=== PATIENT | female | born 1940 | race Caucasian/White ===

== ENCOUNTER → 2024-02-24 09:03 | Outpatient (REF) | payer MEDICARE, OTHER, SELFPAY ==
[2024-02-24 10:18] LABS: % Basophils 1.3 % (0-2); % Eosinophils 4.5 % (0-6); % Immature Granulocytes 0.3 % (0-0.5); % Monocytes 9.3 % (1.7-9.3); % Neutrophils 54.6 % (42.2-75.2); Absolute Basophils 0.1 10^3/uL (0-0.2); Absolute Eosinophils 0.3 10^3/uL (0-0.7); Absolute Lymphocytes 1.9 10^3/uL (1.2-3.4); Absolute Monocytes 0.6 10^3/uL (0.1-0.6); Absolute Neutrophils 3.4 10^3/uL (1.4-6.5); Hematocrit 36.9 % (37.0-47.0); Hemoglobin 12.8 g/dL (12.0-16.0); Mean Corp Hgb Conc. 34.7 g/dL (33.0-37.0); Mean Corpuscular Hgb 32.2 pg (27.0-31.0); Mean Corpuscular Volume 92.7 fL (81.0-99.0); Mean Platelet Volume 9.1 fL (7.4-10.4); Nucleated Red Blood Cells % 0 %; Platelet Count 327 10^3/uL (130-400); Red Blood Cell Count 3.98 10^6/uL (4.20-5.40); Red Cell Dist. Width 13.2 % (11.5-14.5); White Blood Cell Count 6.3 10^3/uL (4.8-10.8)
[2024-02-24 11:04] LABS: ALT (SGPT) 17 U/L (0-35); AST (SGOT) 28 U/L (14-36); Albumin 4.4 g/dl (3.5-5.0); Alkaline Phosphatase 69 U/L (38-126); Blood Urea Nitrogen 16 mg/dl (7-17); Calcium 9.4 mg/dl (8.4-10.2); Carbon Dioxide 26 mmol/L (22-30); Chloride 103 mmol/L (98-107); Glucose 88 mg/dl (70-99); HDL Cholesterol 79 mg/dl; LDL Cholesterol, Calculated 135 mg/dl; Potassium 4.8 mmol/L (3.5-5.1); Sodium 136 mmol/L (135-145); Total Bilirubin 0.5 mg/dl (0.2-1.3); Total Cholesterol 232 mg/dl (50-199); Total Protein 6.7 g/dl (6.3-8.2); Triglyceride 94 mg/dl (10-149); Very Low Density Lipoprotein 18 mg/dl (0-30); eGFR > 60.00
[2024-02-24 11:28] LABS: TSH 1.48 uIU/ml (0.47-4.68)
== END ==
LOC: REG 09:03
PROVIDERS: ATTENDING PHYSICIAN Family Medicine; REFERRING PHYSICIAN Internal Medicine Endocrinology, Diabetes & Metabolism
DX: I25.10 Atherosclerotic heart disease of native coronary artery without angina pectoris (principal); E03.9 Hypothyroidism, unspecified; I10 Essential (primary) hypertension
CPT/HCPCS: 36415; 80053; 80061; 84443; 85025

== ENCOUNTER → 2024-06-15 09:57 | Outpatient (REF) | payer MEDICARE, OTHER, SELFPAY ==
[2024-06-15 11:07] LABS: ALT (SGPT) 21 U/L (0-35); AST (SGOT) 25 U/L (14-36); Albumin 4.6 g/dl (3.5-5.0); Alkaline Phosphatase 62 U/L (38-126); Blood Urea Nitrogen 15 mg/dl (7-17); Calcium 9.6 mg/dl (8.4-10.2); Carbon Dioxide 22 mmol/L (22-30); Chloride 100 mmol/L (98-107); Glucose 98 mg/dl (70-99); Potassium 4.9 mmol/L (3.5-5.1); Sodium 136 mmol/L (135-145); Total Bilirubin 0.3 mg/dl (0.2-1.3); eGFR > 60.00
[2024-06-15 11:19] LABS: Vitamin D, 25-OH*** 59.5 ng/mL (30-80)
== END ==
LOC: REG 09:57
PROVIDERS: ATTENDING PHYSICIAN Internal Medicine Endocrinology, Diabetes & Metabolism; FAMILY PHYSICIAN Family Medicine
DX: E03.9 Hypothyroidism, unspecified (principal); E55.9 Vitamin D deficiency, unspecified
CPT/HCPCS: 36415; 80053; 82306; 84443

== ENCOUNTER → 2024-07-03 09:11 | Outpatient (REF) | payer MEDICARE, OTHER, SELFPAY ==
[2024-07-03 10:20] LABS: % Basophils 1.4 % (0-2); % Immature Granulocytes 0.6 % (0-0.5); % Lymphocytes 27.5 % (20.5-51.1); % Monocytes 10.8 % (1.7-9.3); % Neutrophils 51.7 % (42.2-75.2); Absolute Basophils 0.1 10^3/uL (0-0.2); Absolute Eosinophils 0.5 10^3/uL (0-0.7); Absolute Lymphocytes 1.8 10^3/uL (1.2-3.4); Absolute Monocytes 0.7 10^3/uL (0.1-0.6); Absolute Neutrophils 3.4 10^3/uL (1.4-6.5); Hematocrit 35.7 % (37.0-47.0); Hemoglobin 12.7 g/dL (12.0-16.0); Mean Corp Hgb Conc. 35.6 g/dL (33.0-37.0); Mean Corpuscular Volume 92.7 fL (81.0-99.0); Mean Platelet Volume 8.6 fL (7.4-10.4); Nucleated Red Blood Cells % 0 %; Platelet Count 355 10^3/uL (130-400); Red Blood Cell Count 3.85 10^6/uL (4.20-5.40); White Blood Cell Count 6.5 10^3/uL (4.8-10.8)
[2024-07-03 11:09] LABS: Iron 105 ug/dl (37-170)
[2024-07-03 11:36] LABS: TSH 7.04 uIU/ml (0.47-4.68)
[2024-07-03 11:41] LABS: Ferritin 35.5 ng/ml (11.1-264.0)
[2024-07-03 12:11] LABS: Folate 14.1 ng/ml (2.76-20); Vitamin B12 490 pg/ml (239-931)
== END ==
LOC: REG 09:11
PROVIDERS: ATTENDING PHYSICIAN Internal Medicine Endocrinology, Diabetes & Metabolism; FAMILY PHYSICIAN Family Medicine
DX: R53.83 Other fatigue (principal); G62.9 Polyneuropathy, unspecified; D51.9 Vitamin B12 deficiency anemia, unspecified; Z79.899 Other long term (current) drug therapy
CPT/HCPCS: 36415; 82607; 82728; 82746; 83540; 84443; 85025; 86780

== ENCOUNTER → 2024-07-10 12:53 | Outpatient (REF) | payer MEDICARE, OTHER, SELFPAY | LOC: EMG 12:53 | PROVIDERS: ATTENDING PHYSICIAN Family Medicine | DX: G62.9 Polyneuropathy, unspecified (principal); R20.0 Anesthesia of skin | CPT/HCPCS: 95886; 95911 ==

== ENCOUNTER → 2024-09-21 08:44 | Outpatient (REF) | payer MEDICARE, OTHER, SELFPAY ==
[2024-09-21 12:21] LABS: TSH < 0.02 uIU/ml (0.47-4.68)
== END ==
LOC: REG 08:44
PROVIDERS: ATTENDING PHYSICIAN Internal Medicine Endocrinology, Diabetes & Metabolism
DX: E03.9 Hypothyroidism, unspecified (principal)
CPT/HCPCS: 36415; 84443

== ENCOUNTER → 2024-10-09 09:17 | Outpatient (REF) | payer MEDICARE, OTHER, SELFPAY ==
[2024-10-09 12:23] LABS: Glycohemoglobin (HgbA1c) 5.1 % (4.0-5.6)
== END ==
LOC: REG 09:17
PROVIDERS: ATTENDING PHYSICIAN Psychiatry & Neurology Neurology; REFERRING PHYSICIAN Family Medicine
DX: G60.9 Hereditary and idiopathic neuropathy, unspecified (principal); E13.11 Other specified diabetes mellitus with ketoacidosis with coma
CPT/HCPCS: 36415; 83036; 84155; 84165

== ENCOUNTER → 2024-12-15 09:52 | Outpatient (REF) | payer MEDICARE, OTHER, SELFPAY ==
[2024-12-15 11:22] LABS: Free T4 1.41 ng/dl (0.78-2.19)
[2024-12-15 11:36] LABS: TSH < 0.02 uIU/ml (0.47-4.68)
== END ==
LOC: REG 09:52
PROVIDERS: ATTENDING PHYSICIAN Internal Medicine Endocrinology, Diabetes & Metabolism; FAMILY PHYSICIAN Family Medicine
DX: E03.9 Hypothyroidism, unspecified (principal)
CPT/HCPCS: 36415; 84439; 84443

== ENCOUNTER → 2025-03-15 09:29 | Outpatient (REF) | payer MEDICARE, OTHER, SELFPAY ==
[2025-03-15 10:47] LABS: Hematocrit 35.5 % (37.0-47.0); Hemoglobin 12.0 g/dL (12.0-16.0); Mean Corp Hgb Conc. 33.8 g/dL (33.0-37.0); Mean Corpuscular Volume 92.9 fL (81.0-99.0); Nucleated Red Blood Cells % 0 %; Platelet Count 342 10^3/uL (130-400); Red Cell Dist. Width 13.1 % (11.5-14.5)
[2025-03-15 11:47] LABS: ALT (SGPT) 17 U/L (0-35); AST (SGOT) 19 U/L (14-36); Albumin 4.2 g/dl (3.5-5.0); Alkaline Phosphatase 64 U/L (38-126); Blood Urea Nitrogen 15 mg/dl (7-17); Calcium 9.5 mg/dl (8.4-10.2); Carbon Dioxide 25 mmol/L (22-30); Chloride 106 mmol/L (98-107); Glucose 86 mg/dl (70-99); Potassium 4.7 mmol/L (3.5-5.1); Sodium 136 mmol/L (135-145); Total Protein 6.5 g/dl (6.3-8.2); eGFR > 60.00
[2025-03-15 12:12] LABS: TSH 1.26 uIU/ml (0.47-4.68)
== END ==
LOC: REG 09:29
PROVIDERS: ATTENDING PHYSICIAN Internal Medicine Endocrinology, Diabetes & Metabolism; FAMILY PHYSICIAN Family Medicine
DX: I25.10 Atherosclerotic heart disease of native coronary artery without angina pectoris (principal); K58.2 Mixed irritable bowel syndrome; K21.9 Gastro-esophageal reflux disease without esophagitis; M81.0 Age-related osteoporosis without current pathological fracture; E03.9 Hypothyroidism, unspecified; E78.5 Hyperlipidemia, unspecified
CPT/HCPCS: 36415; 80053; 84443; 85025

== ENCOUNTER → 2025-06-14 09:12 | Outpatient (REF) | payer MEDICARE, OTHER, SELFPAY ==
[2025-06-14 10:52] LABS: TSH 1.19 uIU/ml (0.47-4.68)
== END ==
LOC: REG 09:12
PROVIDERS: ATTENDING PHYSICIAN Internal Medicine Endocrinology, Diabetes & Metabolism; FAMILY PHYSICIAN Family Medicine
DX: E03.9 Hypothyroidism, unspecified (principal)
CPT/HCPCS: 36415; 84443

== ENCOUNTER 2025-08-02 21:51 | Inpatient (IN) | payer MEDICARE, OTHER, SELFPAY ==
[2025-08-02] VITALS (18 sets, daily range): BP systolic 84–132; BP diastolic 21–92; BMI 32.9
--- NOTE | 2025-08-02 17:10 | ED.GENMED ---
History of Present Illness
<Manda Moran NP - Last Filed: 08/02/25 22:34>
General
Chief Complaint: Weakness
Source: patient
Exam Limitations: none
Time Seen by Provider: 08/02/25 16:30
Nursing documentation reviewed up to this point in time: agreed with
History of Present Illness
History of Present Illness:
Patient to emergency department with complaint of extreme weakness, shaking chills, diarrhea. She states that shaking chills started on but resolved on Saturday. This weekend she developed diarrhea. Since then her weakness and diarrhea
have worsened. Today she was unable to stand on her own. She was brought to the emergency department by her family for evaluation. She complains of diffuse abdominal pain. No prior history of same.
Past History
<Manda Moran NP - Last Filed: 08/02/25 22:34>
Past History
ED Past Medical History: CAD and Other
ED Past Surgical History: Other (Rectal prolapse repair)
Social History
Tobacco: Non-smoker
Alcohol: None
Drug: None
Personal:
Living: with family
Employment: Retired
Family History
Family History: Other (Noncontributory)
Review of Systems
<Manda Moran NP - Last Filed: 08/02/25 22:34>
Review of Systems
Allergies reviewed?: Yes
All Other Systems: ROS reviewed and negative except as documented in HPI and ROS
Constitutional: Reports fatigue and chills
EENT: Reports no symptoms
Respiratory: Reports no symptoms
Cardiac: Reports no symptoms
ABD/GI: Reports abdominal pain (Diffuse) and diarrhea
: Reports no symptoms
Musculoskeletal: Reports no symptoms
Skin: Reports no symptoms
Neurological: Reports weakness
Psychiatric: Reports no symptoms
Phy Exam
<Manda Moran NP - Last Filed: 08/02/25 22:34>
General Physical Exam
General Presentation: moderate distress
General age: appears stated age
General Skin: warm and dry
General Habitus: normal
General Mental: alert
Cardiovascular Exam
Cardiovascular Exam: regular rate/rhythm and no edema
Pulmonary Exam
Pulmonary Exam: lungs clear and no respiratory distress
Gastrointestinal Exam
Gastrointestinal Exam: normal bowel sounds, soft, no organomegaly, no pulsatile mass and non distended
Musculoskeletal Exam
Musculoskeletal Exam: full ROM and neuro vasc intact
Skin Exam
Skin Exam: normal color, warm/dry and no rash
Psychiatric Exam
Psychiatric Exam: normal mood/affect
Course
<Manda Moran POLITICAL SCIENCE RESEARCH ASSISTANT - Last Filed: 08/02/25 22:34>
Orders/Labs/Results
Orders:
Orders
08/02/25 16:18
Electrocardiogram (*1) Urgent
Reason for Study: Other
Other Reason for Exam: Possible Sepsis
Cardiac Monitoring- Treatment ONCE
IV Insert/Care/Rem.- Treatment PRN
08/02/25 16:19
EKG- Treatment ONCE
08/02/25 16:31
Complete Blood Count/With Diff Urgent
Comprehensive Metabolic Panel Urgent
08/02/25 17:33
COVID-19 Antigen Urgent
Source: Nasal Swab
Influenza A+B Rapid Molecular Urgent
FRITZ Source: Nasal Swab
Specimen Description:
08/02/25 18:07
CT Abd/pel Without Iv Or Oral Urgent
Comment:
Reason For Exam: pain, diarrhea
08/02/25 18:20
Lactic Acid Urgent
Blood Culture Urgent
FRITZ Source: Blood/Venous
Specimen Description:
08/02/25 18:21
Norovirus by PCR Urgent
FRITZ Source: ST
Specimen Description:
Date Specimen was Collected: 08/02/25
Time Specimen was Collected: 18:19
Comment: Norovirus add on per Bret Fernandez, DO
STOOL [C difficile Antigen & Toxins] Urgent
FRITZ Source: Feces/Stool
Specimen Description:
Date Specimen was Collected: 08/02/25
Time Specimen was Collected: 18:19
Stool Culture Urgent
FRITZ Source: Feces/Stool
Specimen Description:
Date Specimen was Collected: 08/02/25
Time Specimen was Collected: 18:19
08/02/25 19:08
Add On - Microbiology Urgent
Comments:: Noro Virus Stool
Tests Added?: Noro Virus Stool
08/02/25 19:26
Vancomycin HCl [Firvanq] 500 mg PO NOW STA
08/02/25 19:51
Vancomycin HCl [Firvanq] 500 mg PO NOW STA
08/02/25 20:55
Admit/Transfer Patient As Directed
Co-Sign Provider:
Level of Care: Inpatient admission
Assign to:: Telemetry
Physician / Group: Noe Crooks
Diagnosis: sepsis, c.diff, FAVIAN, hyperkalemia, hyponatremia,
Reason for Telemetry: Arrhythmia
Date to Stop Telemetry: 08/05/25
Time to Stop Telemetry: 11:00
Reason for Hospitalization: sepsis, c.diff, FAVIAN, hyperkalemia, hyponatremia,
Expected length of stay greater than two midnights?: Yes
ELOS- Estimated Length of Stay in days: 3
I certify the patient meets the requirements for IP care: Yes
PRN Pain Medication Management As Directed
May give lesser potent ordered pain med per pt: Yes
preference::
Protocol:: Medication orders for pain may be administered in a
manner that supports deferring to patient preference
when the pt is:
- Requesting an ordered lesser potent pain medication.
Least to most potent pain medications are defined
as: acetaminophen < NSAID < tramadol < opioids
(morphine, oxycodone, hydromorphone).
- Requesting a lesser dose of the same medication IF
ORDERED.
- Requesting a less intrusive route of administration
if both routes are prescribed by the provider (PO <
IV).
08/02/25 20:57
Code Status As Directed
Resuscitation Status: Full Code
08/02/25 21:41
0.9% Sodium Chloride 1000 ml [Nss] 1,000 ml IV 100 mls/hr
08/02/25 22:00
BMP [Basic Metabolic Panel] Urgent
08/02/25 22:02
Acetaminophen [Tylenol] 650 mg PO Q4HPRN PRN
Ondansetron Injectable [Zofran] 4 mg IV Q6HPRN PRN
08/02/25 22:02
Activity As Directed
Activity Level: As Tolerated
Vital Signs As Directed
Frequency: Per unit guidelines
Weight As Directed
Frequency: Once
Comment: on admission
Pulse Ox/spot Check [RESP] Routine
Quantity: 1
DX Deep Vein Thrombosis Video Routine
08/02/25 22:20
Lactic Acid Routine
08/02/25 23:00
Gabapentin [Neurontin] 400 mg PO HS
Latanoprost [Xalatan Ophthalmic Solution] See Dose Instructions BOTH EYES HS
08/03/25 00:00
Heparin 5,000 units SC Q8
MetroNIDAZOLE 500 MG/100 ML [Flagyl 500 mg] 100 ml IV Q8H
08/03/25 Breakfast
Regular
At Your Request: Full Participation
Basic Metabolic Panel IN AM
Complete Blood Count/No Diff IN AM
Levothyroxine [Synthroid] 88 mcg PO DAILY @ 0600
Vancomycin HCl [Firvanq] 500 mg PO Q6
08/03/25 08:00
Aspirin Low Dose EC [Aspir Low (Enteric Coated)] 81 mg PO DAILY
Pantoprazole [Protonix] 40 mg PO DAILY
Valsartan [Diovan] 80 mg PO DAILY
08/05/25 11:00
DC Protocol for Telemetry ONCE
Abnormal Lab Results
08/02/25 08/02/25
16:31 18:20
WBC 29.5 H 10^3/uL
(4.8-10.8)
Abs Immat Gran (auto) 1.9 H 10^3/uL
(0-0.05)
Absolute Neuts (auto) 24.6 H 10^3/uL
(1.4-6.5)
Absolute Lymphs (auto) 0.9 L 10^3/uL
(1.2-3.4)
Absolute Monos (auto) 2.2 H 10^3/uL
(0.1-0.6)
Immature Gran % 6.3 H %
(0-0.5)
Neutrophils % 83.2 H %
(42.2-75.2)
Lymphocytes % 2.9 L %
(20.5-51.1)
Sodium 119 L* mmol/L
(135-145)
Potassium 5.8 H mmol/L
(3.5-5.1)
Chloride 92 L mmol/L
(98-107)
Carbon Dioxide 15 L mmol/L
(22-30)
BUN 49 H mg/dl
(7-17)
Creatinine 1.8 H mg/dL
(0.6-1.0)
Lactic Acid 3.5 H mmol/L
(0.7-2.0)
AST 155 H U/L
(14-36)
ALT 52 H U/L
(0-35)
Total Protein 5.7 L g/dl
(6.3-8.2)
Albumin 3.1 L g/dl
(3.5-5.0)
08/02/25 16:31
08/02/25 16:31
Vital Signs
Initial and Last Documented VS:
Initial Vital Signs
Pulse Resp BP Pulse Ox
61 18 118/46 94
08/02/25 16:47 08/02/25 16:47 08/02/25 16:47 08/02/25 16:47
Last Documented Vital Signs
Pulse Resp BP Pulse Ox
49 13 88/56 96
08/02/25 21:45 08/02/25 21:45 08/02/25 21:37 08/02/25 21:37
<Bret Fernandez, DO - Last Filed: 08/02/25 20:01>
Orders/Labs/Results
Orders:
Orders
08/02/25 16:18
Electrocardiogram (*1) Urgent
Reason for Study: Other
Other Reason for Exam: Possible Sepsis
Cardiac Monitoring- Treatment ONCE
IV Insert/Care/Rem.- Treatment PRN
08/02/25 16:19
EKG- Treatment ONCE
08/02/25 16:31
Complete Blood Count/With Diff Urgent
Comprehensive Metabolic Panel Urgent
08/02/25 17:33
COVID-19 Antigen Urgent
Source: Nasal Swab
Influenza A+B Rapid Molecular Urgent
FRITZ Source: Nasal Swab
Specimen Description:
08/02/25 18:07
CT Abd/pel Without Iv Or Oral Urgent
Comment:
Reason For Exam: pain, diarrhea
08/02/25 18:20
Lactic Acid Urgent
Blood Culture Urgent
FRITZ Source: Blood/Venous
Specimen Description:
08/02/25 18:21
Norovirus by PCR Urgent
FRITZ Source: ST
Specimen Description:
Date Specimen was Collected: 08/02/25
Time Specimen was Collected: 18:19
Comment: Norovirus add on per Bret Fernandez, DO
STOOL [C difficile Antigen & Toxins] Urgent
FRITZ Source: Feces/Stool
Specimen Description:
Date Specimen was Collected: 08/02/25
Time Specimen was Collected: 18:19
Stool Culture Urgent
FRITZ Source: Feces/Stool
Specimen Description:
Date Specimen was Collected: 08/02/25
Time Specimen was Collected: 18:19
08/02/25 19:08
Add On - Microbiology Urgent
Comments:: Noro Virus Stool
Tests Added?: Noro Virus Stool
08/02/25 19:26
Vancomycin HCl [Firvanq] 500 mg PO NOW STA
08/02/25 19:51
Vancomycin HCl [Firvanq] 500 mg PO NOW STA
08/02/25 20:55
Admit/Transfer Patient As Directed
Co-Sign Provider:
Level of Care: Inpatient admission
Assign to:: Telemetry
Physician / Group: Noe Crooks
Diagnosis: sepsis, c.diff, FAVIAN, hyperkalemia, hyponatremia,
Reason for Telemetry: Arrhythmia
Date to Stop Telemetry: 08/05/25
Time to Stop Telemetry: 11:00
Reason for Hospitalization: sepsis, c.diff, FAVIAN, hyperkalemia, hyponatremia,
Expected length of stay greater than two midnights?: Yes
ELOS- Estimated Length of Stay in days: 3
I certify the patient meets the requirements for IP care: Yes
PRN Pain Medication Management As Directed
May give lesser potent ordered pain med per pt: Yes
preference::
Protocol:: Medication orders for pain may be administered in a
manner that supports deferring to patient preference
when the pt is:
- Requesting an ordered lesser potent pain medication.
Least to most potent pain medications are defined
as: acetaminophen < NSAID < tramadol < opioids
(morphine, oxycodone, hydromorphone).
- Requesting a lesser dose of the same medication IF
ORDERED.
- Requesting a less intrusive route of administration
if both routes are prescribed by the provider (PO <
IV).
08/02/25 20:57
Code Status As Directed
Resuscitation Status: Full Code
08/02/25 21:41
0.9% Sodium Chloride 1000 ml [Nss] 1,000 ml IV 100 mls/hr
08/02/25 22:00
BMP [Basic Metabolic Panel] Urgent
08/02/25 22:02
Acetaminophen [Tylenol] 650 mg PO Q4HPRN PRN
Ondansetron Injectable [Zofran] 4 mg IV Q6HPRN PRN
08/02/25 22:02
Activity As Directed
Activity Level: As Tolerated
Vital Signs As Directed
Frequency: Per unit guidelines
Weight As Directed
Frequency: Once
Comment: on admission
Pulse Ox/spot Check [RESP] Routine
Quantity: 1
DX Deep Vein Thrombosis Video Routine
08/02/25 22:20
Lactic Acid Routine
08/02/25 23:00
Gabapentin [Neurontin] 400 mg PO HS
Latanoprost [Xalatan Ophthalmic Solution] See Dose Instructions BOTH EYES HS
08/03/25 00:00
Heparin 5,000 units SC Q8
MetroNIDAZOLE 500 MG/100 ML [Flagyl 500 mg] 100 ml IV Q8H
08/03/25 Breakfast
Regular
At Your Request: Full Participation
Basic Metabolic Panel IN AM
Complete Blood Count/No Diff IN AM
Levothyroxine [Synthroid] 88 mcg PO DAILY @ 0600
Vancomycin HCl [Firvanq] 500 mg PO Q6
08/03/25 08:00
Aspirin Low Dose EC [Aspir Low (Enteric Coated)] 81 mg PO DAILY
Pantoprazole [Protonix] 40 mg PO DAILY
Valsartan [Diovan] 80 mg PO DAILY
08/05/25 11:00
DC Protocol for Telemetry ONCE
Abnormal Lab Results
08/02/25 08/02/25
16:31 18:20
WBC 29.5 H 10^3/uL
(4.8-10.8)
Abs Immat Gran (auto) 1.9 H 10^3/uL
(0-0.05)
Absolute Neuts (auto) 24.6 H 10^3/uL
(1.4-6.5)
Absolute Lymphs (auto) 0.9 L 10^3/uL
(1.2-3.4)
Absolute Monos (auto) 2.2 H 10^3/uL
(0.1-0.6)
Immature Gran % 6.3 H %
(0-0.5)
Neutrophils % 83.2 H %
(42.2-75.2)
Lymphocytes % 2.9 L %
(20.5-51.1)
Sodium 119 L* mmol/L
(135-145)
Potassium 5.8 H mmol/L
(3.5-5.1)
Chloride 92 L mmol/L
(98-107)
Carbon Dioxide 15 L mmol/L
(22-30)
BUN 49 H mg/dl
(7-17)
Creatinine 1.8 H mg/dL
(0.6-1.0)
Lactic Acid 3.5 H mmol/L
(0.7-2.0)
AST 155 H U/L
(14-36)
ALT 52 H U/L
(0-35)
Total Protein 5.7 L g/dl
(6.3-8.2)
Albumin 3.1 L g/dl
(3.5-5.0)
08/02/25 16:31
08/02/25 16:31
Vital Signs
Initial and Last Documented VS:
Initial Vital Signs
Pulse Resp BP Pulse Ox
61 18 118/46 94
08/02/25 16:47 08/02/25 16:47 08/02/25 16:47 08/02/25 16:47
Last Documented Vital Signs
Pulse Resp BP Pulse Ox
49 13 88/56 96
08/02/25 21:45 08/02/25 21:45 08/02/25 21:37 08/02/25 21:37
<Manda Moran NP - Last Filed: 08/02/25 22:34>
*Radiology
Radiology exam reviewed: radiology read reviewed
*Pulse Oximetry
SaO2: 94
Oxygen Mode of Delivery: Room air
Patient hypoxic: no
*Critical Care Note
Total Time (30-74mins, 75-104mins- exclusive of procedures): Not Applicable
<Manda Moran NP - Last Filed: 08/02/25 22:34>
Update Note
Update Note:
Patient to emergency department for evaluation of fever, chills, and diarrhea. Symptoms started on and have continued to worsen. Today she was unable to stand or transfer without maximum assistance from her family. She is brought to the
emergency department via EMS for her symptoms. On arrival to ED she is hypotensive. Labs reviewed. WBC 29.5, lactic is pending. Sodium of 119, potassium 5.8, BUN 49 creat 1.8. Mucous membranes extremely dry. She was given a total of 3 L normal
saline while in the ED for her extreme dehydration. Stools were sent for culture, C. difficile, and norovirus. C. difficile and norovirus are positive. She was given a dose of vancomycin 500 mg p.o. and will be admitted to the hospital service.
Case discussed with Dr. Fernandez who also evaluated this patient. He agrees with findings and plan.
ED Attending Note
<Manda Moran NP - Last Filed: 08/02/25 22:34>
-
Portions of this chart may have been created with voice recognition software.� Occasional wrong word or��sound alike� substitutions may have occurred due to the inherent limitations of voice recognition software.
<Bret Fernandez, - Last Filed: 08/02/25 20:01>
ED Attending Note
Patient seen and examined by attending physician: Yes
I performed a history and physical exam of patient and discussed management with resident, I reviewed resident's note and agree with documented findings and plan of care.: Yes
ED Attending Note:
I have reviewed and agree with history treatment plan by Manda Moran NP. My exam revealed
Physical Exam
General: no apparent distress, not acutely ill
Neck: supple. no meningeal signs. normal posterior pharynx
Heart: s1/s2 regular rate and rhythm, no murmur. equal radial
pulses.
HEENT: Pupils equal round reactive to light, EOMI
Lungs: no acute respiratory distress. clear bilaterally
Abdomen: normal bowel sounds. not tender. no CVAT, active diarrhea in room
Neuro: alert and oriented. no focal neurological deficits cranial nerves II through XII intact
Skin: no rash
Psychiatric: well kept. interactive and cooperative
Extremities: no edema. no calf tenderness. negative homans. good distal pulses
82-year-old female with C. difficile, norovirus and acute renal failure and hyperkalemia. Admit to hospitalist. IV fluids given. P.o. vancomycin given.
Discharge Plan
Departure
Patient Disposition: Admit
Date of Disposition: 08/02/25
Time of Disposition: 19:31
Presentation/result/management discussed w/ accepting MD/DO: Hospitalist
Patient with high blood pressure during this ER visit?: No
Condition: Fair
Covid-19: Not Applicable
Discharge Problem:
Hyponatremia, C. difficile diarrhea, Norovirus, Acute dehydration, Hypokalemia
Interventions
Interventions:
*General Assessment Last Done: 08/02/25 16:16
*Neglect/Abuse Screening Last Done: 08/02/25 16:16
*ED COVID-19 Vaccine History Last Done: 08/02/25 21:26
*ED Influenza Vaccine History Last Done: 08/02/25 21:[address]
[facility] Fall Risk Assessment Tool Last Done: 08/02/25 16:14
*Risk Screen - Suicide (C-SSRS) Last Done: 08/02/25 16:16
*Nursing Disposition Last Done: 08/02/25 21:56
ED- Cardiac Assessment Last Done: 08/02/25 21:20
ED- Neurological Assessment Last Done: 08/02/25 21:20
ED- Pulmonary Assessment Last Done: 08/02/25 21:20
Discharge Date and Time
Discharge Date/Time: 08/02/25 21:56
[2025-08-02 17:11] LABS: ALT (SGPT) 52 U/L (0-35); AST (SGOT) 155 U/L (14-36); Albumin 3.1 g/dl (3.5-5.0); Alkaline Phosphatase 114 U/L (38-126); Blood Urea Nitrogen 49 mg/dl (7-17); Calcium 8.5 mg/dl (8.4-10.2); Carbon Dioxide 15 mmol/L (22-30); Chloride 92 mmol/L (98-107); Estimated Creatinine Clearance 24 ml/min; Glucose 95 mg/dl (70-99); Potassium 5.8 mmol/L (3.5-5.1); Sodium 119 mmol/L (135-145); Total Protein 5.7 g/dl (6.3-8.2); eGFR 27.78
[2025-08-02 17:13] LABS: Hematocrit 37.4 % (37.0-47.0); Hemoglobin 12.8 g/dL (12.0-16.0); Mean Corp Hgb Conc. 34.2 g/dL (33.0-37.0); Mean Corpuscular Volume 82.7 fL (81.0-99.0); Platelet Count 352 10^3/uL (130-400); Red Cell Dist. Width 13.6 % (11.5-14.5)
[2025-08-02 17:21] LABS: Nucleated Red Blood Cells % 0 %
[2025-08-02 18:45] LABS: COVID-19 Antigen Negative (Negative)
--- NOTE | 2025-08-02 19:52 | HPS.HSE ---
Family Physician
-
Family Physician: Savana Samuel
Chief Complaint
-
generalized weakness, fever, chills, nausea and diarrhea
History of Present Illness
Patient is a 84-year-old male with past medical history significant for hypertension, hyperlipidemia, CAD, hypothyroidism, GERD and polyneuropathy who presented to [facility] ED for evaluation of generalized weakness, fever, chills, nausea and diarrhea.
Patient states that fever and chills started Saturday and has since resolved. On Saturday she reports diarrhea started and has continued with increased weakness. Weakness becoming so severe today she was unable to stand without assistance. Patient
does endorse abdominal tenderness on exam. Denies cough, shortness of breath, chest pain, vomiting or urinary symptoms.
Medical History
Past Medical History
Past Medical History: Reports Other
Additional Past Medical History:
hypertension
hyperlipidemia - Pt is intolerant of statins. Dr. Houser has recommended Repatha or Praluent but she refuses.
CAD
hypothyroidism
GERD
polyneuropathy
ischemic cardiomyopathy
Hx myocardial infarction
Past Surgical History: Reports Other
Additional Past Surgical History:
foot surgery - closed reduction L foot() 05/12/2013
Robotic TLH/BSO sacral colpopexy, TVT()- cystocele repair- 2008
eye surg (multiple) left eye 06/23/2015
Cataract extraction() bilateral-caused partial loss of vision left eye 07/02/2014
cardiac cath and angioplasty
Knee replacement L 09/2019
Rectal Prolapse 01/06/2021
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
Social History
Tobacco: Non-smoker
Alcohol: Occasional
Drug: None
Personal:
Living: With Family
Family History
Family History: Not pertinent
Allergies / Home Medications
Allergies reflects when Allergies were last updated in [employer] [facility].
Home Medications with original date entered in [employer] [facility]
Allergy/Medication List:
Allergies
Allergy/AdvReac Type Severity Reaction Status Date / Time
erythromycin base Allergy GI Issues Verified 06/10/21 12:23
Penicillins Allergy Unknown Verified 08/02/25 16:32
Uaxmwlq-XFH-RwK Reductase Allergy Unknown Verified 06/10/21 12:23
Inhibitor (Xqwtpta-Kdf-Kpm
Reductase Inhibitor)
ANESTHESIA AdvReac Unknown Uncoded 06/10/21 12:23
Home Medications
turmeric root extract 500 mg capsule 500 mg PO DAILY Supplement ##0 09/07/19
acetaminophen 500 mg tablet 1,000 mg PO TIDPRN PRN mild pain 01/04/21
aspirin 81 mg tablet,delayed release 81 mg PO DAILY Blood clot prevention/tx 01/04/21
docosahexaenoic acid (dha)-epa 120 mg-180 mg capsule (Fish Oil) 1 cap PO BID Supplement 01/04/21
esomeprazole magnesium 40 mg capsule,delayed release (Nexium) 40 mg PO DAILY Gastrointestinal issue 01/04/21
gabapentin 100 mg capsule 400 mg PO HS Neurological Condition 06/10/21
multivitamin with folic acid 400 mcg tablet (Tab-A-Chase) 1 tab PO DAILY supplement 06/10/21
valsartan 80 mg tablet 80 mg PO DAILY Blood pressure 06/11/21
enid root extract 15 mg chewable tablet 50 mg PO DAILY Supplement 08/02/25
latanoprost (PF) 0.005 % eye drops in a dropperette (Iyuzeh (PF)) 1 drp BOTH EYES HS Eye Condition 08/02/25
levothyroxine 88 mcg tablet (Synthroid) 88 mcg PO DAILY Thyroid 08/02/25
lysine 500 mg tablet 500 mg PO DAILY Supplement 08/02/25
Review of Systems
-
History Source: Patient
Constitutional: Reports Fever, Fatigue and Chills
EENT: Denies Sore Throat
Respiratory: Denies Cough, Hemoptysis or Trouble Breathing
Cardiac: Denies Chest Pain, Diaphoresis, Palpitations or Syncope
Abdomen/GI: Reports Abdominal Pain, Nausea and Diarrhea; Denies Vomiting
: Denies Dysuria, Frequency or Urgency
Musculoskeletal: Denies Joint Pain
Skin: Denies Rash
Neurological: Reports Weakness; Denies Dizzy, Headache or Numbness
Physical Exam
Vital Signs
Vital Signs
Pulse Resp BP Pulse Ox
80 13 132/44 74
08/02/25 19:30 08/02/25 19:30 08/02/25 19:00 08/02/25 17:45
Physical Exam
General: Well Developed, Well Nourished, No Apparent Distress, Conversant and Obese
HEENT: NormoCephalic, PERRLA, Nose Appears Normal and Ears Appear Normal
Respiratory: Clear and Non Labored Respirations; No Wheezes, Rales or Rhonchi
Cardiac: S1/S2 and Regular Rhythm; No Murmur, Rub, Gallop or Peripheral Edema
GI: Soft, Non Distended, Normal Bowel Sounds and Tender
Musculoskeletal: No Clubbing and No Cyanosis
Skin: Warm and IV/Catheter Site; No Rash
Neuro: Awake and Alert
Psych: Calm
Laboratory Results
-
08/02/25 16:31
08/02/25 16:31
Laboratory Results
Lactic Acid 3.5 mmol/L (0.7-2.0) H 08/02/25 18:20
Total Bilirubin 1.1 mg/dl (0.2-1.3) 08/02/25 16:31
AST 155 U/L (14-36) H 08/02/25 16:31
ALT 52 U/L (0-35) H 08/02/25 16:31
Alkaline Phosphatase 114 U/L (38-126) 08/02/25 16:31
Data Reviewed
-
Medical Tests (Nuc Med, Echo, EKG etc): Report Reviewed by me (EKG: SINUS BRADYCARDIA WITH 1ST DEGREE A-V BLOCK LEFT BUNDLE BRANCH BLOCK)
Lab Data: Labs Reviewed by me (WBC 29.5, Neut 83.2, Na 119, K 5.8, chloride 92, CO2 15, BUN 49, creat 1.8, est CrCl 24, eGFR 27.78, Lactic 3.5, AST 155, ALT 52)
Impression/Plan
-
IMPRESSION/PLAN:
#sepsis 2/2 C. Diff
generalized weakness, fever, chills, nausea and diarrhea
WBC 29.5, Neut 83.2, chloride 92, CO2 15, Lactic 3.5, AST 155, ALT 52
Covid: negative
Influenza: negative
C. Diff: Positive
Norovirus: pending
EKG: SINUS BRADYCARDIA WITH 1ST DEGREE A-V BLOCK
LEFT BUNDLE BRANCH BLOCK
- Admit to telemetry
- PO Vanco 500mg QID
- IV metronidazole 500mg q8
- IVF NSS 100cc/hr
- supportive care
#hyponatremia
Na+ 119
likely from acute volume loss with recurrent diarrhea
- IVF NSS 100cc/hr
- monitor BMP
#hyperkalemia
K+ 5.8
likely from acute volume loss with recurrent diarrhea and FAVIAN
- IVF NSS 100cc/hr
- monitor BMP
#acute kidney injury
BUN 49, creat 1.8, est CrCl 24, eGFR 27.78
likely dehydration
- IVF NSS 100cc/hr
- monitor BMP
#hypertension
- continue valsartan
#CAD
- continue aspirin
#hypothyroidism
- continue levothyroxine
#GERD
- continue esomeprazole
#Polyneuropathy
- continue gabapentin
#hyperlipidemia
Pt is intolerant of statins. Dr. Houser has recommended Repatha or Praluent but she refuses.
Code status: full code
DVY prophylaxis: heparin sq
[2025-08-02] MEDS: FIRVANQ 500 MG PO (20:40)
--- NOTE | 2025-08-02 20:55 | EDRN ---
Per change of shift nurse report, this pt received 2L NS IVF during previous shift.
[2025-08-02] MEDS: NSS 1000 IV (21:43)
--- NOTE | 2025-08-02 22:37 | W.PN.UPDATE ---
Update Note
Progress Note Update
Attending note
patient seen independently
84-year-old man with past medical history significant for
hypertension,
hyperlipidemia,
CAD,
hypothyroidism,
GERD
polyneuropathy
presents with generalized weakness, fever, chills, nausea and diarrhea. Fever and chills started Saturday and has since resolved. On Saturday diarrhea started and has continued with increased weakness. Weakness becoming severe today and she was unable
to stand without assistance. +abdominal tenderness on exam. Denies cough, shortness of breath, chest pain, vomiting or urinary symptoms.
Past Medical History
hypertension
hyperlipidemia - Pt is intolerant of statins. Dr. Houser has recommended Repatha or Praluent but she refuses.
CAD
hypothyroidism
GERD
polyneuropathy
ischemic cardiomyopathy
Hx myocardial infarction
Past Surgical History: Reports Other
Additional Past Surgical History:
foot surgery - closed reduction L foot() 05/12/2013
Robotic TLH/BSO sacral colpopexy, TVT()- cystocele repair- 2008
eye surg (multiple) left eye 06/23/2015
Cataract extraction() bilateral-caused partial loss of vision left eye 07/02/2014
cardiac cath and angioplasty
Knee replacement L 09/2019
Rectal Prolapse 01/06/2021
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
Physical Exam
General: Well Developed,
HEENT: NormoCephalic,
Respiratory: Clear
Cardiac: S1/S2
GI: Soft,
Psych: Calm
IMPRESSION/PLAN:
1. sepsis 2/2 C. Diff
Covid: negative
Influenza: negative
C. Diff: Positive
Norovirus: pending
- PO Vanco 500mg QID
- IV metronidazole 500mg q8
- IVF NSS 100cc/hr
2. hyponatremia - Na+ 119, hypovolemic hyponatremia
likely from acute volume loss with recurrent diarrhea
- IVF NSS 100cc/hr
Please see REFRIGERATION OPERATOR note for full details on:
hyperkalemia
acute kidney injury
hypertension
CAD
hypothyroidism
GERD
Polyneuropathy
hyperlipidemia
Code status: full code
DVT prophylaxis: heparin sq
[2025-08-02] MEDS: XALATAN OPHTHALMIC SOLUTION 1 DROP BOTH EYES (23:20)
[2025-08-02] MEDS: NEURONTIN 400 MG PO (23:20)
[2025-08-02] MEDS: FLAGYL 500 MG 100 IV (23:21)
[2025-08-02] MEDS: HEPARIN 5000 UNITS SC (23:21)
[2025-08-03] VITALS (18 sets, daily range): BP systolic 89–155; BP diastolic 31–57
[2025-08-03] MEDS: FIRVANQ 500 MG PO (05:49)
[2025-08-03] MEDS: SYNTHROID 88 MCG PO (05:49)
[2025-08-03] MEDS: NSS 500 IV (06:22)
--- NOTE | 2025-08-03 07:14 | W.PN.HOSP.TC ---
Addendum entered and electronically signed by Gaviota Villareal MD 08/03/25 15:21:
I saw and evaluated the patient independently. I reviewed and discussed the resident�s note and agree with findings and plan as documented by Dr. Wynn.
GENERAL: acutely ill appearing female minimally responsive
HEENT: NC/AT--O2 NC
HEART: regular rate and rhythm, +S1, +S2, bradycardia
LUNGS : clear to auscultation bilaterally
ABDOM: soft, tender diffusely without guarding or rebound, nondistended, + bowel sounds
EXT: no cyanosis, clubbing, or edema
NEUROLOGIC: minimally responsive
: st cath for 1700mls
called by RN this AM to eval if pt is appropriate for the 4th floor --- arrived to find patient as described above--agree with transfer to IMU
Sepsis with evidence of end organ damage of lactic acidosis, encephalopathy, acute kidney injury with toxigenic C. Diff as the cause --CT scan without oral or IV contrast shows severe colitis--agree with transferring pt to IMU--giving IVF and
repeating labs--worsening acidosis and favor changing IVF to include bicarb from NSS--blood pressure responsive to IVF--cont IV metronidazole--not sure pt can take oral vanco--consult ID and renal
Severe hyponatremia --likely due to hypovolemia from GI losses--119 on admission--was getting NSS IVF but now needs bicarb added--would consult renal and do Q4H BMPs --check urine and serum osmolality, serum cortisol and TSH--with low sodium and
high potassium and relative hypotension, adrenal insufficiency must be considered--random cortisol 55 essentially rules that out
Lethargy/weakness also likely compounded by hypotension and volume loss/dehydration, Hyponatremia, sepsis
Acute urinary retention--bladder distention on CT --st cath for 1700mls--order samaniego cath
Hyperkalemia likely multifactorial from hypovolemia and diarrhea, urinary retention, valsartan--medical treatment of high potassium--no dialysis
FAVIAN-- improving, likely prerenal--cont IVF and trend--slow improvement--apprec renal
Bradycardia/PVCs--follow as electrolytes are corrected--check magnesium
Essential HTN -HOLD home valsartan
HLD - 'Pt is intolerant of statins. Dr. Houser has recommended [id number] but she refuses.'
CAD - continue home aspirin as able
Hypothyroidism - continue home levothyroxine as able
GERD - change to IV PPI
Polyneuropathy - continue home gabapentin as able
DVT proph -- subq heparin
Code status-- full
Total Critical Care Time 35 minutes. I was immediately available to the patient and staff. I personally examined, reviewed labs, diagnostic images/reports, interpretations, treatment plans, discussed patient care with other providers and family
or caregivers (if patient is unable to make decisions), entered orders as appropriate and documented the medical record.
Original Note:
Today's Communication/Plan
-
- Transfer to IMU
- Renal consulted, appreciate recs
- Pending urine osm, urine na, serum osm, tsh w reflex, cortisol
- Continue vancomycin & metronidazole
- IVF
- Repeat EKG
- Place samaniego catheter
Assessment / Plan
Assessment / Plan
84yo M with a hx of essential HTN, HLD, CAD, hypothyroidism, GERD, & polyneuropathy who p/w generalized weakness, fever/chills, nausea, & diarrhea, found to have sepsis 2/2 positive c diff diarrhea with evidence of end-organ damage.
#Sepsis in s/o c diff diarrhea with end organ damage
#Lactic acidosis, improving
#AMS, weakness, lethargy
Labs on admission 08/02 - WBC 29.5, Cl 92, CO2 15, lactic acid 3.5, AST 155, ALT 52. Diarrhea since 07/31 with fever/chills resolved by time of admission. CT a/p with evidence of severe colitis. C diff stool antigen positive. Covid, flu, norovirus
negative. F/c, nausea, weakness, electrolyte abnormalities all likely 2/2 c diff & associated volume loss/sepsis. Lactic acidosis unlikely 2/2 bowel ischemia given degree of acidosis, BP responsiveness to IVF bolus, and lack of overt abd pain.
Today - lactate downtrending to 2.8; bicarb decreased 15 to 10 (likely 2/2 acidity of NSS); WBC 30.3; afebrile, normotensive s/p 500cc NSS bolus in early am; worsening mental status this am
- Transfer to IMU
- Continue PO Vanco 500mg QID
- Continue IV metronidazole 500mg q8hr
- Check urine sodium & osm, serum osm, serum cortisol, TSH w reflex
- IVF NSS 100cc/hr, consider sterile water + bicarb (pending renal recs)
- Renal consult, appreciate recs
#Severe hyponatremia
Na+ 119 on admission, likely 2/2 hypovolemic hyponatremia in s/o volume loss w ongoing diarrhea. AMS, difficult to arouse likely 2/2 severe hyponatremia. Received NSS on admission but not hypertonic. Lethargy/weakness also likely compounded by
hypotension and volume loss/dehydration. Hyponatremia may also be due to SIADH given pain/AMS or adrenal insuff given initial presentation w hypotension & hyperK.
- IVF NSS 100cc/hr
- Renal consult, appreciate recs
- Continue to trend BMP q4h r
#Acute urinary retention
Per RN, pt retaining 1700 in bladder on 08/03 at 12:30pm. CT a/p 08/02: 'Moderately distended urinary bladder. There is mild prominence of the bilateral collecting systems which is unchanged from prior.' Likely contributor to FAVIAN. Uncertain etiology
if obstruction vs. functional/muscular retention.
- Samaniego catheter
- Trend I&Os
- Renal consult, appreciate recs
#Hyperkalemia
K 5.8 on admission, likely 2/2 high-volume diarrhea. Likely 2/2 ongoing valsartan use in s/o volume loss vs. adrenal insufficiency vs. RTA.
Today - K increased 6.1 s/p NSS
- Continue to monitor
- F/u blood cortisol level
- EKG
- Continue to trend BMP q4h r
#FAVIAN, improving, likely prerenal
Cr 1.8, BUN 49, eGFR 27.78 on admission, likely prerenal in s/o volume loss 2/2 c diff diarrhea. BUN/Cr ratio 27, c/w prerenal. Potential component of obstruction, although no evidence of overt physical obstruction on CT.
Today - Cr improved 1.5 s/p fluids
- IVF NSS 100cc/hr
- Continue to monitor
#Bradycardia
#PVCs
HR 40-55 over last 24hr, ranging up to 70-80s prior. EKG on admission demonstrated sinus trung with 1st degree AV block and LBBB. RN noted PVCs on admission to IMU.
- Continue to monitor on tele
- Obtain repeat EKG
#Chronic
#Essential HTN - continue home valsartan
#HLD - 'Pt is intolerant of statins. Dr. Houser has recommended [id number] but she refuses.'
#CAD - continue home aspirin
#Hypothyroidism - continue home levothyroxine
#GERD - continue home esomeprazole
#Polyneuropathy - continue home gabapentin
#Global
- DVT ppx: subq heparin
- Code: full
- Diet: regular
- Dispo: lives at home with partner, dispo planning pending stabilization of clinical status
Anticipated Discharge: > 48 hours
Subjective/Interval History
-
Date of Service: August 03, 2025
This am:
'~� 6:15 Called to see patient for increased lethargy. Patient does wake to verbal stimuli, Vital signs: BP 88/57, HR 47, 95% on 1LNC. Accucheck 88.� Patient answers questions appropriately, OX3, no complaints of pain, headache, dizziness, or
palpitations.
Ordered NSS 500 ml/hr bolus for hypotension'
When pt seen ~8am - lethargic, able to state that she is at but unable to answer name or date. Difficult to arouse. Not opening eyes. Mumbling speech. BP increased to 129/80s s/p bolus. Planning to transfer to IMU.
Objective Data
-
Labs:
Laboratory Results
08/02/25 08/03/25 08/03/25
22:00 03:55 05:57
WBC Cancelled Cancelled
Hgb Cancelled Cancelled
Hct Cancelled Cancelled
Plt Count Cancelled Cancelled
Sodium Cancelled Cancelled Cancelled
Potassium Cancelled Cancelled Cancelled
Chloride Cancelled Cancelled Cancelled
Carbon Dioxide Cancelled Cancelled Cancelled
BUN Cancelled Cancelled Cancelled
Creatinine Cancelled Cancelled Cancelled
Glucose Cancelled Cancelled Cancelled
Calcium Cancelled Cancelled Cancelled
08/03/25 08/03/25
06:45 07:13
WBC Pending
Hgb Pending
Hct Pending
Plt Count Pending
Sodium Pending
Potassium Pending
Chloride Pending
Carbon Dioxide Pending
BUN Pending
Creatinine Pending
Glucose Pending
Calcium Pending
Vital Signs:
Vital Signs
Temp Pulse Resp BP Pulse Ox
97.5 F 46 16 89/57 95
08/03/25 03:00 08/03/25 06:15 08/03/25 06:15 08/03/25 06:15 08/03/25 06:15
Review of Systems
-
Unable to obtain full review of systems at this time due to: Acuity (patient essentially non-verbal, altered, lethargic)
History Source: Patient
All other systems: Not reviewed unless documented
Physical Exam
-
General: Well Developed, Appears in Distress and Slurred Speech
HEENT: Normocephalic and Atraumatic
Respiratory: Clear to Auscultation and Non Labored Respirations
Cardiac: Regular Rhythm
GI: Soft, Nondistended and Tender (slight tenderness to palpation in LLQ )
Musculoskeletal: No Edema
Skin: Warm and Dry
Neuro: Slurred Speech
Psych: Other (AMS)
Data Reviewed
-
Total Time Spent with Patient (in minutes): 15
Critical Care Time (in minutes): 60
CT Scan: Image personally visualized and interpreted and Report Reviewed by me
Labs: Labs Reviewed by me and Discussed with Physician
--- NOTE | 2025-08-03 07:24 | W.PN.UPDATE ---
Update Note
Progress Note Update
~� 6:15 Called to see patient for increased lethargy. Patient does wake to verbal stimuli, Vital signs: BP 88/57, HR 47, 95% on 1LNC. Accucheck 88.� Patient answers questions appropriately, OX3, no complaints of pain, headache, dizziness, or
palpiations.
Ordered NSS 500 ml/hr bolus for hypotension
[2025-08-03 07:53] LABS: Glucose - Point of Care 88 mg/dl (70-99)
--- NOTE | 2025-08-03 08:03 | PTCARENOTE ---
patient is extremely lethargic and hypotensive, barely able to speak. patient is receiving a 500 ml bolus now, from the financial secretary. still waiting her AM labs. this RN messaged Dr. Villareal with concern in regard to patient not being medically
appropriate for medsurg/tele level of care. when labs result, this RN will notify MD.
[2025-08-03] MEDS: NSS 1000 IV (09:44)
[2025-08-03] MEDS: DIOVAN PO ×2 (09:45→10:06)
[2025-08-03] MEDS: HEPARIN 5000 UNITS SC ×2 (09:46→16:37)
[2025-08-03] MEDS: FLAGYL 500 MG 100 IV ×2 (09:47→16:37)
[2025-08-03 11:54] LABS: Hematocrit 32.4 % (37.0-47.0); Hemoglobin 11.3 g/dL (12.0-16.0); Mean Corp Hgb Conc. 34.9 g/dL (33.0-37.0); Mean Corpuscular Volume 81.6 fL (81.0-99.0); Platelet Count 288 10^3/uL (130-400); Red Cell Dist. Width 13.7 % (11.5-14.5)
[2025-08-03 11:59] LABS: ALT (SGPT) 42 U/L (0-35); AST (SGOT) 65 U/L (14-36); Albumin 2.2 g/dl (3.5-5.0); Alkaline Phosphatase 118 U/L (38-126); Blood Urea Nitrogen 55 mg/dl (7-17); Calcium 6.8 mg/dl (8.4-10.2); Carbon Dioxide 10 mmol/L (22-30); Chloride 104 mmol/L (98-107); Estimated Creatinine Clearance 28 ml/min; Glucose 85 mg/dl (70-99); Potassium 6.1 mmol/L (3.5-5.1); Sodium 122 mmol/L (135-145); Total Protein 4.6 g/dl (6.3-8.2); eGFR 34.36
--- NOTE | 2025-08-03 12:00 | TRANSFER ---
Patient transferred to IMU for higher level of care. Report called to Fredis. Patient transported in her patient bed by this RN and accompanying RN Francine. JUAN. Bradycardic on the monitor. Afebrile. Still hard to arouse and disoriented. Family updated
at the bedside.
[2025-08-03 12:29] LABS: Cortisol, Random 55.8 ug/dl
--- NOTE | 2025-08-03 12:33 | W.CON.NEPH ---
Consultation
-
Date/Time Consultation Requested: 08/03/2025 11 AM
Date/Time Consultation Performed: 08/03/2025 11:00 a.m.
Requesting Provider: Dr. Wynn
Performing Provider: Dr. Morley
Reason for Consultation: FAVIAN
Medical History
-
Chief Complaint: diarrhea
History of Present Illness:
this is an 85-year-old female who has mild hypertension controlled with monotherapy regimen with valsartan. She also has coronary artery disease with stenting in the past. She did have a history of takotsubo cardiomyopathy but reportedly has
recovered completely from this. She does have hypothyroidism controlled with Synthroid therapy. About 3 days ago she began developing severe fever and chills. This then progressed to voluminous diarrhea. Her appetite decreased and she was unable
to eat or drink much at all. She then began to become bed-bound with extreme weakness. Ultimately her family brought her to the emergency room for evaluation. She has not been febrile with leukocytosis. Testing revealed C difficile diarrhea.
She was found to have acute kidney injury with a creatinine of 1.8 and hyperkalemia at 5.8 with significant metabolic acidosis with lactic acidosis. Her sodium was also low at 119. We are asked to assist with multiple issues. Since admission she
has received over 3.5 L of saline. she is critically ill and will be transferred to the IMU.
Past Medical History
hypertension
hyperlipidemia - Pt is intolerant of statins. Dr. Houser has recommended Repatha or Praluent but she refuses.
CAD
hypothyroidism
GERD
polyneuropathy
ischemic cardiomyopathy
Hx myocardial infarction
foot surgery - closed reduction L foot() 05/12/2013
Robotic TLH/BSO sacral colpopexy, TVT()- cystocele repair- 2008
eye surg (multiple) left eye 06/23/2015
Cataract extraction() bilateral-caused partial loss of vision left eye 07/02/2014
cardiac cath and angioplasty
Knee replacement L 09/2019
Rectal Prolapse 01/06/2021
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
Social History
Tobacco: Non-Smoker
Alcohol: Occasional
Family History
Family History: Not Pertinent
Allergies / Home Medications
Allergy/AdvReac Type Severity Reaction Status Date / Time
erythromycin base Allergy GI Issues Verified 06/10/21 12:23
Penicillins Allergy Unknown Verified 08/02/25 16:32
Pixxcpj-ZDK-KlG Reductase Allergy caused Verified 08/02/25 22:10
Inhibitor (Lxmaydo-Uhx-Jiq foot
Reductase Inhibitor) neuropathy
ANESTHESIA Allergy Unknown Uncoded 08/02/25 22:10
�Medication �Instructions �Recorded �Confirmed �Type
turmeric root extract 500 mg 500 mg PO DAILY Supplement ##0 09/07/19 08/02/25 History
capsule
acetaminophen 500 mg tablet 1,000 mg PO TIDPRN PRN mild pain 01/04/21 08/02/25 History
aspirin 81 mg tablet,delayed 81 mg PO DAILY Blood clot 01/04/21 08/02/25 History
release prevention/tx
docosahexaenoic acid (dha)-epa 120 1 cap PO BID Supplement 01/04/21 08/02/25 History
mg-180 mg capsule (Fish Oil)
esomeprazole magnesium 40 mg 40 mg PO DAILY Gastrointestinal 01/04/21 08/02/25 History
capsule,delayed release (Nexium) issue
gabapentin 100 mg capsule 400 mg PO HS Neurological Condition 06/10/21 08/02/25 History
multivitamin with folic acid 400 1 tab PO DAILY supplement 06/10/21 08/02/25 History
mcg tablet (Tab-A-Chaes)
valsartan 80 mg tablet 80 mg PO DAILY Blood pressure 06/11/21 08/02/25 History
enid root extract 15 mg chewable 50 mg PO DAILY Supplement 08/02/25 08/02/25 History
tablet
latanoprost (PF) 0.005 % eye drops 1 drp BOTH EYES HS Eye Condition 08/02/25 08/02/25 History
in a dropperette ([place] (PF))
levothyroxine 88 mcg tablet 88 mcg PO DAILY Thyroid 08/02/25 08/02/25 History
(Synthroid)
lysine 500 mg tablet 500 mg PO DAILY Supplement 08/02/25 08/02/25 History
Review of Systems
-
Unable to obtain full review of systems at this time due to: Patient Non Verbal
History Source: Family
All other systems: Negative unless noted
Physical Exam
Vital Signs
Vital Signs
Temp Pulse Resp BP Pulse Ox
97.6 F 43 20 151/41 96
08/03/25 11:14 08/03/25 11:14 08/03/25 11:14 08/03/25 11:14 08/03/25 11:14
Lab Results
WBC 30.3 10^3/uL (4.8-10.8) H 08/03/25 11:15
RBC 3.97 10^6/uL (4.20-5.40) L 08/03/25 11:15
Hgb 11.3 g/dL (12.0-16.0) L 08/03/25 11:15
Hct 32.4 % (37.0-47.0) L 08/03/25 11:15
Plt Count 288 10^3/uL (130-400) 08/03/25 11:15
eGFR 34.36 08/03/25 11:15
Albumin 2.2 g/dl (3.5-5.0) L 08/03/25 11:15
CT abdomen and pelvis without contrast 08/02/2025
IMPRESSION:
There is pronounced wall thickening with adjacent stranding throughout the colon which likely represents severe colitis.
The gallbladder appears mildly distended. There are no adjacent findings suggestive of acute cholecystitis. This may be secondary to fasting state. If there is concern for acute cholecystitis consider dedicated right upper quadrant ultrasound.
Moderately distended urinary bladder. There is mild prominence of the bilateral collecting systems which is unchanged from prior.
Physical Exam
Patient is awake somnolent and in no distress. Pupils are equal round and reactive to light, extraocular movements are intact, sclera were anicteric. Hearing was normal, ears and nose are intact. Oropharynx was dry. Neck was supple with
trachea midline and no thyromegaly. Heart was regular rate and rhythm without rubs. Lower extremities without edema. Lungs were clear to auscultation bilaterally and with normal excursion. Abdomen was soft, nontender, with normal active bowel
sounds, and no hepatosplenomegaly. Skin was without rash and with normal turgor.
Data Reviewed
-
CT Scan: Report Reviewed by me
Medical Tests (Nuc Med, Echo etc): Image Personally Visualized and interpreted ( EKG 08/03/2025 by my reading sinus bradycardia left bundle branch block)
Labs: Labs Reviewed by me
Old Records: Reviewed ( creatinine on 03/15/2025 0.6)
Assessment/Plan
-
Assessment
FAVIAN
C difficile diarrhea/colitis
leukocytosis
hyperkalemia
metabolic acidosis
lactic acidosis
hyponatremia
CAD
hypocalcemia
Plan
continue volume resuscitation, switch to bicarbonate in IV fluids
replete calcium
serial BMP
check urine studies
treat potassium medically
discussed with
critical care time spent 40 minutes
[2025-08-03 13:00] LABS: Urine Character Clear (Clear)
[2025-08-03] MEDS: CALCIUM GLUCONATE 290 MG IV (13:22)
[2025-08-03] MEDS: SODIUM BICARBONATE 1150 MEQ IV ×2 (13:22→22:03)
[2025-08-03] MEDS: NOVOLIN R 0.1 UNITS IV ×2 (13:23→23:58)
[2025-08-03] MEDS: DEXTROSE 50% SYRINGE 25 GRAMS IV ×2 (13:24→23:57)
[2025-08-03 13:32] LABS: B.E. -11.2 mmol/L; O2 Saturation % 96.1 % (94-98); PCO2 25 mmHg (32-35); PO2 87 mmHg (83-108)
[2025-08-03 13:36] LABS: HCO3 13.2 mmol/L (21-28)
[2025-08-03 13:37] LABS: Glucose - Point of Care 104 mg/dl (70-99)
[2025-08-03 13:44] LABS: Urine Squamous Cell >30 /LPF (Few)
--- NOTE | 2025-08-03 14:24 | PTCARENOTE ---
received pt from 4th floor. pt very lethargic/sleeping. wakes briefly to name states name and place. falls back to sleep. moving all ext noted. pt straight cathed for urine sample pt had 1700 cc in bladder. lab results and current condition
relayed to hosp resident. orders placed. ivf and calcium rider running. insulin and dextrose given. ekg done. rectal trumpet placed for large amt of loose stool. pt and son at bedside reviewed pt condition and plan of care.
[2025-08-03 14:41] LABS: Glucose - Point of Care 121 mg/dl (70-99)
[2025-08-03] MEDS: FIRVANQ PO (15:35)
[2025-08-03 15:40] LABS: Glucose - Point of Care 77 mg/dl (70-99)
[2025-08-03] MEDS: OFIRMEV 100 IV (15:43)
--- NOTE | 2025-08-03 16:10 | CON.ID ---
Consultation
-
Date/Time Consultation Requested: August 03, 2025 1532
Date/Time Consultation Performed: August 03, 2025 1610
Requesting Provider: Dr. Ladonna Wynn
Performing Provider: Dr. Carla Tavarez
Reason for Consultation: Severe C. difficile
Chief Complaint / Past History
Chief Complaint
Weakness and diarrhea
History of Present Illness
History obtained from the patient's son at bedside since patient currently with decreased mental status. She is an 85-year-old female with IBS/constipation, hypertension, CAD, hypothyroidism, who presented to the ED yesterday due to worsening
weakness and profuse diarrhea. She started feeling unwell on Saturday with fevers and chills. She contacted her PCP who tested her for COVID which was negative. The next day she started with watery diarrhea which persisted all weekend. She was
complaining of abdominal pain. Patient was getting weaker. Finally she came to the ER yesterday. White count of 29.5. Sodium 119, potassium elevated. She was in FAVIAN. CT of the abdomen and pelvis showed pancolitis. Stool positive for C.
difficile. She was started on oral vancomycin 500 mg 4 times daily and IV metronidazole. However, patient with progressive lethargy and decreased mental status, unable to take p.o. meds. Per son, no history of C. difficile in the past. Had a
course of antibiotic for about a month in the summer for tooth abscess.
Past History
Additional Past Medical History:
Hypertension
CAD status post stent
Hypothyroidism
IBS
Neuropathy bilateral feet
Glaucoma
Rectal prolapse status post rectopexy 01/06/21
Hemorrhoid s/p banding
Appendectomy
Hysterectomy with BSO
Right knee replacement
Allergy History:
erythromycin base Allergy (Verified 06/10/21 12:23)
GI Issues
Penicillins Allergy (Verified 08/02/25 16:32)
Unknown
Wvytkgm-VHW-XcD Reductase Inhibitor (Ofrrhah-Ymx-Cpx Reductase Inhibitor) Allergy (Verified 08/02/25 22:10)
caused foot neuropathy
ANESTHESIA Allergy (Uncoded 08/02/25 22:10)
Unknown
Medications Reviewed: Yes
Current Antibiotics:
Vancomycin 500 mg p.o. 4 times daily
Vancomycin 500 mg rectally 4 times daily
Metronidazole 500 mg IV every 8 hours
Social History
Tobacco: Non-Smoker
Alcohol: None
Drug: None
Personal:
Review of Systems
Review of Systems
Unable to obtain due to decreased mental status.
Vital Signs
Temp Pulse Resp BP Pulse Ox
99.2 F 65 12 136/33 95
08/03/25 12:36 08/03/25 14:15 08/03/25 14:15 08/03/25 14:00 08/03/25 14:23
Physical Exam
Physical Exam
Constitutional: Acutely Ill
Head: Other (No sinus tenderness)
Eyes: No Conjunctival Hemorrhage and Sclera Anicteric
Cardiovascular: Regular Rate and S1/S2
Pulmonary: Clear
Gastrointestinal: Soft, Non Tender, Non Distended, Decreased Bowel Sounds and Other (Rectal tube with light brown semiliquid stool on tubing.)
Genito-Urinary: Negative CVA Tenderness
Extremities: Negative Edema
Neurological: Other (Very lethargic, difficult to arouse)
Lab / Diagnostic Study Results
08/03/25 11:15
Abs Immat Gran (auto) 1.9 10^3/uL (0-0.05) H 08/02/25 16:31
Absolute Neuts (auto) 24.6 10^3/uL (1.4-6.5) H 08/02/25 16:31
Absolute Lymphs (auto) 0.9 10^3/uL (1.2-3.4) L 08/02/25 16:31
Absolute Monos (auto) 2.2 10^3/uL (0.1-0.6) H 08/02/25 16:31
Absolute Basos (auto) 0.0 10^3/uL (0-0.2) 08/02/25 16:31
Immature Gran % 6.3 % (0-0.5) H 08/02/25 16:31
Neutrophils % 83.2 % (42.2-75.2) H 08/02/25 16:31
Lymphocytes % 2.9 % (20.5-51.1) L 08/02/25 16:31
Monocytes % 7.4 % (1.7-9.3) 08/02/25 16:31
Eosinophils % 0.1 % (0-6) 08/02/25 16:31
Basophils % 0.1 % (0-2) 08/02/25 16:31
Lactic Acid 1.8 mmol/L (0.7-2.0) 08/03/25 11:15
Ur Squamous Epith Cells >30 /LPF (Few) 08/03/25 12:33
Microbiology Results
Micro:
08/03/25 12:33 Urine Culture - Pending
Urine
08/02/25 18:21 Salmonella/Shigella Culture - Preliminary
Feces/Stool Culture in Progress
Campylobacter Culture - Preliminary
Culture in Progress
Shiga Toxin Test - Pending
08/02/25 18:21 C. difficile GDH Antigen & Toxins - Final
Feces/Stool Toxigenic C.difficile Positive
Norovirus (PCR) - Final
Negative for Norovirus GI and GII.
08/02/25 18:20 Blood Culture - Pending
Blood/Venous
08/02/25 17:33 Influenza Types A & B (DULCE) - Final
Nasal Swab Negative for Influenza A & B, NAAT
Negative results must be combined with clinical observations
and patient history.
Nucleic Acid Amplification test (NAAT)performed on the
Tipbit platform.
08/02/25 CT a/p: There is pronounced wall thickening with adjacent stranding throughout the colon which likely represents severe colitis. The gallbladder appears mildly distended. There are no adjacent findings suggestive of acute cholecystitis.
This may be secondary to fasting state. If there is concern for acute cholecystitis consider dedicated right upper quadrant ultrasound. Moderately distended urinary bladder. There is mild prominence of the bilateral collecting systems which is
unchanged from prior.
Assessment / Plan
# Severe C. difficile colitis
# Significant leukocytosis trending up
# Prerenal FAVIAN
# Electrolyte abnormalities
# Metabolic toxic encephalopathy, unable to take p.o.
- Since patient unable to take p.o., can give vancomycin per rectum 500 mg 4 times daily until NG tube placed to resume high-dose enteric vancomycin 500 mg qid.
- Continue with IV metronidazole 500mg IV q8 as adjunct.
- Monitor stool output.
- Supportive care with
- Trend white count, renal function
- Avoid unnecessary systemic antibiotics.
Care Review
Plan reviewed with: Physician (Dr. Villareal)
--- NOTE | 2025-08-03 17:14 | CM ---
Patient seen at bedside in IMU with patient son and father. Patient currently sleeping, on O2. Patient son states that patient lives with her in an apartment with elevator. patient has a rollator and cane at home. Patient has not had any VN
supports prior to admission. Patient PCP is Dr. Nassar and she uses the [facility] on [facility]. Patient family plan is for discharge home with home VN and supports as needed. CM will continue to follow for discharge planning needs.
Plan; home with VN; watch for needs per medical treatment plan
[2025-08-03] MEDS: DEXTROSE 50% SYRINGE 12.5 GRAMS IV (17:47)
[2025-08-03 17:48] LABS: Glucose - Point of Care 67 mg/dl (70-99)
[2025-08-03] MEDS: VANCOMYCIN ENEMA 500 MG RECTAL ×2 (17:49→22:02)
[2025-08-03 18:21] LABS: Glucose - Point of Care 114 mg/dl (70-99)
[2025-08-03 18:24] LABS: Blood Urea Nitrogen 58 mg/dl (7-17); Calcium 7.9 mg/dl (8.4-10.2); Carbon Dioxide 13 mmol/L (22-30); Chloride 102 mmol/L (98-107); Estimated Creatinine Clearance 30 ml/min; Glucose 69 mg/dl (70-99); Potassium 5.7 mmol/L (3.5-5.1); Sodium 123 mmol/L (135-145); eGFR 37.33
[2025-08-03 20:35] LABS: Glucose - Point of Care 79 mg/dl (70-99)
[2025-08-03] MEDS: NEURONTIN PO (21:01)
[2025-08-03] MEDS: XALATAN OPHTHALMIC SOLUTION 1 DROP BOTH EYES (22:16)
[2025-08-03 22:33] LABS: Glucose - Point of Care 76 mg/dl (70-99)
[2025-08-03 22:51] LABS: Blood Urea Nitrogen 58 mg/dl (7-17); Calcium 7.6 mg/dl (8.4-10.2); Carbon Dioxide 16 mmol/L (22-30); Chloride 101 mmol/L (98-107); Estimated Creatinine Clearance 32 ml/min; Glucose 73 mg/dl (70-99); Potassium 6.0 mmol/L (3.5-5.1); Sodium 122 mmol/L (135-145); eGFR 40.80
--- NOTE | 2025-08-03 23:36 | W.PN.UPDATE ---
Update Note
Progress Note Update
Patient continuos to pull on tubes, soft restrains in place.
SpO2 94% on 1.5L NC. BP 138/56, hr 110s-130s irregular
metoprolol 2.5mg ivx1
0425
bp 145/68 hr 110-130s 99.4
metoprolol 2.5mg IVx1
Cardiology consult in place, seen
Echo in AM.
HR 90's-100's irregular
[2025-08-04] VITALS (23 sets, daily range): BP systolic 87–155; BP diastolic 32–75; BMI 32.9
[2025-08-04] MEDS: FLAGYL 500 MG 100 IV ×4 (00:01→23:53)
[2025-08-04] MEDS: HEPARIN 5000 UNITS SC ×4 (00:01→23:53)
[2025-08-04 00:06] LABS: Glucose - Point of Care 77 mg/dl (70-99)
--- NOTE | 2025-08-04 00:23 | PTCARENOTE ---
patient lethargic, waking up for short time to say name and falling right back to sleep. Patient's lab work came back, results TT to DIELECTRIC PRESS OPERATOR and new orders given, see mar. and son at bedside. rectal trumpet in place. assessment and vitals
charted. call glover in reach.
[2025-08-04 01:04] LABS: Glucose - Point of Care 119 mg/dl (70-99)
[2025-08-04 02:11] LABS: Glucose - Point of Care 92 mg/dl (70-99)
--- NOTE | 2025-08-04 03:07 | PTCARENOTE ---
Addendum entered by Gaviota Allen RN 08/04/25 04:25:
HUMAN PERFORMANCE CONSULTANT at bedside with patient and son.
Original Note:
patient's son reported to this RN that patient was raising arms above her simultaneously and then falling back to bed. This RN went into room to assess and witnessed patient do this with her arms. TT HUMAN PERFORMANCE CONSULTANT about situation. no new orders. Repeating
labs this AM. care on going. call glover in reach.
[2025-08-04 04:10] LABS: Glucose - Point of Care 79 mg/dl (70-99)
[2025-08-04] MEDS: SYNTHROID PO (04:13)
[2025-08-04 04:41] LABS: Hematocrit 30.9 % (37.0-47.0); Hemoglobin 11.3 g/dL (12.0-16.0); Mean Corp Hgb Conc. 36.6 g/dL (33.0-37.0); Mean Corpuscular Volume 79.0 fL (81.0-99.0); Platelet Count 236 10^3/uL (130-400); Red Cell Dist. Width 13.4 % (11.5-14.5)
[2025-08-04 04:48] LABS: ALT (SGPT) 36 U/L (0-35); AST (SGOT) 47 U/L (14-36); Albumin 1.9 g/dl (3.5-5.0); Alkaline Phosphatase 132 U/L (38-126); Blood Urea Nitrogen 57 mg/dl (7-17); Calcium 7.4 mg/dl (8.4-10.2); Carbon Dioxide 18 mmol/L (22-30); Chloride 100 mmol/L (98-107); Estimated Creatinine Clearance 32 ml/min; Glucose 70 mg/dl (70-99); Potassium 5.2 mmol/L (3.5-5.1); Sodium 124 mmol/L (135-145); Total Protein 4.0 g/dl (6.3-8.2); eGFR 40.80
[2025-08-04 06:28] LABS: Glucose - Point of Care 78 mg/dl (70-99)
--- NOTE | 2025-08-04 07:42 | W.PN.HOSP.TC ---
Addendum entered and electronically signed by Gaviota Villareal MD 08/04/25 16:06:
I saw and evaluated the patient independently. I reviewed and discussed the resident�s note and agree with findings and plan as documented by Dr. Wynn.
GENERAL: acutely ill appearing female slightly more responsive
HEENT: NC/AT--O2 NC
HEART: regular rate and rhythm, +S1, +S2
LUNGS : clear to auscultation bilaterally
ABDOM: soft, tender diffusely without guarding or rebound, distended, + bowel sounds--rectal tube
EXT: no cyanosis, clubbing, or edema
NEUROLOGIC: minimally responsive
: samaniego
Sepsis with evidence of end organ damage of lactic acidosis, encephalopathy, acute kidney injury with toxigenic C. Diff as the cause --CT scan without oral or IV contrast shows severe colitis--giving IVF with bicarb and repeating labs--blood
pressure responsive to IVF--cont IV metronidazole--apprec ID and renal--change vanco to oral now that tube placed and start tube feeds
Severe hyponatremia --likely due to hypovolemia from GI losses--119 on admission, slowly improving--up to 124--apprec renal and do Q4H BMPs -- serum cortisol and TSH WNL
new onset atrial fibrillation with RVR--responded to IV lopressor--await cards input
Lethargy/weakness also likely compounded by hypotension and volume loss/dehydration, Hyponatremia, sepsis
Acute urinary retention--bladder distention on CT --st cath for 1700mls--cont samaniego cath
Hyperkalemia likely multifactorial from hypovolemia and diarrhea, urinary retention, valsartan--medical treatment of high potassium--no dialysis
FAVIAN-- improving, likely prerenal--cont IVF and trend--slow improvement--apprec renal
Bradycardia/PVCs--follow as electrolytes are corrected--magnesium adequate
Essential HTN -HOLD home valsartan
HLD - 'Pt is intolerant of statins. Dr. Houser has recommended [id number] but she refuses.'
CAD - continue home aspirin as able
Hypothyroidism - continue home levothyroxine as able
GERD - change to IV PPI
Polyneuropathy - continue home gabapentin as able
DVT proph -- subq heparin
Code status-- full
Total Critical Care Time 32 minutes. I was immediately available to the patient and staff. I personally examined, reviewed labs, diagnostic images/reports, interpretations, treatment plans, discussed patient care with other providers and family
or caregivers (if patient is unable to make decisions), entered orders as appropriate and documented the medical record.
Original Note:
Today's Communication/Plan
-
- Plan for dobhoff placement --> PO vanc & tube feeds
- Continue IV metronidazole
- Renew sterile water + bicarb fluids today
- Renew Ca gluconate today
- Continue to trend BMP
- Renal & ID following
Assessment / Plan
Assessment / Plan
84yo M with a hx of essential HTN, HLD, CAD, hypothyroidism, GERD, & polyneuropathy who p/w generalized weakness, fever/chills, nausea, & diarrhea, found to have sepsis 2/2 positive c diff diarrhea with evidence of end-organ damage, now improving
s/p fluids, abx, & electrolyte correction.
#Sepsis in s/o c diff diarrhea with end organ damage, resolving
#Lactic acidosis, improving
#AMS, weakness, lethargy
Labs on admission 08/02 - WBC 29.5, Cl 92, CO2 15, lactic acid 3.5, AST 155, ALT 52. Diarrhea since 07/31 with fever/chills resolved by time of admission. CT a/p with evidence of severe colitis. C diff stool antigen positive. Covid, flu, norovirus
negative. F/c, nausea, weakness, electrolyte abnormalities all likely 2/2 c diff & associated volume loss/sepsis. Lactic acidosis unlikely 2/2 bowel ischemia given degree of acidosis, BP responsiveness to IVF bolus, and lack of overt abd pain.
Today - AVSS; WBC downtrending, lactic acid normalized, s/p sterile water + bicarb infusion ; diarrhea ongoing ; patient remains altered/with waxing and waning mental status and pain in abdomen but somewhat improved from yesterday
- Plan to place dobhoff NG tube today > then transition vancomycin 500mg QID to PO
- Continue IV metronidazole 500mg q8hr
- Renew sterile water + bicarb today, pending full bicarb normalization
- Continue IVF NSS 100cc/hr
- IV tylenol for pain PRN
- Consider additional neuro work-up if mental status does not improve with improving labs over coming 24 hours
- ID following, appreciate recs
#Hyponatremia, improving
Na+ 119 on admission, likely 2/2 hypovolemic hyponatremia in s/o volume loss w ongoing diarrhea. AMS, difficult to arouse likely 2/2 severe hyponatremia. Received NSS on admission but not hypertonic. Lethargy/weakness also likely compounded by
hypotension and volume loss/dehydration. Hyponatremia may also be due to SIADH given pain/AMS or adrenal insuff given initial presentation w hypotension & hyperK.
Cortisol & TSH wnl.
Today - Na 124, urine Na 7, urine cr 90.3, serum osm 281 -currently not hypoosmolar, urine sodium less than 7 supports likely prior hypoosmolar hypovolemic hyponatremia
- Continue IVF
- Renal consult, appreciate recs
- Continue to trend BMP
#Hyperkalemia, improving
#Hypocalcemia, stable
K 5.8 on admission, likely 2/2 high-volume diarrhea. Likely 2/2 ongoing valsartan use in s/o volume loss vs. adrenal insufficiency vs. RTA. Cortisol wnl, more likely volume loss etiology.
Today - K decreased, s/p insulin; s/p ca gluconate; Ca downtrended slightly
- Renal consult, appreciate recs
- Continue to trend BMP
- Repeat Ca gluconate infusion today
#FAVIAN, improving, likely prerenal
Cr 1.8, BUN 49, eGFR 27.78 on admission, likely prerenal in s/o volume loss 2/2 c diff diarrhea. BUN/Cr ratio 27, c/w prerenal. Potential component of obstruction, although no evidence of overt physical obstruction on CT.
Today - Cr improved 1.3 s/p fluids
- Renal consult, appreciate recs
- Continue to monitor w fluids
#Acute urinary retention
Per RN, pt retaining 1700 in bladder on 08/03 at 12:30pm. CT a/p 08/02: 'Moderately distended urinary bladder. There is mild prominence of the bilateral collecting systems which is unchanged from prior.' Likely contributor to FAVIAN. Uncertain
etiology, likely in s/o multiorgan damage in s/o sepsis.
Today - net -1175 ml
- Samaniego catheter remains in place
- Trend I&Os
- Renal consult, appreciate recs
#Bradycardia, resolved
HR 40-55 over last 24hr, ranging up to 70-80s prior. EKG on admission demonstrated sinus trung with 1st degree AV block and LBBB. RN noted PVCs on admission to IMU. Likely 2/2 electrolyte abnormalities which are normalizing.
Today - HR 77 this am
- Continue to monitor on tele
#Chronic
#Essential HTN - continue home valsartan
#HLD - 'Pt is intolerant of statins. Dr. Houser has recommended [id number] but she refuses.'
#CAD - continue home aspirin
#Hypothyroidism - continue home levothyroxine
#GERD - continue home esomeprazole
#Polyneuropathy - continue home gabapentin
#Global
- DVT ppx: subq heparin
- Code: full
- Diet: to place tube feed consult s/p dobhoff
- Dispo: lives at home with partner, dispo planning pending stabilization of clinical status
Anticipated Discharge: > 48 hours
Subjective/Interval History
-
Date of Service: August 04, 2025
Patient appears uncomfortable, moaning and moving limbs with eyes closed. Patient does open eyes and roused to voice and questions. Although, does not clearly answer questions. She was able to state her son's name when asked and to express that
she was in pain. Mental status slightly improved from exam yesterday.
Per son at bedside, patient does not seem significantly better than yesterday. Son remains concerned about her mental status. Son provides additional context the patient has been having diarrhea for multiple months, starting after she had a molar
infection treated with multiple courses of antibiotics.
Objective Data
-
Labs:
Laboratory Results
08/03/25 08/03/25 08/04/25
19:35 22:21 03:59
WBC 26.1 H
Hgb 11.3 L
Hct 30.9 L
Plt Count 236
Sodium Cancelled 122 L 124 L
Potassium Cancelled 6.0 H 5.2 H
Chloride Cancelled 101 100
Carbon Dioxide Cancelled 16 L 18 L
BUN Cancelled 58 H 57 H
Creatinine Cancelled 1.3 H 1.3 H
Glucose Cancelled 73 70
Calcium Cancelled 7.6 L 7.4 L
Total Bilirubin 0.6
AST 47 H
ALT 36 H
Alkaline Phosphatase 132 H
08/04/25
04:00
WBC
Hgb
Hct
Plt Count
Sodium Cancelled
Potassium Cancelled
Chloride Cancelled
Carbon Dioxide Cancelled
BUN Cancelled
Creatinine Cancelled
Glucose Cancelled
Calcium Cancelled
Total Bilirubin
AST
ALT
Alkaline Phosphatase
Vital Signs:
Vital Signs
Temp Pulse Resp BP Pulse Ox
97.0 F 77 15 138/40 95
08/04/25 03:00 08/04/25 06:30 08/04/25 06:30 08/04/25 06:00 08/04/25 06:30
I&O
08/03/25 08/04/25 08/05/25
06:59 06:59 06:59
Intake Total 1325 / 1325
Output Total 2500 / 2500
Balance -1175 / -1175
Review of Systems
-
Unable to obtain full review of systems at this time due to: Acuity (Patient not able to sufficiently verbalize and answer questions)
History Source: Patient and Family
All other systems: Not reviewed unless documented
Abdomen/GI: Reports Abdominal Pain and Diarrhea
Physical Exam
-
General: Appears in Distress and Other (Ill, altered mental status, moaning and moving in bed, opens eyes to questions, periodically answers in one-word answers)
HEENT: Normocephalic, Atraumatic and Moist Mucous Membranes
Respiratory: Clear to Auscultation and Non Labored Respirations
Cardiac: Regular Rhythm
GI: Soft, Nondistended and Tender (Patient grimaces with palpation to lower abdomen, particularly left lower quadrant)
Rectal: Other (Rectal collection bag with volume of light brown liquid stool)
Musculoskeletal: No Edema
Skin: Warm and Dry
Neuro: Awake
Psych: Agitated
Data Reviewed
-
Total Time Spent with Patient (in minutes): 25
Critical Care Time (in minutes): 60
Labs: Labs Reviewed by me
[2025-08-04 07:50] LABS: Absolute Neutrophils -Man Diff 23.7 10^3/uL (1.4-6.5); Platelets Checked Yes
[2025-08-04 07:51] LABS: Acanthocytes 1+; Anisocytosis 1+; Hypochromasia 1+; Normal RBC Morphology No; Ovalocytes 1+; Polychromasia 1+; Target Cells 1+; Total Cells Counted 100
[2025-08-04] MEDS: OFIRMEV 100 IV (07:59)
[2025-08-04] MEDS: PROTONIX IV 40 MG IV (08:09)
[2025-08-04] MEDS: NSS (PRESERVATIVE FREE) 10 ML IV (08:09)
[2025-08-04] MEDS: VANCOMYCIN ENEMA 500 MG RECTAL (08:13)
--- NOTE | 2025-08-04 09:41 | W.PN.NEPH.PH ---
Today's Communication / Plan
-
IV fluids and electrolytes provide
Assessment/Plan
-
Assessment
FAVIAN
C difficile diarrhea/colitis
leukocytosis
hyperkalemia
metabolic acidosis
lactic acidosis
hyponatremia
CAD
hypocalcemia
Plan
continue volume resuscitation, switch to bicarbonate in IV fluids
Hyponatremia's with modest improvement to 124
Metabolic acidosis improving with sodium HCO3 IVFs
Hyperkalemia improving with treatment of underlying metabolic acidosis
FAVIAN persists with creatinine of 1.3 although stable and nonoliguric via Asher
replete calcium
Hemodynamically stable off ARB
serial BMP,recheck this afternoon 1499
checked urine studies
-
-
Date of Service: August 04, 2025
CC / HPI / ROS
-
Chief Complaint:
FAVIAN
Hyperkalemia
Metabolic acidemia
History of Present Illness:
Sodium with modest increase to 124
Creatinine unchanged at 1.3
Hyperkalemia improved
Review of Systems:
Nonoliguric via Asher catheter
NG tube
Labs
-
Labs:
WBC 26.1 10^3/uL (4.8-10.8) H 08/04/25 03:59
RBC 3.91 10^6/uL (4.20-5.40) L 08/04/25 03:59
Hgb 11.3 g/dL (12.0-16.0) L 08/04/25 03:59
Hct 30.9 % (37.0-47.0) L 08/04/25 03:59
Plt Count 236 10^3/uL (130-400) 08/04/25 03:59
Sodium Cancelled 08/04/25 04:00
Potassium Cancelled 08/04/25 04:00
Chloride Cancelled 08/04/25 04:00
Carbon Dioxide Cancelled 08/04/25 04:00
BUN Cancelled 08/04/25 04:00
Creatinine Cancelled 08/04/25 04:00
eGFR Cancelled 08/04/25 04:00
Glucose Cancelled 08/04/25 04:00
Calcium Cancelled 08/04/25 04:00
Albumin 1.9 g/dl (3.5-5.0) L 08/04/25 03:59
Physical Exam
-
Vital Signs:
Vital Signs
Temp Pulse Resp BP Pulse Ox
98.5 F 77 15 138/40 95
08/04/25 08:30 08/04/25 06:30 08/04/25 06:30 08/04/25 06:00 08/04/25 06:30
Cardiovascular:: Regular rate and rhythm
Respiratory:: Bilateral: CTA
Lung Excursion:: Normal
Extremity Edema:: None: Bilateral:
Asher Catheter: Yes
[2025-08-04] MEDS: SODIUM BICARBONATE 1150 MEQ IV ×2 (10:29→18:47)
[2025-08-04] MEDS: CALCIUM GLUCONATE 290 MG IV (10:49)
[2025-08-04 12:55] LABS: Magnesium 3.5 mg/dl (1.6-2.3)
--- NOTE | 2025-08-04 13:07 | W.PN.ID1 ---
Date of Service
Date of Service: August 04, 2025
Today's Communication
Enteric Vanco, per rectum Vanco, and IV metronidazole.
Assessment / Plan
# Severe C. difficile colitis
# Significant leukocytosis trending down
# Prerenal FAVIAN
# Electrolyte abnormalities
# Metabolic toxic encephalopathy, unable to take p.o.
- For DHT today per hospitalist, then resume enteric Vancomycin 500mg q6h.
- Continue vancomycin per rectum 500 mg q6h for now
- Continue with IV metronidazole 500mg IV q8 as adjunct.
- Monitor stool output.
- Trend white count, renal function
- Avoid unnecessary systemic antibiotics.
# Additional Past Medical History:
Hypertension
CAD status post stent
Hypothyroidism
IBS
Neuropathy bilateral feet
Glaucoma
Rectal prolapse status post rectopexy 01/06/21
Hemorrhoid s/p banding
Appendectomy
Hysterectomy with BSO
Right knee replacement
Chief Complaint
-: Leukocytosis and C-diff
Subjective / Review of Systems
Remains lethargic. Son and at bedside.
Vital Signs / Physical Exam
Vital Signs
Vital Signs
Temp Pulse Resp BP Pulse Ox
98.5 F 77 15 138/40 95
08/04/25 12:05 08/04/25 06:30 08/04/25 06:30 08/04/25 06:00 08/04/25 12:19
Physical Exam
Constitutional: Acutely Ill
Cardiovascular: Regular Rate and S1/S2
Pulmonary: Clear (anteriorly)
Gastrointestinal: Soft, Tender (diffuse), Distended (moderate), Decreased Bowel Sounds and Other (FMS semi-liquid stool. )
Genito-Urinary: Asher
Extremities: Negative Edema
Neurological: Other (Lethargic, minimally arousable)
Objective Data
Lab Data
Lab Results
08/04/25 03:59
Estimated Creat Clear Cancelled 08/04/25 04:00
Lactic Acid 1.8 mmol/L (0.7-2.0) 08/03/25 11:15
Total Bilirubin 0.6 mg/dl (0.2-1.3) 08/04/25 03:59
AST 47 U/L (14-36) H 08/04/25 03:59
ALT 36 U/L (0-35) H 08/04/25 03:59
Alkaline Phosphatase 132 U/L (38-126) H 08/04/25 03:59
Most recent labs reviewed.
Micro Results:
08/03/25 12:33 Urine Culture - Final
Urine No Significant Growth
08/02/25 18:21 Salmonella/Shigella Culture - Preliminary
Feces/Stool Culture in Progress
Campylobacter Culture - Final
No Campylobacter species isolated.
Shiga Toxin Test - Pending
08/02/25 18:20 Blood Culture - Preliminary
Blood/Venous No Growth in 24 hours- Final report to follow
08/02/25 18:21 C. difficile GDH Antigen & Toxins - Final
Feces/Stool Toxigenic C.difficile Positive
Norovirus (PCR) - Final
Negative for Norovirus GI and GII.
08/02/25 17:33 Influenza Types A & B ([facility]CE) - Final
Nasal Swab Negative for Influenza A & B, NAAT
Negative results must be combined with clinical observations
and patient history.
Nucleic Acid Amplification test (NAAT)performed on the
[employer] platform.
08/02/25 CT a/p: There is pronounced wall thickening with adjacent stranding throughout the colon which likely represents severe colitis. The gallbladder appears mildly distended. There are no adjacent findings suggestive of acute cholecystitis.
This may be secondary to fasting state. If there is concern for acute cholecystitis consider dedicated right upper quadrant ultrasound. Moderately distended urinary bladder. There is mild prominence of the bilateral collecting systems which is
unchanged from prior.
--- NOTE | 2025-08-04 13:36 | W.PN.UPDATE ---
Addendum entered and electronically signed by JAY Stout 08/04/25 15:23:
08/04/25 abd X ray
Nasogastric tube tip in stomach
X ray confirms placement in stomach. Ok to use tube for meds and feeds. Now with rapid afib. Management per primary team. updated family and nursing staff. Call back GI if we can be of any assistance
Original Note:
Update Note
Progress Note Update
Asked to placed DHT for medication/nutrition. DHT placed left nare with some initial resistance from patient but able to place left nare at 60cm. Will check X ray to confirm placement and no coiling prior to use. Updated and educated family about
placement. Will add mitts to prevent pt from pulling at tube.
[2025-08-04] MEDS: FIRVANQ 500 MG PO (15:32)
[2025-08-04] MEDS: LOPRESSOR 5 MG IV (15:32)
--- NOTE | 2025-08-04 15:52 | CON.CAR ---
Addendum entered and electronically signed by Donavon Alfonso DO 08/04/25 17:28:
I saw and examined the patient.
The Marketing Underwriter's note was reviewed and I agree with the note.
Comment:
Plan:
Transient episode of atrial tachycardia following Dobbhoff tube placement, patient spontaneously converted shortly after IV Lopressor
Continue to monitor. Low threshold to consider anticoagulation for recurrent episodes
Check echocardiogram to evaluate for structural heart disease
Continue supportive therapy of C. difficile and mental status change including antibiotics
Discussed with at bedside
Original Note:
Consultation
Consultation Request
Date/Time Consultation Requested: 08/04/2025
Date/Time Consultation Performed: 08/04/2025
Requesting Provider: Dr. Villareal
Performing Provider: Dr. Alfonso
Reason for Consultation: Newly diagnosed paroxysmal atrial tachycardia
Medical History
-
History of Present Illness:
Patient came to the ER on Saturday with fevers, chills generalized weakness and diarrhea and was admitted with sepsis and C. difficile colitis, cardiology is now consulted for an episode of newly diagnosed paroxysmal atrial fibrillation. Through the
patient was at home dealing with generalized weakness fevers and chills and then started with diarrhea. There was thought that perhaps it was due to a viral illness such as influenza or COVID and patient was advised to take Imodium. Due to
increasing weakness the patient came to the ER and had evidence for sepsis and her stool culture was positive for C. difficile. Patient now admitted for sepsis and C. difficile colitis. Patient had worsening TME changes and was transition to
vancomycin MD, but GI consulted for placement of DHT today. DHT placed with some resistance from the patient who is now placed in soft mitts B/L. Patient noted to have onset of rapid atrial tachycardia. Patient was given Lopressor 5 mg IV x 1 and
shortly thereafter spontaneously converted to SR. Unclear if patient experienced any symptoms due to ongoing TME changes. Patient's is at the bedside and relates that patient stopped following with cardiology a few years ago due to
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 Patient has a remote history of anterior wall KS and LAD PCI back in 2003, at that time the patient had just received a distressing phone call that one of her sons had an accident and was apparently
asked.
PMH:
CAD s/p AWMI and 3.0 mm Cypher MARGARITO to the proximal LAD 05/2004
Hyperlipidemia
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
Past Medical History
Past Medical History: Other (In HPI)
Past Surgical History: Cardiac (Cypher stent to the LAD 2003), Orthopedic (Left TKA 2019) and Other (Rectocele repair in 2020)
Social History
Tobacco: Non-Smoker
Alcohol: None
Drug: None
Personal:
Living: With Family
Family History
Family History: Other (Family history of diverticular disease and rheumatoid arthritis)
Allergies / Home Medications
Allergy/AdvReac Type Severity Reaction Status Date / Time
erythromycin base Allergy GI Issues Verified 06/10/21 12:23
Penicillins Allergy Unknown Verified 08/02/25 16:32
Awtniay-AQZ-IbA Reductase Allergy caused Verified 08/02/25 22:10
Inhibitor (Ypzokhp-Mqs-Ttq foot
Reductase Inhibitor) neuropathy
ANESTHESIA Allergy Unknown Uncoded 08/02/25 22:10
�Medication �Instructions �Recorded �Confirmed �Type
turmeric root extract 500 mg 500 mg PO DAILY Supplement ##0 09/07/19 08/02/25 History
capsule
acetaminophen 500 mg tablet 1,000 mg PO TIDPRN PRN mild pain 01/04/21 08/02/25 History
aspirin 81 mg tablet,delayed 81 mg PO DAILY Blood clot 01/04/21 08/02/25 History
release prevention/tx
docosahexaenoic acid (dha)-epa 120 1 cap PO BID Supplement 01/04/21 08/02/25 History
mg-180 mg capsule (Fish Oil)
esomeprazole magnesium 40 mg 40 mg PO DAILY Gastrointestinal 01/04/21 08/02/25 History
capsule,delayed release (Nexium) issue
gabapentin 100 mg capsule 400 mg PO HS Neurological Condition 06/10/21 08/02/25 History
multivitamin with folic acid 400 1 tab PO DAILY supplement 06/10/21 08/02/25 History
mcg tablet (Tab-A-Chase)
valsartan 80 mg tablet 80 mg PO DAILY Blood pressure 06/11/21 08/02/25 History
enid root extract 15 mg chewable 50 mg PO DAILY Supplement 08/02/25 08/02/25 History
tablet
latanoprost (PF) 0.005 % eye drops 1 drp BOTH EYES HS Eye Condition 08/02/25 08/02/25 History
in a dropperette (Iyuzeh (PF))
levothyroxine 88 mcg tablet 88 mcg PO DAILY Thyroid 08/02/25 08/02/25 History
(Synthroid)
lysine 500 mg tablet 500 mg PO DAILY Supplement 08/02/25 08/02/25 History
Review of Systems
-
History Source: Family (Patient's is bedside supplying all the information for HPI)
All other systems: Negative unless noted
Physical Exam
Vital Signs
Temp Pulse Resp BP Pulse Ox
98.5 F 132 15 101/75 95
08/04/25 12:05 08/04/25 15:32 08/04/25 06:30 08/04/25 15:32 08/04/25 12:19
GEN: Agitated, responding to voices in the room, no orientation
HEENT: DHT in place
LUNGS: 2 L NC. Clear anterolaterally without wheeze
CV: SR on telemetry. Reg, S1/S2, no murmur
ABD: ND
EXT: No edema B/L LE
NEURO: Gross non-focal
SKIN: No rash
Lab Results
08/04/25 03:59
Impression / Plan
-
PCP: Previously following with Dr. Savana Samuel and transitioning to Dr. Renetta Rodriguez with a new patient appointment scheduled for 11/02/2025
Cardiology: Previously followed with Dr. Houser, last seen in 2022
Impression:
Admitted with generalized weakness, fevers and chills and diarrhea 08/02/2025
C. difficile colitis
Sepsis
FAVIAN
Hyperkalemia
Newly diagnosed paroxysmal atrial tachycardia
Brief episode that spontaneously converted to SR after Lopressor IV in the setting of DHT placement 08/04/2025
Sinus bradycardia
PVCs
CAD s/p AWMI and 3.0 mm Cypher MARGARITO to the proximal LAD 05/2004
Hyperlipidemia
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
Urinary retention
Echo 08/05/2025: Study pending
Plan:
-Patient came to the ER on Saturday with fevers, chills generalized weakness and diarrhea and was admitted with sepsis and C. difficile colitis, cardiology is now consulted for an episode of newly diagnosed paroxysmal atrial fibrillation. Through the
weekend patient was at home dealing with generalized weakness fevers and chills and then started with diarrhea. There was thought that perhaps it was due to a viral illness such as influenza or COVID and patient was advised to take Imodium. Due to
increasing weakness the patient came to the ER and had evidence for sepsis and her stool culture was positive for C. difficile. Patient now admitted for sepsis and C. difficile colitis. Patient had worsening TME changes and was transition to
vancomycin MD, but GI consulted for placement of DHT today. DHT placed with some resistance from the patient who is now placed in soft mitts B/L. Patient noted to have onset of rapid atrial tachycardia. Patient was given Lopressor 5 mg IV x 1 and
shortly thereafter spontaneously converted to SR. Unclear if patient experienced any symptoms due to ongoing TME changes. Patient's is at the bedside and relates that patient stopped following with cardiology a few years ago due to
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 Patient has a remote history of anterior wall KS and LAD PCI back in 2003, at that time the patient had just received a distressing phone call that one of her sons had an accident and was apparently
asked.
-ECG reviewed by me looks like atrial tachycardia. ECG from earlier this admission is sinus bradycardia with occasional PVCs.
-Telemetry reviewed by me while in the patient's room during cardiology consultation looks like SR
-Patient responded well to Lopressor 5 mg IV x 1 given on 08/04/2025 with voodoo of SR. Patient was not taking an AV dario rianna prior to admission and had sinus bradycardia earlier this admission. Will add Lopressor 5 mg IV every 4 hours
PRN.
-No indication for anticoagulation at this time. Will continue to follow on telemetry
-Check echocardiogram, no echocardiogram on file, patient's MRI was all the way back in 2003
[2025-08-04] MEDS: TYLENOL ORAL SOLUTION 650 MG TUBE ×2 (17:58→22:28)
--- NOTE | 2025-08-04 18:33 | PTCARENOTE ---
Complete patient care provided throughout the day. Pt's son at bedside this am with multiple concerns regarding Mother's condition. Plan of care, assessment, and vitals signs reviewed with son. Dr. Wynn discussed concerns and reviewed plan of care
with son also. Son less anxious after updates and education provided. Pt remains lethargic, moaning with discomfort but unable to say where pain is at. Medicated with Ofirmev, effective. Pt does not follow simple directions. Does resist movement
during ROM. Episode of Afib with heart rate to 160, IV Lopressor 5mg given and converted to NSR. Cardiology consult obtained. ECHO in morning. Did not open eyes spontaneously until this evening. Opens eye but closes immediately. Pt will verbally
respond correctly with one or two words but not consistently. GI here and placed Dobhoff to left nares, placement confirmed and tube feed initiated. Bilateral Mitts placed to protect Dobhoff.
[2025-08-04] MEDS: FIRVANQ 500 MG TUBE ×2 (18:48→23:53)
[2025-08-04] MEDS: NEURONTIN 400 MG TUBE (20:28)
[2025-08-04] MEDS: XALATAN OPHTHALMIC SOLUTION 1 DROP BOTH EYES (20:29)
[2025-08-04 20:46] LABS: Blood Urea Nitrogen 47 mg/dl (7-17); Calcium 7.5 mg/dl (8.4-10.2); Carbon Dioxide 25 mmol/L (22-30); Chloride 95 mmol/L (98-107); Estimated Creatinine Clearance 42 ml/min; Glucose 99 mg/dl (70-99); Potassium 4.7 mmol/L (3.5-5.1); Sodium 124 mmol/L (135-145); eGFR 55.90
[2025-08-05] VITALS (32 sets, daily range): BP systolic 92–147; BP diastolic 39–91; BMI 32.8
[2025-08-05 03:33] LABS: Glucose - Point of Care 120 mg/dl (70-99)
[2025-08-05] MEDS: LOPRESSOR 2.5 MG IV ×2 (03:41→04:51)
[2025-08-05 04:03] LABS: ALT (SGPT) 35 U/L (0-35); AST (SGOT) 47 U/L (14-36); Albumin 1.9 g/dl (3.5-5.0); Alkaline Phosphatase 188 U/L (38-126); Blood Urea Nitrogen 38 mg/dl (7-17); Calcium 7.5 mg/dl (8.4-10.2); Carbon Dioxide 29 mmol/L (22-30); Chloride 95 mmol/L (98-107); Estimated Creatinine Clearance 47 ml/min; Glucose 117 mg/dl (70-99); Potassium 4.2 mmol/L (3.5-5.1); Sodium 128 mmol/L (135-145); Total Protein 3.8 g/dl (6.3-8.2); eGFR > 60.00
[2025-08-05] MEDS: FIRVANQ 500 MG TUBE ×4 (04:51→23:28)
[2025-08-05] MEDS: SODIUM BICARBONATE 1150 MEQ IV (05:10)
[2025-08-05] MEDS: TYLENOL ORAL SOLUTION 650 MG TUBE ×3 (05:13→19:58)
[2025-08-05] MEDS: SYNTHROID 88 MCG TUBE (05:49)
--- NOTE | 2025-08-05 06:45 | PTCARENOTE ---
quality assurance clerk note. Assumed care of pt from dayshift RN, pt lethargic and would not follow commands. Over the course of the shift, patient became more arousable and would answer yes/no questions. NSR on the tele monitor, hr 70-80s. 94% on RA. VS and
assessment as documented.
0240
Pt alarmed afib on the monitor. confirmed with EKG that pt was afib w/ RVR, hr 120-130s. PUBLIC RELATIONS INTERN notified. Rx received for IV Lopressor. (see MAR).
0430
Patients heart rate increased from 90s to 110-130s. PUBLIC RELATIONS INTERN made aware and Rx recieved for IV Lopressor (see MAR).
--- NOTE | 2025-08-05 07:15 | W.PN.HOSP.TC ---
Addendum entered and electronically signed by Gaviota Villareal MD 08/05/25 13:47:
I saw and evaluated the patient independently. I reviewed and discussed the resident�s note and agree with findings and plan as documented by Dr. Wynn.
GENERAL: acutely ill appearing female more awake
HEENT: NC/AT--O2 NC--Dobhoff feeding tube
HEART: regular rate and rhythm, +S1, +S2
LUNGS : clear to auscultation bilaterally
ABDOM: soft, tender diffusely without guarding or rebound, distended, + bowel sounds--rectal tube
EXT: no cyanosis, clubbing, or edema
NEUROLOGIC: minimally responsive
: samaniego
Sepsis with evidence of end organ damage of lactic acidosis, encephalopathy, acute kidney injury with toxigenic C. Diff as the cause --CT scan without oral or IV contrast shows severe colitis--can stop IVF with bicarb --blood pressure responsive to
IVF--cont IV metronidazole--apprec ID and renal--change vanco to oral now that tube placed and start tube feeds--head CT neg
nutrition--on tube feeds--now that more awake, ask speech to see to see if can d/c the tube
Severe hyponatremia --likely due to hypovolemia from GI losses--119 on admission, slowly improving--up to 128--apprec renal -- serum cortisol and TSH WNL
new onset atrial fibrillation with RVR--responded to IV lopressor--apprec cards input--start IV heparin drip--amio PO
Lethargy/weakness also likely compounded by hypotension and volume loss/dehydration, Hyponatremia, sepsis--speech, PT/OT
Acute urinary retention--bladder distention on CT --st cath for 1700mls--cont samaniego cath
Hyperkalemia likely multifactorial from hypovolemia and diarrhea, urinary retention, valsartan--medical treatment of high potassium--no dialysis
FAVIAN--resolved-- likely prerenal---apprec renal
Bradycardia/PVCs--follow as electrolytes are corrected--magnesium adequate
Essential HTN--HOLD home valsartan
HLD - 'Pt is intolerant of statins. Dr. Houser has recommended [id number] but she refuses.'
CAD - continue home aspirin as able
Hypothyroidism - continue home levothyroxine as able
GERD - change to IV PPI
Polyneuropathy - continue home gabapentin as able
DVT proph -- subq heparin
Code status-- full
Total Critical Care Time 30 minutes. I was immediately available to the patient and staff. I personally examined, reviewed labs, diagnostic images/reports, interpretations, treatment plans, discussed patient care with other providers and family
or caregivers (if patient is unable to make decisions), entered orders as appropriate and documented the medical record.
Original Note:
Today's Communication/Plan
-
- Continue vanc & metronidazole for c diff
- CT head wo contrast
- Check ammonia, folate, B12
- Start IV thiamine
- Tube feeds
- Pending TTE
- 5mg IV metoprolol prn
Assessment / Plan
Assessment / Plan
84yo M with a hx of essential HTN, HLD, CAD, hypothyroidism, GERD, & polyneuropathy who p/w generalized weakness, fever/chills, nausea, & diarrhea, found to have sepsis 2/2 positive c diff diarrhea with evidence of end-organ damage, now improving
s/p fluids, abx, & electrolyte correction.
#Sepsis in s/o c diff diarrhea with end organ damage, resolving
#Lactic acidosis, resolved
Labs on admission 08/02 - WBC 29.5, Cl 92, CO2 15, lactic acid 3.5, AST 155, ALT 52. Diarrhea since 07/31 with fever/chills resolved by time of admission. CT a/p with evidence of severe colitis. C diff stool antigen positive. Covid, flu, norovirus
negative. F/c, nausea, weakness, electrolyte abnormalities all likely 2/2 c diff & associated volume loss/sepsis.
Today - AVSS; WBC downtrending, bicarb normalized s/p infusions; diarrhea ongoing
- Continue IV metronidazole 500mg q8hr & PO vancomycin 500mg QID
- IV tylenol for pain PRN
- ID following, appreciate recs
#Persistent AMS, lethargy
Pt obtunded, unable to rouse beyond turning head 08/05 am despite near-normalization of lytes. Per RN, had waxing/waning consciousness overnight not much improved from prior day. C/f stroke in s/o recurrent a fib. Will eval for additional
etiologies.
- CT head wo contrast
- Start IV thiamine
- Check ammonia, ABG, B12, folate
- A fib mgmt as below
- Consider neuro consult if mental status not improved by tmrw / etiology not found
#Paroxysmal/transient atrial fibrillation
Transient episode of a fib shortly after dobhoff placement on 08/04, most likely triggered by physiologic stress exacerbation from tube placement in s/o pt current illness. Resolved to normal sinus rate/rhythm s/p 5mg IV metoprolol. 08/05 morning,
pt again in a fib with HR in 120s.
- Continue to monitor on tele
- PRN 5mg IV metoprolol q6hr for HR>100 in afib
- Pending TTE to eval for structural etiology
- If CT scan negative, plan to start IV heparin drip
- Cardiology following, appreciate recs
#Hyponatremia, improving
Na+ 119 on admission, likely 2/2 hypovolemic hyponatremia in s/o volume loss w ongoing diarrhea. AMS, difficult to arouse likely 2/2 severe hyponatremia. Received NSS on admission but not hypertonic. Lethargy/weakness also likely compounded by
hypotension and volume loss/dehydration. Hyponatremia may also be due to SIADH given pain/AMS or adrenal insuff given initial presentation w hypotension & hyperK.
Cortisol & TSH wnl. Urine Na 7, urine cr 90.3, serum osm 281 - not hypoosmolar given repletion already performed, but urine sodium <7 supports likely prior hypoosmolar hypovolemic hyponatremia.
Today - Na 128
- Continue to trend BMP
- Renal following, appreciate recs
#Hyperkalemia, improving
#Hypocalcemia, stable
K 5.8 on admission, likely 2/2 high-volume diarrhea. Likely 2/2 ongoing valsartan use in s/o volume loss vs. adrenal insufficiency vs. RTA. Cortisol wnl, more likely volume loss etiology. S/p insulin; s/p ca gluconate x2.
Today - K 4.2 wnl, Ca stable at 7.5 (9.2 corrrected)
- Continue to trend BMP
- Renal following, appreciate recs
#FAVIAN, resolved, likely prerenal
#Acute urinary retention
Cr 1.8, BUN 49, eGFR 27.78 on admission, likely prerenal in s/o volume loss 2/2 c diff diarrhea. BUN/Cr ratio 27, c/w prerenal. Potential component of obstruction, although no evidence of overt physical obstruction on CT. Per RN, pt retaining 1700
in bladder on 08/03 at 12:30pm. CT a/p 08/02: 'Moderately distended urinary bladder. There is mild prominence of the bilateral collecting systems which is unchanged from prior.' Likely contributor to FAVIAN. Uncertain etiology, likely in s/o multiorgan
damage in s/o sepsis.
Today - Cr improved 0.9 s/p fluids
- Samaniego catheter remains in place
- Renal following, appreciate recs
#Chronic
#Essential HTN - continue home valsartan
#HLD - 'Pt is intolerant of statins. Dr. Housre has recommended [id number] but she refuses.'
#CAD - continue home aspirin
#Hypothyroidism - continue home levothyroxine
#GERD - continue home esomeprazole
#Polyneuropathy - continue home gabapentin
#Global
- DVT ppx: subq heparin
- Code: full
- Diet: tube feeds w dobhoff
- Dispo: lives at home with partner, dispo planning pending stabilization of clinical status
Anticipated Discharge: > 48 hours
Subjective/Interval History
-
Date of Service: August 05, 2025
Pt obtunded this am, not arousable to sternal rub or loud voice. Per overnight RN, patient was responsive to son/ overnight, answering yes/no to questions but still mumbling/slurred speech and without eye contact.
Objective Data
-
Labs:
Laboratory Results
08/04/25 08/05/25
20:13 03:21
Sodium 124 L 128 L
Potassium 4.7 4.2
Chloride 95 L 95 L
Carbon Dioxide 25 29
BUN 47 H 38 H
Creatinine 1.0 0.9
Glucose 99 117 H
Calcium 7.5 L 7.5 L
Total Bilirubin 0.6
AST 47 H
ALT 35
Alkaline Phosphatase 188 H
Vital Signs:
Vital Signs
Temp Pulse Resp BP Pulse Ox
99.1 F 106 14 126/61 95
08/05/25 02:58 08/05/25 06:00 08/05/25 06:00 08/05/25 06:00 08/05/25 06:00
I&O
08/04/25 08/05/25 08/06/25
06:59 06:59 06:59
Intake Total 1325 / 1325 2630 / 2630
Output Total 2500 / 2500 1375 / 1375
Balance -1175 / -1175 1255 / 1255
Review of Systems
-
Unable to obtain full review of systems at this time due to: Acuity and Patient Non-verbal
History Source: Patient
All other systems: Not reviewed unless documented
Physical Exam
-
General: Well Nourished and Other (not arousable, turns head slightly with repeated sternal rub)
HEENT: Normocephalic and Atraumatic
Respiratory: Clear to Auscultation, Non Labored Respirations and Other (O2 NC )
Cardiac: Irregular Rhythm and Tachycardic
GI: Soft and Nondistended
Musculoskeletal: No Edema
Skin: Warm and Dry
Neuro: Other (obtunded)
Data Reviewed
-
Total Time Spent with Patient (in minutes): 10
Critical Care Time (in minutes): 45
Labs: Labs Reviewed by me
--- NOTE | 2025-08-05 08:00 | PTCARENOTE ---
Assumed care of patient from previous nurse. Pt noted to be lethargic and drowsy, arousable to verbal stimuli, with periods of irritability and restlessness. and son present at bedside throughout the assessment. Plan of care, current
assessment, and vital signs reviewed in detail with family; questions answered, and understanding verbalized. Nursing care provided throughout the shift, including safety checks and ongoing assessments. DHT feeding infusing at 2oml/hr; per protocol,
feeding rate advanced by 10ml/hr. Pt tolerating advancement without signs of distress. B/L mitts and soft wrist restraints in place for pt safety; circulation, movement, and sensation assessed and intact. Skin integrity maintained with regular
repositioning. Pt remains under close observation. Will continue neurological status, tolerance of tube feeding. Plan of care ongoing.
[2025-08-05 08:21] LABS: Hematocrit 28.5 % (37.0-47.0); Hemoglobin 10.0 g/dL (12.0-16.0); Mean Corp Hgb Conc. 35.1 g/dL (33.0-37.0); Mean Corpuscular Volume 79.6 fL (81.0-99.0); Platelet Count 168 10^3/uL (130-400); Red Cell Dist. Width 13.2 % (11.5-14.5)
--- NOTE | 2025-08-05 08:50 | W.PN.CARDCBS ---
Addendum entered and electronically signed by Donavon Alfonso DO 08/05/25 09:12:
.
Will start amiodarone at 200 mg TID for now.
Original Note:
Today's Communication / Plan
-
Recurrent PAFib/atrial tachycardia. Will add amiodarone 400 mg TID for help with rhythm control and Eliquis for stroke prophylaxis. Will await CT Head first before starting anticoagulation.
For now, will hold off on rate control given hypotension.
Echo pending.
CT head pending for mental status changes
Cont supportive care and abx and tx of cdiff.
Nephrology treating metabolic derangements
Impression / Plan
-
.
PCP: Previously following with Dr. Savana Samuel and transitioning to Dr. Renetta Rodriguez with a new patient appointment scheduled for 11/02/2025
Cardiology: Previously followed with Dr. Houser, last seen in 2022
Impression:
Admitted with generalized weakness, fevers and chills and diarrhea 08/02/2025
C. difficile colitis
Sepsis
FAVIAN
Hyperkalemia
Newly diagnosed paroxysmal atrial tachycardia
Brief episode that spontaneously converted to SR after Lopressor IV in the setting of DHT placement 08/04/2025
Sinus bradycardia
PVCs
CAD s/p AWMI and 3.0 mm Cypher MARGARITO to the proximal LAD 05/2004
Hyperlipidemia
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
Urinary retention
Echo 08/05/2025: Study pending
Plan:
Recurrent PAFib/atrial tachycardia. Will add amiodarone 400 mg TID for help with rhythm control and Eliquis for stroke prophylaxis. Will await CT Head first before starting anticoagulation.
For now, will hold off on rate control given hypotension.
Echo pending.
CT head pending for mental status changes
Cont supportive care and abx and tx of cdiff.
Nephrology treating metabolic derangements
Discussed with at bedside.
HPI: Patient came to the ER on Saturday with fevers, chills generalized weakness and diarrhea and was admitted with sepsis and C. difficile colitis, cardiology is now consulted for an episode of newly diagnosed paroxysmal atrial fibrillation. Through
the weekend patient was at home dealing with generalized weakness fevers and chills and then started with diarrhea. There was thought that perhaps it was due to a viral illness such as influenza or COVID and patient was advised to take Imodium.
Due to increasing weakness the patient came to the ER and had evidence for sepsis and her stool culture was positive for C. difficile. Patient now admitted for sepsis and C. difficile colitis. Patient had worsening TME changes and was transition
to vancomycin MD, but GI consulted for placement of DHT today. DHT placed with some resistance from the patient who is now placed in soft mitts B/L. Patient noted to have onset of rapid atrial tachycardia. Patient was given Lopressor 5 mg IV x 1
and shortly thereafter spontaneously converted to SR. Unclear if patient experienced any symptoms due to ongoing TME changes. Patient's is at the bedside and relates that patient stopped following with cardiology a few years ago due to
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 Patient has a remote history of anterior wall DC and LAD PCI back in 2003, at that time the patient had just received a distressing phone call that one of her sons had an accident and was apparently
asked.
Progress Note - Intellectual Property Manager
Subjective
Date of Service: August 05, 2025
Pt seen and examined. does not answer questions
Objective
Labs:
08/05/25 07:44
08/05/25 03:21
Labs
Hgb 10.0 g/dL (12.0-16.0) L 08/05/25 07:44
Hct 28.5 % (37.0-47.0) L 08/05/25 07:44
Plt Count 168 10^3/uL (130-400) D 08/05/25 07:44
Sodium 128 mmol/L (135-145) L 08/05/25 03:21
Potassium 4.2 mmol/L (3.5-5.1) 08/05/25 03:21
BUN 38 mg/dl (7-17) H 08/05/25 03:21
Creatinine 0.9 mg/dL (0.6-1.0) 08/05/25 03:21
Glucose 117 mg/dl (70-99) H 08/05/25 03:21
Vital Signs and I&O:
Vital Signs
Temp Pulse Resp BP Pulse Ox
99.1 F 128 13 100/52 92
08/05/25 02:58 08/05/25 07:17 08/05/25 07:17 08/05/25 07:17 08/05/25 07:17
Vital Signs
Temp Pulse Resp BP Pulse Ox
99.1 F 128 13 100/52 92
08/05/25 02:58 08/05/25 07:17 08/05/25 07:17 08/05/25 07:17 08/05/25 07:17
Intake & Output
08/03/25 08/04/25 08/05/25 08/06/25
06:59 06:59 06:59 06:59
Intake Total 1325 / 1325 2630 / 2630
Output Total 2500 / 2500 1375 / 1375
Balance -1175 / -1175 1255 / 1255
Physical Exam
Physical Exam
General: No acute distress, lethargic and not alert
Neck: Negative JVD
Heart: Regular, Negative S3 positive S1/S2, Negative S4, No murmur
Lungs: CTA b/l, negative wheezes/rales/rhonchi
Abd: Positive BS, NT/ND, neg rebound/rigidity/guarding
Ext: Negative cyanosis/clubbing/edema
Neuro: nonfocal
--- NOTE | 2025-08-05 08:50 | CM ---
Addendum entered by Ashely Henry 08/05/25 11:12:
Updates reviewed with physician and patient son/. CM reviewed VN vs SNF options and pending pt/ot assessment. CM will continue to follow for discharge planning needs.
Plan; SNF vs home with VN pending medical treatment plan
Original Note:
Patient seen in [facility], [facility] to test. Patient encouraged by patient talking to him last night. CM will continue to follow for discharge planning needs.
Plan; home with family vs SNF; pending medical treatment plan
[2025-08-05 09:40] LABS: B.E. 9.4 mmol/L; HCO3 32.2 mmol/L (21-28); O2 Saturation % 91.8 % (94-98); PCO2 36 mmHg (32-35); PO2 62 mmHg (83-108)
--- NOTE | 2025-08-05 09:49 | W.PN.ID1 ---
Date of Service
Date of Service: August 05, 2025
Today's Communication
Continue enteric Vanco and IV metronidazole.
Assessment / Plan
# Severe C. difficile colitis
# Significant leukocytosis trending down
# Prerenal FAVIAN- resolving
# Electrolyte abnormalities - improving
# Metabolic toxic encephalopathy- improving
- Continue enteric Vancomycin 500mg q6h (d2) via DHT
- Continue with IV metronidazole 500mg IV q8 as adjunct.
- Continue supportive care
- Monitor stool output.
- Trend white count
# Additional Past Medical History:
Hypertension
CAD status post stent
Hypothyroidism
IBS
Neuropathy bilateral feet
Glaucoma
Rectal prolapse status post rectopexy 01/06/21
Hemorrhoid s/p banding
Appendectomy
Hysterectomy with BSO
Right knee replacement
Chief Complaint
-: Leukocytosis and C-diff
Subjective / Review of Systems
at bedside. Events noted.
Patient was very agitated since after DHT placement, went into atrial tachycardia.
Pt had to be restraint which the patient dislikes.
Pt more alert today.
Vital Signs / Physical Exam
Vital Signs
Vital Signs
Temp Pulse Resp BP Pulse Ox
97.5 F 128 13 100/52 92
08/05/25 08:00 08/05/25 07:17 08/05/25 07:17 08/05/25 07:17 08/05/25 07:17
Physical Exam
Constitutional: Acutely Ill
Eyes: No Conjunctival Hemorrhage and Sclera Anicteric
Cardiovascular: S1/S2 (tachycardic)
Pulmonary: Clear (anteriorly)
Gastrointestinal: Soft, Tender (diffuse- less tender compared to yesterday), Distended (mild) and Other (FMS - liquid stool)
Genito-Urinary: Negative CVA Tenderness
Extremities: Negative Edema
Neurological: Other (Arousable, answers questions appropriately)
Psychological: Agitated (Agitated - calms down with verbal cues.)
Objective Data
Lab Data
Lab Results
08/05/25 07:44
08/05/25 03:21
Estimated Creat Clear 47 ml/min 08/05/25 03:21
Lactic Acid 1.8 mmol/L (0.7-2.0) 08/03/25 11:15
Total Bilirubin 0.6 mg/dl (0.2-1.3) 08/05/25 03:21
AST 47 U/L (14-36) H 08/05/25 03:21
ALT 35 U/L (0-35) 08/05/25 03:21
Alkaline Phosphatase 188 U/L (38-126) H 08/05/25 03:21
Most recent labs reviewed.
Micro Results:
08/02/25 18:21 Salmonella/Shigella Culture - Final
Feces/Stool No Salmonella, Shigella, Aeromonas or Plesiomonas species
isolated.
Campylobacter Culture - Final
No Campylobacter species isolated.
Shiga Toxin Test - Final
No E. coli Shiga Toxin 1 or 2 detected.
08/02/25 18:20 Blood Culture - Preliminary
Blood/Venous No Growth in 48 hours- Final report to follow
08/03/25 12:33 Urine Culture - Final
Urine No Significant Growth
08/02/25 18:21 C. difficile GDH Antigen & Toxins - Final
Feces/Stool Toxigenic C.difficile Positive
Norovirus (PCR) - Final
Negative for Norovirus GI and GII.
08/02/25 17:33 Influenza Types A & B (DULCE) - Final
Nasal Swab Negative for Influenza A & B, NAAT
Negative results must be combined with clinical observations
and patient history.
Nucleic Acid Amplification test (NAAT)performed on the
[employer] platform.
08/02/25 CT a/p: There is pronounced wall thickening with adjacent stranding throughout the colon which likely represents severe colitis. The gallbladder appears mildly distended. There are no adjacent findings suggestive of acute cholecystitis.
This may be secondary to fasting state. If there is concern for acute cholecystitis consider dedicated right upper quadrant ultrasound. Moderately distended urinary bladder. There is mild prominence of the bilateral collecting systems which is
unchanged from prior.
Care Review
Plan reviewed with: Nurse and Physician (Dr. Villareal)
[2025-08-05 10:39] LABS: Nucleated Red Blood Cells % 0.1 %
[2025-08-05] MEDS: FLAGYL 500 MG 100 IV ×3 (10:56→23:28)
[2025-08-05] MEDS: LOW STRENGTH ASPIRIN 81 MG TUBE (10:57)
[2025-08-05] MEDS: PROTONIX IV 40 MG IV (10:57)
[2025-08-05] MEDS: NSS (PRESERVATIVE FREE) 10 ML IV (10:57)
[2025-08-05] MEDS: THIAMINE INJECTION 200 MG IV (11:04)
[2025-08-05] MEDS: HEPARIN SC (11:27)
--- NOTE | 2025-08-05 11:43 | W.PN.NEPH.PH ---
Today's Communication / Plan
-
Discontinue bicarbonate
Assessment/Plan
-
Assessment
FAVIAN
C difficile diarrhea/colitis
leukocytosis
hyperkalemia
metabolic acidosis
lactic acidosis
hyponatremia
CAD
hypocalcemia
Plan
Hyponatremia's improved to 128
Metabolic acidosis improved with bicarbonate= discontinue
Hyperkalemia normalized with treatment of underlying metabolic acidosis
FAVIAN resolved
Calcium improved
Hemodynamically stable off ARB
Urine osm today 483
I discussed with the family at the bedside
-
-
Date of Service: August 05, 2025
CC / HPI / ROS
-
Chief Complaint:
FAVIAN
Hyperkalemia
Metabolic acidemia
History of Present Illness:
Sodium improved
Creatinine normalized
Hyperkalemia improved
Review of Systems:
Nonoliguric via Saher catheter
NG tube
Labs
-
Labs:
Sodium 128 mmol/L (135-145) L 08/05/25 03:21
Potassium 4.2 mmol/L (3.5-5.1) 08/05/25 03:21
Chloride 95 mmol/L (98-107) L 08/05/25 03:21
Carbon Dioxide 29 mmol/L (22-30) 08/05/25 03:21
BUN 38 mg/dl (7-17) H 08/05/25 03:21
Creatinine 0.9 mg/dL (0.6-1.0) 08/05/25 03:21
eGFR > 60.00 08/05/25 03:21
Glucose 117 mg/dl (70-99) H 08/05/25 03:21
Calcium 7.5 mg/dl (8.4-10.2) L 08/05/25 03:21
Albumin 1.9 g/dl (3.5-5.0) L 08/05/25 03:21
Physical Exam
-
Vital Signs:
Vital Signs
Temp Pulse Resp BP Pulse Ox
97.5 F 128 13 100/52 950
08/05/25 08:00 08/05/25 07:17 08/05/25 07:17 08/05/25 07:17 08/05/25 08:00
Cardiovascular:: Regular rate and rhythm
Respiratory:: Bilateral: CTA
Lung Excursion:: Normal
Extremity Edema:: None: Bilateral:
Asher Catheter: Yes
[2025-08-05 12:11] LABS: Vitamin B12 > 1000 pg/ml (239-931)
[2025-08-05 12:32] LABS: APTT 35.0 Sec (23.4-35.0)
[2025-08-05 12:43] LABS: Hematocrit 30.8 % (37.0-47.0); Hemoglobin 11.1 g/dL (12.0-16.0); Mean Corp Hgb Conc. 36.0 g/dL (33.0-37.0); Mean Corpuscular Volume 79.2 fL (81.0-99.0); Platelet Count 216 10^3/uL (130-400); Red Cell Dist. Width 13.5 % (11.5-14.5)
[2025-08-05 12:55] LABS: Ammonia 12 umol/L (9-30)
[2025-08-05] MEDS: PACERONE 200 MG TUBE ×2 (16:31→21:26)
[2025-08-05 17:02] LABS: Glucose - Point of Care 130 mg/dl (70-99)
[2025-08-05] MEDS: LOPRESSOR 5 MG IV (17:52)
--- NOTE | 2025-08-05 18:04 | PTCARENOTE ---
Throughout the day, and son requested removal of pt's restraints. which was done with continued monitoring. At 1400, restraints were reapplied per 's request due to patient becoming increasingly agitated and repeatedly attempting to
remove DHT. Restraints currently in place and applied appropriately for patient safety. Ongoing monitoring and frequent restraint checks in progress.
[2025-08-05 18:07] LABS: Folate 9.6 ng/ml (2.76-20)
--- NOTE | 2025-08-05 19:23 | PTCARENOTE ---
@1752 Dr. Villareal notified of patient's increased agitation. Dr Moses (cross-covering provider) evaluated the patient at bedside and spoke with both patient and . Pt noted to be tachycardic with HR persistently in the 130's. PRN Lopressor
administered per order with noted response. @1810 pt's HR was noted to decreased into the 30's then spontaneously converted back to A-fib Rhythm in the 70's within seconds. Dr. Kim notified. Plan of care ongoing with continued close monitoring of
heart rate.
[2025-08-05] MEDS: NEURONTIN 400 MG TUBE (20:04)
[2025-08-05] MEDS: XALATAN OPHTHALMIC SOLUTION 1 DROP BOTH EYES (21:27)
[2025-08-05] MEDS: MELATONIN 5 MG PO (21:27)
--- NOTE | 2025-08-05 21:49 | PTCARENOTE ---
Addendum entered by Mariia Hercules RN 08/06/25 03:13:
Pt became more restless and trying to get up and pull tubes. CORK SORTER on called notified and BL wrist restrains order. Pt AAOX1 and refuses to believe she is in the hospital.
Addendum entered by Mariia Hercules RN 08/06/25 00:37:
CORK SORTER on called notified about pt being in Heparin gtt. Pt was not on Heparin nor Eliquis. Pt remains in Afib and metoprolol IV given. Heparin gtt started at 950 units.
Addendum entered by Mariia Hercules RN 08/05/25 23:06:
Pt converted to Afib 90-110's. Asymptomatic. Will administer metoprolol IV per order. Pt remains in RA, SaO2 96-97%.
Original Note:
Pt AAOx1, forgetful, confused and restless at times. Pt is redirectable. Son at bedside. Pt has been off restrains prior the shift started. Pt has been c/o restless legs and throat pain. See MAR for pain management. Pt was reminded not to touch face
due to the Dobbhoff. Soft spoken. NSR in the tele monitor. +1 BLLE edema. Lung sound are diminished and shallow. Pt is in RA SaO2 95%. Dobbhoff is in place in the Lt nare. Tube feeding running at 40 ml/hr with 25 ml flush. Will increase per
protocol. Abd round and constant liquid stool. FMS order. Asher cath intact. Q2 Turn
[2025-08-06] VITALS (30 sets, daily range): BP systolic 89–161; BP diastolic 40–126; PULSE 79; O2SAT 94; BMI 32.8
[2025-08-06] MEDS: HEPARIN 25000 UNITS/250 ML IV ×2 (00:30→23:48)
[2025-08-06] MEDS: LOPRESSOR 5 MG IV (00:31)
[2025-08-06] MEDS: TYLENOL ORAL SOLUTION 650 MG TUBE (03:08)
[2025-08-06] MEDS: FIRVANQ 500 MG TUBE ×3 (05:31→18:39)
[2025-08-06] MEDS: SYNTHROID 88 MCG TUBE (05:31)
--- NOTE | 2025-08-06 07:03 | W.PN.HOSP.TC ---
Addendum entered and electronically signed by Gaviota Villareal MD 08/06/25 10:54:
I saw and evaluated the patient independently. I reviewed and discussed the resident�s note and agree with findings and plan as documented by Dr. Wynn.
GENERAL: acutely ill appearing female more awake
HEENT: NC/AT--O2 NC--Dobhoff feeding tube out
HEART: regular rate and rhythm, +S1, +S2, tachy
LUNGS : clear to auscultation bilaterally
ABDOM: soft, tenderness improving without guarding or rebound, distended, + bowel sounds--rectal tube
EXT: no cyanosis, clubbing, or edema
NEUROLOGIC: nonfocal
: samaniego
Sepsis with evidence of end organ damage of lactic acidosis, encephalopathy, acute kidney injury with toxigenic C. Diff as the cause --CT scan without oral or IV contrast shows severe colitis--IVF stopped, Dobhoff stopped (pt pulled out)--cont IV
metronidazole--apprec ID and renal---head CT neg
encephalopathy--I suspect pt may have more dementia than family willing to admit--pt not cooperative--pulled out Dobhoff tube--refusing to take oral meds--says she is going to , despite trying to redirect--consult psych for assistance--head CT
negative
nutrition--was on tube feeds--pt pulled out the tube, speech eval apprec, able to start diet--pt now refusing to take pills
Severe hyponatremia --likely due to hypovolemia from GI losses--119 on admission, slowly improving--up to 128--apprec renal -- serum cortisol and TSH WNL
new onset atrial fibrillation with RVR--responded to IV lopressor--apprec cards input--cont IV heparin drip until Eliquis pricing obtained, hopefully pt will take the medication--amio PO
Lethargy/weakness also likely compounded by hypotension and volume loss/dehydration, Hyponatremia, sepsis--speech, PT/OT
Acute urinary retention--bladder distention on CT --st cath for 1700mls--cont samaniego cath
Hyperkalemia likely multifactorial from hypovolemia and diarrhea, urinary retention, valsartan--medical treatment of high potassium--no dialysis
FAVIAN--resolved-- likely prerenal---apprec renal
Bradycardia/PVCs--follow as electrolytes are corrected
Essential HTN--HOLD home valsartan
HLD - 'Pt is intolerant of statins. Dr. Houser has recommended [id number] but she refuses.'
CAD - continue home aspirin as able
Hypothyroidism - continue home levothyroxine as able
GERD - change IV PPI to PO if pt will take
Polyneuropathy - continue home gabapentin as able
DVT proph -- subq heparin
Code status-- full
Total Critical Care Time 30 minutes. I was immediately available to the patient and staff. I personally examined, reviewed labs, diagnostic images/reports, interpretations, treatment plans, discussed patient care with other providers and family
or caregivers (if patient is unable to make decisions), entered orders as appropriate and documented the medical record.
Original Note:
Today's Communication/Plan
-
- SLT eval for PO diet
- PT/OT OOB
- Continue vancomycin PO & metronidazole IV
- Continue amiodarone 200mg tid, metoprolol 5mg IV prn
- Psych consult & consider seroquel PRN
- Consider repeat CT a/p today or tmrw if WBC uptrends
- Renal, cards, ID following, appreciate recs
Assessment / Plan
Assessment / Plan
84yo M with a hx of essential HTN, HLD, CAD, hypothyroidism, GERD, & polyneuropathy who p/w generalized weakness, fever/chills, nausea, & diarrhea, found to have sepsis 2/2 positive c diff diarrhea with evidence of end-organ damage, now improving
s/p fluids, abx, & electrolyte correction, with ongoing AMS.
#C diff diarrhea, with resolving sepsis w end organ damage
#Lactic acidosis, resolved
Labs on admission 12/15 - WBC 29.5, Cl 92, CO2 15, lactic acid 3.5, AST 155, ALT 52. Diarrhea since 07/31 with fever/chills resolved by time of admission. CT a/p with evidence of severe colitis. C diff stool antigen positive. Covid, flu, norovirus
negative. F/c, nausea, weakness, electrolyte abnormalities all likely 2/2 c diff & associated volume loss/sepsis.
Today - AVSS; WBC slight uptrend, LLQ remains tender; diarrhea ongoing
- Continue IV metronidazole 500mg q8hr & PO vancomycin 500mg QID
- Consider repeat CT a/p
- IV tylenol for pain PRN
- ID following, appreciate recs
#AMS, agitation
08/03- - pt obtunded, unable to rouse beyond turning head am despite near-normalization of lytes by 08/05. Per RN, had waxing/waning consciousness overnight not much improved from prior day. CT head 08/05 unremarkable. Ammonia, B12, folate wnl.
ABG 08/05 w alkalosis w compensatory metabolic acidosis, likely 2/2 overcorrection w bicarb drip. Potential elements of hospital induced delirium vs. metabolic encephalopathy vs. underlying dementia.
Today - patient distressed/confused/disoriented
- Continue IV thiamine
- Psych consult today
- Consider quetiapine PRN at night
- PT/OT eval and goal of OOB
#Paroxysmal atrial fibrillation
Transient episode of a fib shortly after dobhoff placement on 08/04, most likely triggered by physiologic stress exacerbation from tube placement in s/o pt current illness. Resolved to normal sinus rate/rhythm s/p 5mg IV metoprolol. 08/05 morning,
pt again in a fib with HR in 120s. TTE 08/05 did not demonstrate significant LA dilation or significant regional wall motion abnormalities, mild LA enlargement & MR (EF 55-60%, LA volume mildly abnormal 35-41, mild concentric LVH, mild MR). Afib
likely 2/2 physiologic stress exacerbating mild existing abnormalities.
- Continue IV heparin drip
- Continue amiodarone 200mg tid (started 08/05)
- PRN 5mg IV metoprolol q6hr for HR>100 in afib
- Monitor on tele
- Cardiology following, appreciate recs
#Hyponatremia, improving
Na+ 119 on admission, likely 2/2 hypovolemic hyponatremia in s/o volume loss w ongoing diarrhea. AMS, difficult to arouse likely 2/2 severe hyponatremia. Received NSS on admission but not hypertonic. Lethargy/weakness also likely compounded by
hypotension and volume loss/dehydration. Hyponatremia may also be due to SIADH given pain/AMS or adrenal insuff given initial presentation w hypotension & hyperK. Cortisol & TSH wnl. Urine Na 7, urine cr 90.3, serum osm 281 - not hypoosmolar given
repletion already performed, but urine sodium <7 supports likely prior hypoosmolar hypovolemic hyponatremia.
Today - Na 127
- Continue to trend BMP
- Renal following, appreciate recs
#Hyperkalemia, improved
#Hypocalcemia, stable
K 5.8 on admission, likely 2/2 high-volume diarrhea. Likely 2/2 ongoing valsartan use in s/o volume loss vs. adrenal insufficiency vs. RTA. Cortisol wnl, more likely volume loss etiology. S/p insulin; s/p ca gluconate x2.
Today - K wnl, Ca stable corrected
- Continue to trend BMP
- Renal following, appreciate recs
#FAVIAN, resolved, likely prerenal
#Acute urinary retention
Cr 1.8, BUN 49, eGFR 27.78 on admission, likely prerenal in s/o volume loss 2/2 c diff diarrhea. BUN/Cr ratio 27, c/w prerenal. Potential component of obstruction, although no evidence of overt physical obstruction on CT. Per RN, pt retaining 1700
in bladder on 08/03 at 12:30pm. CT a/p 08/02: 'Moderately distended urinary bladder. There is mild prominence of the bilateral collecting systems which is unchanged from prior.' Likely contributor to FAVIAN. Uncertain etiology, likely in s/o multiorgan
damage in s/o sepsis.
Today - Cr improved 0.6
- Samaniego catheter remains in place
- Renal following, appreciate recs
#Chronic
#Essential HTN - holding home valsartan
#HLD - 'Pt is intolerant of statins. Dr. Houser has recommended [id number] but she refuses.'
#CAD - continue home aspirin
#Hypothyroidism - continue home levothyroxine
#GERD - IV PPI
#Polyneuropathy - continue home gabapentin
#Global
- DVT ppx: IV heparin drip
- Code: full
- Diet: dobhoff out, SLT consult today for PO diet recs
- Dispo: lives at home with partner, dispo planning pending stabilization of clinical status
Anticipated Discharge: > 48 hours
Subjective/Interval History
-
Date of Service: August 06, 2025
Patient awake this morning and interactive. However, very disoriented/confused/distressed. Made request for me to take off her socks because her feet were hot. Denied that she was sick, stating 'how could have woman do this to another woman?',
states that she does need oxygen, states that she does not need to be here, states that things are not okay.
Per RN, patient was agitated earlier in the evening but was able to fall asleep after receiving melatonin. When she was agitated heart rate spiked to the 120s. Was given 5 mg IV metoprolol and heart rate returned to 70s. Heart rate spikes and she
is agitated. A Xanax was ordered in the evening but was not given. Patient became agitated around 4 AM this morning after waking up and has been confused.
Objective Data
-
Labs:
Laboratory Results
08/06/25
06:34
WBC Pending
Hgb Pending
Hct Pending
Plt Count Pending
APTT Pending
Sodium Pending
Potassium Pending
Chloride Pending
Carbon Dioxide Pending
BUN Pending
Creatinine Pending
Glucose Pending
Calcium Pending
Total Bilirubin Pending
AST Pending
ALT Pending
Alkaline Phosphatase Pending
Vital Signs:
Vital Signs
Temp Pulse Resp BP Pulse Ox
98.8 F 104 16 133/75 96
08/06/25 03:03 08/06/25 06:00 08/06/25 06:00 08/06/25 06:00 08/06/25 06:00
I&O
08/04/25 08/05/25 08/06/25
06:59 06:59 06:59
Intake Total 1325 / 1325 2630 / 2630
Output Total 2500 / 2500 1375 / 1375 1050 / 1050
Balance -1175 / -1175 1255 / 1255 -1050 / -1050
Review of Systems
-
Unable to obtain full review of systems at this time due to: Dementia and Acuity
History Source: Patient
All other systems: Not reviewed unless documented
Physical Exam
-
General: Well Nourished and Appears in Distress
HEENT: Normocephalic and Atraumatic
Respiratory: Clear to Auscultation and Non Labored Respirations
Cardiac: Regular Rhythm and Tachycardic
GI: Soft, Nondistended and Tender (tender to palpation in LLQ )
Rectal: Other (rectal collection bag with lower volume dark brown liquid diarrhea than prior days )
Musculoskeletal: No Edema
Skin: Warm and Dry
Neuro: Awake and Other (AMS)
Psych: Confused and Agitated
Data Reviewed
-
Total Time Spent with Patient (in minutes): 15
Critical Care Time (in minutes): 60
Diagnostic Radiology: Report Reviewed by me
Medical Tests (Nuc Med, Echo etc): Report Reviewed by me
Labs: Labs Reviewed by me
[2025-08-06 07:11] LABS: APTT 103.9 Sec (23.4-35.0)
[2025-08-06 07:16] LABS: Hematocrit 29.9 % (37.0-47.0); Hemoglobin 10.6 g/dL (12.0-16.0); Mean Corp Hgb Conc. 35.5 g/dL (33.0-37.0); Mean Corpuscular Volume 79.3 fL (81.0-99.0); Platelet Count 222 10^3/uL (130-400); Red Cell Dist. Width 13.4 % (11.5-14.5)
[2025-08-06 07:23] LABS: ALT (SGPT) 38 U/L (0-35); AST (SGOT) 55 U/L (14-36); Albumin 1.8 g/dl (3.5-5.0); Alkaline Phosphatase 265 U/L (38-126); Blood Urea Nitrogen 23 mg/dl (7-17); Calcium 7.2 mg/dl (8.4-10.2); Carbon Dioxide 25 mmol/L (22-30); Chloride 98 mmol/L (98-107); Estimated Creatinine Clearance 70 ml/min; Glucose 124 mg/dl (70-99); Magnesium 2.1 mg/dl (1.6-2.3); Potassium 3.8 mmol/L (3.5-5.1); Sodium 127 mmol/L (135-145); Total Protein 3.8 g/dl (6.3-8.2); eGFR > 60.00
[2025-08-06 08:14] LABS: Absolute Neutrophils -Man Diff 23.3 10^3/uL (1.4-6.5); Normal RBC Morphology Yes; Platelets Checked Yes
[2025-08-06 08:15] LABS: Total Cells Counted 100
--- NOTE | 2025-08-06 08:30 | PTCARENOTE ---
at 0815, [facility] notified this RN that the patient pulled out her DHT despite restraints being intact. was notified. Plan of care ongoing.
[2025-08-06] MEDS: LOW STRENGTH ASPIRIN TUBE ×2 (09:30→09:57)
[2025-08-06] MEDS: THIAMINE INJECTION IV ×2 (09:30→09:55)
[2025-08-06] MEDS: PACERONE TUBE ×3 (09:30→17:22)
[2025-08-06] MEDS: NSS (PRESERVATIVE FREE) IV ×2 (09:30→09:55)
[2025-08-06] MEDS: FLAGYL 500 MG IV ×3 (09:30→17:22)
[2025-08-06] MEDS: PROTONIX IV IV ×2 (09:30→09:55)
--- NOTE | 2025-08-06 09:30 | PTCARENOTE ---
After the pt removed DHT, Dr. Villareal and interdisciplinary team made a collective decision to discontinue tube feeding. Speech therapy consulted, and pt cleared for soft and bite-sized diet, thin liquids, medication as tolerated. Pt initially
tolerated medications through DHT; however, at the time of medication administration, pt refused both oral and IV medications.
Pt verbalized 'I want to .' Dr. Wynn notified. Psychiatry evaluation requested for evaluation. Vital signs at this time. OT and PT to continue involvement as ordered. Pt remains in restraints for safety. Close monitoring ongoing. Plan of care
continues.
--- NOTE | 2025-08-06 09:39 | W.PN.CARDCBS ---
Today's Communication / Plan
-
Add Lopressor for heart rate goal less than 110 bpm
Transition from IV heparin to Eliquis when able
Impression / Plan
-
PCP: Previously following with Dr. Savana Samuel and transitioning to Dr. Renetta Rodriguez with a new patient appointment scheduled for 11/02/2025
Cardiology: Previously followed with Dr. Houser, last seen in 2022
Impression:
Admitted with generalized weakness, fevers and chills and diarrhea 08/02/2025
C. difficile colitis
Sepsis
FAVIAN
Hyperkalemia
Newly diagnosed paroxysmal atrial tachycardia
Sinus bradycardia
PVCs
CAD s/p AWMI and 3.0 mm Cypher MARGARITO to the proximal LAD 05/2004
Hyperlipidemia
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
Urinary retention
Echo 08/05/2025: Study pending
Plan:
Remains in atrial fibrillation with modestly elevated heart rate
Continue amiodarone
Add Lopressor via tube for heart rate goal less than 110 bpm
Currently on heparin for risk reduction cardioembolic stroke. Would transition to Eliquis when able to take oral meds.
Echo with NL LVEF
Cont supportive care and abx and tx of cdiff.
Nephrology treating metabolic derangements
HPI: Patient came to the ER on Saturday with fevers, chills generalized weakness and diarrhea and was admitted with sepsis and C. difficile colitis, cardiology is now consulted for an episode of newly diagnosed paroxysmal atrial fibrillation. Through
the weekend patient was at home dealing with generalized weakness fevers and chills and then started with diarrhea. There was thought that perhaps it was due to a viral illness such as influenza or COVID and patient was advised to take Imodium.
Due to increasing weakness the patient came to the ER and had evidence for sepsis and her stool culture was positive for C. difficile. Patient now admitted for sepsis and C. difficile colitis. Patient had worsening TME changes and was transition
to vancomycin [place], but GI consulted for placement of DHT today. DHT placed with some resistance from the patient who is now placed in soft mitts B/L. Patient noted to have onset of rapid atrial tachycardia. Patient was given Lopressor 5 mg IV x 1
and shortly thereafter spontaneously converted to SR. Unclear if patient experienced any symptoms due to ongoing TME changes. Patient's is at the bedside and relates that patient stopped following with cardiology a few years ago due to
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 Patient has a remote history of anterior wall OK and LAD PCI back in 2003, at that time the patient had just received a distressing phone call that one of her sons had an accident and was apparently
asked.
Progress Note - Chili Maker
Subjective
Date of Service: August 06, 2025
No acute overnight events. Patient remains in atrial fibrillation by review of telemetry with modestly elevated heart rates. Unable to obtain much history this morning as patient is somnolent.
Objective
Labs:
08/06/25 06:34
08/06/25 06:34
Labs
Hgb 10.6 g/dL (12.0-16.0) L 08/06/25 06:34
Hct 29.9 % (37.0-47.0) L 08/06/25 06:34
Plt Count 222 10^3/uL (130-400) 08/06/25 06:34
APTT 103.9 Sec (23.4-35.0) H 08/06/25 06:34
Sodium 127 mmol/L (135-145) L 08/06/25 06:34
Potassium 3.8 mmol/L (3.5-5.1) 08/06/25 06:34
BUN 23 mg/dl (7-17) H 08/06/25 06:34
Creatinine 0.6 mg/dL (0.6-1.0) 08/06/25 06:34
Glucose 124 mg/dl (70-99) H 08/06/25 06:34
Vital Signs and I&O:
Vital Signs
Temp Pulse Resp BP Pulse Ox
98.1 F 104 16 133/75 96
08/06/25 07:34 08/06/25 06:00 08/06/25 06:00 08/06/25 06:00 08/06/25 06:00
Vital Signs
Temp Pulse Resp BP Pulse Ox
98.1 F 104 16 133/75 96
08/06/25 07:34 08/06/25 06:00 08/06/25 06:00 08/06/25 06:00 08/06/25 06:00
Intake & Output
08/04/25 08/05/25 08/06/25 08/07/25
06:59 06:59 06:59 06:59
Intake Total 1325 / 1325 2630 / 2630 860 / 860 1070 / 1070
Output Total 2500 / 2500 1375 / 1375 1050 / 1050 250 / 250
Balance -1175 / -1175 1255 / 1255 -190 / -190 820 / 820
Physical Exam
Physical Exam
Gen: NAD, drowsy, restrained
HEENT: NC/AT, sclera anicteric
Neck: No JVD
CV: Irregularly irregular
Lungs: On room air
Ext: No LE edema
Skin: Warm, dry
Neuro: Non-focal
--- NOTE | 2025-08-06 09:51 | CM ---
Patient seen at bedside in IMU with physicians, patient . patient answering questions for PT/OT assessment. Patient seen by speech therapy and for diet today. Patient to be seen today by psych due to agitation in evening per physician. Family
plan is for patient to return to home with family and supports. CM will continue to follow for discharge planning needs.
Plan; home with VN vs SNF pending medical treatment plan
--- NOTE | 2025-08-06 10:49 | PTOTSP ---
Speech Therapy Evaluation:
Pt with acute risk factors of dysphagia including AMS with agitation (potential elements of hospital induced delirium vs. metabolic encephalopathy vs. underlying dementia) and C Diff with resolving sepsis. Evaluation somewhat limited due to
agitation. Pt accepting minimal amounts of solids and an abundance of thin liquids (4x 8oz cups). 1x cough during subsequent straw sips, however no prior or subsequent s/sx of aspiration. Per , no dysphagia or pneumonia hx.
Recommend:
1. IDDSI 6 (soft and bite sized solids) and thin liquids
2. Meds as tolerated
3. Supervision with PO intake due to impulsivity
4. Strict aspiration and reflux precautions
5. SALON LEADER to follow to monitor tolerance of diet and assess candidacy for future diet upgrades
--- NOTE | 2025-08-06 11:10 | W.PN.NEPH.PH ---
Today's Communication / Plan
-
follow BMP
Assessment/Plan
-
Assessment
FAVIAN
C difficile diarrhea/colitis
leukocytosis
hyperkalemia
metabolic acidosis
lactic acidosis
hyponatremia
CAD
hypocalcemia
Plan
repeat urine studies
follow BMP
further IVF dependent on enteral intake and urine
-
-
Date of Service: August 06, 2025
CC / HPI / ROS
-
Chief Complaint:
FAVIAN
Hyperkalemia
Metabolic acidemia
History of Present Illness:
Na stable 127
Creatinine normalized 0.6
Hyperkalemia improved 3.8
abx for c diff colitis
Review of Systems:
Nonoliguric via Asher catheter
confused, restrained
Labs
-
Labs:
WBC 26.5 10^3/uL (4.8-10.8) H 08/06/25 06:34
RBC 3.77 10^6/uL (4.20-5.40) L 08/06/25 06:34
Hgb 10.6 g/dL (12.0-16.0) L 08/06/25 06:34
Hct 29.9 % (37.0-47.0) L 08/06/25 06:34
Plt Count 222 10^3/uL (130-400) 08/06/25 06:34
Sodium 127 mmol/L (135-145) L 08/06/25 06:34
Potassium 3.8 mmol/L (3.5-5.1) 08/06/25 06:34
Chloride 98 mmol/L (98-107) 08/06/25 06:34
Carbon Dioxide 25 mmol/L (22-30) 08/06/25 06:34
BUN 23 mg/dl (7-17) H 08/06/25 06:34
Creatinine 0.6 mg/dL (0.6-1.0) 08/06/25 06:34
eGFR > 60.00 08/06/25 06:34
Glucose 124 mg/dl (70-99) H 08/06/25 06:34
Calcium 7.2 mg/dl (8.4-10.2) L 08/06/25 06:34
Albumin 1.8 g/dl (3.5-5.0) L 08/06/25 06:34
Physical Exam
-
Vital Signs:
Vital Signs
Temp Pulse Resp BP Pulse Ox
98.1 F 114 16 122/93 96
08/06/25 07:34 08/06/25 09:55 08/06/25 06:00 08/06/25 09:55 08/06/25 06:00
Cardiovascular:: Regular rate and rhythm
Respiratory:: Bilateral: Coarse
Lung Excursion:: Normal
Abdomen:: Nontender and Soft
Bowel Sounds:: Normal
Extremity Edema:: +1: Bilateral:
--- NOTE | 2025-08-06 12:53 | W.PN.ID1 ---
Date of Service
Date of Service: August 06, 2025
Today's Communication
Add vanco to fluid for her to drink.
See below.
Assessment / Plan
# Severe C. difficile colitis
# Significant leukocytosis. Bandemia trending down.
# Prerenal FAVIAN- resolved
# Lethargy improved. DHT out
# Psych - lacks insight. Refuses po meds.
# Atrial tachycardic
- Abdomen less tender.
- Attempted to persuade patient to take po meds for her benefit, but unsuccessful.
also unable to get her to take po meds.
Pt lacks insight and does not think she is ill.
- Spoke to Pharmacy. Able to mix liquid vancomycin with water.
Pt keeps asking for water. Will add vancomycin to water for intake.
- Continue with IV metronidazole 500mg IV q8 for now.
- Agree with psych consult.
- Monitor stool output.
- Trend white count
# Additional Past Medical History:
Hypertension
CAD status post stent
Hypothyroidism
IBS
Neuropathy bilateral feet
Glaucoma
Rectal prolapse status post rectopexy 01/06/21
Hemorrhoid s/p banding
Appendectomy
Hysterectomy with BSO
Right knee replacement
Chief Complaint
-: Leukocytosis and C-diff
Subjective / Review of Systems
No longer has DHT. Pt refusing meds. She thinks she does not need it.
Wants to sit in chair. Keeps asking for water.
Vital Signs / Physical Exam
Vital Signs
Vital Signs
Temp Pulse Resp BP Pulse Ox
97.1 F 114 16 122/93 94
08/06/25 11:53 08/06/25 09:55 08/06/25 06:00 08/06/25 09:55 08/06/25 08:00
Physical Exam
Constitutional: Comfortable
Eyes: No Conjunctival Hemorrhage and Sclera Anicteric
Cardiovascular: S1/S2 (tachycardic)
Pulmonary: Clear (anteriorly)
Gastrointestinal: Soft, Tender (minimal), Distended (mild) and Other (FMS - liquid stool)
Genito-Urinary: Asher and Clear Urine; Negative CVA Tenderness
Extremities: Negative Edema
Neurological: Awake; Negative Oriented (Not oriented to year, season, place. ) or Meningeal Signs
Psychological: Agitated (Agitated - calms down with verbal cues.)
Objective Data
Lab Data
Lab Results
08/06/25 06:34
08/06/25 06:34
APTT 103.9 Sec (23.4-35.0) H 08/06/25 06:34
Estimated Creat Clear 70 ml/min 08/06/25 06:34
Lactic Acid 1.8 mmol/L (0.7-2.0) 08/03/25 11:15
Total Bilirubin 0.5 mg/dl (0.2-1.3) 08/06/25 06:34
AST 55 U/L (14-36) H 08/06/25 06:34
ALT 38 U/L (0-35) H 08/06/25 06:34
Alkaline Phosphatase 265 U/L (38-126) H 08/06/25 06:34
Most recent labs reviewed.
Micro Results:
08/02/25 18:20 Blood Culture - Preliminary
Blood/Venous No Growth in 72 hours- Final report to follow
08/02/25 18:21 Salmonella/Shigella Culture - Final
Feces/Stool No Salmonella, Shigella, Aeromonas or Plesiomonas species
isolated.
Campylobacter Culture - Final
No Campylobacter species isolated.
Shiga Toxin Test - Final
No E. coli Shiga Toxin 1 or 2 detected.
08/03/25 12:33 Urine Culture - Final
Urine No Significant Growth
08/02/25 18:21 C. difficile GD Antigen & Toxins - Final
Feces/Stool Toxigenic C.difficile Positive
Norovirus (PCR) - Final
Negative for Norovirus GI and GII.
08/02/25 17:33 Influenza Types A & B ([facility]CE) - Final
Nasal Swab Negative for Influenza A & B, NAAT
Negative results must be combined with clinical observations
and patient history.
Nucleic Acid Amplification test (NAAT)performed on the
[employer]ank platform.
08/02/25 CT a/p: There is pronounced wall thickening with adjacent stranding throughout the colon which likely represents severe colitis. The gallbladder appears mildly distended. There are no adjacent findings suggestive of acute cholecystitis.
This may be secondary to fasting state. If there is concern for acute cholecystitis consider dedicated right upper quadrant ultrasound. Moderately distended urinary bladder. There is mild prominence of the bilateral collecting systems which is
unchanged from prior.
Care Review
Plan reviewed with: Nurse and Other (Pharmacy)
[2025-08-06] MEDS: LOPRESSOR TUBE (14:36)
[2025-08-06] MEDS: FIRVANQ TUBE (14:36)
[2025-08-06 14:38] LABS: APTT 109.6 Sec (23.4-35.0)
--- NOTE | 2025-08-06 16:21 | CON.MD ---
Consultation - Medical
-
patient seen chart reviewed. discussed w jose and with dr hoyos. consult done today aug 06 2025. patient is an 85 year old woman with multiple medical problems admitted for weakness chills and diarrhea. she was found to have c diff sepsis/severe
colitis. also hyponatremic and hyperkalemic w urinary retention, cardiac arrhythmia (a fib bradycardia at one point) and likely encephalopathy. she has been very uncooperative at times pulling out ng tube, refusing meds, accusing staff and her
of nefarious intent. son was at bedside and reports normally his mother is very with it, gentle, and pleasant. this is markedly different than her usual demeanor. he also says she is for her age quite good cognitively. she has no hx of
depression or anxiety that has been treated. he does say both he and mom are very wary of medical providers believing they have been misdiagnosed and or mistreated in the past by medical instructor. patient has not taken meds orally since this
am including vancomycin which is essential for her recovery from c diff. patient takes no psychotropic medications
past psych hx denied
substance abuse denied
medical hx see abovepatient has hx hld and according to son statins were very deleterious to her health causing he and she feel neuropathy. she has hx CA glaucoma arthritis neuropathy gerd hypothyroid osteoporosis hx benign hysterectomy htn
vaginal prolapse gait issue constipation tsh b12 folate are nl NA 127 qtc 498 a fib CAT brain no new findings old infarct hgb 10.6 microcytic indices
fh non contrib
social resides w h three sons youngest is here and seems supportive lives at her home
mse oriented to person place and july. i had a hard time understanding her at times she may have said the year properly not clear to me. speech is at times very soft and not well articulated there were times however when i thought she was
dozing and she entered the conversation very appropriately eg when son was talking about doctor's errors she admits she thinks others here are trying to harm her ...quite paranoid stance mood is irritated and irritable affect congruent denies si
aver intell impaired by tme currently remains to be seen what is baseline insight and judgment right now are poor
dx tme secondary to underlying medical illness r.o cognitive issues when she is in better physical condition
plan there does seem to be underlying encephalopathy. unclear if patient has baseline cognitive dysfunction certainly medical illness can account for this. at this point patient lacks capacity for medical decision making. son seems to have her
interests at heart and and son should be consulted. discussed with son use of risperdal including black box warning for inc in cv deaths. he okays use for severe agitation endangering self or others. psych will follow
[2025-08-06] MEDS: LOPRESSOR 12.5 MG TUBE ×2 (18:36→22:36)
[2025-08-06] MEDS: FLAGYL 500 MG 100 IV ×2 (19:25→22:36)
--- NOTE | 2025-08-06 20:33 | PTCARENOTE ---
unable to verify vitals prior to 1900.
[2025-08-06] MEDS: XALATAN OPHTHALMIC SOLUTION 1 DROP BOTH EYES (20:43)
[2025-08-06] MEDS: MELATONIN 5 MG PO (20:44)
[2025-08-06] MEDS: NEURONTIN 400 MG TUBE (20:44)
[2025-08-06] MEDS: PACERONE 200 MG TUBE (20:44)
[2025-08-07] VITALS (15 sets, daily range): BP systolic 127–164; BP diastolic 41–87; BMI 33.3
--- NOTE | 2025-08-07 00:01 | PTCARENOTE ---
assumed care of patient. pt is AAOx3- agitated, restless, angry, uncooperative at times, angry with care. VSS. son and at bedside. 94% RA. pt was agreeable to taking medications in applesauce. inc. of liquid BM. rectal trumpet placed per
patient and family request. samaniego intact draining tea colored urine. calazime cream applied to sacrum. heparin gtt infusing. PTT in AM. bed alarm on. care ongoing.
[2025-08-07] MEDS: TYLENOL ORAL SOLUTION 650 MG TUBE (00:10)
--- NOTE | 2025-08-07 01:19 | PTCARENOTE ---
pt refusing eye drops tonight. family aware.
--- NOTE | 2025-08-07 02:30 | PTCARENOTE ---
pt continuously removing pulse ox, getting agitated when reapplied. pulse ox taken off at this time. oxygen stable 94% RA.
--- NOTE | 2025-08-07 03:05 | PTCARENOTE ---
pt continues to be agitated, angry, argumentative, and uncooperative with staff. multiple efforts made by this RN to help patient, but patient continues to say staff are not helping her, staff are torturing her, etc. safe environment maintained.
care ongoing.
--- NOTE | 2025-08-07 03:46 | PTCARENOTE ---
pt pulled out left hand IV, IV heparin and IV flagyl are compatible.
[2025-08-07] MEDS: FIRVANQ 500 MG TUBE ×3 (05:54→19:33)
[2025-08-07] MEDS: LOPRESSOR TUBE ×2 (05:54→06:11)
--- NOTE | 2025-08-07 06:11 | PTCARENOTE ---
Addendum entered by Ilana Salinas RN 08/07/25 06:13:
does not believe she is sick
Original Note:
this AM patient refusing all care. refusing labs to be done. refusing PTT be drawn. son at bedside trying to help but patient still refusing. does not believe she needs to be in the hospital. does believe she is sick. very paranoid at all times.
covering HAND CUTTER made aware. will try again on day shift.
--- NOTE | 2025-08-07 07:02 | W.PN.HOSP.TC ---
Addendum entered and electronically signed by Gaviota Villareal MD 08/07/25 12:51:
I saw and evaluated the patient independently. I reviewed and discussed the resident�s note and agree with findings and plan as documented by Dr. Wynn.
GENERAL: acutely ill appearing female more awake and refusing care
HEENT: NC/AT--O2 NC--Dobhoff feeding tube out
HEART: refused exam
LUNGS : refused exam
ABDOM: refused exam
EXT: refused exam
NEUROLOGIC: refused exam
: samaniego
had long family meeting with son and (~60 minutes) re: current plan of care and moving forward---pt has been deemed UNABLE TO MAKE MEDICAL DECISIONS, therefore family is now POA--pt cannot refuse care or treatments, labs, etc--explained that
I may have to sedate her, restrain her, and replace the feeding tube as IV therapy of C. diff is not effective--will do 1:1 at night as they are here all day--will medicate her for pain (perhaps that is causing some angst and making her refuse all
treatments)--family understands the risks with this plan but are not ready to discuss end of life (despite her saying she wants to ) as this is not her baseline mental status--I am still optimistic that she will recover with the current therapy
IF we can get it into her--family will try to convince her to take meds when they are here
Sepsis with evidence of end organ damage of lactic acidosis, encephalopathy, acute kidney injury with toxigenic C. Diff as the cause --CT scan without oral or IV contrast shows severe colitis--IVF stopped, Dobhoff stopped (pt pulled out)--cont IV
metronidazole--apprec ID and renal---head CT neg
encephalopathy--I suspect pt may have more dementia than family willing to admit--pt not cooperative--pulled out Dobhoff tube--refusing to take oral meds--says she is going to , despite trying to redirect--apprec psych for assistance--pt without
capacity to make medical decisions--head CT negative--family might decide to decline psych eval for fear of her 'fooling' them into thinking she has capacity
nutrition--was on tube feeds--pt pulled out the tube, speech eval apprec, able to start diet--pt now refusing to take pills or eat
Severe hyponatremia --likely due to hypovolemia from GI losses--119 on admission, slowly improving--up to 128--apprec renal -- serum cortisol and TSH WNL
new onset atrial fibrillation with RVR--responded to IV lopressor--apprec cards input--cont IV heparin drip until Eliquis pricing obtained, hopefully pt will take the medication--amio PO
Lethargy/weakness also likely compounded by hypotension and volume loss/dehydration, Hyponatremia, sepsis--speech, PT/OT
Acute urinary retention--bladder distention on CT --st cath for 1700mls--cont samaniego cath
Hyperkalemia likely multifactorial from hypovolemia and diarrhea, urinary retention, valsartan--medical treatment of high potassium--no dialysis
FAVIAN--resolved-- likely prerenal---apprec renal
Bradycardia/PVCs--follow as electrolytes are corrected
Essential HTN--HOLD home valsartan
HLD - 'Pt is intolerant of statins. Dr. Houser has recommended [id number] but she refuses.'
CAD - continue home aspirin as able
Hypothyroidism - continue home levothyroxine as able
GERD - change IV PPI to PO if pt will take
Polyneuropathy - continue home gabapentin as able
DVT proph -- heparin
Code status-- full
Total Critical Care Time 60 minutes. I was immediately available to the patient and staff. I personally examined, reviewed labs, diagnostic images/reports, interpretations, treatment plans, discussed patient care with other providers and family
or caregivers (if patient is unable to make decisions), entered orders as appropriate and documented the medical record.
Original Note:
Today's Communication/Plan
-
- 1:1 obs
- Standing tylenol IV
- Morphine
- Will eval and consider restraints with dobhoff replacement if patient continues to refuse meds
- Remainder of medical mgmt for cdiff & afib as in note, unchanged
Assessment / Plan
Assessment / Plan
84yo M with a hx of essential HTN, HLD, CAD, hypothyroidism, GERD, & polyneuropathy who p/w generalized weakness, fever/chills, nausea, & diarrhea, found to have sepsis 2/2 positive c diff diarrhea with evidence of end-organ damage, now improving
s/p fluids, abx, & electrolyte correction, with ongoing AMS.
#C diff diarrhea, with resolving sepsis w end organ damage
#Lactic acidosis, resolved
Labs on admission 08/02 - WBC 29.5, Cl 92, CO2 15, lactic acid 3.5, AST 155, ALT 52. Diarrhea since 07/31 with fever/chills resolved by time of admission. CT a/p with evidence of severe colitis. C diff stool antigen positive. Covid, flu, norovirus
negative. F/c, nausea, weakness, electrolyte abnormalities all likely 2/2 c diff & associated volume loss/sepsis.
Today - AVSS; diarrhea ongoing; refused am labs so no WBC; per RN, patient has missed doses of abx over last 24hr
- Continue IV metronidazole 500mg q8hr & PO vancomycin 500mg QID
- Will need to re-insert dobhoff tube if patient continues to refuse to take PO vanc
- IV tylenol for pain PRN
- ID following, appreciate recs
#AMS, agitation
08/03- - pt obtunded, unable to rouse beyond turning head am despite near-normalization of lytes by 08/05. Per RN, had waxing/waning consciousness overnight not much improved from prior day. CT head 08/05 unremarkable. Ammonia, B12, folate wnl.
ABG 08/05 w alkalosis w compensatory metabolic acidosis, likely 2/2 overcorrection w bicarb drip. Potential elements of hospital induced delirium vs. metabolic encephalopathy vs. underlying dementia vs. pain vs. prior hospital-associated trauma.
08/06 Psych eval: 'patient lacks capacity for medical decision making. son seems to have her interests at heart and and son should be consulted'
Today - Pt denying that has diarrhea, infection; paranoid; pulled out IV line in am; refusing care; stating want to ; no capacity
- To have discussion today clarifying options for family directing care, given patient without capacity
- Will order 1:1 observation
- Will increase pain mgmt to standing IV tylenol & start morphine
- Continue IV thiamine
- Melatonin & low-dose risperidone PRN at night for agitation
- Continue PT/OT and OOB
- Consult son & for medical decisionmaking
- Pysch following
#Paroxysmal atrial fibrillation
Transient episode of a fib shortly after dobhoff placement on 08/04, most likely triggered by physiologic stress exacerbation from tube placement in s/o pt current illness. Resolved to normal sinus rate/rhythm s/p 5mg IV metoprolol. 08/05 morning,
pt again in a fib with HR in 120s. TTE 08/05 did not demonstrate significant LA dilation or significant regional wall motion abnormalities, mild LA enlargement & MR (EF 55-60%, LA volume mildly abnormal 35-41, mild concentric LVH, mild MR). Afib
likely 2/2 physiologic stress exacerbating mild existing abnormalities.
- IV heparin drip
- Continue metoprolol 12.5mg q6hr (started 08/06)
- Continue amiodarone 200mg tid (started 08/05)
- PRN 5mg IV metoprolol q6hr for HR>100 in afib
- Monitor on tele
- Cardiology following, appreciate recs
#Hyponatremia, improving
Na+ 119 on admission, likely 2/2 hypovolemic hyponatremia in s/o volume loss w ongoing diarrhea. AMS, difficult to arouse likely 2/2 severe hyponatremia. Received NSS on admission but not hypertonic. Lethargy/weakness also likely compounded by
hypotension and volume loss/dehydration. Hyponatremia may also be due to SIADH given pain/AMS or adrenal insuff given initial presentation w hypotension & hyperK. Cortisol & TSH wnl. Urine Na 7, urine cr 90.3, serum osm 281 - not hypoosmolar given
repletion already performed, but urine sodium <7 supports likely prior hypoosmolar hypovolemic hyponatremia. Resolving s/p fluids.
Today - labs refused
- Continue to trend BMP
- Repeat urine studies pending
- Renal following, appreciate recs
#Hyperkalemia, improved
#Hypocalcemia, stable
K 5.8 on admission, likely 2/2 high-volume diarrhea. Likely 2/2 ongoing valsartan use in s/o volume loss vs. adrenal insufficiency vs. RTA. Cortisol wnl, more likely volume loss etiology. S/p insulin; s/p ca gluconate x2.
Today - labs refused
- Continue to trend BMP
- Renal following, appreciate recs
#FAVIAN, resolved, likely prerenal
#Acute urinary retention
Cr 1.8, BUN 49, eGFR 27.78 on admission, likely prerenal in s/o volume loss 2/2 c diff diarrhea. BUN/Cr ratio 27, c/w prerenal. Potential component of obstruction, although no evidence of overt physical obstruction on CT. Per RN, pt retaining 1700
in bladder on 08/03 at 12:30pm. CT a/p 08/02: 'Moderately distended urinary bladder. There is mild prominence of the bilateral collecting systems which is unchanged from prior.' Likely contributor to FAVIAN. Uncertain etiology, likely in s/o multiorgan
damage in s/o sepsis.
Resolved s/p fluids.
- Samaniego catheter remains in place
- Renal following, appreciate recs
#Chronic
#Essential HTN - holding home valsartan
#HLD - 'Pt is intolerant of statins. Dr. Houser has recommended [id number] but she refuses.'
#CAD - continue home aspirin
#Hypothyroidism - continue home levothyroxine
#GERD - IV PPI
#Polyneuropathy - continue home gabapentin
#Global
- DVT ppx: IV heparin drip
- Code: full
- Diet: IDDSI 6
- Dispo: lives at home with partner, dispo planning pending stabilization of clinical status
Anticipated Discharge: > 48 hours
Subjective/Interval History
-
Date of Service: August 07, 2025
Pt has been refusing meds and labs overnight, son unable to convince. Was not given risperidone because not aggressive overnight. This morning, patient pulled out her IV line. Spoke with son & RN, son upset. Patient continues to deny that she has c
diff, states that she has no infection, no diarrhea. Paranoid. States that we should just let her . Per psych, pt no decisionmaking capacity.
Objective Data
-
Labs:
Laboratory Results
08/07/25
06:00
WBC Pending
Hgb Pending
Hct Pending
Plt Count Pending
APTT Pending
Sodium Pending
Potassium Pending
Chloride Pending
Carbon Dioxide Pending
BUN Pending
Creatinine Pending
Glucose Pending
Calcium Pending
Total Bilirubin Pending
AST Pending
ALT Pending
Alkaline Phosphatase Pending
Vital Signs:
Vital Signs
Temp Pulse Resp BP Pulse Ox
98.4 F 68 19 149/70 92
08/07/25 03:00 08/07/25 06:00 08/07/25 06:00 08/07/25 06:00 08/07/25 02:00
I&O
08/06/25 08/07/25 08/08/25
06:59 06:59 06:59
Intake Total 860 / 860 1070 / 1070
Output Total 1050 / 1050 825 / 825
Balance -190 / -190 245 / 245
Review of Systems
-
Unable to obtain full review of systems at this time due to: Dementia and Acuity
History Source: Patient and Family
All other systems: Not reviewed unless documented
Physical Exam
-
General: Well Developed, Well Nourished and Conversant (withdrawn, paranoid, combative)
HEENT: Normocephalic and Atraumatic
Respiratory: Non Labored Respirations
Cardiac: Regular Rhythm
GI: Soft, Nontender (slight grimace with palpation LLQ ) and Nondistended
Rectal: Other (moderate liquid dark brown stool in bag)
Genito-urinary: Samaniego (yellow urine)
Musculoskeletal: No Edema
Skin: Warm and Dry
Neuro: Awake and Alert
Psych: Confused, Agitated and Other (lacking judgment/insight, paranoid, combative)
Data Reviewed
-
Total Time Spent with Patient (in minutes): 20
Critical Care Time (in minutes): 45
--- NOTE | 2025-08-07 08:40 | PTCARENOTE ---
Assumed care from previous nurse. Pt is awake, fully alert. Pt noted to be angry and agitated, verbally expressing refusal and declining all scheduled medications despite education provided. Son present at bedside and informed of the situation. Plan
of care reviewed with patient and family; questions addressed as appropriate. Will continue to monitor patient status, provide education, and encourage medication compliance as tolerated. Plan of care ongoing.
--- NOTE | 2025-08-07 09:32 | W.PN.CARDCBS ---
Today's Communication / Plan
-
Continue amiodarone 200 mg TID for total of 7 days, then reduce to 200 mg BID for 2 weeks, then 200 mg daily
Can use Lopressor via tube for heart rate goal less than 110 bpm
Currently on heparin for risk reduction cardioembolic stroke.
Would transition to Eliquis when able to take oral meds.
Not adding much from a cardiac standpoint, will sign off
Impression / Plan
-
PCP: Previously following with Dr. Savana Samuel and transitioning to Dr. Renetta Rodriguez with a new patient appointment scheduled for 11/02/2025
Cardiology: Previously followed with Dr. Houser, last seen in 2022
Impression:
Admitted with generalized weakness, fevers and chills and diarrhea 08/02/2025
C. difficile colitis
Sepsis
FAVIAN
Hyperkalemia
Newly diagnosed paroxysmal atrial tachycardia
Sinus bradycardia
PVCs
CAD s/p AWMI and 3.0 mm Cypher MARGARITO to the proximal LAD 05/2004
Hyperlipidemia
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
Urinary retention
Echo 08/05/2025:
1. Ejection fraction is 55-60% by visual assessment.
2. Calcified trileaflet aortic valve with adequate leaflet excursion. Trace aortic insufficiency.
3. Indexed left atrial volume is mildly abnormal (35-41 ml/m2).
4. Mild concentric left ventricular hypertrophy.
5. Posterior mitral annular calcification with mild mitral regurgitation.
Plan:
Heart rates are better controlled
Continue amiodarone 200 mg TID for total of 7 days, then reduce to 200 mg BID for 2 weeks, then 200 mg daily
Can use Lopressor via tube for heart rate goal less than 110 bpm
Currently on heparin for risk reduction cardioembolic stroke.
Would transition to Eliquis when able to take oral meds.
Echo with NL LVEF
Cont supportive care and abx and tx of cdiff.
Nephrology treating metabolic derangements
Will sign off
HPI: Patient came to the ER on Saturday with fevers, chills generalized weakness and diarrhea and was admitted with sepsis and C. difficile colitis, cardiology is now consulted for an episode of newly diagnosed paroxysmal atrial fibrillation. Through
the weekend patient was at home dealing with generalized weakness fevers and chills and then started with diarrhea. There was thought that perhaps it was due to a viral illness such as influenza or COVID and patient was advised to take Imodium.
Due to increasing weakness the patient came to the ER and had evidence for sepsis and her stool culture was positive for C. difficile. Patient now admitted for sepsis and C. difficile colitis. Patient had worsening TME changes and was transition
to vancomycin [place], but GI consulted for placement of DHT today. DHT placed with some resistance from the patient who is now placed in soft mitts B/L. Patient noted to have onset of rapid atrial tachycardia. Patient was given Lopressor 5 mg IV x 1
and shortly thereafter spontaneously converted to SR. Unclear if patient experienced any symptoms due to ongoing TME changes. Patient's is at the bedside and relates that patient stopped following with cardiology a few years ago due to
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 Patient has a remote history of anterior wall ID and LAD PCI back in 2003, at that time the patient had just received a distressing phone call that one of her sons had an accident and was apparently
asked.
Progress Note - Press Catcher
Subjective
Date of Service: August 07, 2025
She tells me 'I'm not feeling sick' and she denies any complaints
Objective
Labs:
Labs
Hgb 10.6 g/dL (12.0-16.0) L 08/06/25 06:34
Hct 29.9 % (37.0-47.0) L 08/06/25 06:34
Plt Count 222 10^3/uL (130-400) 08/06/25 06:34
APTT 109.6 Sec (23.4-35.0) H 08/06/25 14:18
Sodium 127 mmol/L (135-145) L 08/06/25 06:34
Potassium 3.8 mmol/L (3.5-5.1) 08/06/25 06:34
BUN 23 mg/dl (7-17) H 08/06/25 06:34
Creatinine 0.6 mg/dL (0.6-1.0) 08/06/25 06:34
Glucose 124 mg/dl (70-99) H 08/06/25 06:34
Vital Signs and I&O:
Vital Signs
Temp Pulse Resp BP Pulse Ox
98.4 F 68 19 149/70 92
08/07/25 03:00 08/07/25 06:00 08/07/25 06:00 08/07/25 06:00 08/07/25 02:00
Vital Signs
Temp Pulse Resp BP Pulse Ox
98.4 F 68 19 149/70 92
08/07/25 03:00 08/07/25 06:00 08/07/25 06:00 08/07/25 06:00 08/07/25 02:00
Intake & Output
08/05/25 08/06/25 08/07/25 08/08/25
06:59 06:59 06:59 06:59
Intake Total 2630 / 2630 860 / 860 1070 / 1070
Output Total 1375 / 1375 1050 / 1050 825 / 825
Balance 1255 / 1255 -190 / -190 245 / 245
Physical Exam
Physical Exam
Gen: NAD, drowsy but responsive
HEENT: NC/AT, sclera anicteric
Neck: No JVD
CV: Irregularly irregular, normal S1 and normal S2, no S3 no S4 is grade 1/6 apical holosystolic murmur no rub
Lungs: On room air
Ext: No LE edema
Skin: Warm, dry
Neuro: Non-focal
[2025-08-07] MEDS: THIAMINE INJECTION 200 MG IV (09:49)
[2025-08-07] MEDS: FLAGYL 500 MG 100 IV ×3 (09:49→23:27)
[2025-08-07] MEDS: NSS (PRESERVATIVE FREE) 10 ML IV (09:50)
[2025-08-07] MEDS: PROTONIX IV 40 MG IV (09:50)
[2025-08-07] MEDS: PACERONE TUBE (09:56)
[2025-08-07] MEDS: LOW STRENGTH ASPIRIN TUBE (09:56)
--- NOTE | 2025-08-07 10:43 | W.PN.ID1 ---
Date of Service
Date of Service: August 07, 2025
Today's Communication
See below.
Assessment / Plan
# Severe C. difficile colitis
# Significant leukocytosis. Bandemia trending down.
# Prerenal FAVIAN- resolved
# Encephalopathy
# Psych - lacks insight. Refuses po/IVmeds, lab draws
# Atrial tachycardic - improved
- Abdomen tenderness resolved
- Per nurse was able to give pt vancomycin mixed with water yesterday.
However, today pt took only few sips of vanco diluted in water.
- Pt refuses IV metronidazole 500mg IV q8
- Challenging case. Pt does not have the capacity to make medical decisions at this time.
If GOC is to continue treatment, may have to sedate for interventions including DHT placement again.
# Additional Past Medical History:
Hypertension
CAD status post stent
Hypothyroidism
IBS
Neuropathy bilateral feet
Glaucoma
Rectal prolapse status post rectopexy 01/06/21
Hemorrhoid s/p banding
Appendectomy
Hysterectomy with BSO
Right knee replacement
Chief Complaint
-: Leukocytosis and C-diff
Subjective / Review of Systems
Pt continues to refuse meds, lab draws.
Vital Signs / Physical Exam
Vital Signs
Vital Signs
Temp Pulse Resp BP Pulse Ox
98.1 F 68 19 149/70 92
08/07/25 07:01 08/07/25 06:00 08/07/25 06:00 08/07/25 06:00 08/07/25 02:00
Physical Exam
Constitutional: Comfortable and Chronically Ill
Eyes: No Conjunctival Hemorrhage and Sclera Anicteric
Cardiovascular: Regular Rate and S1/S2
Pulmonary: Clear (anteriorly)
Gastrointestinal: Soft and Non Tender
Extremities: Negative Edema
Neurological: Awake and Alert
Objective Data
Lab Data
APTT 109.6 Sec (23.4-35.0) H 08/06/25 14:18
Estimated Creat Clear 70 ml/min 08/06/25 06:34
Lactic Acid 1.8 mmol/L (0.7-2.0) 08/03/25 11:15
Total Bilirubin 0.5 mg/dl (0.2-1.3) 08/06/25 06:34
AST 55 U/L (14-36) H 08/06/25 06:34
ALT 38 U/L (0-35) H 08/06/25 06:34
Alkaline Phosphatase 265 U/L (38-126) H 08/06/25 06:34
Most recent labs reviewed.
Micro Results:
08/02/25 18:20 Blood Culture - Preliminary
Blood/Venous No Growth in 4 days- Final report to follow
08/02/25 18:21 Salmonella/Shigella Culture - Final
Feces/Stool No Salmonella, Shigella, Aeromonas or Plesiomonas species
isolated.
Campylobacter Culture - Final
No Campylobacter species isolated.
Shiga Toxin Test - Final
No E. coli Shiga Toxin 1 or 2 detected.
08/03/25 12:33 Urine Culture - Final
Urine No Significant Growth
08/02/25 18:21 C. difficile GDH Antigen & Toxins - Final
Feces/Stool Toxigenic C.difficile Positive
Norovirus (PCR) - Final
Negative for Norovirus GI and GII.
08/02/25 17:33 Influenza Types A & B ([facility]) - Final
Nasal Swab Negative for Influenza A & B, NAAT
Negative results must be combined with clinical observations
and patient history.
Nucleic Acid Amplification test (NAAT)performed on the
[employer] platform.
08/02/25 CT a/p: There is pronounced wall thickening with adjacent stranding throughout the colon which likely represents severe colitis. The gallbladder appears mildly distended. There are no adjacent findings suggestive of acute cholecystitis.
This may be secondary to fasting state. If there is concern for acute cholecystitis consider dedicated right upper quadrant ultrasound. Moderately distended urinary bladder. There is mild prominence of the bilateral collecting systems which is
unchanged from prior.
Care Review
Plan reviewed with: Nurse
[2025-08-07] MEDS: MORPHINE SULFATE 1 MG IV (11:03)
[2025-08-07] MEDS: OFIRMEV 100 IV ×3 (11:04→23:25)
--- NOTE | 2025-08-07 11:18 | W.PN.NEPH.PH ---
Today's Communication / Plan
-
await GOC
Assessment/Plan
-
Assessment
FAVIAN
C difficile diarrhea/colitis
leukocytosis
hyperkalemia
metabolic acidosis
lactic acidosis
hyponatremia
CAD
hypocalcemia
Plan
await GOC from family
-
-
Date of Service: August 07, 2025
CC / HPI / ROS
-
Chief Complaint:
FAVIAN
Hyperkalemia
Metabolic acidemia
History of Present Illness:
pt refusing care/meds/treatment
no labs
abx for c diff colitis cannot be given po
Review of Systems:
Nonoliguric via Asher catheter
confused, restrained
Labs
-
Labs:
eGFR > 60.00 08/06/25 06:34
Physical Exam
-
Vital Signs:
Vital Signs
Temp Pulse Resp BP Pulse Ox
98.1 F 68 19 149/70 92
08/07/25 07:01 08/07/25 06:00 08/07/25 06:00 08/07/25 06:00 08/07/25 02:00
Cardiovascular:: Regular rate and rhythm
Respiratory:: Bilateral: Coarse
Lung Excursion:: Normal
Abdomen:: Nontender and Soft
Bowel Sounds:: Normal
Extremity Edema:: None: Bilateral:
--- NOTE | 2025-08-07 12:15 | PTCARENOTE ---
Heparin gtt discontinued per Dr. Villareal's order. Patient continued to refuse 1200 oral medications despite education and encouragement provided by this RN. Refusal noted. Plan of care ongoing.
[2025-08-07] MEDS: LOPRESSOR 12.5 MG TUBE ×2 (12:22→19:34)
[2025-08-07] MEDS: PACERONE 200 MG TUBE ×2 (16:11→21:21)
--- NOTE | 2025-08-07 18:15 | PTCARENOTE ---
During medication administration, family present at bedside. Patient noted to be more cooperative with encouragement, and accepted oral medications. Dr. Villareal notified. 1:1 observation initiated for federal appellate law clerk.
[2025-08-07] MEDS: XALATAN OPHTHALMIC SOLUTION 1 DROP BOTH EYES (21:21)
[2025-08-07] MEDS: NEURONTIN 400 MG TUBE (21:21)
[2025-08-07] MEDS: MELATONIN 5 MG PO (21:21)
--- NOTE | 2025-08-07 23:09 | PTCARENOTE ---
Received patient at start of shift, aao x3, speech slow. SR on the monitor, HR 70's at rest. Weak radial and pedal pulses b/l, +1 b/l LE edema noted. LS diminished throughout, resp shallow, no sob or dyspnea at rest noted. BS active x4, abdomen
soft, round. Rectal trumpet remains intact and patent draining brown liquid stool. Asher cath intact draining benjamin urine. MASD noted to buttocks, skin intact, barrier cream applied. Right ML patent with KVO running. RN spoke with son Greg at start
of shift, and spouse Jordan prior to Teresa departure around [id number]. Reviewed poc, all parties in agreement. Call glover within reach, 1:1 at bedside. Will continue to monitor patient closely.
[2025-08-07] MEDS: LOPRESSOR 12.5 MG PO (23:25)
[2025-08-07] MEDS: FIRVANQ 500 MG PO (23:28)
[2025-08-08] VITALS (15 sets, daily range): BP systolic 136–171; BP diastolic 45–58; BMI 33.3
[2025-08-08] MEDS: OFIRMEV 100 IV (05:13)
[2025-08-08] MEDS: FIRVANQ 500 MG PO (05:13)
[2025-08-08] MEDS: LOPRESSOR 12.5 MG PO ×4 (05:14→23:04)
[2025-08-08 06:30] LABS: Hematocrit 29.4 % (37.0-47.0); Hemoglobin 10.5 g/dL (12.0-16.0); Mean Corp Hgb Conc. 35.7 g/dL (33.0-37.0); Mean Corpuscular Volume 80.1 fL (81.0-99.0); Platelet Count 246 10^3/uL (130-400); Red Cell Dist. Width 13.5 % (11.5-14.5)
[2025-08-08 06:50] LABS: ALT (SGPT) 44 U/L (0-35); AST (SGOT) 59 U/L (14-36); Albumin 1.9 g/dl (3.5-5.0); Alkaline Phosphatase 282 U/L (38-126); Blood Urea Nitrogen 13 mg/dl (7-17); Calcium 6.7 mg/dl (8.4-10.2); Carbon Dioxide 23 mmol/L (22-30); Chloride 92 mmol/L (98-107); Estimated Creatinine Clearance 71 ml/min; Glucose 70 mg/dl (70-99); Potassium 3.9 mmol/L (3.5-5.1); Sodium 121 mmol/L (135-145); Total Protein 4.0 g/dl (6.3-8.2); eGFR > 60.00
--- NOTE | 2025-08-08 07:28 | W.PN.HOSP.TC ---
Addendum entered and electronically signed by Gaviota Villareal MD 08/08/25 14:03:
I saw and evaluated the patient independently. I reviewed and discussed the resident�s note and agree with findings and plan as documented by Dr. Wynn.
GENERAL: acutely ill appearing female more awake and refusing care
HEENT: NC/AT--Dobhoff feeding tube out
HEART: regular rate and rhythm, S1, S2
LUNGS: Clear to auscultation bilaterally
ABDOM: Soft, nontender, nondistended, positive bowel sounds
EXT: No cyanosis, clubbing, edema
NEUROLOGIC: Grossly intact
: samaniego with yellow urine
PSYCH: More agreeable today, would not stated she is back to her baseline, still somewhat paranoid and distrusting of medical staff
was able to not restrain pt or have to replace Dobhoff feeding tube--want to start standing risperidone but today pt is much more cooperative--will await psych input
encephalopathy--I suspect pt may have more dementia than family willing to admit--pt more cooperative but still paranoid---was refusing to take oral meds, now she has been and is agreeable--says she is going to , despite trying to
redirect--apprec psych for assistance--pt without capacity to make medical decisions--head CT negative
Sepsis with evidence of end organ damage of lactic acidosis, encephalopathy, acute kidney injury with toxigenic C. Diff as the cause --CT scan without oral or IV contrast shows severe colitis--IVF stopped, Dobhoff stopped (pt pulled out)--cont IV
metronidazole, changing oral vanco to PO Dificid (to limit amount of meds)--apprec ID/renal---head CT neg
nutrition--was on tube feeds--pt pulled out the tube, speech eval apprec, able to start diet
Severe hyponatremia --likely due to hypovolemia from GI losses--119 on admission, slowly improving--up to 128, back to 121--apprec renal, 3% NaCL with fluid restriction--apprec renal -- serum cortisol and TSH WNL
new onset atrial fibrillation with RVR--responded to IV lopressor--apprec cards input--start Eliquis and stop IV heparin--amio PO
Lethargy/weakness also likely compounded by hypotension and volume loss/dehydration, Hyponatremia, sepsis--speech, PT/OT
Acute urinary retention--bladder distention on CT --st cath for 1700mls--cont samaniego cath
Hyperkalemia likely multifactorial from hypovolemia and diarrhea, urinary retention, valsartan--medical treatment of high potassium--no dialysis
FAVIAN--resolved-- likely prerenal---apprec renal
Bradycardia/PVCs--follow as electrolytes are corrected
Essential HTN--restart home valsartan
HLD - 'Pt is intolerant of statins. Dr. Houser has recommended [id number] but she refuses.'
CAD - continue home aspirin as able
Hypothyroidism - continue home levothyroxine as able
GERD - PPI to PO
Polyneuropathy - continue home gabapentin as able
DVT proph -- heparin
Code status-- full
Total Critical Care Time 45 minutes. I was immediately available to the patient and staff. I personally examined, reviewed labs, diagnostic images/reports, interpretations, treatment plans, discussed patient care with other providers and family
or caregivers (if patient is unable to make decisions), entered orders as appropriate and documented the medical record.
Original Note:
Today's Communication/Plan
-
- Continue IV metronidazole 500mg q8hr
- Convert PO vancomycin 500mg QID to PO fidaxomicin to reduce pill burden
- Continue standing PO tylenol & PRN morphine for pain
- Restart home valsartan
- Consider standing risperidone for psychosis
- Psych following, appreciate recs
- Continue 1:1 overnight obs
- Stop IV heparin drip & transition to PO eliquis today
- Per cards, continue amiodarone 200 mg TID for total of 7 days (started 08/05), then reduce to 200 mg BID for 2 weeks, then 200 mg daily
- 12.5mg PO metoprolol q6hr PRN for HR>110
- Encourage PO food intake
- Trend BMP, appreciate renal recs
Assessment / Plan
Assessment / Plan
84yo M with a hx of essential HTN, HLD, CAD, hypothyroidism, GERD, & polyneuropathy who p/w generalized weakness, fever/chills, nausea, & diarrhea, found to have sepsis 2/2 positive c diff diarrhea with evidence of end-organ damage, now improving
s/p fluids, abx, & electrolyte correction, with ongoing AMS.
#AMS, paranoia, c/f psychosis in s/o illness
08/03- - pt obtunded, unable to rouse beyond turning head am despite near-normalization of lytes by 08/05. Per RN, had waxing/waning consciousness overnight not much improved from prior day. CT head 08/05 unremarkable. Ammonia, B12, folate wnl.
ABG 08/05 w alkalosis w compensatory metabolic acidosis, likely 2/2 overcorrection w bicarb drip. Potential elements of hospital induced delirium vs. metabolic encephalopathy vs. underlying dementia vs. pain vs. prior hospital-associated trauma.
08/06 Psych eval: 'patient lacks capacity for medical decision making. son seems to have her interests at heart and and son should be consulted.' 08/07 - [facility] conversation re: decisionmaking, proceeding w pain mgmt & restraints if necessary.
Today - ongoing paranoia, withdrawn; improved cooperativeness s/p pain control
- 1:1 observation overnight
- Standing PO tylenol
- Morphine 2mg q6h PRN
- Risperidone 0.25mg q6h PRN -- plan to convert to standing to treat presumed psychosis, pending discussion w family
- Psych to see today, following
- Continue IV thiamine
- Continue PT/OT and OOB
- Consult son & for medical decisionmaking
#C diff diarrhea, with resolving sepsis w end organ damage
#Lactic acidosis, resolved
Labs on admission 08/02 - WBC 29.5, Cl 92, CO2 15, lactic acid 3.5, AST 155, ALT 52. Diarrhea since 07/31 with fever/chills resolved by time of admission. CT a/p with evidence of severe colitis. C diff stool antigen positive. Covid, flu, norovirus
negative. F/c, nausea, weakness, electrolyte abnormalities all likely 2/2 c diff & associated volume loss/sepsis.
Today - afebrile; diarrhea ongoing; WBC downtrending 22.5; pt taking PO meds
- Continue IV metronidazole 500mg q8hr
- Convert PO vancomycin 500mg QID to PO fidaxomicin to reduce pill burden
- Standing PO tylenol & PRN morphine for pain
- ID following, appreciate recs
#Paroxysmal atrial fibrillation
Transient episode of a fib shortly after dobhoff placement on 08/04, likely triggered by physiologic stress exacerbation from tube placement in s/o pt current illness. Resolved to normal sinus rate/rhythm s/p 5mg IV metoprolol. 08/05 morning, pt
again in a fib with HR in 120s. TTE 08/05 did not demonstrate significant LA dilation or significant regional wall motion abnormalities, mild LA enlargement & MR (EF 55-60%, LA volume mildly abnormal 35-41, mild concentric LVH, mild MR). Afib likely
2/2 physiologic stress exacerbating mild existing abnormalities.
- Stop IV heparin drip & transition to PO eliquis today
- Per cards, continue amiodarone 200 mg TID for total of 7 days (started 08/05), then reduce to 200 mg BID for 2 weeks, then 200 mg daily
- 12.5mg PO metoprolol q6hr PRN for HR>110
- Monitor on tele
- Cardiology following, appreciate recs
#Hyponatremia, worsened
Na+ 119 on admission, likely 2/2 hypovolemic hyponatremia in s/o volume loss w ongoing diarrhea. AMS, difficult to arouse likely 2/2 severe hyponatremia. Received NSS on admission but not hypertonic. Lethargy/weakness also likely compounded by
hypotension and volume loss/dehydration. Hyponatremia may also be due to SIADH given pain/AMS or adrenal insuff given initial presentation w hypotension & hyperK. Cortisol & TSH wnl. Urine Na 7, urine cr 90.3, serum osm 281 - not hypoosmolar given
repletion already performed, but urine sodium <7 supports likely prior hypoosmolar hypovolemic hyponatremia. Resolving s/p fluids.
Today - 121 (from 127 on 2 days ago) , urine osm 558, urine Na 40; likely 2/2 pt refusal of PO or IV intake over last 24hr in combination with ongoing copious diarrhea
- Continue to trend BMP
- Encourage PO intake
- Renal following, appreciate recs
#Hyperkalemia, improved
#Hypocalcemia, improved
K 5.8 on admission, likely 2/2 high-volume diarrhea. Likely 2/2 ongoing valsartan use in s/o volume loss vs. adrenal insufficiency vs. RTA. Cortisol wnl, more likely volume loss etiology. S/p insulin; s/p ca gluconate x2.
Today - K 3.9 wnl, Ca 6.9 (albumin corrected Ca is 8.6 wnl) - pt without PO intake, low albumin 1.6
- Continue to trend BMP
- Encourage PO intake
- Renal following, appreciate recs
#FAVIAN, resolved, likely prerenal
#Acute urinary retention
Cr 1.8, BUN 49, eGFR 27.78 on admission, likely prerenal in s/o volume loss 2/2 c diff diarrhea. BUN/Cr ratio 27, c/w prerenal. Potential component of obstruction, although no evidence of overt physical obstruction on CT. Per RN, pt retaining 1700
in bladder on 08/03 at 12:30pm. CT a/p 08/02: 'Moderately distended urinary bladder. There is mild prominence of the bilateral collecting systems which is unchanged from prior.' Likely contributor to FAVIAN. Uncertain etiology, likely in s/o multiorgan
damage in s/o sepsis.
Resolved s/p fluids.
- Samaniego catheter remains in place
- Renal following, appreciate recs
#Chronic
#Essential HTN - restart home valsartan
#HLD - 'Pt is intolerant of statins. Dr. Houser has recommended [id number] but she refuses.'
#CAD - continue home aspirin
#Hypothyroidism - continue home levothyroxine
#GERD - IV PPI
#Polyneuropathy - continue home gabapentin
#Global
- DVT ppx: convert to eliquis today
- Code: full
- Diet: IDDSI 6
- Dispo: lives at home with partner, dispo planning pending stabilization of clinical status
Anticipated Discharge: > 48 hours
Subjective/Interval History
-
Date of Service: August 08, 2025
Son at bedside. Patient remains paranoid, stating that we are going to kill her, saying things are not okay. Continues to deny that she has diarrhea. However, more calm/less agitated. Denies any pain. Per son, patients is doing better - has been
accepting labs and PO medications. Has also been taking food since yesterday evening, fairly good appetite.
Objective Data
-
Labs:
Laboratory Results
08/08/25
05:31
WBC 22.5 H
Hgb 10.5 L
Hct 29.4 L
Plt Count 246
Sodium 121 L
Potassium 3.9
Chloride 92 L
Carbon Dioxide 23
BUN 13
Creatinine 0.6
Glucose 70
Calcium 6.7 L*
Total Bilirubin 0.5
AST 59 H
ALT 44 H
Alkaline Phosphatase 282 H
Vital Signs:
Vital Signs
Temp Pulse Resp BP Pulse Ox
97.9 F 63 17 165/54 96
08/07/25 21:06 08/08/25 06:00 08/08/25 06:00 08/08/25 06:00 08/07/25 20:50
I&O
08/07/25 08/08/25 08/09/25
06:59 06:59 06:59
Intake Total 1070 / 1070 680 / 680
Output Total 825 / 825
Balance 245 / 245 680 / 680
Review of Systems
-
Unable to obtain full review of systems at this time due to: Dementia and Acuity
History Source: Patient
Constitutional: Reports No Symptoms
Respiratory: Reports No Symptoms
Cardiac: Reports No Symptoms
Abdomen/GI: Reports No Symptoms
Musculoskeletal: Reports No Symptoms
Skin: Reports No Symptoms
Neuro: Reports No Symptoms
Psych: Reports Other (paranoid)
Physical Exam
-
General: Well Developed, Well Nourished and Conversant (withdrawn, paranoid)
HEENT: Normocephalic and Atraumatic
Respiratory: Non Labored Respirations
Cardiac: Regular Rhythm
GI: Soft, Nontender and Nondistended
Rectal: Other (moderate liquid dark brown stool in bag)
Genito-urinary: Samaniego (yellow urine)
Musculoskeletal: No Edema
Skin: Warm and Dry
Neuro: Awake and Alert
Psych: Confused, Agitated and Other (lacking judgment/insight, paranoid )
Data Reviewed
-
Total Time Spent with Patient (in minutes): 15
Critical Care Time (in minutes): 45
Labs: Labs Reviewed by me
[2025-08-08] MEDS: CALCIUM GLUCONATE 100 IV ×2 (08:03→14:09)
[2025-08-08] MEDS: PROTONIX IV 40 MG IV (08:05)
[2025-08-08] MEDS: NSS (PRESERVATIVE FREE) 10 ML IV (08:05)
[2025-08-08] MEDS: LOW STRENGTH ASPIRIN 81 MG PO (08:06)
[2025-08-08] MEDS: PACERONE 200 MG PO ×3 (08:06→21:31)
[2025-08-08] MEDS: THIAMINE INJECTION 200 MG IV (08:06)
[2025-08-08 08:41] LABS: Absolute Neutrophils -Man Diff 15.9 10^3/uL (1.4-6.5)
[2025-08-08 08:42] LABS: Anisocytosis 1+; Hypochromasia 1+; Normal RBC Morphology No; Ovalocytes 1+; Platelets Checked Yes; Polychromasia 1+; Target Cells 1+; Total Cells Counted 100
[2025-08-08] MEDS: FLAGYL 500 MG 100 IV ×3 (09:31→23:05)
--- NOTE | 2025-08-08 10:23 | W.PN.ID1 ---
Date of Service
Date of Service: August 08, 2025
Today's Communication
Can switch po Vanco to Fidaxomicin.
Consider anti-psychotic med.
Assessment / Plan
# Severe C. difficile colitis
# Significant leukocytosis slowly trending down.
# Prerenal FAVIAN- resolved
# Encephalopathy
# Psych - lacks insight. Refusing meds/medical treatment; son able to persuade her to be compliant for now.
# Atrial tachycardic - improved
- Stool output decreasing. Abd no longer tender. WBC trending down
- Pt has missed po vanco intermittently due to mental status change.
- OK to transition high dose po Vancomycin 500mg qid to Fidaxomicin 200mg po bid (lower pill burden)
- Continue IV metronidazole 500mg IV q8 for now until pt compliant/consistently takes Fidaxomicin.
- Challenging case. Pt does not have the capacity to make medical decisions at this time.
Consider brief course of anti-psych med to potential allow for increase compliance with medical treatment.
# Additional Past Medical History:
Hypertension
CAD status post stent
Hypothyroidism
IBS
Neuropathy bilateral feet
Glaucoma
Rectal prolapse status post rectopexy 01/06/21
Hemorrhoid s/p banding
Appendectomy
Hysterectomy with BSO
Right knee replacement
Chief Complaint
-: Leukocytosis and C-diff
Subjective / Review of Systems
Extensive discussion with son and .
very upset that is pt angry and accusatory towards him. She gets agitated when he is present in room.
Son is able to calm pt. So far, she is taking meds with son's encouragement.
Vital Signs / Physical Exam
Vital Signs
Vital Signs
Temp Pulse Resp BP Pulse Ox
98.0 F 61 15 169/48 96
08/08/25 07:00 08/08/25 08:06 08/08/25 08:00 08/08/25 08:06 08/07/25 20:50
Physical Exam
Constitutional: Chronically Ill
Cardiovascular: Regular Rate and S1/S2
Gastrointestinal: Soft, Non Tender and Other (FMS: semi-liquid stool)
Extremities: Negative Edema
Neurological: Other
Psychological: Calm (Currently sleeping)
Objective Data
Lab Data
Lab Results
08/08/25 05:31
08/08/25 05:31
APTT Cancelled 08/07/25 06:00
Estimated Creat Clear 71 ml/min 08/08/25 05:31
Lactic Acid 1.8 mmol/L (0.7-2.0) 08/03/25 11:15
Total Bilirubin 0.5 mg/dl (0.2-1.3) 08/08/25 05:31
AST 59 U/L (14-36) H 08/08/25 05:31
ALT 44 U/L (0-35) H 08/08/25 05:31
Alkaline Phosphatase 282 U/L (38-126) H 08/08/25 05:31
Most recent labs reviewed.
Micro Results:
08/02/25 18:20 Blood Culture - Final
Blood/Venous No Growth - Final Report
08/02/25 18:21 Salmonella/Shigella Culture - Final
Feces/Stool No Salmonella, Shigella, Aeromonas or Plesiomonas species
isolated.
Campylobacter Culture - Final
No Campylobacter species isolated.
Shiga Toxin Test - Final
No E. coli Shiga Toxin 1 or 2 detected.
08/03/25 12:33 Urine Culture - Final
Urine No Significant Growth
08/02/25 18:21 C. difficile GDH Antigen & Toxins - Final
Feces/Stool Toxigenic C.difficile Positive
Norovirus (PCR) - Final
Negative for Norovirus GI and GII.
08/02/25 17:33 Influenza Types A & B ([facility]) - Final
Nasal Swab Negative for Influenza A & B, NAAT
Negative results must be combined with clinical observations
and patient history.
Nucleic Acid Amplification test (NAAT)performed on the
[employer] platform.
08/02/25 CT a/p: There is pronounced wall thickening with adjacent stranding throughout the colon which likely represents severe colitis. The gallbladder appears mildly distended. There are no adjacent findings suggestive of acute cholecystitis.
This may be secondary to fasting state. If there is concern for acute cholecystitis consider dedicated right upper quadrant ultrasound. Moderately distended urinary bladder. There is mild prominence of the bilateral collecting systems which is
unchanged from prior.
Care Review
Plan reviewed with: Physician (Tianna Garza)
[2025-08-08] MEDS: TYLENOL 650 MG PO ×3 (10:34→23:04)
[2025-08-08] MEDS: ELIQUIS 5 MG PO ×2 (10:34→20:08)
[2025-08-08] MEDS: DIFICID 200 MG PO ×2 (10:51→20:08)
[2025-08-08] MEDS: SODIUM CHLORIDE 3% 250 IV ×2 (11:24→23:18)
--- NOTE | 2025-08-08 12:49 | W.PN.NEPH.PH ---
Today's Communication / Plan
-
3%
Assessment/Plan
-
Assessment
FAVIAN
C difficile diarrhea/colitis
leukocytosis
hyperkalemia
metabolic acidosis
lactic acidosis
hyponatremia
CAD
hypocalcemia
Plan
Hypertonic saline
Serial BMP
Replete calcium
Discussed with son and
-
-
Date of Service: August 08, 2025
CC / HPI / ROS
-
Chief Complaint:
FAVIAN
Hyperkalemia
Metabolic acidemia
History of Present Illness:
Sodium down to 121
Calcium low 6.7
abx for c diff colitis
Review of Systems:
Nonoliguric via Asher catheter
confused, restrained
More cooperative
Labs
-
Labs:
WBC 22.5 10^3/uL (4.8-10.8) H 08/08/25 05:31
RBC 3.67 10^6/uL (4.20-5.40) L 08/08/25 05:31
Hgb 10.5 g/dL (12.0-16.0) L 08/08/25 05:31
Hct 29.4 % (37.0-47.0) L 08/08/25 05:31
Plt Count 246 10^3/uL (130-400) 08/08/25 05:31
eGFR > 60.00 08/08/25 05:31
Albumin 1.9 g/dl (3.5-5.0) L 08/08/25 05:31
Physical Exam
-
Vital Signs:
Vital Signs
Temp Pulse Resp BP Pulse Ox
98.1 F 65 20 171/56 96
08/08/25 11:00 08/08/25 12:00 08/08/25 12:00 08/08/25 12:00 08/07/25 20:50
Cardiovascular:: Regular rate and rhythm
Respiratory:: Bilateral: Coarse
Lung Excursion:: Normal
Abdomen:: Nontender and Soft
Bowel Sounds:: Normal
Extremity Edema:: None: Bilateral:
--- NOTE | 2025-08-08 14:31 | W.PN.UPDATE ---
Update Note
Progress Note Update
Attempted to see patient on 08/08/2025 at 1:50pm but patient was sleeping. Chart reviewed and case discussed with Dr. Villareal and patient's son. Son states patient may be turning a corner in terms of being more cooperative and accepting medical
treatment. We discussed the potential risks and benefits of making Risperdal HS a standing medication short term to see if it helps with agitation, paranoia and sleep. Son is agreeable. He maintains wish for the least amount of psychiatric
medications necessary to help stabilize her. I am in agreement.
--- NOTE | 2025-08-08 14:34 | PTCARENOTE ---
Assumed care of patient at beginning of this shift from previous RN; overnight 1:1 left and son came in to stay at bedside. Calcium 6.7; calcium infusion ordered by material handler 1st shift ANESTHESIA RESIDENT and given this morning. Second calcium gluconate ordered by Dr Morley;
this nurse confirmed with him via TT that 2nd infusion is to be given. He also ordered 3% saline and fluid restriction. VAT RN placed a second IV site as patient continues with IVAB. Instructed patient and son in the importance of following fluid
restriction; explained 40oz restriction and amount of each cup. Also stressed that fluid restriction includes what is delivered on the tray.
Patient's son and talked with Dr Morley and Dr Villareal when rounding. Son asked to speak with Dr Villareal a second time to review Risperdal medication; she returned to unit and spoke with son. Patient's has not gone into room as he
states it makes patient more anxious.
Patient Ox2, forgetful to time. Cooperative with taking meds. Needs reminding with fluid restriction. See worklist for full assessment and vital signs; see MAR for med administration.
[2025-08-08 16:19] LABS: Blood Urea Nitrogen 10 mg/dl (7-17); Calcium 7.8 mg/dl (8.4-10.2); Carbon Dioxide 25 mmol/L (22-30); Chloride 96 mmol/L (98-107); Estimated Creatinine Clearance 71 ml/min; Glucose 76 mg/dl (70-99); Potassium 3.6 mmol/L (3.5-5.1); Sodium 122 mmol/L (135-145); eGFR > 60.00
--- NOTE | 2025-08-08 18:18 | PTCARENOTE ---
Patient c/o anxiety; has ativan ordered prn. Son asking if ativan can be given with risperdol ordered. TT sent to Dr Villareal who d/c'd ativan and requested this nurse reach out to psychiatry. TT sent to Jessica Loaiza who is covering for
psychiatry; await response.
[2025-08-08] MEDS: RISPERDAL M-TAB (ORALLY DISINTEGRATING) 0.25 MG PO (20:45)
[2025-08-08 21:12] LABS: Blood Urea Nitrogen 10 mg/dl (7-17); Calcium 7.3 mg/dl (8.4-10.2); Carbon Dioxide 24 mmol/L (22-30); Chloride 96 mmol/L (98-107); Estimated Creatinine Clearance 71 ml/min; Glucose 91 mg/dl (70-99); Potassium 3.5 mmol/L (3.5-5.1); Sodium 122 mmol/L (135-145); eGFR > 60.00
[2025-08-08] MEDS: RISPERDAL M-TAB (ORALLY DISINTEGRATING) PO (21:20)
[2025-08-08] MEDS: MELATONIN 5 MG PO (21:31)
[2025-08-08] MEDS: XALATAN OPHTHALMIC SOLUTION 1 DROP BOTH EYES (21:34)
[2025-08-08] MEDS: NEURONTIN 400 MG PO (21:34)
--- NOTE | 2025-08-08 23:11 | PTCARENOTE ---
Assumed care for patient overnight. Pt AAOx3, forgetful and confused at times. Flat affect. 1:1 sitter for overnight. NSR on the monitor. Pt remains on room air, 97%. Rectal trumpet intact, CHG bath done, perineal care done, Calazime applied
generously. Pt needs reminders and encouragement regarding importance of Q2T. Pt tolerating frequent turning and repositioning. Asher intact draining benjamin urine. Pt taking medications w/o issues. Administered HS dose of risperidol, pt able to
verbalize feelings of anxiety. 3% saline cont. Sitter at the bedside.
[2025-08-09] VITALS (17 sets, daily range): BP systolic 140–174; BP diastolic 38–67; BMI 33.3
[2025-08-09] MEDS: TYLENOL 650 MG PO ×3 (04:16→22:12)
[2025-08-09 04:39] LABS: Hematocrit 30.8 % (37.0-47.0); Hemoglobin 10.5 g/dL (12.0-16.0); Mean Corp Hgb Conc. 34.1 g/dL (33.0-37.0); Mean Corpuscular Volume 81.3 fL (81.0-99.0); Platelet Count 303 10^3/uL (130-400); Red Cell Dist. Width 13.8 % (11.5-14.5)
[2025-08-09 04:45] LABS: ALT (SGPT) 37 U/L (0-35); AST (SGOT) 47 U/L (14-36); Albumin 1.8 g/dl (3.5-5.0); Alkaline Phosphatase 250 U/L (38-126); Blood Urea Nitrogen 9 mg/dl (7-17); Calcium 7.2 mg/dl (8.4-10.2); Carbon Dioxide 22 mmol/L (22-30); Chloride 99 mmol/L (98-107); Estimated Creatinine Clearance 71 ml/min; Glucose 76 mg/dl (70-99); Potassium 3.7 mmol/L (3.5-5.1); Sodium 126 mmol/L (135-145); Total Protein 4.0 g/dl (6.3-8.2); eGFR > 60.00
[2025-08-09 05:10] LABS: Nucleated Red Blood Cells % 0 %
[2025-08-09] MEDS: LOPRESSOR 12.5 MG PO ×3 (05:41→18:20)
--- NOTE | 2025-08-09 07:21 | W.PN.HOSP.TC ---
Addendum entered and electronically signed by Reno Rodriguez MD 08/09/25 15:25:
I saw and evaluated the patient. I reviewed the resident�s note and agree with findings and plan as documented in the resident�s note.
1. C. difficile colitis/sepsis -CT abdomen pelvis at admission showed severe colitis. Patient was on on and off oral vancomycin as was not able to secure oral access. Patient was pulling of Dobbhoff tube while delirious/encephalopathic due to
sepsis. ID following along and patient have changed to oral Dificid therapy for 10 days now. Flagyl has been stopped. Patient has rectal tube which can be discontinued once stool output slows down or patient have solid bowel movement. Total WBC
count has been trending down patient is afebrile. Abdominal examination is benign.
2. Acute toxic encephalopathy -combination of hospital delirium sepsis and C. difficile infection related. CT head without any abnormality. Avoid sedating medication as possible. Psychiatry involved in care and patient has been started on
nighttime Risperdal mentation much better today according to family. Continue monitoring with supportive care.
3. Hyponatremia -initially due to hypovolemia with improvement and now likely euvolemic in nature. Nephrology following and patient has been provided hypertonic saline. Serum cortisol/TSH within normal limit
4. New A-fib with RVR -rate controlled with beta-rianna. Patient also on oral amiodarone. Patient heparin drip has been changed to Eliquis. Cardiology help appreciated.
5. Acute urinary retention -indwelling Asher catheter. Voiding trial when patient ambulatory dysfunction improved.
6. FAVIAN/hyperkalemia -renal function is normalized.
Original Note:
Today's Communication/Plan
-
- Continue standing risperidone nightly
- Psych following
- Continue standing p.o. Tylenol
- Continue as needed morphine
- Stop IV metronidazole 500mg q8hr today
- Continue 10 day course of fidaxomicin (08/08-)
- Standing PO tylenol & PRN morphine for pain
- ID following, appreciate recs
- D/c rectal tube once stool burden decreases
- Continue amiodarone taper and as needed metoprolol
- Continue hypertonic saline and 40 ounce fluid restriction
- Renal and ID following, appreciate recs
- PT/OT to see today
- Encourage out of bed
Assessment / Plan
Assessment / Plan
84yo M with a hx of essential HTN, HLD, CAD, hypothyroidism, GERD, & polyneuropathy who p/w generalized weakness, fever/chills, nausea, & diarrhea, found to have sepsis 2/2 positive c diff diarrhea with evidence of end-organ damage, now improving
s/p fluids, abx, & electrolyte correction, with ongoing AMS.
#AMS, paranoia, c/f psychosis - improving
08/03- - pt obtunded, unable to rouse beyond turning head am despite near-normalization of lytes by 08/05. Per RN, had waxing/waning consciousness overnight not much improved from prior day. CT head 08/05 unremarkable. Ammonia, B12, folate wnl.
ABG 08/05 w alkalosis w compensatory metabolic acidosis, likely 2/2 overcorrection w bicarb drip. Potential elements of hospital induced delirium vs. metabolic encephalopathy vs. underlying dementia vs. pain vs. prior hospital-associated trauma.
08/06 Psych eval: 'patient lacks capacity for medical decision making. son seems to have her interests at heart and and son should be consulted.' 08/07 - [facility] conversation re: decisionmaking, proceeding w pain mgmt & restraints if necessary.
Today - mentation, affect much improved; patient acknowledges illness, patient without paranoia, patient conversant; risperidone effective
- 1:1 observation overnight
- Standing risperidone 0.25mg HS
- Standing PO tylenol
- Morphine 2mg q6h PRN
- Psych following
- Continue IV thiamine
- Continue PT/OT and OOB
- Consult son & for medical decisionmaking
#C diff diarrhea, with resolving sepsis w end organ damage
#Lactic acidosis, resolved
Labs on admission 08/02 - WBC 29.5, Cl 92, CO2 15, lactic acid 3.5, AST 155, ALT 52. Diarrhea since 07/31 with fever/chills resolved by time of admission. CT a/p with evidence of severe colitis. C diff stool antigen positive. Covid, flu, norovirus
negative. F/c, nausea, weakness, electrolyte abnormalities all likely 2/2 c diff & associated volume loss/sepsis.
Today - afebrile; diarrhea ongoing; WBC downtrending 20.5; pt taking PO meds
- Stop IV metronidazole 500mg q8hr today
- Continue 10 day course of fidaxomicin (08/08-)
- Standing PO tylenol & PRN morphine for pain
- ID following, appreciate recs
- D/c rectal tube once stool burden decreases
#Paroxysmal atrial fibrillation
Transient episode of a fib shortly after dobhoff placement on 08/04, likely triggered by physiologic stress exacerbation from tube placement in s/o pt current illness. Resolved to normal sinus rate/rhythm s/p 5mg IV metoprolol. 08/05 morning, pt
again in a fib with HR in 120s. TTE 08/05 did not demonstrate significant LA dilation or significant regional wall motion abnormalities, mild LA enlargement & MR (EF 55-60%, LA volume mildly abnormal 35-41, mild concentric LVH, mild MR). Afib likely
2/2 physiologic stress exacerbating mild existing abnormalities.
Today - HR 66
- PO eliquis
- Per cards, continue amiodarone 200 mg TID for total of 7 days (started 08/05), then reduce to 200 mg BID for 2 weeks, then 200 mg daily
- 12.5mg PO metoprolol q6hr PRN for HR>110
- Monitor on tele
- Cardiology following, appreciate recs
#Hyponatremia, resolving
Na+ 119 on admission, likely 2/2 hypovolemic hyponatremia in s/o volume loss w ongoing diarrhea. AMS, difficult to arouse likely 2/2 severe hyponatremia. Received NSS on admission but not hypertonic. Lethargy/weakness also likely compounded by
hypotension and volume loss/dehydration. Hyponatremia may also be due to SIADH given pain/AMS or adrenal insuff given initial presentation w hypotension & hyperK. Cortisol & TSH wnl. Urine Na 7, urine cr 90.3, serum osm 281 - not hypoosmolar given
repletion already performed, but urine sodium <7 supports likely prior hypoosmolar hypovolemic hyponatremia. Resolving s/p fluids. Likely 2/2 pt refusal of PO solids intake over last 24hr w lots of water in combination with ongoing copious diarrhea.
Today - 126
- Continue to trend BMP
- Continue hypertonic saline
- 40oz fluid restriction
- Encourage PO intake
- Renal following, appreciate recs
#Hyperkalemia, resolved
#Hypocalcemia, resolved
K 5.8 on admission, likely 2/2 high-volume diarrhea. Likely 2/2 ongoing valsartan use in s/o volume loss vs. adrenal insufficiency vs. RTA. Cortisol wnl, more likely volume loss etiology. S/p insulin; s/p ca gluconate x2.
Today - K & corrected Ca wnl
- Continue to trend BMP
- Encourage PO intake
- Renal following, appreciate recs
#FAVIAN, resolved, likely prerenal
#Acute urinary retention
Cr 1.8, BUN 49, eGFR 27.78 on admission, likely prerenal in s/o volume loss 2/2 c diff diarrhea. BUN/Cr ratio 27, c/w prerenal. Potential component of obstruction, although no evidence of overt physical obstruction on CT. Per RN, pt retaining 1700
in bladder on 08/03 at 12:30pm. CT a/p 08/02: 'Moderately distended urinary bladder. There is mild prominence of the bilateral collecting systems which is unchanged from prior.' Likely contributor to FAVIAN. Uncertain etiology, likely in s/o multiorgan
damage in s/o sepsis.
Resolved s/p fluids.
- Asher catheter remains in place
- Renal following, appreciate recs
#Chronic
#Essential HTN - home valsartan
#HLD - 'Pt is intolerant of statins. Dr. Houser has recommended [id number] but she refuses.'
#CAD - continue home aspirin
#Hypothyroidism - continue home levothyroxine
#GERD - IV PPI
#Polyneuropathy - continue home gabapentin
#Global
- DVT ppx: eliquis
- Code: full
- Diet: IDDSI 6 w fluid restriction 40oz
- Dispo: lived at home with partner, dispo likely to rehab pending stabilization of clinical status and PT/OT eval
Anticipated Discharge: > 48 hours
Subjective/Interval History
-
Date of Service: August 09, 2025
Patient mental status much improved this morning. Conversant, asking appropriate questions, normal affect (although slightly depressed seeming), without paranoia. Acknowledges that she has infection. Asking questions about timeframe, care,
appropriate and polite. Spoke with son. Confirms that patient improved following risperidone administration. Patient denies any pain.
Objective Data
-
Labs:
Laboratory Results
08/08/25 08/09/25
20:43 04:10
WBC 20.5 H
Hgb 10.5 L
Hct 30.8 L
Plt Count 303 D
Sodium 122 L 126 L
Potassium 3.5 3.7
Chloride 96 L 99
Carbon Dioxide 24 22
BUN 10 9
Creatinine 0.6 0.5 L
Glucose 91 76
Calcium 7.3 L 7.2 L
Total Bilirubin 0.3
AST 47 H
ALT 37 H
Alkaline Phosphatase 250 H
Vital Signs:
Vital Signs
Temp Pulse Resp BP Pulse Ox
99.3 F 66 17 158/52 95
08/09/25 03:22 08/09/25 06:00 08/09/25 06:00 08/09/25 06:00 08/09/25 01:51
I&O
08/08/25 08/09/25 08/10/25
06:59 06:59 06:59
Intake Total 680 / 680 1640 / 1640
Output Total 2099
Balance 680 / 680 -460 / -460
Review of Systems
-
History Source: Patient
Constitutional: Reports No Symptoms
Respiratory: Reports No Symptoms
Cardiac: Reports No Symptoms
Abdomen/GI: Reports No Symptoms
Musculoskeletal: Reports Other (Neuropathy bilateral LE)
Skin: Reports No Symptoms
Neuro: Reports No Symptoms
Psych: Reports Depressed
Physical Exam
-
General: Well Developed, Well Nourished and No Apparent Distress
HEENT: Normocephalic, Atraumatic and Moist Mucous Membranes
Respiratory: Clear to Auscultation and Non Labored Respirations
Cardiac: Regular Rhythm
GI: Soft, Nontender and Nondistended
Rectal: Other (Rectal tube with small amount of brown liquid stool)
Musculoskeletal: No Edema
Skin: Warm and Dry
Neuro: Awake and Alert
Psych: Calm
Data Reviewed
-
Total Time Spent with Patient (in minutes): 20
Critical Care Time (in minutes): 45
Labs: Labs Reviewed by me
[2025-08-09] MEDS: DIOVAN 80 MG PO (07:56)
[2025-08-09] MEDS: FLAGYL 500 MG 100 IV (07:56)
[2025-08-09] MEDS: PROTONIX 40 MG PO (07:56)
[2025-08-09] MEDS: DIFICID 200 MG PO ×2 (07:56→21:32)
[2025-08-09] MEDS: LOW STRENGTH ASPIRIN 81 MG PO (07:56)
[2025-08-09] MEDS: PACERONE 200 MG PO ×3 (07:57→21:33)
[2025-08-09] MEDS: ELIQUIS 5 MG PO ×2 (07:57→21:32)
[2025-08-09] MEDS: VITAMIN B1 100 MG PO (07:57)
--- NOTE | 2025-08-09 09:53 | W.PN.NEPH.PH ---
Today's Communication / Plan
-
Fluid restriction no more than 48 ounces
Repeat labs this afternoon
May need to restart hypertonic
Assessment/Plan
-
Assessment
FAVIAN
C difficile diarrhea/colitis
leukocytosis
hyperkalemia
metabolic acidosis
lactic acidosis
hyponatremia
CAD
hypocalcemia
Plan
Hypertonic saline completed x 2
Serial BMP
Discrepancy in urine indices urine sodium of 40 repeat 13 with urine osmolality 550 repeat 222
If sodium trends down further we will restart hypertonic
Water restriction as discussed with the son as this will not help with the low sodium/order placed= son was under the impression that we removed the fluid restriction today which is not the case
Discussed with son and
-
-
Date of Service: August 09, 2025
CC / HPI / ROS
-
Chief Complaint:
FAVIAN
Hyperkalemia
Metabolic acidemia
History of Present Illness:
Sodium down improved with hypertonic
Calcium low 6.7 repleted
abx for c diff colitis
Review of Systems:
Nonoliguric via Asher catheter
confused, restrained
More cooperative
Labs
-
Labs:
WBC 20.5 10^3/uL (4.8-10.8) H 08/09/25 04:10
RBC 3.79 10^6/uL (4.20-5.40) L 08/09/25 04:10
Hgb 10.5 g/dL (12.0-16.0) L 08/09/25 04:10
Hct 30.8 % (37.0-47.0) L 08/09/25 04:10
Plt Count 303 10^3/uL (130-400) D 08/09/25 04:10
Sodium 126 mmol/L (135-145) L 08/09/25 04:10
Potassium 3.7 mmol/L (3.5-5.1) 08/09/25 04:10
Chloride 99 mmol/L (98-107) 08/09/25 04:10
Carbon Dioxide 22 mmol/L (22-30) 08/09/25 04:10
BUN 9 mg/dl (7-17) 08/09/25 04:10
Creatinine 0.5 mg/dL (0.6-1.0) L 08/09/25 04:10
eGFR > 60.00 08/09/25 04:10
Glucose 76 mg/dl (70-99) 08/09/25 04:10
Calcium 7.2 mg/dl (8.4-10.2) L 08/09/25 04:10
Albumin 1.8 g/dl (3.5-5.0) L 08/09/25 04:10
Physical Exam
-
Vital Signs:
Vital Signs
Temp Pulse Resp BP Pulse Ox
97.3 F 66 17 158/52 95
08/09/25 07:50 08/09/25 06:00 08/09/25 06:00 08/09/25 06:00 08/09/25 01:51
Cardiovascular:: Regular rate and rhythm
Respiratory:: Bilateral: Coarse
Lung Excursion:: Normal
Abdomen:: Nontender and Soft
Bowel Sounds:: Normal
Extremity Edema:: None: Bilateral:
--- NOTE | 2025-08-09 10:12 | W.PN.ID1 ---
Date of Service
Date of Service: August 09, 2025
Today's Communication
See below.
Assessment / Plan
# Severe C. difficile colitis - improving
# Significant leukocytosis trending down.
# Prerenal FAVIAN- resolved
# Encephalopathy - resolving
# Psych - improving on Risperdal. Now compliant with meds
# Atrial tachycardic - improved
- Abd no longer tender. WBC trending down
- Pt had previously missed po vanco intermittently due to mental status change/refusal medical treatment).
(Note: qid Vanco transitioned to bid fidaxomicin to reduce pill burden).
- Pt now taking meds.
- Continue 500mg qid to Fidaxomicin 200mg po bid x 10 days through 08/17/25.
- DC further IV metronidazole 500mg IV q8
- Trend wbc and stool output.
# Additional Past Medical History:
Hypertension
CAD status post stent
Hypothyroidism
IBS
Neuropathy bilateral feet
Glaucoma
Rectal prolapse status post rectopexy 01/06/21
Hemorrhoid s/p banding
Appendectomy
Hysterectomy with BSO
Right knee replacement
Chief Complaint
-: Leukocytosis and C-diff
Subjective / Review of Systems
Pt calm, cooperative, lucid.
Son at bedside.
Vital Signs / Physical Exam
Vital Signs
Vital Signs
Temp Pulse Resp BP Pulse Ox
97.3 F 66 17 158/52 95
08/09/25 07:50 08/09/25 06:00 08/09/25 06:00 08/09/25 06:00 08/09/25 01:51
Physical Exam
Constitutional: Comfortable
Eyes: No Conjunctival Hemorrhage and Sclera Anicteric
Cardiovascular: Regular Rate and S1/S2
Pulmonary: Clear
Gastrointestinal: Soft, Non Tender and Non Distended
Extremities: Negative Edema
Neurological: AO x 3
Psychological: Calm
Objective Data
Lab Data
Lab Results
08/09/25 04:10
APTT Cancelled 08/07/25 06:00
Estimated Creat Clear 71 ml/min 08/09/25 04:10
Lactic Acid 1.8 mmol/L (0.7-2.0) 08/03/25 11:15
Total Bilirubin 0.3 mg/dl (0.2-1.3) 08/09/25 04:10
AST 47 U/L (14-36) H 08/09/25 04:10
ALT 37 U/L (0-35) H 08/09/25 04:10
Alkaline Phosphatase 250 U/L (38-126) H 08/09/25 04:10
Most recent labs reviewed.
Micro Results:
08/02/25 18:20 Blood Culture - Final
Blood/Venous No Growth - Final Report
08/02/25 18:21 Salmonella/Shigella Culture - Final
Feces/Stool No Salmonella, Shigella, Aeromonas or Plesiomonas species
isolated.
Campylobacter Culture - Final
No Campylobacter species isolated.
Shiga Toxin Test - Final
No E. coli Shiga Toxin 1 or 2 detected.
08/03/25 12:33 Urine Culture - Final
Urine No Significant Growth
08/02/25 18:21 C. difficile GDH Antigen & Toxins - Final
Feces/Stool Toxigenic C.difficile Positive
Norovirus (PCR) - Final
Negative for Norovirus GI and GII.
08/02/25 17:33 Influenza Types A & B ([facility]) - Final
Nasal Swab Negative for Influenza A & B, NAAT
Negative results must be combined with clinical observations
and patient history.
Nucleic Acid Amplification test (NAAT)performed on the
[employer] platform.
08/02/25 CT a/p: There is pronounced wall thickening with adjacent stranding throughout the colon which likely represents severe colitis. The gallbladder appears mildly distended. There are no adjacent findings suggestive of acute cholecystitis.
This may be secondary to fasting state. If there is concern for acute cholecystitis consider dedicated right upper quadrant ultrasound. Moderately distended urinary bladder. There is mild prominence of the bilateral collecting systems which is
unchanged from prior.
Care Review
Plan reviewed with: Physician (Dr. Wynn)
--- NOTE | 2025-08-09 11:00 | PTCARENOTE ---
patient seen by speech therapy. diet upgraded to regular. Na up to 126 this AM. 3% sodium chloride gtt d/c'd. @9AM
[2025-08-09] MEDS: TYLENOL PO (11:34)
[2025-08-09 14:24] LABS: Blood Urea Nitrogen 8 mg/dl (7-17); Calcium 6.9 mg/dl (8.4-10.2); Carbon Dioxide 20 mmol/L (22-30); Chloride 99 mmol/L (98-107); Estimated Creatinine Clearance 71 ml/min; Glucose 77 mg/dl (70-99); Potassium 4.0 mmol/L (3.5-5.1); Sodium 123 mmol/L (135-145); eGFR > 60.00
--- NOTE | 2025-08-09 15:00 | PTCARENOTE ---
calcium of 6.9 reported to MD and the resident
[2025-08-09] MEDS: SODIUM CHLORIDE 3% 250 IV (16:01)
--- NOTE | 2025-08-09 17:03 | CM ---
F/U: CM saw that patient was recommended SNF 2 days ago and today. CM met with patient who is interested, wants to talk to her , CM to revisit tomorrow. PLAN: SNF when ready.
--- NOTE | 2025-08-09 18:03 | PTCARENOTE ---
as per ID rectal tube d/c due to less frequent stools. 3% saline restarted as per order, for sodium level of 123. complete bed bath given. family updated on all new orders and plan of care
[2025-08-09] MEDS: NEURONTIN 400 MG PO (21:33)
[2025-08-09] MEDS: MELATONIN 5 MG PO (21:33)
[2025-08-09] MEDS: RISPERDAL M-TAB (ORALLY DISINTEGRATING) PO (21:34)
[2025-08-09] MEDS: XALATAN OPHTHALMIC SOLUTION BOTH EYES (22:40)
--- NOTE | 2025-08-09 22:43 | PTCARENOTE ---
Cannot verify vitals prior to 1900.
--- NOTE | 2025-08-09 23:03 | PTCARENOTE ---
Assumed care for patient overnight. Pt son at the bedside at shift change. Pt mentation much improved, AAOx3. Pt is conversive and appropriate. 1:1 sitter at the bedside overnight. NSR to SB on the monitor HR 50s-60s. Asher intact draining dark
benjamin urine. Rectal trumpet removed on dayshift, attempting to utilize bed ortiz. Pt did have an episode of incontinence. CHG bath done. Perineal care done, calazime applied generously. Pt needs encouragement and education regarding the importance of
Q2T. Pt refused HS Risperidol and states 'I did not like the way it made me feel'. 3% saline continued. Pt needs reminders regarding fluid restriction. Assessment and care as charted, see worklist. Sitter present at the bedside. Pt is able to make
needs known.
[2025-08-09] MEDS: LOPRESSOR PO (23:52)
--- NOTE | 2025-08-09 23:52 | PTCARENOTE ---
Held 0000 dose of metoprolol due to admin parameters. HR 50. Orders to hold for HR <60, see OCT.
[2025-08-10] VITALS (13 sets, daily range): BP systolic 136–166; BP diastolic 37–58; BMI 33.5
[2025-08-10 04:16] LABS: Hematocrit 29.4 % (37.0-47.0); Hemoglobin 10.3 g/dL (12.0-16.0); Mean Corp Hgb Conc. 35.0 g/dL (33.0-37.0); Mean Corpuscular Volume 82.1 fL (81.0-99.0); Platelet Count 358 10^3/uL (130-400); Red Cell Dist. Width 14.2 % (11.5-14.5)
[2025-08-10 04:25] LABS: ALT (SGPT) 34 U/L (0-35); AST (SGOT) 39 U/L (14-36); Albumin 1.8 g/dl (3.5-5.0); Alkaline Phosphatase 243 U/L (38-126); Blood Urea Nitrogen 9 mg/dl (7-17); Calcium 7.0 mg/dl (8.4-10.2); Carbon Dioxide 20 mmol/L (22-30); Chloride 102 mmol/L (98-107); Estimated Creatinine Clearance 71 ml/min; Glucose 80 mg/dl (70-99); Sodium 126 mmol/L (135-145); Total Protein 4.1 g/dl (6.3-8.2); eGFR > 60.00
[2025-08-10] MEDS: TYLENOL PO ×4 (04:26→22:19)
[2025-08-10 04:31] LABS: Potassium 3.8 mmol/L (3.5-5.1)
[2025-08-10 07:38] LABS: Nucleated Red Blood Cells % 0 %
--- NOTE | 2025-08-10 07:40 | W.PN.HOSP.TC ---
Addendum entered and electronically signed by Reno Rodriguez MD 08/10/25 14:33:
I saw and evaluated the patient. I reviewed the resident�s note and agree with findings and plan as documented in the resident�s note.
1. C. difficile colitis/sepsis -CT abdomen pelvis at admission showed severe colitis. Patient was on on and off oral vancomycin as was not able to secure oral access. Patient was pulling of Dobbhoff tube while delirious/encephalopathic due to
sepsis. ID following along and patient have changed to oral Dificid therapy for 10 days now. Flagyl has been stopped. Patient has rectal tube which can be discontinued once stool output slows down or patient have solid bowel movement. Total WBC
count has been trending down patient is afebrile. Abdominal examination is benign.
2. Acute toxic encephalopathy -combination of hospital delirium sepsis and C. difficile infection related. CT head without any abnormality. Avoid sedating medication as possible. Psychiatry involved in care and patient has been started on
nighttime Risperdal mentation much better today according to family. Continue monitoring with supportive care.
3. Hyponatremia -initially due to hypovolemia with improvement and now likely euvolemic in nature. Nephrology following and patient has been provided hypertonic saline. Serum cortisol/TSH within normal limit
4. New A-fib with RVR -rate controlled with beta-rianna. Patient also on oral amiodarone. Patient heparin drip has been changed to Eliquis. Cardiology help appreciated.
5. Acute urinary retention -indwelling Samaniego catheter. Voiding trial when patient ambulatory dysfunction improved. Discussed with family and will possibly attempt day before anticipated SNF rehab discharge
6. FAVIAN/hyperkalemia -renal function is normalized.
Discussed care plan with family. Patient have requested to be DNR/DNI, course was adjusted
Case management working on fidaxomicin approval as we will be major barrier for SNF rehab discharge.
Original Note:
Today's Communication/Plan
-
- Continue fidaxomicin 200mg PO BID through 08/17
- Continue working with PT/OT
- Keep samaniego catheter today
- Amiodarone taper per cards
- 12.5mg PO metoprolol q6hr, hold if HR>110
- Standing risperidone 0.25mg HS
- Standing PO tylenol
- Continue 40oz fluid restriction, pending renal recs
Assessment / Plan
Assessment / Plan
84yo M with a hx of essential HTN, HLD, CAD, hypothyroidism, GERD, & polyneuropathy who p/w generalized weakness, fever/chills, nausea, & diarrhea, found to have sepsis 2/2 positive c diff diarrhea with evidence of end-organ damage, now with
resolving infection, fluctuating hyponatremia, and improved mental status.
#C diff diarrhea, with resolving sepsis w end organ damage
#Lactic acidosis, resolved
Labs on admission 08/02 - WBC 29.5, Cl 92, CO2 15, lactic acid 3.5, AST 155, ALT 52. Diarrhea since 07/31 with fever/chills resolved by time of admission. CT a/p with evidence of severe colitis. C diff stool antigen positive. Covid, flu, norovirus
negative. F/c, nausea, weakness, electrolyte abnormalities all likely 2/2 c diff & associated volume loss/sepsis. S/p IV metronidazole (stopped 08/09).
Today - afebrile; diarrhea slowed, rectal tube out 08/09 afternoon; WBC downtrending 16.8 today
- Continue fidaxomicin 200mg PO BID through 08/17
- Standing PO tylenol & PRN morphine for pain
- ID following, appreciate recs
#Paroxysmal atrial fibrillation
Transient episode of a fib shortly after dobhoff placement on 08/04, likely triggered by physiologic stress exacerbation from tube placement in s/o pt current illness. Resolved to normal sinus rate/rhythm s/p 5mg IV metoprolol. 08/05 morning, pt
again in a fib with HR in 120s. TTE 08/05 did not demonstrate significant LA dilation or significant regional wall motion abnormalities, mild LA enlargement & MR (EF 55-60%, LA volume mildly abnormal 35-41, mild concentric LVH, mild MR). Afib likely
2/2 physiologic stress exacerbating mild existing abnormalities.
Today - HR 54
- PO eliquis
- Per cards, continue amiodarone 200 mg TID for total of 7 days (through 08/11), then reduce to 200 mg BID for 2 weeks, then 200 mg daily
- 12.5mg PO metoprolol q6hr, hold if HR>110
- Monitor on tele
- Cardiology following, appreciate recs
#Hyponatremia, fluctuating
Na+ 119 on admission, likely 2/2 hypovolemic hyponatremia in s/o volume loss w ongoing diarrhea. AMS, difficult to arouse likely 2/2 severe hyponatremia. Received NSS on admission but not hypertonic. Lethargy/weakness also likely compounded by
hypotension and volume loss/dehydration. Hyponatremia may also be due to SIADH given pain/AMS or adrenal insuff given initial presentation w hypotension & hyperK. Cortisol & TSH wnl. Urine Na 7, urine cr 90.3, serum osm 281 - not hypoosmolar given
repletion already performed, but urine sodium <7 supports likely prior hypoosmolar hypovolemic hyponatremia. Resolving s/p fluids. Likely 2/2 pt refusal of PO solids intake over last 24hr w drinking significant water in combination with ongoing
copious diarrhea. Improving s/p hypertonic Na & fluid restriction.
Today - 126, s/p 3% hypertonic saline yesterday
- Continue to trend BMP
- 40oz fluid restriction
- Encourage PO intake
- Renal following, appreciate recs
#Hyperkalemia, resolved
#Hypocalcemia, resolved
K 5.8 on admission, likely 2/2 high-volume diarrhea. Likely 2/2 ongoing valsartan use in s/o volume loss vs. adrenal insufficiency vs. RTA. Cortisol wnl, more likely volume loss etiology. S/p insulin; s/p ca gluconate x2.
Today - K & corrected Ca wnl
- Continue to trend BMP
- Encourage PO intake
- Renal following, appreciate recs
#AMS, paranoia, c/f psychosis - resolved
12/16-18 - pt obtunded, unable to rouse beyond turning head am despite near-normalization of lytes by 08/05. Per RN, had waxing/waning consciousness overnight not much improved from prior day. CT head 08/05 unremarkable. Ammonia, B12, folate wnl.
ABG 08/05 w alkalosis w compensatory metabolic acidosis, likely 2/2 overcorrection w bicarb drip. Potential elements of hospital induced delirium vs. metabolic encephalopathy vs. underlying dementia vs. pain vs. prior hospital-associated trauma.
08/06 Psych eval: 'patient lacks capacity for medical decision making. son seems to have her interests at heart and and son should be consulted.' 08/07 - [facility] conversation re: decisionmaking, proceeding w pain mgmt & restraints if necessary.
08/09 - mental status resolved to baseline s/p overnight risperidone & w resolving infection.
Today - mental status appropriate
- Standing risperidone 0.25mg HS
- Standing PO tylenol
- Morphine 2mg q6h PRN
- Psych following
- Continue IV thiamine
- Continue PT/OT and OOB
#FAVIAN, resolved, likely prerenal
#Acute urinary retention
Cr 1.8, BUN 49, eGFR 27.78 on admission, likely prerenal in s/o volume loss 2/2 c diff diarrhea. BUN/Cr ratio 27, c/w prerenal. Potential component of obstruction, although no evidence of overt physical obstruction on CT. Per RN, pt retaining 1700
in bladder on 08/03 at 12:30pm. CT a/p 08/02: 'Moderately distended urinary bladder. There is mild prominence of the bilateral collecting systems which is unchanged from prior.' Likely contributor to FAVIAN. Uncertain etiology, likely in s/o multiorgan
damage in s/o sepsis.
Resolved s/p fluids.
- Samaniego catheter remains in place
- Renal following, appreciate recs
#Chronic
#Essential HTN - home valsartan
#HLD - 'Pt is intolerant of statins. Dr. Houser has recommended [id number] but she refuses.'
#CAD - continue home aspirin
#Hypothyroidism - continue home levothyroxine
#GERD - IV PPI
#Polyneuropathy - continue home gabapentin
#Global
- DVT ppx: eliquis
- Code: full
- Diet: regular diet with fluid restriction 40oz
- Dispo: PT recommending skilled rehab, case mgmt following
Anticipated Discharge: > 48 hours
Subjective/Interval History
-
Date of Service: August 10, 2025
Pt feeling well this am, conversant. No complaints. Son at bedside. PT yesterday was exhausting. Rectal tube was taken off by PT and not put back in - per pt, has not been having very many BMs since then. Has been using bedpan because not strong
enough yet for bedside commode. No n/v or abd pain. Appetite returning. Trying to do the 40oz fluid restriction. States that her neuropathy extends to some groin anesthesia but no incontinence.
Objective Data
-
Labs:
Laboratory Results
08/10/25 08/10/25 08/10/25
03:28 03:28 03:28
WBC 16.8 H
Hgb 10.3 L
Hct 29.4 L
Plt Count 358
Sodium 126 L Cancelled
Potassium 3.8 Cancelled
Chloride 102
Carbon Dioxide
BUN
Creatinine
Glucose
Calcium
Total Bilirubin
AST
ALT
Alkaline Phosphatase
08/10/25 08/10/25 08/10/25
03:28 03:28 03:28
WBC
Hgb
Hct
Plt Count
Sodium
Potassium
Chloride Cancelled
Carbon Dioxide 20 L Cancelled
BUN 9 Cancelled
Creatinine 0.5 L
Glucose
Calcium
Total Bilirubin
AST
ALT
Alkaline Phosphatase
08/10/25 08/10/25 08/10/25
03:28 03:28 03:28
WBC
Hgb
Hct
Plt Count
Sodium
Potassium
Chloride
Carbon Dioxide
BUN
Creatinine Cancelled
Glucose 80 Cancelled
Calcium 7.0 L Cancelled
Total Bilirubin 0.3
AST 39 H
ALT 34
Alkaline Phosphatase 243 H
Vital Signs:
Vital Signs
Temp Pulse Resp BP Pulse Ox
98.0 F 54 17 147/50 98
08/10/25 02:50 08/10/25 06:02 08/10/25 06:02 08/10/25 06:02 08/09/25 22:56
I&O
08/09/25 08/10/25 08/11/25
06:59 06:59 06:59
Intake Total 1640 / 1640 995 / 995
Output Total 2100 / 2100 875 / 875
Balance -460 / -460 120 / 120
Review of Systems
-
History Source: Patient
Constitutional: Reports No Symptoms
Respiratory: Reports No Symptoms
Cardiac: Reports No Symptoms
Abdomen/GI: Reports No Symptoms
Musculoskeletal: Reports Other (Neuropathy bilateral LE)
Skin: Reports No Symptoms
Neuro: Reports No Symptoms
Psych: Reports Depressed
Physical Exam
-
General: Well Developed, Well Nourished and No Apparent Distress
HEENT: Normocephalic, Atraumatic and Moist Mucous Membranes
Respiratory: Clear to Auscultation and Non Labored Respirations
Cardiac: Regular Rhythm
GI: Soft, Nontender and Nondistended
Rectal: Other (rectal tube removed)
Genito-urinary: Other (samaniego catheter w dark yellow urine )
Musculoskeletal: No Edema
Skin: Warm and Dry
Neuro: Awake and Alert
Psych: Calm
Data Reviewed
-
Total Time Spent with Patient (in minutes): 15
Critical Care Time (in minutes): 45
Labs: Labs Reviewed by me
[2025-08-10] MEDS: DIFICID 200 MG PO ×2 (08:41→20:21)
[2025-08-10] MEDS: ELIQUIS 5 MG PO ×2 (08:41→20:21)
[2025-08-10] MEDS: PACERONE 200 MG PO ×3 (08:42→21:40)
[2025-08-10] MEDS: PROTONIX 40 MG PO (08:42)
[2025-08-10] MEDS: LOW STRENGTH ASPIRIN 81 MG PO (08:42)
[2025-08-10] MEDS: VITAMIN B1 100 MG PO (08:42)
[2025-08-10] MEDS: LOPRESSOR 12.5 MG PO (08:42)
[2025-08-10] MEDS: DIOVAN 80 MG PO (08:42)
--- NOTE | 2025-08-10 10:17 | PTCARENOTE ---
Pt bradycardic in the 40's. Asymptomatic. Dr. Wynn notified, advised to continue to monitor. No orders received at this time.
--- NOTE | 2025-08-10 10:42 | W.PN.UPDATE ---
Update Note
Progress Note Update
Patient had newly diagnosed rapid paroxysmal atrial tachycardia this admission and was started on amiodarone 200 mg TID for 7 days then reduce to 200 mg BID for 14 days and then 200 mg daily thereafter as a new medication. Patient was also started
on Lopressor 12.5 mg PO q6 hours and HR has been lower requiring dose of Lopressor to be held on the night of 08/09/2025. Patient also noted to have sinus bradycardia following the dose of Lopressor 08/10/2025 AM. Stop Lopressor PO standing dose
order, but continue Lopressor IV PRN order. Continue amiodarone as noted. Cardiology follow-up arranged.
--- NOTE | 2025-08-10 11:37 | W.PN.ID1 ---
Date of Service
Date of Service: August 10, 2025
Today's Communication
See below.
Assessment / Plan
# Severe C. difficile colitis - improving
# Significant leukocytosis - continues to improve.
# Prerenal FAVIAN- resolved
# Encephalopathy?psych - resolving on Risperdal.
. Pt had previously missed po vanco intermittently due to mental status change/refusal medical treatment).
. Now compliant with meds
# Atrial tachycardic - improved
- Stool loose
- Trend wbc and stool output.
- Continue Fidaxomicin 200mg po bid x 10 days through 08/17/25.
- SNF often do not accept pts on fidaxomicin due to cost.
Asked comp field case manager to check if insurance will cover fidaxomicin. If covered, family can shredder picker med and take to SNF.
- Discussed with pt and son that there is 20% recurrence rate of C. diff and to be vigilant.
# Additional Past Medical History:
Hypertension
CAD status post stent
Hypothyroidism
IBS
Severe neuropathy BLE
Glaucoma
Rectal prolapse status post rectopexy 01/06/21
Hemorrhoid s/p banding
Appendectomy
Hysterectomy with BSO
Right knee replacement
Chief Complaint
-: Leukocytosis and C-diff
Subjective / Review of Systems
Son at bedside.
c/o thirst. Pt on fluid restriction for hyponatremia.
Vital Signs / Physical Exam
Vital Signs
Vital Signs
Temp Pulse Resp BP Pulse Ox
97.7 F 50 22 145/41 95
08/10/25 11:22 08/10/25 10:00 08/10/25 10:00 08/10/25 10:00 08/10/25 10:26
Physical Exam
Constitutional: Comfortable and Chronically Ill
Eyes: No Conjunctival Hemorrhage and Sclera Anicteric
Pulmonary: Clear
Gastrointestinal: Soft, Non Tender and Non Distended
Genito-Urinary: Asher and Clear Urine (dark urine)
Neurological: AO x 3
Objective Data
Lab Data
Lab Results
08/10/25 03:28
08/10/25 03:28
APTT Cancelled 08/07/25 06:00
Estimated Creat Clear 71 ml/min 08/10/25 03:28
Estimated Creat Clear Cancelled 08/10/25 03:28
Lactic Acid 1.8 mmol/L (0.7-2.0) 08/03/25 11:15
Total Bilirubin 0.3 mg/dl (0.2-1.3) 08/10/25 03:28
AST 39 U/L (14-36) H 08/10/25 03:28
ALT 34 U/L (0-35) 08/10/25 03:28
Alkaline Phosphatase 243 U/L (38-126) H 08/10/25 03:28
Most recent labs reviewed.
Micro Results:
08/02/25 18:20 Blood Culture - Final
Blood/Venous No Growth - Final Report
08/02/25 18:21 Salmonella/Shigella Culture - Final
Feces/Stool No Salmonella, Shigella, Aeromonas or Plesiomonas species
isolated.
Campylobacter Culture - Final
No Campylobacter species isolated.
Shiga Toxin Test - Final
No E. coli Shiga Toxin 1 or 2 detected.
08/03/25 12:33 Urine Culture - Final
Urine No Significant Growth
08/02/25 18:21 C. difficile GDH Antigen & Toxins - Final
Feces/Stool Toxigenic C.difficile Positive
Norovirus (PCR) - Final
Negative for Norovirus GI and GII.
08/02/25 17:33 Influenza Types A & B (DULCE) - Final
Nasal Swab Negative for Influenza A & B, NAAT
Negative results must be combined with clinical observations
and patient history.
Nucleic Acid Amplification test (NAAT)performed on the
[employer] NOW platform.
08/02/25 CT a/p: There is pronounced wall thickening with adjacent stranding throughout the colon which likely represents severe colitis. The gallbladder appears mildly distended. There are no adjacent findings suggestive of acute cholecystitis.
This may be secondary to fasting state. If there is concern for acute cholecystitis consider dedicated right upper quadrant ultrasound. Moderately distended urinary bladder. There is mild prominence of the bilateral collecting systems which is
unchanged from prior.
Care Review
Plan reviewed with: Physician (Drs. Rodriguez and Tianna)
--- NOTE | 2025-08-10 12:22 | W.PN.NEPH.PH ---
Today's Communication / Plan
-
Repeat labs later today
Assessment/Plan
-
Assessment
FAVIAN
C difficile diarrhea/colitis
leukocytosis
hyperkalemia
metabolic acidosis
lactic acidosis
hyponatremia
CAD
hypocalcemia
Plan
Hypertonic saline completed x 2
Serial BMP
Discrepancy in urine indices urine sodium of 40 repeat 13 with urine osmolality 550 repeat 222
Water restriction as discussed
Sodium 126 a diarrhea has slowed down rectal tube removed
If sodium goes down again with repeat it would suggest normal saline at continue as I believe this is related to volume loss
Repeat labs this afternoon
Discussed with son and
-
-
Date of Service: August 10, 2025
CC / HPI / ROS
-
Chief Complaint:
FAVIAN
Hyperkalemia
Metabolic acidemia
History of Present Illness:
Sodium down improved with hypertonic
Calcium repleted
abx for c diff colitis
Review of Systems:
Nonoliguric via Asher catheter
Less confused
Delete
Labs
-
Labs:
WBC 16.8 10^3/uL (4.8-10.8) H 08/10/25 03:28
RBC 3.58 10^6/uL (4.20-5.40) L 08/10/25 03:28
Hgb 10.3 g/dL (12.0-16.0) L 08/10/25 03:28
Hct 29.4 % (37.0-47.0) L 08/10/25 03:28
Plt Count 358 10^3/uL (130-400) 08/10/25 03:28
Sodium 126 mmol/L (135-145) L 08/10/25 03:28
Sodium Cancelled 08/10/25 03:28
Potassium 3.8 mmol/L (3.5-5.1) 08/10/25 03:28
Potassium Cancelled 08/10/25 03:28
Chloride 102 mmol/L (98-107) 08/10/25 03:28
Chloride Cancelled 08/10/25 03:28
Carbon Dioxide 20 mmol/L (22-30) L 08/10/25 03:28
Carbon Dioxide Cancelled 08/10/25 03:28
BUN 9 mg/dl (7-17) 08/10/25 03:28
BUN Cancelled 08/10/25 03:28
Creatinine 0.5 mg/dL (0.6-1.0) L 08/10/25 03:28
Creatinine Cancelled 08/10/25 03:28
eGFR > 60.00 08/10/25 03:28
eGFR Cancelled 08/10/25 03:28
Glucose 80 mg/dl (70-99) 08/10/25 03:28
Glucose Cancelled 08/10/25 03:28
Calcium 7.0 mg/dl (8.4-10.2) L 08/10/25 03:28
Calcium Cancelled 08/10/25 03:28
Albumin 1.8 g/dl (3.5-5.0) L 08/10/25 03:28
Physical Exam
-
Vital Signs:
Vital Signs
Temp Pulse Resp BP Pulse Ox
97.7 F 50 22 145/41 95
08/10/25 11:22 08/10/25 10:00 08/10/25 10:00 08/10/25 10:00 08/10/25 10:26
Cardiovascular:: Regular rate and rhythm
Respiratory:: Bilateral: Coarse
Lung Excursion:: Normal
Abdomen:: Nontender and Soft
Bowel Sounds:: Normal
Extremity Edema:: None: Bilateral:
--- NOTE | 2025-08-10 13:02 | PTCARENOTE ---
Pt made DNR. Purple bracelet applied.
--- NOTE | 2025-08-10 14:32 | PTCARENOTE ---
Pt's assessment as documented. Aox3, flat. Son at bedside, very anxious. Emotional support provided. Updated pt and family on plan of care. Pt ringing appropriately, call glover within reach. Care as documented.
[2025-08-10] MEDS: SYNTHROID 88 MCG PO (15:15)
--- NOTE | 2025-08-10 16:07 | CM ---
F/U: CM Jacqueline told bu I.D, due to her infection, needs a medication called: Fiabxomincin 200mg until 08/17. I.D gave the idea of running it thru patient outpatient Pharmacy to the have family bring it in- CM have to see if facility will accommodate
this. The cost is $150. CM met with the son/ / patient, explained the process to them because they never been through it, than explained the isolation needs that could be a barrier, and this medication that they would have to pickup driver- family
is fine. CM has to give them the cost tomorrow. List given and family chose about 9 facilities so referrals made to call- CM will call top choices for beds. PLAN: SNF when ready- Saturday.
--- NOTE | 2025-08-10 17:35 | PTCARENOTE ---
This RN and CONCESSION WORKER noted increased edema to b/l UE. Midline removed by IVT RN. Dr. Wynn notified, order received for b/l UE ultrasound.
[2025-08-10 18:00] LABS: Blood Urea Nitrogen 10 mg/dl (7-17); Calcium 7.0 mg/dl (8.4-10.2); Carbon Dioxide 21 mmol/L (22-30); Chloride 101 mmol/L (98-107); Estimated Creatinine Clearance 71 ml/min; Glucose 91 mg/dl (70-99); Potassium 4.1 mmol/L (3.5-5.1); Sodium 125 mmol/L (135-145); eGFR > 60.00
--- NOTE | 2025-08-10 18:23 | VATNOTE ---
Vat note: Called to obtain phleb draw. Noted bilateral upper extremity +2-+3 pitting edema. Right midline in place with leaking dressing. Right midline dc'd. Recommended US of both upper extremity. Will continue to monitor closely.
--- NOTE | 2025-08-10 20:59 | W.PN.UPDATE ---
Update Note
Progress Note Update
pt seen this afternoon for assessment, Son at bedside, states 'I got my mother back.' Pt alert, oriented, joking with son. Answers questions with high degree of abstraction. Appears to have resolved the hospital delirium. Son grateful for decisions
made. Wants to be sure that the psychotropics will be weaned appropriately.
[2025-08-10] MEDS: MELATONIN 5 MG PO (21:34)
[2025-08-10] MEDS: NEURONTIN 400 MG PO (21:34)
[2025-08-10] MEDS: XALATAN OPHTHALMIC SOLUTION 1 DROP BOTH EYES (21:35)
[2025-08-10] MEDS: RISPERDAL M-TAB (ORALLY DISINTEGRATING) PO (21:35)
[2025-08-10] MEDS: PACERONE PO (21:36)
[2025-08-10] MEDS: NSS 1000 IV (22:07)
[2025-08-11] VITALS (12 sets, daily range): BP systolic 121–167; BP diastolic 38–55; PULSE 59; BMI 33.7
--- NOTE | 2025-08-11 03:05 | PTCARENOTE ---
Assumed care for patient overnight. Pt AAOx3, son at the bedside at change of shift. Pt denies any pain or discomfort. Pt having incontinence of stool, stool appears to be more formed, pt having less frequency. Dr. Grady ordered IVF at 125/hr.
Order clarified via TT. IVF infusing. Pt educated. Pt states feeling tired, pt refusing Risperdal HS, pt denies feelings of anxiety. NSR-SB on the monitor HR 50s-60s. Remains on room air, 96%. Samaniego draining benjamin yellow urine, asmaniego care done.
Moisture barrier applied generously. Pt tolerating frequent turning and repositioning. Able to make needs known, 1:1 sitter present at the bedside overnight.
[2025-08-11] MEDS: SYNTHROID 88 MCG PO (04:26)
[2025-08-11] MEDS: TYLENOL PO ×2 (04:28→12:03)
[2025-08-11] MEDS: NSS 1000 IV (06:02)
[2025-08-11 06:03] LABS: ALT (SGPT) 30 U/L (0-35); AST (SGOT) 32 U/L (14-36); Albumin 1.9 g/dl (3.5-5.0); Alkaline Phosphatase 204 U/L (38-126); Blood Urea Nitrogen 9 mg/dl (7-17); Calcium 7.0 mg/dl (8.4-10.2); Carbon Dioxide 21 mmol/L (22-30); Chloride 101 mmol/L (98-107); Estimated Creatinine Clearance 71 ml/min; Glucose 86 mg/dl (70-99); Potassium 4.2 mmol/L (3.5-5.1); Sodium 125 mmol/L (135-145); Total Protein 4.1 g/dl (6.3-8.2); eGFR > 60.00
[2025-08-11 06:17] LABS: Hematocrit 29.7 % (37.0-47.0); Hemoglobin 10.2 g/dL (12.0-16.0); Mean Corp Hgb Conc. 34.3 g/dL (33.0-37.0); Mean Corpuscular Volume 82.5 fL (81.0-99.0); Platelet Count 407 10^3/uL (130-400); Red Cell Dist. Width 14.5 % (11.5-14.5)
[2025-08-11 06:54] LABS: Nucleated Red Blood Cells % 0 %
--- NOTE | 2025-08-11 07:07 | W.PN.HOSP.TC ---
Today's Communication/Plan
-
- PT/OT following
- Amiodarone 200mg daily
- US upper extremities pending
- Continue fidaxomicin
- Renal following, appreciate recs re: hyponatremia mgmt
Assessment / Plan
Assessment / Plan
84yo M with a hx of essential HTN, HLD, CAD, hypothyroidism, GERD, & polyneuropathy who p/w generalized weakness, fever/chills, nausea, & diarrhea, found to have sepsis 2/2 positive c diff diarrhea with evidence of end-organ damage, now with
resolving infection, fluctuating hyponatremia, and improved mental status, c/b bradycardia.
#C diff diarrhea, with resolving sepsis w end organ damage
#Lactic acidosis, resolved
Labs on admission 08/02 - WBC 29.5, Cl 92, CO2 15, lactic acid 3.5, AST 155, ALT 52. Diarrhea since 07/31 with fever/chills resolved by time of admission. CT a/p with evidence of severe colitis. C diff stool antigen positive. Covid, flu, norovirus
negative. F/c, nausea, weakness, electrolyte abnormalities all likely 2/2 c diff & associated volume loss/sepsis. S/p IV metronidazole (stopped 08/09).
Today - afebrile; diarrhea slowed, rectal tube out 08/09 afternoon; WBC downtrending 12.1 today
- Continue fidaxomicin 200mg PO BID through 08/17
- Standing PO tylenol & PRN morphine for pain
- ID following, appreciate recs
#Paroxysmal atrial fibrillation
#Episodes of bradycardia, 1st degree AV block
Transient episode of a fib shortly after dobhoff placement on 08/04, likely triggered by physiologic stress exacerbation from tube placement in s/o pt current illness. Resolved to normal sinus rate/rhythm s/p 5mg IV metoprolol. 08/05 morning, pt
again in a fib with HR in 120s. TTE 08/05 did not demonstrate significant LA dilation or significant regional wall motion abnormalities, mild LA enlargement & MR (EF 55-60%, LA volume mildly abnormal 35-41, mild concentric LVH, mild MR). Afib likely
2/2 physiologic stress exacerbating mild existing abnormalities. EKG 08/11 with 1st degree AV block, LVH.
Today - HR dropping to 30-40s overnight, 60-70s while awake, asx; s/p stopping metoprolol yesterday
- PO eliquis
- Continue amiodarone 200mg daily
- PRN metoprolol 5mg if HR>110
- Monitor on tele
- Cardiology following, appreciate recs
#Hyponatremia, fluctuating
Na+ 119 on admission, likely 2/2 hypovolemic hyponatremia in s/o volume loss w ongoing diarrhea. AMS, difficult to arouse likely 2/2 severe hyponatremia. Received NSS on admission but not hypertonic. Lethargy/weakness also likely compounded by
hypotension and volume loss/dehydration. Hyponatremia may also be due to SIADH given pain/AMS or adrenal insuff given initial presentation w hypotension & hyperK. Cortisol & TSH wnl. Urine Na 7, urine cr 90.3, serum osm 281 - not hypoosmolar given
repletion already performed, but urine sodium <7 supports likely prior hypoosmolar hypovolemic hyponatremia. Resolving s/p fluids. Likely 2/2 pt refusal of PO solids intake over last 24hr w drinking significant water in combination with ongoing
copious diarrhea. Stably slightly low s/p hypertonic Na & fluid restriction.
Today - 125
- Continue to trend BMP
- 40oz fluid restriction
- Encourage PO intake
- Renal following, appreciate recs
#Bilat UE swelling
RN reports swelling of bilat UE. Most likely 2/2 frequent blood draws and hypertonic saline. Less likely bilat DVT while on eliquis and without erythema or pain.
- Continue to monitor
- Bilateral US of UEs ordered
- Encourage moving arms, elevation when possible
#Hyperkalemia, resolved
#Hypocalcemia, resolved
K 5.8 on admission, likely 2/2 high-volume diarrhea. Likely 2/2 ongoing valsartan use in s/o volume loss vs. adrenal insufficiency vs. RTA. Cortisol wnl, more likely volume loss etiology. S/p insulin; s/p ca gluconate x2.
Today - K & corrected Ca wnl
- Continue to trend BMP
- Encourage PO intake
- Renal following, appreciate recs
#AMS, paranoia, c/f psychosis - resolved
08/03- - pt obtunded, unable to rouse beyond turning head am despite near-normalization of lytes by 08/05. Per RN, had waxing/waning consciousness overnight not much improved from prior day. CT head 08/05 unremarkable. Ammonia, B12, folate wnl.
ABG 08/05 w alkalosis w compensatory metabolic acidosis, likely 2/2 overcorrection w bicarb drip. Potential elements of hospital induced delirium vs. metabolic encephalopathy vs. underlying dementia vs. pain vs. prior hospital-associated trauma.
08/06 Psych eval: 'patient lacks capacity for medical decision making. son seems to have her interests at heart and and son should be consulted.' 08/07 - [facility] conversation re: decisionmaking, proceeding w pain mgmt & restraints if necessary.
08/09 - mental status resolved to baseline s/p overnight risperidone & w resolving infection.
Today - mental status appropriate
- Standing risperidone 0.25mg HS - to wean off per psych
- Standing PO tylenol
- Psych following
- Continue PT/OT and OOB
#FAVIAN, resolved, likely prerenal
#Acute urinary retention
Cr 1.8, BUN 49, eGFR 27.78 on admission, likely prerenal in s/o volume loss 2/2 c diff diarrhea. BUN/Cr ratio 27, c/w prerenal. Potential component of obstruction, although no evidence of overt physical obstruction on CT. Per RN, pt retaining 1700
in bladder on 08/03 at 12:30pm. CT a/p 08/02: 'Moderately distended urinary bladder. There is mild prominence of the bilateral collecting systems which is unchanged from prior.' Likely contributor to FAVIAN. Uncertain etiology, likely in s/o multiorgan
damage in s/o sepsis.
Resolved s/p fluids.
- Samaniego catheter remains in place, likely trial taking out the day prior to discharge
- Renal following, appreciate recs
#Chronic
#Essential HTN - home valsartan
#HLD - 'Pt is intolerant of statins. Dr. Houser has recommended [id number] but she refuses.'
#CAD - continue home aspirin
#Hypothyroidism - continue home levothyroxine
#GERD - IV PPI
#Polyneuropathy - continue home gabapentin
#Global
- DVT ppx: eliquis
- Code: full
- Diet: regular diet with fluid restriction 40oz
- Dispo: PT recommending skilled rehab, case mgmt following
Anticipated Discharge: 24 - 48 hours
Subjective/Interval History
-
Date of Service: August 11, 2025
Per RN, patient trung 30-40s overnight while sleeping, 60-70s while awake. Metoprolol stopped yesterday afternoon. Pt has been asx, never difficult to arouse.
This am, patient feeling well. No abd pain, no complaints. PT did not see yesterday. Requesting to be seen today. BMs not too frequent, using bedpan. Normal mentation, affect. Denies any CP, SOB. Conversant.
Primary complaint is bruising and pain and UE swelling from frequent needle sticks, challenge with drawing blood.
Objective Data
-
Labs:
Laboratory Results
08/11/25
04:40
WBC 12.1 H
Hgb 10.2 L
Hct 29.7 L
Plt Count 407 H
Sodium 125 L
Potassium 4.2
Chloride 101
Carbon Dioxide 21 L
BUN 9
Creatinine 0.5 L
Glucose 86
Calcium 7.0 L
Total Bilirubin 0.3
AST 32
ALT 30
Alkaline Phosphatase 204 H
Vital Signs:
Vital Signs
Temp Pulse Resp BP Pulse Ox
97.7 F 53 17 156/49 96
08/10/25 23:00 08/11/25 05:00 08/11/25 05:00 08/11/25 04:00 08/11/25 03:00
I&O
08/10/25 08/11/25 08/12/25
06:59 06:59 06:59
Intake Total 995 / 995 1520 / 1520
Output Total 875 / 875 475 / 475
Balance 120 / 120 1045 / 1045
Review of Systems
-
History Source: Patient and Family
Constitutional: Reports No Symptoms
EENT: Reports No Symptoms Reported
Respiratory: Reports No Symptoms
Cardiac: Reports No Symptoms
Abdomen/GI: Reports Diarrhea (improving)
Musculoskeletal: Reports Edema (bilateral UE edema )
Skin: Reports Other (ecchymoses on bilat UE )
Neuro: Reports No Symptoms
Psych: Reports Depressed
Physical Exam
-
General: Well Developed, Well Nourished and No Apparent Distress
HEENT: Normocephalic, Atraumatic and Moist Mucous Membranes
Respiratory: Clear to Auscultation and Non Labored Respirations
Cardiac: Regular Rhythm
GI: Soft, Nontender and Nondistended
Rectal: Other (rectal tube removed)
Genito-urinary: Other (samaniego catheter w dark yellow urine )
Musculoskeletal: Edema, Right Upper Extrem, Edema, Left Upper Extrem and Other (ecchymosis on bilat UE from blood draws; swelling in bilat hands/forearms, no redness, no palpable cords or masses )
Skin: Warm and Dry
Neuro: Awake and Alert
Psych: Calm
Data Reviewed
-
Total Time Spent with Patient (in minutes): 20
Critical Care Time (in minutes): 45
Labs: Labs Reviewed by me
--- NOTE | 2025-08-11 07:57 | PTCARENOTE ---
Pt bradycardic with rates in the 40's. Dr. Wynn notified.
--- NOTE | 2025-08-11 08:32 | W.PN.ID1 ---
Date of Service
Date of Service: August 11, 2025
Today's Communication
Continue with current course of fidaxomicin.
Assessment / Plan
# Severe C. difficile colitis - improving
# Significant leukocytosis - continues to improve.
# Prerenal FAVIAN- resolved
# Encephalopathy?psych - resolving on Risperdal.
. Pt had previously missed po vanco intermittently due to mental status change/refusal medical treatment).
. Now compliant with meds
# Atrial tachycardic - improved
- Stool becoming more firm.
- Trend wbc and stool output.
- Continue Fidaxomicin 200mg po bid x 10 days through 08/17/25.
- SNF often do not accept pts on fidaxomicin due to cost.
Asked caseworker to check if insurance will cover fidaxomicin. If covered, family can miner pick med and take to SNF.
# Additional Past Medical History:
Hypertension
CAD status post stent
Hypothyroidism
IBS
Severe neuropathy BLE
Glaucoma
Rectal prolapse status post rectopexy 01/06/21
Hemorrhoid s/p banding
Appendectomy
Hysterectomy with BSO
Right knee replacement
Chief Complaint
-: Leukocytosis and C-diff
Subjective / Review of Systems
Patient seen and examined. Denies abdominal pain. Denies liquid stooling at this time.
Review of Systems: No Fever and No Chills
Vital Signs / Physical Exam
Vital Signs
Vital Signs
Temp Pulse Resp BP Pulse Ox
98.4 F 52 17 156/49 96
08/11/25 07:43 08/11/25 07:30 08/11/25 07:30 08/11/25 04:00 08/11/25 03:00
Physical Exam
Constitutional: Comfortable and Chronically Ill
Eyes: No Conjunctival Hemorrhage and Sclera Anicteric
Pulmonary: Clear
Gastrointestinal: Soft, Non Tender and Non Distended
Genito-Urinary: Asher and Clear Urine (dark urine)
Neurological: AO x 3
Objective Data
Lab Data
Lab Results
08/11/25 04:40
08/11/25 04:40
APTT Cancelled 08/07/25 06:00
Estimated Creat Clear 71 ml/min 08/11/25 04:40
Lactic Acid 1.8 mmol/L (0.7-2.0) 08/03/25 11:15
Total Bilirubin 0.3 mg/dl (0.2-1.3) 08/11/25 04:40
AST 32 U/L (14-36) 08/11/25 04:40
ALT 30 U/L (0-35) 08/11/25 04:40
Alkaline Phosphatase 204 U/L (38-126) H 08/11/25 04:40
Most recent labs reviewed.
Micro Results:
08/02/25 18:20 Blood Culture - Final
Blood/Venous No Growth - Final Report
08/02/25 18:21 Salmonella/Shigella Culture - Final
Feces/Stool No Salmonella, Shigella, Aeromonas or Plesiomonas species
isolated.
Campylobacter Culture - Final
No Campylobacter species isolated.
Shiga Toxin Test - Final
No E. coli Shiga Toxin 1 or 2 detected.
08/03/25 12:33 Urine Culture - Final
Urine No Significant Growth
08/02/25 18:21 C. difficile GDH Antigen & Toxins - Final
Feces/Stool Toxigenic C.difficile Positive
Norovirus (PCR) - Final
Negative for Norovirus GI and GII.
08/02/25 17:33 Influenza Types A & B (DULCE) - Final
Nasal Swab Negative for Influenza A & B, NAAT
Negative results must be combined with clinical observations
and patient history.
Nucleic Acid Amplification test (NAAT)performed on the
[employer] NOW platform.
08/02/25 CT a/p: There is pronounced wall thickening with adjacent stranding throughout the colon which likely represents severe colitis. The gallbladder appears mildly distended. There are no adjacent findings suggestive of acute cholecystitis.
This may be secondary to fasting state. If there is concern for acute cholecystitis consider dedicated right upper quadrant ultrasound. Moderately distended urinary bladder. There is mild prominence of the bilateral collecting systems which is
unchanged from prior.
Care Review
Plan reviewed with: Nurse
--- NOTE | 2025-08-11 08:34 | W.PN.CARDCBS ---
Addendum entered and electronically signed by Magi Montenegro MD 08/11/25 10:38:
I saw and examined the patient.
The [employer] Support Specialist's note was reviewed and I agree with the note.
Doing okay today clinically except for weakness. We are reconsulted for bradycardia. She has sinus bradycardia more pronounced during sleeping hours. Asymptomatic.
She currently remains in sinus rhythm with recently diagnosed rapid paroxysmal atrial tachycardia. She continues on oral anticoagulation.
Plan at this time:
Continue oral anticoagulation
Agree with discontinuation of beta-rianna
Reduce amiodarone to 200 mg daily
Follow heart rates and symptoms.
Primary service to continue to correct electrolyte abnormalities she remains hyponatremic.
I did explain to the patient that given sick sinus syndrome she is at higher risk in the future for pacemaker.
Continue treatment of C. difficile colitis status post sepsis.
We will make sure follow-up is arranged. We will check her telemetry tomorrow.
Original Note:
Today's Communication / Plan
-
Lopressor has already been stopped
Decrease amiodarone to 200 mg daily
Currently on Eliquis, but could consider reassessing the need for OAC as an outpatient if there is no clinically significant recurrence of A-fib
Impression / Plan
-
PCP: Previously following with Dr. Savana Samuel and transitioning to Dr. Renetta Rodriguez with a new patient appointment scheduled for 11/02/2025
Cardiology: Previously followed with Dr. Houser, last seen in 2022
Impression:
Admitted with generalized weakness, fevers and chills and diarrhea 08/02/2025
C. difficile colitis
Sepsis
FAVIAN
Hyperkalemia
Newly diagnosed paroxysmal atrial tachycardia
Sinus bradycardia
PVCs
CAD s/p AWMI and 3.0 mm Cypher MARGARITO to the proximal LAD 05/2004
Hyperlipidemia
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
Urinary retention
Echo 08/05/2025: EF 55 to 60%, mild concentric LVH, mild MR
Plan:
-Patient initially admitted with generalized weakness and was diagnosed with C. difficile diarrhea, cardiology was later consulted for changes on telemetry and atrial tachycardia.
-Patient with PAT this admission as a new diagnosis, HR's were initially difficult to control and patient was started on Lopressor and then amiodarone initially TID and then weaning down to BID. As C. difficile infection has improved HR control has
improved and patient is having periods of sinus bradycardia
-Lopressor PO stopped on 08/10/2025 by cardiology due to sinus bradycardia
-Telemetry reviewed by me on 08/11/2025 shows sinus bradycardia without pauses or heart block. Sinus bradycardia with HR's as low as 36 bpm seem to be associated with sleeping, patient's son in the room also noted low heart rates with sleeping.
Again, no pauses or significant heart block.
-Decrease amiodarone to 200 mg PO daily starting 08/11/2025.
-Reviewed cardiac issues from this hospitalization with patient and son in the room and outlined medication changes as planned. No indication for PPM placement at this time
-Eliquis started earlier this admission for possible atrial fibrillation, but the bulk of arrhythmia seen on telemetry has been atrial tachycardia. For now patient remains on Eliquis 5 mg BID and would consider an outpatient monitor to assess for
additional arrhythmia burden and pending those results could consider discontinuation of Eliquis.
HPI: Patient came to the ER on Saturday with fevers, chills generalized weakness and diarrhea and was admitted with sepsis and C. difficile colitis, cardiology is now consulted for an episode of newly diagnosed paroxysmal atrial fibrillation. Through
the weekend patient was at home dealing with generalized weakness fevers and chills and then started with diarrhea. There was thought that perhaps it was due to a viral illness such as influenza or COVID and patient was advised to take Imodium.
Due to increasing weakness the patient came to the ER and had evidence for sepsis and her stool culture was positive for C. difficile. Patient now admitted for sepsis and C. difficile colitis. Patient had worsening TME changes and was transition
to vancomycin AL, but GI consulted for placement of DHT today. DHT placed with some resistance from the patient who is now placed in soft mitts B/L. Patient noted to have onset of rapid atrial tachycardia. Patient was given Lopressor 5 mg IV x 1
and shortly thereafter spontaneously converted to SR. Unclear if patient experienced any symptoms due to ongoing TME changes. Patient's is at the bedside and relates that patient stopped following with cardiology a few years ago due to
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 Patient has a remote history of anterior wall TN and LAD PCI back in 2003, at that time the patient had just received a distressing phone call that one of her sons had an accident and was apparently
asked.
Progress Note - Street Engineer
Subjective
Date of Service: August 11, 2025
Patient denies any pain or palpitation
Objective
Labs:
08/11/25 04:40
08/11/25 04:40
Labs
Hgb 10.2 g/dL (12.0-16.0) L 08/11/25 04:40
Hct 29.7 % (37.0-47.0) L 08/11/25 04:40
Plt Count 407 10^3/uL (130-400) H 08/11/25 04:40
APTT Cancelled 08/07/25 06:00
Sodium 125 mmol/L (135-145) L 08/11/25 04:40
Potassium 4.2 mmol/L (3.5-5.1) 08/11/25 04:40
BUN 9 mg/dl (7-17) 08/11/25 04:40
Creatinine 0.5 mg/dL (0.6-1.0) L 08/11/25 04:40
Glucose 86 mg/dl (70-99) 08/11/25 04:40
Vital Signs and I&O:
Vital Signs
Temp Pulse Resp BP Pulse Ox
98.4 F 52 17 156/49 96
08/11/25 07:43 08/11/25 07:30 08/11/25 07:30 08/11/25 04:00 08/11/25 03:00
Vital Signs
Temp Pulse Resp BP Pulse Ox
98.4 F 52 17 156/49 96
08/11/25 07:43 08/11/25 07:30 08/11/25 07:30 08/11/25 04:00 08/11/25 03:00
Intake & Output
08/09/25 08/10/25 08/11/25 08/12/25
06:59 06:59 06:59 06:59
Intake Total 1640 / 1640 995 / 995 1520 / 1520
Output Total 2100 / 2100 875 / 875 475 / 475
Balance -460 / -460 120 / 120 1045 / 1045
Physical Exam
Physical Exam
GEN: NAD, AAO to person place and situation
HEENT: EOMI
LUNGS: RA. Clear anterolaterally without wheeze
CV: SR on telemetry. Reg, S1/S2, no murmur
EXT: No edema B/L LE
NEURO: Gross non-focal
SKIN: No rash
--- NOTE | 2025-08-11 08:55 | PTCARENOTE ---
Amio dose adjusted by cardiology. D/W Maria De Jesus DE LA CRUZ, advised to give 0800 dose.
[2025-08-11] MEDS: PROTONIX 40 MG PO (09:08)
[2025-08-11] MEDS: DIFICID 200 MG PO ×2 (09:08→20:32)
[2025-08-11] MEDS: ELIQUIS 5 MG PO (09:08)
[2025-08-11] MEDS: VITAMIN B1 100 MG PO (09:08)
[2025-08-11] MEDS: DIOVAN 80 MG PO (09:08)
[2025-08-11] MEDS: PACERONE 200 MG PO (09:08)
[2025-08-11] MEDS: LOW STRENGTH ASPIRIN 81 MG PO (09:08)
--- NOTE | 2025-08-11 12:37 | PTCARENOTE ---
Notified that pt has blood clots in B/L UE. Pt and family updated by MD. Pt made b/l limb alert and pink bracelets placed. Per Dr Rodriguez, okay to leave IV in place- see order.
--- NOTE | 2025-08-11 13:45 | PTCARENOTE ---
Pt's assessment as documented. Aox3, flat. Son at bedside. Updated pt and family on plan of care. Pt ringing appropriately, call glover within reach. Care as documented.
--- NOTE | 2025-08-11 15:07 | W.PN.NEPH.PH ---
Today's Communication / Plan
-
samsca
Assessment/Plan
-
Assessment
FAVIAN
C difficile diarrhea/colitis
leukocytosis
hyperkalemia
metabolic acidosis
lactic acidosis
hyponatremia
CAD
hypocalcemia
UE DVT
Plan
sodium no change with isotomic fluids
ADH mediated, though has diarrhea she seem to have edema
new DVT in UEs, limited IV access, agreed to d/c IVF, wt increasing
will try low dose samsca today
BP stable
Discussed with son at bedside
d/w nursing and primary
-
-
Date of Service: August 11, 2025
CC / HPI / ROS
-
Chief Complaint:
FAVIAN
Hyperkalemia
Metabolic acidemia
History of Present Illness:
Sodium no change at 125 since last evening with NS
bp stable, k normal, bicarb 21
increasing wts
abx for c diff colitis
Review of Systems:
edema in feet
no dizziness but feels tired
no pain
still with dairrhea but improving slowly
Labs
-
Labs:
WBC 12.1 10^3/uL (4.8-10.8) H 08/11/25 04:40
RBC 3.60 10^6/uL (4.20-5.40) L 08/11/25 04:40
Hgb 10.2 g/dL (12.0-16.0) L 08/11/25 04:40
Hct 29.7 % (37.0-47.0) L 08/11/25 04:40
Plt Count 407 10^3/uL (130-400) H 08/11/25 04:40
Sodium 125 mmol/L (135-145) L 08/11/25 04:40
Potassium 4.2 mmol/L (3.5-5.1) 08/11/25 04:40
Chloride 101 mmol/L (98-107) 08/11/25 04:40
Carbon Dioxide 21 mmol/L (22-30) L 08/11/25 04:40
BUN 9 mg/dl (7-17) 08/11/25 04:40
Creatinine 0.5 mg/dL (0.6-1.0) L 08/11/25 04:40
eGFR > 60.00 08/11/25 04:40
Glucose 86 mg/dl (70-99) 08/11/25 04:40
Calcium 7.0 mg/dl (8.4-10.2) L 08/11/25 04:40
Albumin 1.9 g/dl (3.5-5.0) L 08/11/25 04:40
Physical Exam
-
Vital Signs:
Vital Signs
Temp Pulse Resp BP Pulse Ox
97.5 F 52 17 156/49 96
08/11/25 13:29 08/11/25 07:30 08/11/25 07:30 08/11/25 04:00 08/11/25 08:44
Cardiovascular:: Regular rate and rhythm
Respiratory:: Bilateral: Coarse
Lung Excursion:: Normal
Abdomen:: Nontender and Soft
Bowel Sounds:: Normal
Extremity Edema:: +1: Bilateral:
Asher Catheter: No
[2025-08-11] MEDS: TYLENOL 650 MG PO ×2 (16:24→22:12)
--- NOTE | 2025-08-11 16:24 | CM ---
F/U: The plan is SNF with the family picking up expensive Abx from [facility] to bring to SNF. Son has [facility] to tour, waiting on to call back, and so far [facility] and [facility] do not have a bed on Saturday. [facility] still waiting for
other places to respond. Son wants to tour 1-2 so will follow up. PLAN: SNF when ready.
[2025-08-11] MEDS: SAMSCA 7.5 MG PO (17:36)
[2025-08-11] MEDS: ELIQUIS 10 MG PO (20:32)
[2025-08-11] MEDS: NEURONTIN 400 MG PO (22:12)
[2025-08-11] MEDS: RISPERDAL M-TAB (ORALLY DISINTEGRATING) 0.25 MG PO (22:12)
[2025-08-11] MEDS: MELATONIN 5 MG PO (22:12)
[2025-08-11] MEDS: XALATAN OPHTHALMIC SOLUTION 1 DROP BOTH EYES (22:16)
[2025-08-12] VITALS (12 sets, daily range): BP systolic 121–177; BP diastolic 42–67; BMI 33.7
--- NOTE | 2025-08-12 05:11 | PTCARENOTE ---
Pt slept well overnight. 1:1 in room since son left at approx 2300. Pt AAOx3. Denies pain or discomfort. SB w/pauses overnight. Rate 30-60's. Asymptomatic. 1450ml in samaniego. Maintained on Q2hr turns. Rest of assessment unchanged. Will continue to
monitor.
[2025-08-12] MEDS: TYLENOL 650 MG PO ×3 (05:27→22:22)
[2025-08-12] MEDS: SYNTHROID 88 MCG PO (05:27)
--- NOTE | 2025-08-12 07:29 | W.PN.HOSP.TC ---
Today's Communication/Plan
-
- Tolvaptan today
- Likely here through Saturday, pending case mgmt
- Remove samaniego tomorrow
- Continue 10mg bid eliquis for 7 day course
- Continue fidaxomicin course
- Convert risperidone to PRN
Assessment / Plan
Assessment / Plan
84yo M with a hx of essential HTN, HLD, CAD, hypothyroidism, GERD, & polyneuropathy who p/w generalized weakness, fever/chills, nausea, & diarrhea, found to have sepsis 2/2 positive c diff diarrhea with evidence of end-organ damage, now with
resolving infection, fluctuating hyponatremia, and improved mental status, c/b sick sinus syndrome and bilateral UE DVTs.
#C diff diarrhea, with resolving sepsis w end organ damage
#Lactic acidosis, resolved
Labs on admission 08/02 - WBC 29.5, Cl 92, CO2 15, lactic acid 3.5, AST 155, ALT 52. Diarrhea since 07/31 with fever/chills resolved by time of admission. CT a/p with evidence of severe colitis. C diff stool antigen positive. Covid, flu, norovirus
negative. F/c, nausea, weakness, electrolyte abnormalities all likely 2/2 c diff & associated volume loss/sepsis. S/p IV metronidazole (stopped 08/09). Rectal tube out 08/09.
Today - afebrile; BM slowing
- Continue fidaxomicin 200mg PO BID through 08/17
- Standing PO tylenol & PRN morphine for pain
- ID following, appreciate recs
#Paroxysmal atrial fibrillation
#Episodes of bradycardia, 1st degree AV block, sick sinus syndrome
Transient episode of a fib shortly after dobhoff placement on 08/04, likely triggered by physiologic stress exacerbation from tube placement in s/o pt current illness. Resolved to normal sinus rate/rhythm s/p 5mg IV metoprolol. 08/05 morning, pt
again in a fib with HR in 120s. TTE 08/05 did not demonstrate significant LA dilation or significant regional wall motion abnormalities, mild LA enlargement & MR (EF 55-60%, LA volume mildly abnormal 35-41, mild concentric LVH, mild MR). Afib likely
2/2 physiologic stress exacerbating mild existing abnormalities. EKG 08/11 with 1st degree AV block, LVH. Per cards eval, sick sinus syndrome - to monitor outpatient.
Today - HR 77
- PO eliquis
- Continue amiodarone 200mg daily
- PRN metoprolol 5mg if HR>110
- Monitor on tele
- Cardiology following, appreciate recs
- F/u outpatient cardiology
#Hyponatremia, fluctuating
Na+ 119 on admission, likely 2/2 hypovolemic hyponatremia in s/o volume loss w ongoing diarrhea. AMS, difficult to arouse likely 2/2 severe hyponatremia. Received NSS on admission but not hypertonic. Lethargy/weakness also likely compounded by
hypotension and volume loss/dehydration. Hyponatremia may also be due to SIADH given pain/AMS or adrenal insuff given initial presentation w hypotension & hyperK. Cortisol & TSH wnl. Urine Na 7, urine cr 90.3, serum osm 281 - not hypoosmolar given
repletion already performed, but urine sodium <7 supports likely prior hypoosmolar hypovolemic hyponatremia. Resolving s/p fluids. Likely 2/2 pt refusal of PO solids intake over last 24hr w drinking significant water in combination with ongoing
copious diarrhea. Stably slightly low s/p hypertonic Na & fluid restriction.
Today - 125
- Start tolvaptan
- 40oz fluid restriction
- Encourage PO intake
- Renal following, appreciate recs
#Bilateral UE DVTs/superficial thrombi
Pt with arm swelling since ~08/10. Initially thought to be 2/2 volume overload, hypertonic fluids, arms in dependent position, inflammation from repeated needlesticks. No erythema, no pain. Pt has been on eliquis. 08/11 US demonstrated: 'Occlusive
thrombus within one of the right brachial veins throughout the upper right arm. Occlusive thrombus throughout the mid to distal aspect of the left cephalic vein in the upper left arm.' Superficial in L arm, DVT in R arm. Potential eliquis failure
vs. development of DVT in interval earlier when pt was refusing meds. Superficial thrombi likely 2/2 lines/trauma to endothelium.
- Increase eliquis from 5mg to 10mg bid for 7 days
- Continue to monitor
- Limit blood draws
#Hyperkalemia, resolved
#Hypocalcemia, resolved
K 5.8 on admission, likely 2/2 high-volume diarrhea. Likely 2/2 ongoing valsartan use in s/o volume loss vs. adrenal insufficiency vs. RTA. Cortisol wnl, more likely volume loss etiology. S/p insulin; s/p ca gluconate x2.
Today - K & corrected Ca wnl
- Continue to trend BMP
- Encourage PO intake
- Renal following, appreciate recs
#AMS, paranoia, c/f psychosis - resolved
08/03- - pt obtunded, unable to rouse beyond turning head am despite near-normalization of lytes by 08/05. Per RN, had waxing/waning consciousness overnight not much improved from prior day. CT head 08/05 unremarkable. Ammonia, B12, folate wnl.
ABG 08/05 w alkalosis w compensatory metabolic acidosis, likely 2/2 overcorrection w bicarb drip. Potential elements of hospital induced delirium vs. metabolic encephalopathy vs. underlying dementia vs. pain vs. prior hospital-associated trauma.
08/06 Psych eval: 'patient lacks capacity for medical decision making. son seems to have her interests at heart and and son should be consulted.' 08/07 - [facility] conversation re: decisionmaking, proceeding w pain mgmt & restraints if necessary.
08/09 - mental status resolved to baseline s/p overnight risperidone & w resolving infection.
Today - mental status appropriate
- Convert risperidone 0.25mg to PRN
- Standing PO tylenol
- Psych following
- Continue PT/OT and OOB
#FAVIAN, resolved, likely prerenal
#Acute urinary retention
Cr 1.8, BUN 49, eGFR 27.78 on admission, likely prerenal in s/o volume loss 2/2 c diff diarrhea. BUN/Cr ratio 27, c/w prerenal. Potential component of obstruction, although no evidence of overt physical obstruction on CT. Per RN, pt retaining 1700
in bladder on 08/03 at 12:30pm. CT a/p 08/02: 'Moderately distended urinary bladder. There is mild prominence of the bilateral collecting systems which is unchanged from prior.' Likely contributor to FAVIAN. Uncertain etiology, likely in s/o multiorgan
damage in s/o sepsis.
Resolved s/p fluids.
- Samaniego catheter remains in place -- trial tomorrow
- Renal following, appreciate recs
#Chronic
#Essential HTN - home valsartan
#HLD - 'Pt is intolerant of statins. Dr. Houser has recommended [id number] but she refuses.'
#CAD - continue home aspirin
#Hypothyroidism - continue home levothyroxine
#GERD - IV PPI
#Polyneuropathy - continue home gabapentin
#Global
- DVT ppx: eliquis
- Code: full
- Diet: regular diet with fluid restriction 40oz
- Dispo: PT recommending skilled rehab, case mgmt following & planning for SNF, goal discharge Saturday
Anticipated Discharge: > 48 hours
Subjective/Interval History
-
Date of Service: August 12, 2025
Doing well this am. Understands the plan & what happened yesterday re: sick sinus, DVT in UEs, & hyponatremia. Have been speaking with case mgmt re: SNF options.
BM frequency decreasing. No abd pain. Working with PT has been going well, improving.
Patietn & son express preference for staying through weekend.
Objective Data
-
Vital Signs:
Vital Signs
Temp Pulse Resp BP Pulse Ox
97.7 F 77 19 133/48 95
08/12/25 03:00 08/12/25 04:30 08/12/25 04:30 08/12/25 04:00 08/11/25 21:00
I&O
08/11/25 08/12/25 08/13/25
06:59 06:59 06:59
Intake Total 1520 / 1520 240 / 240
Output Total 475 / 475 2300 / 2300
Balance 1045 / 1045 -2059 / -2059
Review of Systems
-
History Source: Patient and Family
Constitutional: Reports No Symptoms
EENT: Reports No Symptoms Reported
Respiratory: Reports No Symptoms
Cardiac: Reports No Symptoms
Abdomen/GI: Reports Diarrhea (improving)
Musculoskeletal: Reports Edema (bilateral UE edema )
Skin: Reports Other (ecchymoses on bilat UE )
Neuro: Reports No Symptoms
Psych: Reports Depressed
Physical Exam
-
General: Well Developed, Well Nourished and No Apparent Distress
HEENT: Normocephalic, Atraumatic and Moist Mucous Membranes
Respiratory: Clear to Auscultation and Non Labored Respirations
Cardiac: Regular Rhythm
GI: Soft, Nontender and Nondistended
Rectal: Other (rectal tube removed)
Genito-urinary: Other (samaniego catheter w dark yellow urine )
Musculoskeletal: Edema, Right Upper Extrem, Edema, Left Upper Extrem and Other (ecchymosis on bilat UE from blood draws; swelling in bilat hands/forearms, no redness, no palpable cords or masses )
Skin: Warm and Dry
Neuro: Awake and Alert
Psych: Calm
Data Reviewed
-
Total Time Spent with Patient (in minutes): 15
Critical Care Time (in minutes): 45
Ultrasound: Report Reviewed by me
Labs: Labs Reviewed by me
--- NOTE | 2025-08-12 08:17 | W.PN.UPDATE ---
Update Note
Progress Note Update
I reviewed patient's heart rates on monitor and they were stable overnight predominantly in the 70s. Some PACs and PVCs. No further cardiac recommendations at this time. Continue current treatment. Patient has been arranged to follow-up in
cardiology office. We will sign off. Please reconsult us if any new cardiac issues develop.
[2025-08-12] MEDS: PROTONIX 40 MG PO (09:05)
[2025-08-12] MEDS: DIOVAN 80 MG PO (09:05)
[2025-08-12] MEDS: LOW STRENGTH ASPIRIN 81 MG PO (09:06)
[2025-08-12] MEDS: ELIQUIS 10 MG PO ×2 (09:06→19:57)
[2025-08-12] MEDS: PACERONE 200 MG PO (09:06)
[2025-08-12] MEDS: DIFICID 200 MG PO ×2 (09:06→19:57)
--- NOTE | 2025-08-12 09:14 | W.PN.ID1 ---
Date of Service
Date of Service: August 12, 2025
Today's Communication
- Continue Fidaxomicin 200mg po bid x 10 days through 08/17/25.
Assessment / Plan
# Severe C. difficile colitis - improving
# leukocytosis - continues to improve.
# Prerenal FAVIAN- resolved
# Encephalopathy?psych - resolving on Risperdal.
. Pt had previously missed po vanco intermittently due to mental status change/refusal medical treatment).
. Now compliant with meds
# Atrial tachycardic - improved
- Stool becoming more firm - loose/watery today
- Trend wbc and stool output.
- Continue Fidaxomicin 200mg po bid x 10 days through 08/17/25.
- SNF often do not accept pts on fidaxomicin due to cost. Dr Tavarez asked case mgr to check if insurance will cover fidaxomicin 08/11. family agree to orange picking supervisor from [facility] and bring to SNF.
- encourage her to increase intake of fiber containing foods and probiotics
# Additional Past Medical History:
Hypertension
CAD status post stent
Hypothyroidism
IBS
Severe neuropathy BLE
Glaucoma
Rectal prolapse status post rectopexy 01/06/21
Hemorrhoid s/p banding
Appendectomy
Hysterectomy with BSO
Right knee replacement
Chief Complaint
-: Leukocytosis and C-diff
Subjective / Review of Systems
afebrile
bp stable
blood cultures in the BL UE
Vital Signs / Physical Exam
Vital Signs
Vital Signs
Temp Pulse Resp BP Pulse Ox
97.7 F 77 19 126/47 95
08/12/25 07:36 08/12/25 09:06 08/12/25 04:30 08/12/25 09:06 08/11/25 21:00
Physical Exam
Constitutional: No Acute Distress and Obese
Cardiovascular: Regular Rate and S1/S2; Negative Murmur or Rub
Pulmonary: Clear and Symmetric; Negative Wheezes or Rales
Gastrointestinal: Soft, Non Tender, Non Distended and Normal Bowel Sounds
Skin: Warm and Dry; Negative Rash or Jaundice
Objective Data
Lab Data
Lab Results
08/11/25 04:40
APTT Cancelled 08/07/25 06:00
Estimated Creat Clear 71 ml/min 08/11/25 04:40
Lactic Acid 1.8 mmol/L (0.7-2.0) 08/03/25 11:15
Total Bilirubin 0.3 mg/dl (0.2-1.3) 08/11/25 04:40
AST 32 U/L (14-36) 08/11/25 04:40
ALT 30 U/L (0-35) 08/11/25 04:40
Alkaline Phosphatase 204 U/L (38-126) H 08/11/25 04:40
Most recent labs reviewed.
Micro Results:
08/02/25 18:20 Blood Culture - Final
Blood/Venous No Growth - Final Report
08/02/25 18:21 Salmonella/Shigella Culture - Final
Feces/Stool No Salmonella, Shigella, Aeromonas or Plesiomonas species
isolated.
Campylobacter Culture - Final
No Campylobacter species isolated.
Shiga Toxin Test - Final
No E. coli Shiga Toxin 1 or 2 detected.
08/03/25 12:33 Urine Culture - Final
Urine No Significant Growth
08/02/25 18:21 C. difficile GDH Antigen & Toxins - Final
Feces/Stool Toxigenic C.difficile Positive
Norovirus (PCR) - Final
Negative for Norovirus GI and GII.
08/02/25 17:33 Influenza Types A & B (DULCE) - Final
Nasal Swab Negative for Influenza A & B, NAAT
Negative results must be combined with clinical observations
and patient history.
Nucleic Acid Amplification test (NAAT)performed on the
[employer] NOW platform.
08/02/25 CT a/p: There is pronounced wall thickening with adjacent stranding throughout the colon which likely represents severe colitis. The gallbladder appears mildly distended. There are no adjacent findings suggestive of acute cholecystitis.
This may be secondary to fasting state. If there is concern for acute cholecystitis consider dedicated right upper quadrant ultrasound. Moderately distended urinary bladder. There is mild prominence of the bilateral collecting systems which is
unchanged from prior.
Care Review
Plan reviewed with: Physician (Dr Rodriguez - ania)
[2025-08-12 13:12] LABS: Blood Urea Nitrogen 5 mg/dl (7-17); Calcium 7.6 mg/dl (8.4-10.2); Carbon Dioxide 22 mmol/L (22-30); Chloride 107 mmol/L (98-107); Estimated Creatinine Clearance 71 ml/min; Glucose 100 mg/dl (70-99); Potassium 4.0 mmol/L (3.5-5.1); Sodium 129 mmol/L (135-145); eGFR > 60.00
[2025-08-12] MEDS: TYLENOL PO (13:48)
--- NOTE | 2025-08-12 15:15 | W.PN.NEPH.PH ---
Today's Communication / Plan
-
fluid restrict
Assessment/Plan
-
Assessment
FAVIAN
C difficile diarrhea/colitis
leukocytosis
hyperkalemia
metabolic acidosis
lactic acidosis
hyponatremia
CAD
hypocalcemia
UE DVT
Plan
ADH mediated
new DVT in UEs, limited IV access, agreed to d/c IVF, wt increasing
responded to Samsca sodium 129
continue fluid restriction to
d/w nursing and primary
-
-
Date of Service: August 12, 2025
CC / HPI / ROS
-
Chief Complaint:
FAVIAN
Hyperkalemia
Metabolic acidemia
History of Present Illness:
Sodium no change at 125 since last evening with NS
bp stable, k normal, bicarb 21
increasing wts
abx for c diff colitis
Review of Systems:
edema in feet
no dizziness but feels tired
no pain
still with dairrhea but improving slowly
Labs
-
Labs:
WBC 12.1 10^3/uL (4.8-10.8) H 08/11/25 04:40
RBC 3.60 10^6/uL (4.20-5.40) L 08/11/25 04:40
Hgb 10.2 g/dL (12.0-16.0) L 08/11/25 04:40
Hct 29.7 % (37.0-47.0) L 08/11/25 04:40
Plt Count 407 10^3/uL (130-400) H 08/11/25 04:40
Sodium 129 mmol/L (135-145) L 08/12/25 12:12
Potassium 4.0 mmol/L (3.5-5.1) 08/12/25 12:12
Chloride 107 mmol/L (98-107) 08/12/25 12:12
Carbon Dioxide 22 mmol/L (22-30) 08/12/25 12:12
BUN 5 mg/dl (7-17) L 08/12/25 12:12
Creatinine 0.5 mg/dL (0.6-1.0) L 08/12/25 12:12
eGFR > 60.00 08/12/25 12:12
Glucose 100 mg/dl (70-99) H 08/12/25 12:12
Calcium 7.6 mg/dl (8.4-10.2) L 08/12/25 12:12
Albumin 1.9 g/dl (3.5-5.0) L 08/11/25 04:40
Physical Exam
-
Vital Signs:
Vital Signs
Temp Pulse Resp BP Pulse Ox
98.4 F 66 20 124/42 100
08/12/25 11:15 08/12/25 13:30 08/12/25 13:30 08/12/25 12:00 08/12/25 13:32
Cardiovascular:: Regular rate and rhythm
Respiratory:: Bilateral: Coarse
Lung Excursion:: Normal
Abdomen:: Nontender and Soft
Bowel Sounds:: Normal
Extremity Edema:: +1: Bilateral:
Asher Catheter: No
--- NOTE | 2025-08-12 18:50 | PTCARENOTE ---
PAtient alert and soft spoken, she needs encouragement to be active in self care.
--- NOTE | 2025-08-12 20:36 | PTCARENOTE ---
Assumed care of Pt from dayshift RN after change of shift report. pt son at bedside. Pt is aaox3, admits to being tired, engaging in conversation. sinus trung on monitor with BBB at this time, HR 52. Pt on RA, no SOB. Asher draining yellow urine. pt
inc of small loose brown bm. assessment as documented. call light in reach.
[2025-08-12] MEDS: MELATONIN 5 MG PO (22:22)
[2025-08-12] MEDS: NEURONTIN 400 MG PO (22:22)
[2025-08-12] MEDS: XALATAN OPHTHALMIC SOLUTION BOTH EYES (22:28)
[2025-08-13] VITALS (13 sets, daily range): BP systolic 99–165; BP diastolic 46–82; BMI 33.3
[2025-08-13] MEDS: SYNTHROID 88 MCG PO (05:33)
[2025-08-13] MEDS: TYLENOL 650 MG PO ×4 (05:33→22:01)
[2025-08-13 06:54] LABS: Blood Urea Nitrogen 5 mg/dl (7-17); Calcium 7.3 mg/dl (8.4-10.2); Carbon Dioxide 19 mmol/L (22-30); Chloride 105 mmol/L (98-107); Estimated Creatinine Clearance 71 ml/min; Glucose 85 mg/dl (70-99); Potassium 4.3 mmol/L (3.5-5.1); Sodium 127 mmol/L (135-145); eGFR > 60.00
--- NOTE | 2025-08-13 07:47 | W.PN.HOSP.TC ---
Today's Communication/Plan
-
- Continue amio 200mg daily
- Continue fidaxomicin through 08/17
- Continue PT
- Samaniego out today
- Keep arms elevated
- Eliquis 10mg bid through 08/18
- Pending acute rehab placement
Assessment / Plan
Assessment / Plan
84yo M with a hx of essential HTN, HLD, CAD, hypothyroidism, GERD, & polyneuropathy who p/w generalized weakness, fever/chills, nausea, & diarrhea, found to have sepsis 2/2 positive c diff diarrhea with evidence of end-organ damage, now with
resolving infection, fluctuating hyponatremia, and improved mental status, c/b sick sinus syndrome and bilateral UE DVTs.
#C diff diarrhea, with resolving sepsis w end organ damage
#Lactic acidosis, resolved
Labs on admission 08/02 - WBC 29.5, Cl 92, CO2 15, lactic acid 3.5, AST 155, ALT 52. Diarrhea since 07/31 with fever/chills resolved by time of admission. CT a/p with evidence of severe colitis. C diff stool antigen positive. Covid, flu, norovirus
negative. F/c, nausea, weakness, electrolyte abnormalities all likely 2/2 c diff & associated volume loss/sepsis. S/p IV metronidazole (stopped 08/09). Rectal tube out 08/09.
Today - afebrile; BM slowing
- Continue fidaxomicin 200mg PO BID through 08/17
- Standing PO tylenol & PRN morphine for pain
- ID following, appreciate recs
- Recommend diet high in fiber and probiotics/fermented food at discharge
#Paroxysmal atrial fibrillation
#Episodes of bradycardia, 1st degree AV block, sick sinus syndrome
Transient episode of a fib shortly after dobhoff placement on 08/04, likely triggered by physiologic stress exacerbation from tube placement in s/o pt current illness. Resolved to normal sinus rate/rhythm s/p 5mg IV metoprolol. 08/05 morning, pt
again in a fib with HR in 120s. TTE 08/05 did not demonstrate significant LA dilation or significant regional wall motion abnormalities, mild LA enlargement & MR (EF 55-60%, LA volume mildly abnormal 35-41, mild concentric LVH, mild MR). Afib likely
2/2 physiologic stress exacerbating mild existing abnormalities. EKG 08/11 with 1st degree AV block, LVH. Per cards eval, sick sinus syndrome - to monitor outpatient.
Today - HR 77
- PO eliquis
- Continue amiodarone 200mg daily
- PRN metoprolol 5mg if HR>110
- Monitor on tele
- Cardiology following, appreciate recs
- F/u outpatient cardiology
#Hyponatremia, improving slightly
Na+ 119 on admission, likely 2/2 hypovolemic hyponatremia in s/o volume loss w ongoing diarrhea. Initial AMS, difficult to arouse likely 2/2 severe hyponatremia. Cortisol & TSH wnl. Urine Na 7, urine cr 90.3, serum osm 281 - not hypoosmolar given
repletion already performed, but urine sodium <7 supports likely prior hypoosmolar hypovolemic hyponatremia. Pt with ongoing hyponatremia in 120s s/p resolution of other lytes & infection - refractory to hypertonic saline & fluid restriction;
responded to tolvaptan 08/12 w increase to 129. Supports SIADH etiology given prior pain/AMS/illness.
Today - 127
- Continue 40oz fluid restriction
- Consider additional tolvaptan, pending renal recs
- Encourage PO intake
- Renal following, appreciate recs
#Bilateral UE DVTs/superficial thrombi
Pt with arm swelling since ~08/10. Initially thought to be 2/2 volume overload, hypertonic fluids, arms in dependent position, inflammation from repeated needlesticks. No erythema, no pain. Pt has been on eliquis. 08/11 US demonstrated: 'Occlusive
thrombus within one of the right brachial veins throughout the upper right arm. Occlusive thrombus throughout the mid to distal aspect of the left cephalic vein in the upper left arm.' Superficial in L arm, DVT in R arm. Potential eliquis failure
vs. development of DVT in interval earlier when pt was refusing meds. Superficial thrombi likely 2/2 lines/trauma to endothelium.
- Continue 7-day course of increased eliquis dose, 10mg bid through 08/18
- Continue to monitor
- Limit blood draws
#Hyperkalemia, resolved
#Hypocalcemia, resolved
K 5.8 on admission, likely 2/2 high-volume diarrhea. Likely 2/2 ongoing valsartan use in s/o volume loss vs. adrenal insufficiency vs. RTA. Cortisol wnl, more likely volume loss etiology. S/p insulin; s/p ca gluconate x2.
Today - K & corrected Ca wnl
- Continue to trend BMP
- Encourage PO intake
- Renal following, appreciate recs
#AMS, paranoia, c/f psychosis - resolved
08/03- - pt obtunded, unable to rouse beyond turning head am despite near-normalization of lytes by 08/05. Per RN, had waxing/waning consciousness overnight not much improved from prior day. CT head 08/05 unremarkable. Ammonia, B12, folate wnl.
ABG 08/05 w alkalosis w compensatory metabolic acidosis, likely 2/2 overcorrection w bicarb drip. Potential elements of hospital induced delirium vs. metabolic encephalopathy vs. underlying dementia vs. pain vs. prior hospital-associated trauma.
08/06 Psych eval: 'patient lacks capacity for medical decision making. son seems to have her interests at heart and and son should be consulted.' 08/07 - [facility] conversation re: decisionmaking, proceeding w pain mgmt & restraints if necessary.
08/09 - mental status resolved to baseline s/p overnight risperidone & w resolving infection.
Today - mental status appropriate
- Risperidone 0.25mg PRN
- Standing PO tylenol
- Psych following
- Continue PT/OT and OOB
#FAVIAN, resolved, likely prerenal
#Acute urinary retention
Cr 1.8, BUN 49, eGFR 27.78 on admission, likely prerenal in s/o volume loss 2/2 c diff diarrhea. BUN/Cr ratio 27, c/w prerenal. Potential component of obstruction, although no evidence of overt physical obstruction on CT. Per RN, pt retaining 1700
in bladder on 08/03 at 12:30pm. CT a/p 08/02: 'Moderately distended urinary bladder. There is mild prominence of the bilateral collecting systems which is unchanged from prior.' Likely contributor to FAVIAN. Uncertain etiology, likely in s/o multiorgan
damage in s/o sepsis.
Resolved s/p fluids.
- Trial removal of samaniego catheter today
- Renal following, appreciate recs
#Chronic
#Essential HTN - home valsartan
#HLD - 'Pt is intolerant of statins. Dr. Houser has recommended [id number] but she refuses.'
#CAD - continue home aspirin
#Hypothyroidism - continue home levothyroxine
#GERD - IV PPI
#Polyneuropathy - continue home gabapentin
#Global
- DVT ppx: eliquis
- Code: full
- Diet: regular diet with fluid restriction 40oz
- Dispo: PT recommending skilled rehab, case mgmt following & planning for SNF, goal discharge Saturday
Anticipated Discharge: > 48 hours
Subjective/Interval History
-
Date of Service: August 13, 2025
Patient & son in good spirits today. No complaints. Diarrhea still present but improving. No pain. Okay with plan for trialing removal of samaniego today. Does not notice any worsening of arm swelling. Discussed OOB & elevating arms today. No updates on
rehab placement.
HR fluctuating down to 40s but without sx. Returns to 70s.
Objective Data
-
Labs:
Laboratory Results
08/13/25
05:39
Sodium 127 L
Potassium 4.3
Chloride 105
Carbon Dioxide 19 L
BUN 5 L
Creatinine 0.4 L
Glucose 85
Calcium 7.3 L
Vital Signs:
Vital Signs
Temp Pulse Resp BP Pulse Ox
97.0 F 43 15 136/61 98
08/13/25 03:00 08/13/25 07:00 08/13/25 07:00 08/13/25 04:00 08/12/25 22:01
I&O
08/12/25 08/13/25 08/14/25
06:59 06:59 06:59
Intake Total 240 / 240 540 / 540
Output Total 2300 / 2300 950 / 950
Balance -2060 / -2060 -410 / -410
Review of Systems
-
History Source: Patient and Family
Constitutional: Reports No Symptoms
EENT: Reports No Symptoms Reported
Respiratory: Reports No Symptoms
Cardiac: Reports No Symptoms
Abdomen/GI: Reports Diarrhea (improving)
Musculoskeletal: Reports Edema (bilateral UE edema )
Skin: Reports Other (ecchymoses on bilat UE )
Neuro: Reports No Symptoms
Psych: Reports Depressed
Physical Exam
-
General: Well Developed, Well Nourished and No Apparent Distress
HEENT: Normocephalic, Atraumatic and Moist Mucous Membranes
Respiratory: Clear to Auscultation and Non Labored Respirations
Cardiac: Regular Rhythm
GI: Soft, Nontender and Nondistended
Rectal: Other (rectal tube removed)
Genito-urinary: Other (samaniego catheter w dark yellow urine )
Musculoskeletal: Edema, Right Upper Extrem, Edema, Left Upper Extrem and Other (ecchymosis on bilat UE from blood draws; swelling in bilat hands/forearms, no redness, no palpable cords or masses )
Skin: Warm and Dry
Neuro: Awake and Alert
Psych: Calm
Data Reviewed
-
Total Time Spent with Patient (in minutes): 15
Critical Care Time (in minutes): 40
Labs: Labs Reviewed by me
[2025-08-13] MEDS: DIFICID 200 MG PO ×2 (08:56→21:20)
[2025-08-13] MEDS: ELIQUIS 10 MG PO ×2 (08:56→21:20)
[2025-08-13] MEDS: PACERONE 200 MG PO (08:57)
[2025-08-13] MEDS: DIOVAN 80 MG PO (08:57)
[2025-08-13] MEDS: PROTONIX 40 MG PO (08:57)
[2025-08-13] MEDS: LOW STRENGTH ASPIRIN 81 MG PO (08:57)
--- NOTE | 2025-08-13 09:09 | W.PN.ID1 ---
Date of Service
Date of Service: August 13, 2025
Today's Communication
Continue current course of fidaxomicin.
Assessment / Plan
# Severe C. difficile colitis - improving
# leukocytosis - continues to improve.
# Prerenal FAVIAN- resolved
# Encephalopathy?psych - resolving on Risperdal.
. Pt had previously missed po vanco intermittently due to mental status change/refusal medical treatment).
. Now compliant with meds
# Atrial tachycardic - improved
- Stool becoming more firm - mushy today
- Trend wbc and stool output.
- Continue Fidaxomicin 200mg po bid x 10 days through 08/17/25.
- SNF often do not accept pts on fidaxomicin due to cost. Dr Tavarez asked gearcase assembler to check if insurance will cover fidaxomicin 08/11. family agree to fruit or nut picker from [facility] and bring to SNF.
- encourage her to increase intake of fiber containing foods +/- fermented foods such as sauerkraut, kimchi, kombucha, kefir.
# Additional Past Medical History:
Hypertension
CAD status post stent
Hypothyroidism
IBS
Severe neuropathy BLE
Glaucoma
Rectal prolapse status post rectopexy 01/06/21
Hemorrhoid s/p banding
Appendectomy
Hysterectomy with BSO
Right knee replacement
Chief Complaint
-: Leukocytosis and C-diff
Subjective / Review of Systems
Review of Systems: No Fever, No Chills, No Abdominal Pain and No Diarrhea ('mushy' stool)
Vital Signs / Physical Exam
Vital Signs
Vital Signs
Temp Pulse Resp BP Pulse Ox
96.4 F L 47 15 160/67 98
08/13/25 09:02 08/13/25 08:57 08/13/25 07:00 08/13/25 08:57 08/12/25 22:01
Physical Exam
Constitutional: No Acute Distress and Obese
Cardiovascular: Regular Rate and S1/S2; Negative Murmur
Pulmonary: Clear and Symmetric; Negative Wheezes or Rales
Gastrointestinal: Soft, Non Tender, Non Distended and Normal Bowel Sounds
Skin: Warm and Dry; Negative Rash or Jaundice
Objective Data
Lab Data
Lab Results
08/11/25 04:40
08/13/25 05:39
APTT Cancelled 08/07/25 06:00
Estimated Creat Clear 71 ml/min 08/13/25 05:39
Lactic Acid 1.8 mmol/L (0.7-2.0) 08/03/25 11:15
Total Bilirubin 0.3 mg/dl (0.2-1.3) 08/11/25 04:40
AST 32 U/L (14-36) 08/11/25 04:40
ALT 30 U/L (0-35) 08/11/25 04:40
Alkaline Phosphatase 204 U/L (38-126) H 08/11/25 04:40
Most recent labs reviewed.
Micro Results:
08/02/25 18:20 Blood Culture - Final
Blood/Venous No Growth - Final Report
08/02/25 18:21 Salmonella/Shigella Culture - Final
Feces/Stool No Salmonella, Shigella, Aeromonas or Plesiomonas species
isolated.
Campylobacter Culture - Final
No Campylobacter species isolated.
Shiga Toxin Test - Final
No E. coli Shiga Toxin 1 or 2 detected.
08/03/25 12:33 Urine Culture - Final
Urine No Significant Growth
08/02/25 18:21 C. difficile GDH Antigen & Toxins - Final
Feces/Stool Toxigenic C.difficile Positive
Norovirus (PCR) - Final
Negative for Norovirus GI and GII.
08/02/25 17:33 Influenza Types A & B (DULCE) - Final
Nasal Swab Negative for Influenza A & B, NAAT
Negative results must be combined with clinical observations
and patient history.
Nucleic Acid Amplification test (NAAT)performed on the
GenY Medium platform.
Imaging:
08/02/25 CT a/p: There is pronounced wall thickening with adjacent stranding throughout the colon which likely represents severe colitis. The gallbladder appears mildly distended. There are no adjacent findings suggestive of acute cholecystitis.
This may be secondary to fasting state. If there is concern for acute cholecystitis consider dedicated right upper quadrant ultrasound. Moderately distended urinary bladder. There is mild prominence of the bilateral collecting systems which is
unchanged from prior.
--- NOTE | 2025-08-13 13:56 | W.PN.NEPH.PH ---
Today's Communication / Plan
-
Lasix 80 IV x1
Assessment/Plan
-
Assessment
FAVIAN
C difficile diarrhea/colitis
leukocytosis
hyperkalemia
metabolic acidosis
lactic acidosis
hyponatremia
CAD
hypocalcemia
UE DVT
Plan
ADH mediated
new DVT in UEs, limited IV access, agreed to d/c IVF, wt increasing
responded to Samsca sodium 129
continue fluid restriction to
will give Lasix 80 mg x 1 IV with swelling legs and arms
-
-
Date of Service: August 13, 2025
CC / HPI / ROS
-
Chief Complaint:
FAVIAN
Hyperkalemia
Metabolic acidemia
History of Present Illness:
Sodium no change at 125 since last evening with NS
bp stable, k normal, bicarb 21
increasing wts
abx for c diff colitis
Review of Systems:
no chest pain or shortness of breath
diarrhea improves
Labs
-
Labs:
WBC 12.1 10^3/uL (4.8-10.8) H 08/11/25 04:40
RBC 3.60 10^6/uL (4.20-5.40) L 08/11/25 04:40
Hgb 10.2 g/dL (12.0-16.0) L 08/11/25 04:40
Hct 29.7 % (37.0-47.0) L 08/11/25 04:40
Plt Count 407 10^3/uL (130-400) H 08/11/25 04:40
Sodium 127 mmol/L (135-145) L 08/13/25 05:39
Potassium 4.3 mmol/L (3.5-5.1) 08/13/25 05:39
Chloride 105 mmol/L (98-107) 08/13/25 05:39
Carbon Dioxide 19 mmol/L (22-30) L 08/13/25 05:39
BUN 5 mg/dl (7-17) L 08/13/25 05:39
Creatinine 0.4 mg/dL (0.6-1.0) L 08/13/25 05:39
eGFR > 60.00 08/13/25 05:39
Glucose 85 mg/dl (70-99) 08/13/25 05:39
Calcium 7.3 mg/dl (8.4-10.2) L 08/13/25 05:39
Albumin 1.9 g/dl (3.5-5.0) L 08/11/25 04:40
Physical Exam
-
Vital Signs:
Vital Signs
Temp Pulse Resp BP Pulse Ox
96.4 F L 56 21 150/50 95
08/13/25 09:02 08/13/25 12:31 08/13/25 12:00 08/13/25 12:00 08/13/25 08:00
Cardiovascular:: Regular rate and rhythm
Respiratory:: Bilateral: Coarse
Lung Excursion:: Normal
Abdomen:: Nontender and Soft
Bowel Sounds:: Normal
Extremity Edema:: +2: Bilateral:
Asher Catheter: No
--- NOTE | 2025-08-13 14:22 | PTCARENOTE ---
Patient AAOx3, making her needs known. Son at bedside. Patient OOB to chair. Asher pulled, awaiting first void. Patient with no complaints. To be transferred to tele floor. Report given. Will closely monitor.
--- NOTE | 2025-08-13 14:39 | CM ---
Addendum entered by Jacqueline Gracia 08/13/25 14:59:
[facility] called back and stated that they do not have beds, son aware.
Original Note:
F/U: Hospitalist said that patient will be ready on Saturday. NITIN Phillips called [facility]- no isolation bed then called [facility]- no call back yet. The other facilities have responded that there is no bed thus Far. [facility] still
is interested so
spoke to the son to say go tour to see this in person vs just decline this center. NITIN explained that he may have to chose a facility that is not his first or second choice. NITIN told him that 5 other referrals were made to assist his mom getting
placed. It appears that the patient 'could'(?) be off isolation on Saturday when the fidaxomicin is complete that could help find a bed where patient would have a roommate at a SNF. PLAN: SNF when ready.
--- NOTE | 2025-08-13 15:55 | PTCARENOTE ---
Received patient from IMU after receiving phone report from MUNA [place]. Patient transferred in her recliner from IMU.
Oriented to unit, call glover system. Assessment completed and documented in shift assessment on worklist.
[2025-08-13] MEDS: MELATONIN 5 MG PO (21:20)
[2025-08-13] MEDS: NEURONTIN 400 MG PO (21:21)
[2025-08-13] MEDS: XALATAN OPHTHALMIC SOLUTION BOTH EYES (21:57)
[2025-08-14] VITALS (7 sets, daily range): BP systolic 121–162; BP diastolic 48–87; BMI 33.8
[2025-08-14] MEDS: SYNTHROID 88 MCG PO (05:09)
[2025-08-14] MEDS: TYLENOL 650 MG PO (05:09)
[2025-08-14 07:12] LABS: Blood Urea Nitrogen 6 mg/dl (7-17); Calcium 7.5 mg/dl (8.4-10.2); Carbon Dioxide 22 mmol/L (22-30); Chloride 107 mmol/L (98-107); Estimated Creatinine Clearance 71 ml/min; Glucose 83 mg/dl (70-99); Magnesium 1.9 mg/dl (1.6-2.3); Potassium 4.0 mmol/L (3.5-5.1); Sodium 128 mmol/L (135-145); eGFR > 60.00
[2025-08-14] MEDS: PROTONIX 40 MG PO (10:26)
[2025-08-14] MEDS: PACERONE 200 MG PO (10:26)
[2025-08-14] MEDS: DIFICID 200 MG PO ×2 (10:27→21:09)
[2025-08-14] MEDS: ELIQUIS 10 MG PO ×2 (10:27→21:09)
[2025-08-14] MEDS: DIOVAN 80 MG PO (10:27)
[2025-08-14] MEDS: LOW STRENGTH ASPIRIN 81 MG PO (10:27)
[2025-08-14] MEDS: TYLENOL PO ×3 (10:28→22:07)
--- NOTE | 2025-08-14 12:56 | W.PN.NEPH.PH ---
Today's Communication / Plan
-
Lasix
Assessment/Plan
-
Assessment
FAVIAN
C difficile diarrhea/colitis
leukocytosis
hyperkalemia
metabolic acidosis
lactic acidosis
hyponatremia
CAD
hypocalcemia
UE DVT acute on this admission
Plan
ADH mediated
responded to Samsca sodium 129
continue fluid restriction to
refused 8 mg mg IV Lasix I ordered yesterday
she will take 20 mg daily
discussed with her son at bedside
a.m. labs
di
-
-
Date of Service: August 14, 2025
CC / HPI / ROS
-
Chief Complaint:
FAVIAN
Hyperkalemia
Metabolic acidemia
History of Present Illness:
Sodium no change at 125 since last evening with NS
bp stable, k normal, bicarb 21
increasing wts
abx for c diff colitis
Review of Systems:
no chest pain or shortness of breath
diarrhea improves
Labs
-
Labs:
WBC 12.1 10^3/uL (4.8-10.8) H 08/11/25 04:40
RBC 3.60 10^6/uL (4.20-5.40) L 08/11/25 04:40
Hgb 10.2 g/dL (12.0-16.0) L 08/11/25 04:40
Hct 29.7 % (37.0-47.0) L 08/11/25 04:40
Plt Count 407 10^3/uL (130-400) H 08/11/25 04:40
Sodium 128 mmol/L (135-145) L 08/14/25 06:31
Potassium 4.0 mmol/L (3.5-5.1) 08/14/25 06:31
Chloride 107 mmol/L (98-107) 08/14/25 06:31
Carbon Dioxide 22 mmol/L (22-30) 08/14/25 06:31
BUN 6 mg/dl (7-17) L 08/14/25 06:31
Creatinine 0.5 mg/dL (0.6-1.0) L 08/14/25 06:31
eGFR > 60.00 08/14/25 06:31
Glucose 83 mg/dl (70-99) 08/14/25 06:31
Calcium 7.5 mg/dl (8.4-10.2) L 08/14/25 06:31
Albumin 1.9 g/dl (3.5-5.0) L 08/11/25 04:40
Physical Exam
-
Vital Signs:
Vital Signs
Temp Pulse Resp BP Pulse Ox
97.8 F 55 18 145/49 97
08/14/25 11:00 08/14/25 11:00 08/14/25 11:00 08/14/25 11:00 08/14/25 11:00
--- NOTE | 2025-08-14 13:36 | W.PN.CARDCBS ---
Today's Communication / Plan
-
Decrease amiodarone to 100 mg daily
Keep on telemetry here
Consider assessment for sleep apnea
Impression / Plan
-
PCP: Previously following with Dr. Savana Samuel and transitioning to Dr. Renetta Rodriguez with a new patient appointment scheduled for 11/02/2025
Cardiology: Previously followed with Dr. Houser, last seen in 2022
Impression:
Admitted with generalized weakness, fevers and chills and diarrhea 08/02/2025
C. difficile colitis
Sepsis
FAVIAN
Hyperkalemia
Newly diagnosed paroxysmal atrial tachycardia
Sinus bradycardia
PVCs
CAD s/p AWMI and 3.0 mm Cypher MARGARITO to the proximal LAD 05/2004
Hyperlipidemia
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
Urinary retention
Echo 08/05/2025: EF 55 to 60%, mild concentric LVH, mild MR
Plan:
-Patient initially admitted with generalized weakness and was diagnosed with C. difficile diarrhea, cardiology was later consulted for changes on telemetry and atrial tachycardia.
-New diagnosis of paroxysmal atrial tachycardia this admission. HR's were initially difficult to control and patient was started on Lopressor and then amiodarone initially TID and then weaning down to BID. As C. difficile infection has improved HR
control has improved and patient is having periods of sinus bradycardia as well as nocturnal pauses
-We are asked to reevaluate the patient for nocturnal pauses which occurred in the early a.m. hours 08/14/2025. Two sinus pauses seen lasting approximately 5 sec around 12:30 AM and 1 AM. Patient was asymptomatic and tells me she was sleeping at
the time.
-Will decrease amiodarone dose to 100 mg daily
-Keep on telemetry while here
-Would consider assessment for possible underlying sleep apnea as this may be a cause of her nocturnal bradycardia/sinus pauses
-Eliquis started earlier this admission for possible atrial fibrillation, but the bulk of arrhythmia seen on telemetry has been atrial tachycardia. For now patient remains on Eliquis 5 mg BID and would consider an outpatient monitor to assess for
additional arrhythmia burden and pending those results could consider discontinuation of Eliquis.
HPI: Patient came to the ER on Saturday with fevers, chills generalized weakness and diarrhea and was admitted with sepsis and C. difficile colitis, cardiology is now consulted for an episode of newly diagnosed paroxysmal atrial fibrillation. Through
the weekend patient was at home dealing with generalized weakness fevers and chills and then started with diarrhea. There was thought that perhaps it was due to a viral illness such as influenza or COVID and patient was advised to take Imodium.
Due to increasing weakness the patient came to the ER and had evidence for sepsis and her stool culture was positive for C. difficile. Patient now admitted for sepsis and C. difficile colitis. Patient had worsening TME changes and was transition
to vancomycin MO, but GI consulted for placement of DHT today. DHT placed with some resistance from the patient who is now placed in soft mitts B/L. Patient noted to have onset of rapid atrial tachycardia. Patient was given Lopressor 5 mg IV x 1
and shortly thereafter spontaneously converted to SR. Unclear if patient experienced any symptoms due to ongoing TME changes. Patient's is at the bedside and relates that patient stopped following with cardiology a few years ago due to
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 Patient has a remote history of anterior wall CT and LAD PCI back in 2003, at that time the patient had just received a distressing phone call that one of her sons had an accident and was apparently
asked.
Progress Note - Slot Host
Subjective
Date of Service: August 14, 2025
Asymptomatic overnight. Tells me no presyncope or syncope. Believes she was sleeping at the time of nocturnal pauses.
Objective
Labs:
08/11/25 04:40
08/14/25 06:31
Labs
Hgb 10.2 g/dL (12.0-16.0) L 08/11/25 04:40
Hct 29.7 % (37.0-47.0) L 08/11/25 04:40
Plt Count 407 10^3/uL (130-400) H 08/11/25 04:40
APTT Cancelled 08/07/25 06:00
Sodium 128 mmol/L (135-145) L 08/14/25 06:31
Potassium 4.0 mmol/L (3.5-5.1) 08/14/25 06:31
BUN 6 mg/dl (7-17) L 08/14/25 06:31
Creatinine 0.5 mg/dL (0.6-1.0) L 08/14/25 06:31
Glucose 83 mg/dl (70-99) 08/14/25 06:31
Vital Signs and I&O:
Vital Signs
Temp Pulse Resp BP Pulse Ox
97.8 F 55 18 145/49 97
08/14/25 11:00 08/14/25 11:00 08/14/25 11:00 08/14/25 11:00 08/14/25 11:00
Vital Signs
Temp Pulse Resp BP Pulse Ox
97.8 F 55 18 145/49 97
08/14/25 11:00 08/14/25 11:00 08/14/25 11:00 08/14/25 11:00 08/14/25 11:00
Intake & Output
08/12/25 08/13/25 08/14/25 08/15/25
06:59 06:59 06:59 06:59
Intake Total 240 / 240 540 / 540 480 / 480
Output Total 2300 / 2300 950 / 950
Balance -2060 / -2060 -410 / -410 480 / 480
Physical Exam
Physical Exam
Gen: NAD, AA, OOB to chair
HEENT: NC/AT, sclera anicteric
Neck: No JVD
CV: RRR, NL s1/s2
Lungs: No increased WOB on RA
Abd: S/ND
Ext: No LE edema
Skin: Warm, dry
Neuro: Non-focal
--- NOTE | 2025-08-14 14:04 | W.PN.HOSP.TC ---
Today's Communication/Plan
-
nocturnal o2 test
lasix 20mg/d
f/u bmp
Assessment / Plan
Assessment / Plan
1. C. difficile colitis/sepsis -CT abdomen pelvis at admission showed severe colitis. Patient was on on and off oral vancomycin as was not able to secure oral access. Patient was pulling of Dobbhoff tube while delirious/encephalopathic due to
sepsis. ID following along and patient have changed to oral Dificid therapy for 10 days now. Flagyl has been stopped. Rectal tube patient removed. Total WBC is almost normalized.
2. Acute toxic encephalopathy - RESOLVED -combination of hospital delirium sepsis and C. difficile infection related. CT head without any abnormality. Avoid sedating medication as possible. Psychiatry involved in care and patient has been
started on nighttime Risperdal mentation much better today according to family. Continue monitoring with supportive care.
3. Hyponatremia -initially due to hypovolemia with improvement and now likely euvolemic in nature. Nephrology following and patient has been provided hypertonic saline. Serum cortisol/TSH within normal limit. Patient was started on IV fluid
although patient have bilateral upper extremity venous blood clot and left hand IV may not able to be used. Discussed with nephrology was in agreement with holding IV fluid for now as patient hyponatremia is largely asymptomatic. Patient got dose
of tolvaptan earlier in the week. Na been stabilized in range of 127-128
4. New A-fib with RVR -patient have developed asymptomatic bradycardia largely at night, beta-rianna was stopped. Patient also on oral amiodarone, dose of which has been decreased by cardiology. Patient heparin drip has been changed to Eliquis.
On 08/13 night patient had developed pause of 5.2-second. Cardiology reevaluated again and patient amiodarone doses further decreased to 100 mg daily. Recommending sleep apnea assessment, will order nocturnal o2 check as substitute to full
outpatient study. Will involve pulmonology based on findings.
5. Acute urinary retention - resolved - removed indwelling Asher catheter. able to void by herself.
6. FAVIAN/hyperkalemia -renal function is normalized.
7. Right brachial vein and left cephalic vein blood clot = patient had bilateral upper extremity swelling and venous Doppler study showing right brachial vein clot and left cephalic vein clot. Eliquis dose increased to 10mg bid for 7 days and then
will lower to 5mg BID. Arm elevation as possible
8. Iatrogenic volume overload -patient hesitant to take high-dose of IV diuretic. Agreeable for oral Lasix 20 mg to be provided today.
Care plan discussed with patient son at bedside
microbiology laboratory manager working on rehab placement, patient isolation for C. difficile becoming limiting factor
Anticipated Discharge: 24 - 48 hours
Subjective/Interval History
-
Date of Service: August 14, 2025
episode of bradycardia in the night , asymptomatic
no other issues reported
Objective Data
-
Labs:
Laboratory Results
08/14/25
06:31
Sodium 128 L
Potassium 4.0
Chloride 107
Carbon Dioxide 22
BUN 6 L
Creatinine 0.5 L
Glucose 83
Calcium 7.5 L
Vital Signs:
Vital Signs
Temp Pulse Resp BP Pulse Ox
97.8 F 55 18 145/49 97
08/14/25 11:00 08/14/25 11:00 08/14/25 11:00 08/14/25 11:00 08/14/25 11:00
I&O
08/13/25 08/14/25 08/15/25
06:59 06:59 06:59
Intake Total 540 / 540 480 / 480
Output Total 950 / 950
Balance -410 / -410 480 / 480
Review of Systems
-
Respiratory: Reports No Symptoms
Cardiac: Reports No Symptoms
Abdomen/GI: Reports No Symptoms
Physical Exam
-
General: No Apparent Distress and Appears Chronically Ill
HEENT: Negative Oxygen
Respiratory: Clear to Auscultation
Cardiac: Irregular Rhythm; Negative Murmur
GI: Soft, Nontender and Nondistended
Musculoskeletal: Edema, Right Upper Extrem, Edema, Left Upper Extrem, Edema, Right Lower Extrem and Edema, Left Lower Extrem
Neuro: Awake, Alert and No Motor Deficits
[2025-08-14] MEDS: LASIX PO (16:14)
--- NOTE | 2025-08-14 19:26 | PTCARENOTE ---
After discussion with patient and patients son about risks/benefits of po 20mg Lasix order and administration- patient refused medication. Patient did not want medication administration to take place in the afternoon, but told RN she would be obtain
to taking it tomorrow in the am. She does not want to be out of bed voiding this evening. Above information relayed to hospitalist.
[2025-08-14] MEDS: MELATONIN 5 MG PO (21:09)
[2025-08-14] MEDS: NEURONTIN 400 MG PO (21:09)
[2025-08-14] MEDS: XALATAN OPHTHALMIC SOLUTION BOTH EYES (21:13)
[2025-08-15 03:00] VITALS: BP 123/51
[2025-08-15 04:23] VITALS: BMI 33.4
[2025-08-15 04:47] VITALS: BMI 33.6
[2025-08-15] MEDS: TYLENOL PO (04:48)
[2025-08-15] MEDS: SYNTHROID 88 MCG PO (05:06)
--- NOTE | 2025-08-15 05:56 | RESPNOTE ---
Overnight oximetry done and scanned in.
[2025-08-15 07:00] VITALS: BP 149/65
[2025-08-15 08:34] LABS: Blood Urea Nitrogen 4 mg/dl (7-17); Calcium 7.7 mg/dl (8.4-10.2); Carbon Dioxide 21 mmol/L (22-30); Chloride 105 mmol/L (98-107); Estimated Creatinine Clearance 71 ml/min; Glucose 80 mg/dl (70-99); Potassium 4.0 mmol/L (3.5-5.1); Sodium 128 mmol/L (135-145); eGFR > 60.00
[2025-08-15] MEDS: ELIQUIS 10 MG PO ×2 (09:42→22:19)
[2025-08-15] MEDS: LOW STRENGTH ASPIRIN 81 MG PO (09:42)
[2025-08-15] MEDS: DIOVAN 80 MG PO (09:42)
[2025-08-15] MEDS: DIFICID 200 MG PO ×2 (09:42→22:19)
[2025-08-15] MEDS: LASIX 20 MG PO (09:43)
[2025-08-15] MEDS: PROTONIX 40 MG PO (09:43)
[2025-08-15] MEDS: PACERONE 100 MG PO (09:44)
[2025-08-15] MEDS: TYLENOL 650 MG PO ×3 (09:44→22:20)
--- NOTE | 2025-08-15 10:26 | PTCARENOTE ---
PT is aaox2-3m pleasant able to make needs known. flat affect, son at bedside most of shift. She is on enhanced precautions and door shut. The patient has been identified as a high fall risk. She has yellow fall risk sign at door, round trip sign on
door, yellow band on bed and chair alarm. Hourly rounds are being done and patient assisted into and out of bedside commode. The patient has been educated on our fall precautions policy. She verbalized an understanding that she is considered a high
risk and has verbally contracted with me to call before getting in and out of bed. So far she has called us first and alarm has not gone off.. Hourly rounds have been maintained and room organized to minimize risk and declutter. The call glover is at
bedside
--- NOTE | 2025-08-15 10:48 | W.PN.NEPH.PH ---
Today's Communication / Plan
-
Lasix
Assessment/Plan
-
Assessment
FAVIAN
C difficile diarrhea/colitis
leukocytosis
hyperkalemia
metabolic acidosis
lactic acidosis
hyponatremia
CAD
hypocalcemia
UE DVT acute on this admission
Plan
ADH mediated
responded to Samsca sodium 129> 128
continue fluid restriction
refusing higher dose of Lasix as she is retaining fluid
she will take 20 mg daily at this time
discussed with her son at bedside
a.m. labs
-
-
Date of Service: August 15, 2025
CC / HPI / ROS
-
Chief Complaint:
AFVIAN
Hyperkalemia
Metabolic acidemia
History of Present Illness:
Sodium much improved high 120s
bp stable, k normal
increasing wts
abx for c diff colitis
Review of Systems:
no chest pain or shortness of breath
diarrhea improves
Labs
-
Labs:
WBC 12.1 10^3/uL (4.8-10.8) H 08/11/25 04:40
RBC 3.60 10^6/uL (4.20-5.40) L 08/11/25 04:40
Hgb 10.2 g/dL (12.0-16.0) L 08/11/25 04:40
Hct 29.7 % (37.0-47.0) L 08/11/25 04:40
Plt Count 407 10^3/uL (130-400) H 08/11/25 04:40
Sodium 128 mmol/L (135-145) L 08/15/25 07:27
Potassium 4.0 mmol/L (3.5-5.1) 08/15/25 07:27
Chloride 105 mmol/L (98-107) 08/15/25 07:27
Carbon Dioxide 21 mmol/L (22-30) L 08/15/25 07:27
BUN 4 mg/dl (7-17) L 08/15/25 07:27
Creatinine 0.5 mg/dL (0.6-1.0) L 08/15/25 07:27
eGFR > 60.00 08/15/25 07:27
Glucose 80 mg/dl (70-99) 08/15/25 07:27
Calcium 7.7 mg/dl (8.4-10.2) L 08/15/25 07:27
Albumin 1.9 g/dl (3.5-5.0) L 08/11/25 04:40
Physical Exam
-
Vital Signs:
Vital Signs
Temp Pulse Resp BP Pulse Ox
98.4 F 81 18 149/65 93
08/15/25 07:00 08/15/25 07:00 08/15/25 07:00 08/15/25 07:00 08/15/25 07:00
Respiratory:: Bilateral: CTA
Lung Excursion:: Normal
Abdomen:: Soft
Bowel Sounds:: Normal
Extremity Edema:: +2: Bilateral:
Asher Catheter: No
[2025-08-15 11:00] VITALS: BP 116/54
--- NOTE | 2025-08-15 12:50 | W.PN.CARDCBS ---
Today's Communication / Plan
-
Continue low-dose amiodarone 100 mg daily for now. May need to consider discontinuing altogether.
Keep on telemetry while here
Impression / Plan
-
PCP: Previously following with Dr. Savana Samuel and transitioning to Dr. Renetta Rodriguez with a new patient appointment scheduled for 11/02/2025
Cardiology: Previously followed with Dr. Houser, last seen in 2022
Impression:
Admitted with generalized weakness, fevers and chills and diarrhea 08/02/2025
C. difficile colitis
Sepsis
FAVIAN
Hyperkalemia
Newly diagnosed paroxysmal atrial tachycardia
Sinus bradycardia
PVCs
CAD s/p AWMI and 3.0 mm Cypher MARGARITO to the proximal LAD 05/2004
Hyperlipidemia
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
Urinary retention
Echo 08/05/2025: EF 55 to 60%, mild concentric LVH, mild MR
Plan:
-Patient initially admitted with generalized weakness and was diagnosed with C. difficile diarrhea, cardiology was later consulted for changes on telemetry and atrial tachycardia.
-New diagnosis of paroxysmal atrial tachycardia this admission. HR's were initially difficult to control and patient was started on Lopressor and then amiodarone initially TID and then weaning down to BID. As C. difficile infection has improved HR
control has improved and patient is having periods of sinus bradycardia as well as nocturnal pauses
-Nocturnal bradycardia and pauses again overnight
-Has been asymptomatic without symptoms of presyncope or syncope
-Amiodarone dose decreased to 100 mg daily, but may need to discontinue all together.
-Keep on telemetry while here
-Would consider assessment for possible underlying sleep apnea. Nocturnal O2 performed 08/15 which did not reportedly capture any desaturation events
-Eliquis started earlier this admission for possible atrial fibrillation, but the bulk of arrhythmia seen on telemetry has been atrial tachycardia. For now patient remains on Eliquis 5 mg BID and would consider an outpatient monitor to assess for
additional arrhythmia burden. Pending those results could consider discontinuation of Eliquis as an outpatient.
Discussed in detail with patient's son at bedside
HPI: Patient came to the ER on Saturday with fevers, chills generalized weakness and diarrhea and was admitted with sepsis and C. difficile colitis, cardiology is now consulted for an episode of newly diagnosed paroxysmal atrial fibrillation. Through
the weekend patient was at home dealing with generalized weakness fevers and chills and then started with diarrhea. There was thought that perhaps it was due to a viral illness such as influenza or COVID and patient was advised to take Imodium.
Due to increasing weakness the patient came to the ER and had evidence for sepsis and her stool culture was positive for C. difficile. Patient now admitted for sepsis and C. difficile colitis. Patient had worsening TME changes and was transition
to vancomycin TX, but GI consulted for placement of DHT today. DHT placed with some resistance from the patient who is now placed in soft mitts B/L. Patient noted to have onset of rapid atrial tachycardia. Patient was given Lopressor 5 mg IV x 1
and shortly thereafter spontaneously converted to SR. Unclear if patient experienced any symptoms due to ongoing TME changes. Patient's is at the bedside and relates that patient stopped following with cardiology a few years ago due to
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 Patient has a remote history of anterior wall NH and LAD PCI back in 2003, at that time the patient had just received a distressing phone call that one of her sons had an accident and was apparently
asked.
Progress Note - Supervisor Treating And Pumping
Subjective
Date of Service: August 15, 2025
No acute overnight events. Again with approximately 5-second nocturnal pause seen on review of telemetry. Has been asymptomatic with no lightheadedness, dizziness or syncope.
Objective
Labs:
08/11/25 04:40
08/15/25 07:27
Labs
Hgb 10.2 g/dL (12.0-16.0) L 08/11/25 04:40
Hct 29.7 % (37.0-47.0) L 08/11/25 04:40
Plt Count 407 10^3/uL (130-400) H 08/11/25 04:40
APTT Cancelled 08/07/25 06:00
Sodium 128 mmol/L (135-145) L 08/15/25 07:27
Potassium 4.0 mmol/L (3.5-5.1) 08/15/25 07:27
BUN 4 mg/dl (7-17) L 08/15/25 07:27
Creatinine 0.5 mg/dL (0.6-1.0) L 08/15/25 07:27
Glucose 80 mg/dl (70-99) 08/15/25 07:27
Vital Signs and I&O:
Vital Signs
Temp Pulse Resp BP Pulse Ox
97.9 F 77 18 116/54 95
08/15/25 11:00 08/15/25 11:00 08/15/25 11:00 08/15/25 11:00 08/15/25 11:00
Vital Signs
Temp Pulse Resp BP Pulse Ox
97.9 F 77 18 116/54 95
08/15/25 11:00 08/15/25 11:00 08/15/25 11:00 08/15/25 11:00 08/15/25 11:00
Intake & Output
08/13/25 08/14/25 08/15/25 08/16/25
06:59 06:59 06:59 06:59
Intake Total 540 / 540 1560 / 1560
Output Total 950 / 950
Balance -410 / -410 1560 / 1560
Physical Exam
Physical Exam
Gen: NAD, AAOx3
HEENT: NC/AT, sclera anicteric
Neck: No JVD
CV: RRR, NL s1/s2, no M/R/G
Lungs: CTAB
Abd: S/ND
Ext: No LE edema
Skin: Warm, dry
Neuro: Non-focal
--- NOTE | 2025-08-15 13:05 | CM ---
product line manager reviewed patient's chart and spoke with patient's son, per patient's son he is interested in [facility], [facility] [place] and [facility] and would like case packer and sealer to follow up with these
facilities on Saturday, case packer and sealer updated referrals today and sent them out to these facilities. Patient's son, [facility] to [facility] today.
Plan: Skilled placement.
--- NOTE | 2025-08-15 14:00 | W.PN.HOSP.TC ---
Today's Communication/Plan
-
diuresis as possible
f/u labs
discharge ready for snf rehab
Assessment / Plan
Assessment / Plan
1. C. difficile colitis/sepsis -CT abdomen pelvis at admission showed severe colitis. Patient was on on and off oral vancomycin as was not able to secure oral access. Patient was pulling of Dobbhoff tube while delirious/encephalopathic due to
sepsis. ID following along and patient have changed to oral Dificid therapy for 10 days now. Rectal tube patient removed. Total WBC is almost normalized. No more diarrhea.
2. Acute toxic encephalopathy - RESOLVED -combination of hospital delirium sepsis and C. difficile infection related. CT head without any abnormality. Avoid sedating medication as possible. Psychiatry involved in care and patient has been
started on nighttime Risperdal mentation much better today according to family. Continue monitoring with supportive care.
3. Hyponatremia -initially due to hypovolemia with improvement and now likely euvolemic in nature. Nephrology following and patient has been provided hypertonic saline. Serum cortisol/TSH within normal limit. Patient got dose of tolvaptan earlier
in the week. Na been stabilized in range of 127-128
4. New A-fib with RVR - patient have developed asymptomatic bradycardia largely at night, beta-rianna was stopped. Patient also on oral amiodarone. Patient heparin drip has been changed to Eliquis. On 08/13 night patient had developed pause of
5.2-second. Cardiology reevaluated again and patient amiodarone doses further decreased to 100 mg daily. Recommending sleep apnea assessment, nocturnal o2 test ordered, which patient finished completely but no hypoxia episode noted during the
monitored period . Full out patient sleep study if needed .
5. Acute urinary retention - resolved - removed indwelling Asher catheter. able to void by herself.
6. FAVIAN/hyperkalemia -renal function is normalized.
7. Right brachial vein and left cephalic vein blood clot = patient had bilateral upper extremity swelling and venous Doppler study showing right brachial vein clot and left cephalic vein clot. Eliquis dose increased to 10mg bid for 7 days and then
will lower to 5mg BID. Arm elevation as possible
8. Iatrogenic volume overload -patient hesitant to take high-dose of IV diuretic. Agreeable for oral Lasix 20 mg to be provided today. will increase to 40mg/d if unable to achieve net negative fluid balance,
care plan discussed with son at bedside
Anticipated Discharge: Within 24 hours
Subjective/Interval History
-
Date of Service: August 15, 2025
no new issues overnight
bradycardia in night, asymptomatic
Objective Data
-
Labs:
Laboratory Results
08/15/25
07:27
Sodium 128 L
Potassium 4.0
Chloride 105
Carbon Dioxide 21 L
BUN 4 L
Creatinine 0.5 L
Glucose 80
Calcium 7.7 L
Vital Signs:
Vital Signs
Temp Pulse Resp BP Pulse Ox
97.9 F 77 18 116/54 95
08/15/25 11:00 08/15/25 11:00 08/15/25 11:00 08/15/25 11:00 08/15/25 11:00
I&O
08/14/25 08/15/25 08/16/25
06:59 06:59 06:59
Intake Total 1560 / 1560
Balance 1560 / 1560
Review of Systems
-
Respiratory: Reports No Symptoms
Cardiac: Reports No Symptoms
Abdomen/GI: Reports No Symptoms
Physical Exam
-
General: No Apparent Distress and Appears Chronically Ill
HEENT: Negative Oxygen
Respiratory: Clear to Auscultation
Cardiac: Irregular Rhythm; Negative Murmur
GI: Soft, Nontender and Nondistended
Musculoskeletal: Edema, Right Upper Extrem, Edema, Left Upper Extrem, Edema, Right Lower Extrem and Edema, Left Lower Extrem
Neuro: Awake, Alert and No Motor Deficits
[2025-08-15 15:00] VITALS: BP 150/79
[2025-08-15 19:00] VITALS: BP 141/79
[2025-08-15] MEDS: MELATONIN 5 MG PO (22:20)
[2025-08-15] MEDS: NEURONTIN 400 MG PO (22:20)
[2025-08-15 23:00] VITALS: BP 116/58
[2025-08-15] MEDS: XALATAN OPHTHALMIC SOLUTION 1 DROP BOTH EYES (23:18)
[2025-08-16] VITALS (7 sets, daily range): BP systolic 100–145; BP diastolic 56–75; BMI 32.8
[2025-08-16] MEDS: TYLENOL 650 MG PO ×4 (05:08→22:40)
[2025-08-16] MEDS: SYNTHROID 88 MCG PO (05:08)
[2025-08-16 06:39] LABS: Hematocrit 30.6 % (37.0-47.0); Hemoglobin 10.8 g/dL (12.0-16.0); Mean Corp Hgb Conc. 35.3 g/dL (33.0-37.0); Mean Corpuscular Volume 82.0 fL (81.0-99.0); Platelet Count 761 10^3/uL (130-400); Red Cell Dist. Width 16.3 % (11.5-14.5)
[2025-08-16 06:41] LABS: Blood Urea Nitrogen 4 mg/dl (7-17); Calcium 7.8 mg/dl (8.4-10.2); Carbon Dioxide 20 mmol/L (22-30); Chloride 106 mmol/L (98-107); Estimated Creatinine Clearance 71 ml/min; Glucose 87 mg/dl (70-99); Potassium 4.1 mmol/L (3.5-5.1); Sodium 130 mmol/L (135-145); eGFR > 60.00
--- NOTE | 2025-08-16 07:15 | W.PN.HOSP.TC ---
Addendum entered and electronically signed by Gaviota Villareal MD 08/16/25 14:29:
I saw and evaluated the patient independently. I reviewed and discussed the resident�s note and agree with findings and plan as documented by Dr. Wynn.
GENERAL: well developed, well nourished, female in no apparent distress
HEENT: NC/AT
HEART: regular rate and rhythm, S1, S2
LUNGS: Clear to auscultation bilaterally
ABDOM: Soft, nontender, nondistended, positive bowel sounds
EXT: No cyanosis, clubbing, edema
NEUROLOGIC: Grossly intact
encephalopathy--resolved--apprec psych
Sepsis with evidence of end organ damage of lactic acidosis, encephalopathy, acute kidney injury with toxigenic C. Diff as the cause --CT scan without oral or IV contrast shows severe colitis--apprec ID--finishes Dificid tomorrow--fiber added to
bulk up stools
Severe hyponatremia --likely due to hypovolemia from GI losses--119 on admission, slowly improving--up to 130--apprec renal, s/p 3% NaCL with fluid restriction--apprec renal -- serum cortisol and TSH WNL--needs to start lasix--pt now agreeable
new onset atrial fibrillation with RVR and periods of bradycardia--responded to IV lopressor--apprec cards input, follow up as outpt--cont Eliquis--amio PO
bilateral UE DVTs--Eliquis
Lethargy/weakness also likely compounded by hypotension and volume loss/dehydration, Hyponatremia, sepsis--speech, PT/OT rec SNF
Acute urinary retention--resolved-- samaniego cath stopped
Hyperkalemia/hypocalcemia--resolved
FAVIAN--resolved-- likely prerenal---apprec renal
Essential HTN--restart home valsartan
HLD - 'Pt is intolerant of statins. Dr. Houser has recommended [id number] but she refuses.'
CAD - continue home aspirin as able
Hypothyroidism - continue home levothyroxine as able
GERD - PPI to PO
Polyneuropathy - continue home gabapentin as able
DVT proph -- heparin
Code status-- full
anticipate d/c to SNF Saturday
Original Note:
Today's Communication/Plan
-
- dispo pending SNF placement
- fidaxomicin through 08/17
- Add soluble fiber to bulk up stool to decrease stool incontinence
- PO eliquis 10mg bid through 08/18, then 5mg bid
- Continue amiodarone 100mg daily
- Continue 40oz fluid restriction
- Continue lasix 20mg PO daily
- Encourage PO intake
- Renal following, appreciate recs re: lasix dosing
Assessment / Plan
Assessment / Plan
84yo M with a hx of essential HTN, HLD, CAD, hypothyroidism, GERD, & polyneuropathy who p/w generalized weakness, fever/chills, nausea, & diarrhea, found to have sepsis 2/2 positive c diff diarrhea with evidence of end-organ damage, now with
resolving infection, fluctuating hyponatremia, and improved mental status, c/b sick sinus syndrome and bilateral UE DVTs, now resolving & awaiting SNF placement.
#C diff diarrhea, resolving, with fully resolved sepsis w end organ damage
Labs on admission 08/02 - WBC 29.5, Cl 92, CO2 15, lactic acid 3.5, AST 155, ALT 52. Diarrhea since 07/31 with fever/chills resolved by time of admission. CT a/p with evidence of severe colitis. C diff stool antigen positive. Covid, flu, norovirus
negative. F/c, nausea, weakness, electrolyte abnormalities all likely 2/2 c diff & associated volume loss/sepsis. S/p IV metronidazole (stopped 08/09). Rectal tube out 08/09.
Today - afebrile; BM slowing; WBC normalized
- Continue fidaxomicin 200mg PO BID through 08/17
- PRN tylenol for pain
- Add soluble fiber to bulk up stool to decrease stool incontinence
- ID following, appreciate recs
- Recommend diet high in fiber and probiotics/fermented food at discharge
#Paroxysmal atrial fibrillation vs. atrial tachycardia
#Episodes of bradycardia, 1st degree AV block, sick sinus syndrome
Transient episode of a fib shortly after dobhoff placement on 08/04, likely triggered by physiologic stress exacerbation from tube placement in s/o pt current illness. Resolved to normal sinus rate/rhythm s/p 5mg IV metoprolol. 08/05 morning, pt
again in a fib with HR in 120s. TTE 08/05 did not demonstrate significant LA dilation or significant regional wall motion abnormalities, mild LA enlargement & MR (EF 55-60%, LA volume mildly abnormal 35-41, mild concentric LVH, mild MR). Afib likely
2/2 physiologic stress exacerbating mild existing abnormalities. EKG 08/11 with 1st degree AV block, LVH. Per cards eval, sick sinus syndrome - to monitor outpatient. Following episode of 5.2 second pause on 08/13, amio dose decreased. Overnight O2
study ordered, which demonstrated 0 desat events.
Today - HR 77
- PO eliquis 10mg bid through 08/18, then 5mg bid
- Continue amiodarone 100mg daily
- PRN metoprolol 5mg if HR>110
- Monitor on tele
- Cardiology following, appreciate recs
- F/u outpatient cardiology
#Hyponatremia, fluctuating
Na+ 119 on admission, likely 2/2 hypovolemic hyponatremia in s/o volume loss w ongoing diarrhea. Initial AMS, difficult to arouse likely 2/2 severe hyponatremia. Cortisol & TSH wnl. Urine Na 7, urine cr 90.3, serum osm 281 - not hypoosmolar given
repletion already performed, but urine sodium <7 supports likely prior hypoosmolar hypovolemic hyponatremia. Pt with ongoing hyponatremia in 120s s/p resolution of other lytes & infection - refractory to hypertonic saline & fluid restriction;
responded to tolvaptan 08/12 w increase to 129. Supports SIADH etiology given prior pain/AMS/illness. Pt started lasix 08/14 given likely fluid overload.
Today - Na 130
- Continue 40oz fluid restriction
- Continue lasix 20mg PO daily
- Renal following, appreciate recs
#Volume overload
Pt with volume overload following IVF. S/p lasix as of 08/04 PO 20mg daily. (Renal had rec'd 80mg IV but family deferred initially).
Today - UE swelling improved, bilat LE with pitting edema; family amenable to increased lasix dose
- Consider increasing lasix dose today, pending renal
#Bilateral UE DVTs/superficial thrombi (L cephalic, R brachial)
Pt with arm swelling since ~08/10. Initially thought to be 2/2 volume overload, hypertonic fluids, arms in dependent position, inflammation from repeated needlesticks. No erythema, no pain. Pt has been on eliquis. 08/11 US demonstrated: 'Occlusive
thrombus within one of the right brachial veins throughout the upper right arm. Occlusive thrombus throughout the mid to distal aspect of the left cephalic vein in the upper left arm.' R arm DVT 2/2 potential eliquis failure vs. development of DVT
in interval earlier when pt was refusing meds. L cephalic likely 2/2 lines/trauma to endothelium.
- Continue 7-day course of increased eliquis dose, 10mg bid through 08/18
- Continue to monitor
- Limit blood draws
#Hyperkalemia, resolved
#Hypocalcemia, resolved
K 5.8 on admission, likely 2/2 high-volume diarrhea. Likely 2/2 ongoing valsartan use in s/o volume loss vs. adrenal insufficiency vs. RTA. Cortisol wnl, more likely volume loss etiology. S/p insulin; s/p ca gluconate x2.
Today - K & corrected Ca wnl
- Continue to trend BMP
- Encourage PO intake
- Renal following, appreciate recs
#AMS, paranoia, c/f psychosis - resolved
08/03- - pt obtunded, unable to rouse beyond turning head am despite near-normalization of lytes by 08/05. Per RN, had waxing/waning consciousness overnight not much improved from prior day. CT head 08/05 unremarkable. Ammonia, B12, folate wnl.
ABG 08/05 w alkalosis w compensatory metabolic acidosis, likely 2/2 overcorrection w bicarb drip. Potential elements of hospital induced delirium vs. metabolic encephalopathy vs. underlying dementia vs. pain vs. prior hospital-associated trauma.
08/06 Psych eval: 'patient lacks capacity for medical decision making. son seems to have her interests at heart and and son should be consulted.' 08/07 - [facility] conversation re: decisionmaking, proceeding w pain mgmt & restraints if necessary.
08/09 - mental status resolved to baseline s/p overnight risperidone & w resolving infection.
Today - mental status resolved, not requiring risperidone
- Risperidone 0.25mg PRN
- Continue PT/OT and OOB
#FAVIAN, resolved, likely prerenal
#Acute urinary retention
Cr 1.8, BUN 49, eGFR 27.78 on admission, likely prerenal in s/o volume loss 2/2 c diff diarrhea. BUN/Cr ratio 27, c/w prerenal. Potential component of obstruction, although no evidence of overt physical obstruction on CT. Per RN, pt retaining 1700
in bladder on 08/03 at 12:30pm. CT a/p 08/02: 'Moderately distended urinary bladder. There is mild prominence of the bilateral collecting systems which is unchanged from prior.' Likely contributor to FAVIAN. Uncertain etiology, likely in s/o multiorgan
damage in s/o sepsis.
Resolved s/p fluids. Samaniego catheter removed 08/13.
- Renal following, appreciate recs
#Chronic
#Essential HTN - home valsartan
#HLD - 'Pt is intolerant of statins. Dr. Houser has recommended [id number] but she refuses.'
#CAD - continue home aspirin
#Hypothyroidism - continue home levothyroxine
#GERD - IV PPI
#Polyneuropathy - continue home gabapentin
#Global
- DVT ppx: eliquis
- Code: full
- Diet: regular diet with fluid restriction 40oz
- Dispo: PT recommending skilled rehab, case mgmt following & planning for SNF, pending placement
Anticipated Discharge: Within 24 hours
Subjective/Interval History
-
Date of Service: August 16, 2025
Patient feeling well this am. Son at bedside. Pt has been voiding urine well s/p samaniego out. Has been getting up to go to the commode without issue. Has had some challenges with leaking/incontinent stool - patient has not been feeling urge all the
time.
Also discussed consideration of higher dose of lasix - patient amenable. Asking for guidance around disinfecting house to remove c diff spores.
Objective Data
-
Labs:
Laboratory Results
08/16/25
05:59
WBC 7.8
Hgb 10.8 L
Hct 30.6 L
Plt Count 761 H D
Sodium 130 L
Potassium 4.1
Chloride 106
Carbon Dioxide 20 L
BUN 4 L
Creatinine 0.4 L
Glucose 87
Calcium 7.8 L
Vital Signs:
Vital Signs
Temp Pulse Resp BP Pulse Ox
97.6 F 79 16 107/66 94
08/16/25 03:00 08/16/25 03:00 08/16/25 03:00 08/16/25 03:00 08/16/25 03:00
I&O
08/15/25 08/16/25 08/17/25
06:59 06:59 06:59
Intake Total 1560 / 1560 960 / 960
Output Total 600 / 600
Balance 1560 / 1560 360 / 360
Review of Systems
-
History Source: Patient and Family
Constitutional: Reports No Symptoms
Respiratory: Reports No Symptoms
Cardiac: Reports No Symptoms
Abdomen/GI: Reports Diarrhea (incontinence)
Musculoskeletal: Reports Edema (bilat LE)
Skin: Reports No Symptoms
Neuro: Reports No Symptoms
Physical Exam
-
General: Well Developed, Well Nourished, No Apparent Distress and Comfortable
HEENT: Normocephalic, Atraumatic and Moist Mucous Membranes
Respiratory: Clear to Auscultation
Cardiac: Regular Rhythm
GI: Soft, Nontender and Nondistended
Musculoskeletal: No Edema (improved on bilat UEs), Edema, Right Lower Extrem (1+ pitting) and Edema, Left Lower Extrem (1+ pitting)
Skin: Warm and Dry
Neuro: Awake, Alert and Oriented
Psych: Calm
Data Reviewed
-
Total Time Spent with Patient (in minutes): 15
Critical Care Time (in minutes): 45
Labs: Labs Reviewed by me
[2025-08-16] MEDS: PROTONIX 40 MG PO (08:56)
[2025-08-16] MEDS: DIOVAN PO ×2 (08:56→08:59)
[2025-08-16] MEDS: DIFICID 200 MG PO ×2 (08:56→22:38)
[2025-08-16] MEDS: LASIX 20 MG PO (08:56)
[2025-08-16] MEDS: PACERONE 100 MG PO (08:56)
[2025-08-16] MEDS: ELIQUIS 10 MG PO ×2 (08:56→22:39)
[2025-08-16] MEDS: LOW STRENGTH ASPIRIN 81 MG PO (08:56)
--- NOTE | 2025-08-16 09:29 | W.PN.ID1 ---
Date of Service
Date of Service: August 16, 2025
Today's Communication
- Add soluble fiber to bulk up stool to decrease stool incontinence.
- Tomorrow is last day of fidaxomicin.
Assessment / Plan
# Severe C. difficile colitis - resolving
# leukocytosis - resolved
# Prerenal FAVIAN- resolved
# Encephalopathy/psych - resolved
. Pt had previously missed po vanco intermittently due to mental status change/refusal medical treatment).
. Now compliant with meds
# Atrial tachycardic - improved
- Continue Fidaxomicin 200mg po bid x 10 days through 08/17/25.
- Discussed 20% relapse rate after first episode.
- Dr. Cherry encouraged her to increase intake of fiber containing foods +/- fermented foods such as sauerkraut, kimchi, kombucha, kefir.
- Add soluble fiber to bulk up stool to decrease stool incontinence.
# Additional Past Medical History:
Hypertension
CAD status post stent
Hypothyroidism
IBS
Severe neuropathy BLE
Glaucoma
Rectal prolapse status post rectopexy 01/06/21
Hemorrhoid s/p banding
Appendectomy
Hysterectomy with BSO
Right knee replacement
Chief Complaint
-: C-diff
Subjective / Review of Systems
Patient feeling much better.
Had 2 loose bowel movements overnight.
Son is concerned about stool incontinence.
Vital Signs / Physical Exam
Vital Signs
Vital Signs
Temp Pulse Resp BP Pulse Ox
98.1 F 70 18 100/56 96
08/16/25 07:07 08/16/25 07:07 08/16/25 07:07 08/16/25 07:07 08/16/25 07:07
Physical Exam
Constitutional: No Acute Distress
Cardiovascular: Regular Rate and S1/S2
Pulmonary: Clear (Anteriorly)
Gastrointestinal: Soft, Non Tender, Non Distended and Normal Bowel Sounds
Extremities: Edema (BLE)
Neurological: AO x 3
Psychological: Calm
Objective Data
Lab Data
Lab Results
08/16/25 05:59
08/16/25 05:59
APTT Cancelled 08/07/25 06:00
Estimated Creat Clear 71 ml/min 08/16/25 05:59
Lactic Acid 1.8 mmol/L (0.7-2.0) 08/03/25 11:15
Total Bilirubin 0.3 mg/dl (0.2-1.3) 08/11/25 04:40
AST 32 U/L (14-36) 08/11/25 04:40
ALT 30 U/L (0-35) 08/11/25 04:40
Alkaline Phosphatase 204 U/L (38-126) H 08/11/25 04:40
Most recent labs reviewed.
Micro Results:
08/02/25 18:20 Blood Culture - Final
Blood/Venous No Growth - Final Report
08/02/25 18:21 Salmonella/Shigella Culture - Final
Feces/Stool No Salmonella, Shigella, Aeromonas or Plesiomonas species
isolated.
Campylobacter Culture - Final
No Campylobacter species isolated.
Shiga Toxin Test - Final
No E. coli Shiga Toxin 1 or 2 detected.
08/03/25 12:33 Urine Culture - Final
Urine No Significant Growth
08/02/25 18:21 C. difficile GDH Antigen & Toxins - Final
Feces/Stool Toxigenic C.difficile Positive
Norovirus (PCR) - Final
Negative for Norovirus GI and GII.
08/02/25 17:33 Influenza Types A & B (DULCE) - Final
Nasal Swab Negative for Influenza A & B, NAAT
Negative results must be combined with clinical observations
and patient history.
Nucleic Acid Amplification test (NAAT)performed on the
[employer] NOW platform.
Imaging:
08/02/25 CT a/p: There is pronounced wall thickening with adjacent stranding throughout the colon which likely represents severe colitis. The gallbladder appears mildly distended. There are no adjacent findings suggestive of acute cholecystitis.
This may be secondary to fasting state. If there is concern for acute cholecystitis consider dedicated right upper quadrant ultrasound. Moderately distended urinary bladder. There is mild prominence of the bilateral collecting systems which is
unchanged from prior.
[2025-08-16] MEDS: METAMUCIL, KONSYL 1 PACKET PO (11:13)
--- NOTE | 2025-08-16 11:21 | W.PN.CARDCBS ---
Addendum entered and electronically signed by Jonathan Houser MD 08/16/25 12:19:
85-year-old woman admitted 08/02/25 with clinical sepsis, TME, c diff enterocolitis, and new onset atrial tachycardia.
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
Current meds: Xalatan, valsartan 80 mg a day, melatonin 5 mg a day, aspirin 81 mg a day, acetaminophen, Dificid, pantoprazole, levothyroxine 88 mcg a day, apixaban 10 mg twice daily, furosemide 20 mg a day, amiodarone 100 mg daily, Neurontin
Remainder of history as below, reviewed in detail and agree, unless otherwise specified
138/76, pulse 79, respiratory 16, sats are 94%, frail, son at bedside, head neck exam unremarkable, lungs are relatively clear, no obvious murmurs, irregular at times, abdomen benign extremities without much edema, pulses palpable
Hemoglobin 10.8, platelets 761, sodium 130, potassium 4.1, BUN/creatinine 4 and 0.4
Echo 08/05/25: if 55-60%, mild LVH, mild MR
Telemetry: Rhythm is still chaotic, probably atrial tachycardia but appears to be A-fib at times,
Impression:
C. difficile enterocolitis
Atrial tachycardia, suspicions for paroxysmal atrial fibrillation not yet confirmed
New DVT of upper extremity
Hypercholesterolemia
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
CAD with prior myocardial infarction and LAD Cypher stent 2003
FAVIAN, resolved
Hyponatremia
Other diagnoses as below, reviewed in detail and agree unless otherwise specified
Plan:
As below, reviewed in detail and agree unless otherwise specified
Telemetry continues to show atrial tachycardia with some concerns for A-fib, not yet documented. Will recheck electrocardiogram.
Regardless of diagnosis of atrial fibrillation, she is now anticoagulated for DVT. When anticoagulants for DVT are discontinued we will need to decide about continued anticoagulation for possible A-fib.
She is in a controlled rate regardless of her rhythm on low-dose amiodarone and off metoprolol. No significant pauses have been seen. Continue amiodarone 100 mg a day. No metoprolo yet.
Given that she has a Cypher stent which may be more prone to thrombosis, along with thrombocytosis my preference is to continue aspirin in addition to Eliquis despite the bleeding risk.
We can arrange for outpatient monitoring at discharge. From my standpoint okay to proceed with discharge planning.
Original Note:
Today's Communication / Plan
-
Now ordered Eliquis for right brachial DVT
Check eventual outpatient cardiac catheterization technologist to assess burden of arrhythmia and help determine long-term duration of OAC
Remains on amiodarone 100 mg daily and HR is generally faster in the last 24 hours, consider adding back a low-dose of Toprol-XL
Impression / Plan
-
PCP: Previously following with Dr. Savana Samuel and transitioning to Dr. Renetta Rodriguez with a new patient appointment scheduled for 11/02/2025
Cardiology: Previously followed with Dr. Houser, last seen in 2022
Impression:
Admitted with generalized weakness, fevers and chills and diarrhea 08/02/2025
C. difficile colitis
Sepsis
FAVIAN
Hyperkalemia
Newly diagnosed paroxysmal atrial tachycardia
Sinus bradycardia
PVCs
CAD s/p AWMI and 3.0 mm Cypher MARGARITO to the proximal LAD 05/2004
Hyperlipidemia
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
Urinary retention
Right brachial DVT
Echo 08/05/2025: EF 55 to 60%, mild concentric LVH, mild MR
Plan:
-Patient initially admitted with generalized weakness and was diagnosed with C. difficile diarrhea, cardiology was later consulted for changes on telemetry and atrial tachycardia.
-New diagnosis of paroxysmal atrial tachycardia this admission. HR's were initially difficult to control and patient was started on Lopressor and then amiodarone initially TID and then weaned down due to improved rhythm and rate as C. difficile
infection improved. Despite weaning amiodarone to 200 mg daily patient continued with periods of bradycardia and amiodarone dose was decreased again down to 100 mg daily starting 08/15/25.
-Telemetry reviewed by me 08/16/2025 and patient noted to be tachycardic most of the time with atrial tachycardia and what looks like sometimes might be atrial fibrillation as it looks more irregular. No pauses or significant sinus bradycardia on
my review of the overnight telemetry.
-Could consider increasing amiodarone dose back up to 200 mg daily or adding a low-dose of Toprol-XL 25 mg daily to help with additional rate control efforts
-Would consider assessment for possible underlying sleep apnea. Nocturnal O2 performed 08/15 which did not reportedly capture any desaturation events
-Eliquis was started earlier this admission for possible atrial fibrillation, but the bulk of arrhythmia seen on telemetry earlier was felt to be atrial tachycardia and cardiology was planning to stop Eliquis. Patient then found to have right
brachial DVT and was started on Eliquis 10 mg BID through 08/18/2025 and then decreased to 5 mg BID.
-Cardiology will check an eventual outpatient monitor to assess for arrhythmia burden. Pending those results cardiology will evaluate for the long-term need of OAC for atrial arrhythmia.
-Patient also remains on her outpatient dose of aspirin 81 mg daily
HPI: Patient came to the ER on Saturday with fevers, chills generalized weakness and diarrhea and was admitted with sepsis and C. difficile colitis, cardiology is now consulted for an episode of newly diagnosed paroxysmal atrial fibrillation. Through
the weekend patient was at home dealing with generalized weakness fevers and chills and then started with diarrhea. There was thought that perhaps it was due to a viral illness such as influenza or COVID and patient was advised to take Imodium.
Due to increasing weakness the patient came to the ER and had evidence for sepsis and her stool culture was positive for C. difficile. Patient now admitted for sepsis and C. difficile colitis. Patient had worsening TME changes and was transition
to vancomycin CO, but GI consulted for placement of DHT today. DHT placed with some resistance from the patient who is now placed in soft mitts B/L. Patient noted to have onset of rapid atrial tachycardia. Patient was given Lopressor 5 mg IV x 1
and shortly thereafter spontaneously converted to SR. Unclear if patient experienced any symptoms due to ongoing TME changes. Patient's is at the bedside and relates that patient stopped following with cardiology a few years ago due to
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 Patient has a remote history of anterior wall AL and LAD PCI back in 2003, at that time the patient had just received a distressing phone call that one of her sons had an accident and was apparently
asked.
Progress Note - Drug Purchaser
Subjective
Date of Service: August 16, 2025
Denies palpitations
Objective
Labs:
08/16/25 05:59
08/16/25 05:59
Labs
Hgb 10.8 g/dL (12.0-16.0) L 08/16/25 05:59
Hct 30.6 % (37.0-47.0) L 08/16/25 05:59
Plt Count 761 10^3/uL (130-400) H D 08/16/25 05:59
APTT Cancelled 08/07/25 06:00
Sodium 130 mmol/L (135-145) L 08/16/25 05:59
Potassium 4.1 mmol/L (3.5-5.1) 08/16/25 05:59
BUN 4 mg/dl (7-17) L 08/16/25 05:59
Creatinine 0.4 mg/dL (0.6-1.0) L 08/16/25 05:59
Glucose 87 mg/dl (70-99) 08/16/25 05:59
Vital Signs and I&O:
Vital Signs
Temp Pulse Resp BP Pulse Ox
98.1 F 70 18 100/56 96
08/16/25 07:07 08/16/25 07:07 08/16/25 07:07 08/16/25 07:07 08/16/25 07:07
Vital Signs
Temp Pulse Resp BP Pulse Ox
98.1 F 70 18 100/56 96
08/16/25 07:07 08/16/25 07:07 08/16/25 07:07 08/16/25 07:07 08/16/25 07:07
Intake & Output
08/14/25 08/15/25 08/16/25 08/17/25
06:59 06:59 06:59 06:59
Intake Total 1560 / 1560 960 / 960
Output Total 600 / 600
Balance 1560 / 1560 360 / 360
Physical Exam
Physical Exam
GEN: NAD, AAO to person place and situation
HEENT: EOMI
LUNGS: RA. Clear anterolaterally without wheeze
CV: A-fib/tach on telemetry. Irreg irreg
EXT: No edema B/L LE
NEURO: Gross non-focal
SKIN: No rash
--- NOTE | 2025-08-16 11:57 | W.PN.NEPH.PH ---
Today's Communication / Plan
-
Maintain on fluid restriction and Lasix
Assessment/Plan
-
Assessment
FAVIAN
C difficile diarrhea/colitis
leukocytosis
hyperkalemia
metabolic acidosis
lactic acidosis
hyponatremia
CAD
hypocalcemia
UE DVT acute on this admission
Plan
ADH mediated
responded to Samsca sodium up to 130
continue fluid restriction in setting of
refusing higher dose of Lasix as she is retaining fluid
she will take 20 mg daily at this time
a.m. labs
-
-
Date of Service: August 16, 2025
CC / HPI / ROS
-
Chief Complaint:
FAVIAN
Hyperkalemia
Metabolic acidemia
History of Present Illness:
Sodium much improved 130 on fluid restriction and 20 mg of lasix
bp stable, k normal
increasing wts
abx for c diff colitis
Review of Systems:
no chest pain or shortness of breath
diarrhea improves
Labs
-
Labs:
WBC 7.8 10^3/uL (4.8-10.8) 08/16/25 05:59
RBC 3.73 10^6/uL (4.20-5.40) L 08/16/25 05:59
Hgb 10.8 g/dL (12.0-16.0) L 08/16/25 05:59
Hct 30.6 % (37.0-47.0) L 08/16/25 05:59
Plt Count 761 10^3/uL (130-400) H D 08/16/25 05:59
Sodium 130 mmol/L (135-145) L 08/16/25 05:59
Potassium 4.1 mmol/L (3.5-5.1) 08/16/25 05:59
Chloride 106 mmol/L (98-107) 08/16/25 05:59
Carbon Dioxide 20 mmol/L (22-30) L 08/16/25 05:59
BUN 4 mg/dl (7-17) L 08/16/25 05:59
Creatinine 0.4 mg/dL (0.6-1.0) L 08/16/25 05:59
eGFR > 60.00 08/16/25 05:59
Glucose 87 mg/dl (70-99) 08/16/25 05:59
Calcium 7.8 mg/dl (8.4-10.2) L 08/16/25 05:59
Albumin 1.9 g/dl (3.5-5.0) L 08/11/25 04:40
Physical Exam
-
Vital Signs:
Vital Signs
Temp Pulse Resp BP Pulse Ox
97.6 F 81 16 136/69 96
08/16/25 11:00 08/16/25 11:00 08/16/25 11:00 08/16/25 11:00 08/16/25 11:00
Respiratory:: Bilateral: CTA
Lung Excursion:: Normal
Abdomen:: Soft
Bowel Sounds:: Normal
Extremity Edema:: +2: Bilateral:
Asher Catheter: No
--- NOTE | 2025-08-16 13:02 | CM ---
CM met with patient and her son Lj to discuss transfer to SNF. Multiple options requested; son is most interested in transfer to [facility] at [facility]. Referral sent and patient will be accepted for admission at discharge.
Pt's son will also go to a few other facilities for comparison.
Plan: Discharge to SNF, likely [facility] where patient will have a private room; pending son's final decision after touring a couple other facilities.
[2025-08-16] MEDS: NEURONTIN 400 MG PO (22:39)
[2025-08-16] MEDS: MELATONIN 5 MG PO (22:39)
[2025-08-16] MEDS: XALATAN OPHTHALMIC SOLUTION BOTH EYES (22:40)
[2025-08-17 03:35] VITALS: BP 141/52
[2025-08-17 04:24] VITALS: BMI 33.1
[2025-08-17] MEDS: TYLENOL 650 MG PO ×4 (05:12→22:40)
[2025-08-17] MEDS: SYNTHROID 88 MCG PO (05:13)
[2025-08-17 06:38] LABS: Hematocrit 30.7 % (37.0-47.0); Hemoglobin 10.7 g/dL (12.0-16.0); Mean Corp Hgb Conc. 34.9 g/dL (33.0-37.0); Mean Corpuscular Volume 82.7 fL (81.0-99.0); Nucleated Red Blood Cells % 0.4 %; Platelet Count 780 10^3/uL (130-400); Red Cell Dist. Width 17.1 % (11.5-14.5)
[2025-08-17 07:03] LABS: ALT (SGPT) 21 U/L (0-35); AST (SGOT) 23 U/L (14-36); Albumin 2.0 g/dl (3.5-5.0); Alkaline Phosphatase 140 U/L (38-126); Blood Urea Nitrogen 7 mg/dl (7-17); Calcium 7.6 mg/dl (8.4-10.2); Carbon Dioxide 24 mmol/L (22-30); Chloride 105 mmol/L (98-107); Estimated Creatinine Clearance 70 ml/min; Glucose 81 mg/dl (70-99); Potassium 4.1 mmol/L (3.5-5.1); Sodium 128 mmol/L (135-145); Total Protein 4.5 g/dl (6.3-8.2); eGFR > 60.00
--- NOTE | 2025-08-17 07:11 | W.PN.HOSP.TC ---
Addendum entered and electronically signed by Gaviota Villareal MD 08/17/25 14:02:
I saw and evaluated the patient independently. I reviewed and discussed the resident�s note and agree with findings and plan as documented by Dr. Wynn.
GENERAL: well developed, well nourished, female in no apparent distress
HEENT: NC/AT
HEART: regular rate and rhythm, S1, S2
LUNGS: Clear to auscultation bilaterally
ABDOM: Soft, nontender, nondistended, positive bowel sounds
EXT: No cyanosis, clubbing, edema
NEUROLOGIC: Grossly intact
encephalopathy--resolved--apprec psych
Sepsis with evidence of end organ damage of lactic acidosis, encephalopathy, acute kidney injury with toxigenic C. Diff as the cause --resolved--CT scan without oral or IV contrast shows severe colitis--apprec ID--finishes Dificid today--fiber added
to bulk up stools
Severe hyponatremia --likely due to hypovolemia from GI losses--119 on admission, slowly improving---apprec renal, s/p 3% NaCL with fluid restriction--apprec renal -- serum cortisol and TSH WNL--needs to start lasix--pt now agreeable
new onset atrial fibrillation with RVR and periods of bradycardia--responded to IV lopressor--apprec cards input, follow up as outpt--cont Eliquis--amio PO
bilateral UE DVTs--Eliquis
Lethargy/weakness also likely compounded by hypotension and volume loss/dehydration, Hyponatremia, sepsis--speech, PT/OT rec SNF
Acute urinary retention--resolved-- samaniego cath stopped
Hyperkalemia/hypocalcemia--resolved
FAVIAN--resolved-- likely prerenal---apprec renal
Essential HTN--restart home valsartan
HLD - 'Pt is intolerant of statins. Dr. Houser has recommended [id number] but she refuses.'
CAD - continue home aspirin as able
Hypothyroidism - continue home levothyroxine as able
GERD - PPI to PO
Polyneuropathy - continue home gabapentin as able
DVT proph -- heparin
Code status-- full
anticipate d/c to SNF Saturday
Original Note:
Today's Communication/Plan
-
- Discharge tmrw to [facility], pending case mgmt confirm
- Last dose fidaxomicin today
- 10mg bid eliquis through 08/18
- 5mg bid eliquis after + aspirin
- Continue metamucil
- Continue amiodarone 100mg daily
- Increase lasix to 40mg PO daily
Assessment / Plan
Assessment / Plan
84yo M with a hx of essential HTN, HLD, CAD, hypothyroidism, GERD, & polyneuropathy who p/w generalized weakness, fever/chills, nausea, & diarrhea, found to have sepsis 2/2 positive c diff diarrhea with evidence of end-organ damage, now with
resolving infection, fluctuating hyponatremia, and improved mental status, c/b sick sinus syndrome and bilateral UE DVTs, now resolving & awaiting SNF placement.
#C diff diarrhea, resolving, with fully resolved sepsis w end organ damage
Labs on admission 08/02 - WBC 29.5, Cl 92, CO2 15, lactic acid 3.5, AST 155, ALT 52. Diarrhea since 07/31 with fever/chills resolved by time of admission. CT a/p with evidence of severe colitis. C diff stool antigen positive. Covid, flu, norovirus
negative. F/c, nausea, weakness, electrolyte abnormalities all likely 2/2 c diff & associated volume loss/sepsis. S/p IV metronidazole (stopped 08/09). Rectal tube out 08/09.
Today - afebrile; BM slowing; WBC normalized
- Continue fidaxomicin 200mg PO BID through 08/17 (today)
- PRN tylenol for pain
- Add soluble fiber to bulk up stool to decrease stool incontinence
- ID following, appreciate recs
- Recommend diet high in fiber and probiotics/fermented food at discharge
#Paroxysmal atrial fibrillation vs. atrial tachycardia
#Episodes of bradycardia, 1st degree AV block, sick sinus syndrome
Transient episode of a fib shortly after dobhoff placement on 08/04, likely triggered by physiologic stress exacerbation from tube placement in s/o pt current illness. Resolved to normal sinus rate/rhythm s/p 5mg IV metoprolol. 08/05 morning, pt
again in a fib with HR in 120s. TTE 08/05 did not demonstrate significant LA dilation or significant regional wall motion abnormalities, mild LA enlargement & MR (EF 55-60%, LA volume mildly abnormal 35-41, mild concentric LVH, mild MR). Afib likely
2/2 physiologic stress exacerbating mild existing abnormalities. EKG 08/11 with 1st degree AV block, LVH. Per cards eval, sick sinus syndrome - to monitor outpatient. Following episode of 5.2 second pause on 08/13, amio dose decreased. Overnight O2
study ordered, which demonstrated 0 desat events. EKG 08/16 without a fib.
Today - HR 88
- PO eliquis 10mg bid through 08/18, then 5mg bid
- Continue amiodarone 100mg daily
- Monitor on tele
- Per cards, 'my preference is to continue aspirin in addition to Eliquis despite the bleeding risk; okay to proceed with discharge planning'
- Cardiology following, appreciate recs
- Plan to f/u outpatient cardiology
#Hyponatremia, fluctuating
Na+ 119 on admission, likely 2/2 hypovolemic hyponatremia in s/o volume loss w ongoing diarrhea. Initial AMS, difficult to arouse likely 2/2 severe hyponatremia. Cortisol & TSH wnl. Urine Na 7, urine cr 90.3, serum osm 281 - not hypoosmolar given
repletion already performed, but urine sodium <7 supports likely prior hypoosmolar hypovolemic hyponatremia. Pt with ongoing hyponatremia in 120s s/p resolution of other lytes & infection - refractory to hypertonic saline & fluid restriction;
responded to tolvaptan 08/12 w increase to 129. Supports SIADH etiology given prior pain/AMS/illness. Pt started low-dose lasix 08/14 given likely fluid overload.
Today - Na 128
- Continue 40oz fluid restriction
- Increase lasix to 40mg daily
- Renal following, appreciate recs
#Volume overload
Pt with volume overload following IVF. S/p lasix as of 08/04 PO 20mg daily. (Renal had rec'd 80mg IV but family deferred initially).
Today - UE swelling improved, bilat LE with pitting edema; family amenable to increased lasix dose
- Increase lasix to 40mg daily
#Bilateral UE DVTs/superficial thrombi (L cephalic, R brachial)
Pt with arm swelling since ~08/10. Initially thought to be 2/2 volume overload, hypertonic fluids, arms in dependent position, inflammation from repeated needlesticks. No erythema, no pain. Pt has been on eliquis. 08/11 US demonstrated: 'Occlusive
thrombus within one of the right brachial veins throughout the upper right arm. Occlusive thrombus throughout the mid to distal aspect of the left cephalic vein in the upper left arm.' R arm DVT 2/2 potential eliquis failure vs. development of DVT
in interval earlier when pt was refusing meds. L cephalic likely 2/2 lines/trauma to endothelium.
- Continue 7-day course of increased eliquis dose, 10mg bid through 08/18
- Continue to monitor
- Limit blood draws
#Hyperkalemia, resolved
#Hypocalcemia, resolved
K 5.8 on admission, likely 2/2 high-volume diarrhea. Likely 2/2 ongoing valsartan use in s/o volume loss vs. adrenal insufficiency vs. RTA. Cortisol wnl, more likely volume loss etiology. S/p insulin; s/p ca gluconate x2.
- Continue to trend BMP
- Renal following, appreciate recs
#AMS, paranoia, c/f psychosis - resolved
08/03- - pt obtunded, unable to rouse beyond turning head am despite near-normalization of lytes by 08/05. Per RN, had waxing/waning consciousness overnight not much improved from prior day. CT head 08/05 unremarkable. Ammonia, B12, folate wnl.
ABG 08/05 w alkalosis w compensatory metabolic acidosis, likely 2/2 overcorrection w bicarb drip. Potential elements of hospital induced delirium vs. metabolic encephalopathy vs. underlying dementia vs. pain vs. prior hospital-associated trauma.
08/06 Psych eval: 'patient lacks capacity for medical decision making. son seems to have her interests at heart and and son should be consulted.' 08/07 - [facility] conversation re: decisionmaking, proceeding w pain mgmt & restraints if necessary.
08/09 - mental status resolved to baseline s/p overnight risperidone & w resolving infection.
Today - mental status resolved, not requiring risperidone
- Continue PT/OT and OOB
#FAVIAN, resolved, likely prerenal
#Acute urinary retention
Cr 1.8, BUN 49, eGFR 27.78 on admission, likely prerenal in s/o volume loss 2/2 c diff diarrhea. BUN/Cr ratio 27, c/w prerenal. Potential component of obstruction, although no evidence of overt physical obstruction on CT. Per RN, pt retaining 1700
in bladder on 08/03 at 12:30pm. CT a/p 08/02: 'Moderately distended urinary bladder. There is mild prominence of the bilateral collecting systems which is unchanged from prior.' Likely contributor to FAVIAN. Uncertain etiology, likely in s/o multiorgan
damage in s/o sepsis.
Resolved s/p fluids. Samaniego catheter removed 08/13.
- Renal following, appreciate recs
#Chronic
#Essential HTN - home valsartan
#HLD - 'Pt is intolerant of statins. Dr. Houser has recommended [id number] but she refuses.'
#CAD - continue home aspirin
#Hypothyroidism - continue home levothyroxine
#GERD - IV PPI
#Polyneuropathy - continue home gabapentin
#Global
- DVT ppx: eliquis
- Code: full
- Diet: regular diet with fluid restriction 40oz
- Dispo: to SNF on 08/18, accepted at [facility] & [facility]
Anticipated Discharge: Within 24 hours
Subjective/Interval History
-
Date of Service: August 17, 2025
Patient feeling well this morning. Stating that she is urinating a lot, getting up to the commode, able to sense when she needs to urinate. States that she feels that the swelling in her lower extremities has improved slightly. Denies any
abdominal pain. States that her bowel movements have become slightly less frequent, but are still fairly liquid s/p Metamucil. Understands plan for SNF tomorrow. Would like to set up new PCP with the [place] practice.
Objective Data
-
Labs:
Laboratory Results
08/17/25
06:09
WBC 7.0
Hgb 10.7 L
Hct 30.7 L
Plt Count 780 H
Sodium 128 L
Potassium 4.1
Chloride 105
Carbon Dioxide 24
BUN 7
Creatinine 0.4 L
Glucose 81
Calcium 7.6 L
Total Bilirubin 0.3
AST 23
ALT 21
Alkaline Phosphatase 140 H
Vital Signs:
Vital Signs
Temp Pulse Resp BP Pulse Ox
97.6 F 88 19 141/52 96
08/17/25 03:35 08/17/25 03:35 08/17/25 03:35 08/17/25 03:35 08/17/25 03:35
I&O
08/16/25 08/17/25 08/18/25
06:59 06:59 06:59
Intake Total 960 / 960
Output Total 600 / 600
Balance 360 / 360
Review of Systems
-
History Source: Patient
Constitutional: Reports No Symptoms
Respiratory: Reports No Symptoms
Cardiac: Reports No Symptoms
Abdomen/GI: Reports Diarrhea
Genitourinary: Reports Frequency
Musculoskeletal: Reports Edema
Skin: Reports No Symptoms
Neuro: Reports No Symptoms
Physical Exam
-
General: Well Developed, Well Nourished, No Apparent Distress and Comfortable
HEENT: Normocephalic and Atraumatic
Respiratory: Clear to Auscultation
Cardiac: Regular Rhythm
GI: Soft, Nontender and Nondistended
Musculoskeletal: No Edema (Mild 0-1+ pitting edema to trevino, improved from yesterday)
Skin: Warm and Dry
Neuro: Awake, Alert and Oriented
Psych: Calm
Data Reviewed
-
Total Time Spent with Patient (in minutes): 15
Critical Care Time (in minutes): 35
Labs: Labs Reviewed by me
[2025-08-17 07:40] VITALS: BP 141/50
[2025-08-17] MEDS: DIOVAN 80 MG PO (09:00)
[2025-08-17] MEDS: PACERONE 100 MG PO (09:00)
[2025-08-17] MEDS: ELIQUIS 10 MG PO ×2 (09:02→22:39)
[2025-08-17] MEDS: METAMUCIL, KONSYL 1 PACKET PO (09:03)
[2025-08-17] MEDS: LOW STRENGTH ASPIRIN 81 MG PO (09:03)
[2025-08-17] MEDS: PROTONIX 40 MG PO (09:03)
[2025-08-17] MEDS: LASIX 20 MG PO ×2 (09:03→11:33)
[2025-08-17] MEDS: DIFICID 200 MG PO ×2 (09:11→22:39)
--- NOTE | 2025-08-17 11:05 | W.PN.NEPH.PH ---
Today's Communication / Plan
-
Maintain fluid restriction and Lasix
Follow-up BMP in am
Assessment/Plan
-
Assessment
FAVIAN
C difficile diarrhea/colitis
leukocytosis
hyperkalemia
metabolic acidosis
lactic acidosis
hyponatremia
CAD
hypocalcemia
UE DVT acute on this admission
Hypertension
Plan
Sodium at 128
ADH mediated
Maintain 40 mg daily of Lasix and fluid restriction
Blood pressure stable on valsartan
a.m. labs
For discharge to rehab tomorrow
-
-
Date of Service: August 17, 2025
CC / HPI / ROS
-
Chief Complaint:
FAVIAN
Hyperkalemia
Metabolic acidemia
History of Present Illness:
Sodium at 128 on fluid restriction and 40 mg lites
bp stable, k normal
abx for c diff colitis
Review of Systems:
no chest pain or shortness of breath
diarrhea improves
Weight
Labs
-
Labs:
WBC 7.0 10^3/uL (4.8-10.8) 08/17/25 06:09
RBC 3.71 10^6/uL (4.20-5.40) L 08/17/25 06:09
Hgb 10.7 g/dL (12.0-16.0) L 08/17/25 06:09
Hct 30.7 % (37.0-47.0) L 08/17/25 06:09
Plt Count 780 10^3/uL (130-400) H 08/17/25 06:09
Sodium 128 mmol/L (135-145) L 08/17/25 06:09
Potassium 4.1 mmol/L (3.5-5.1) 08/17/25 06:09
Chloride 105 mmol/L (98-107) 08/17/25 06:09
Carbon Dioxide 24 mmol/L (22-30) 08/17/25 06:09
BUN 7 mg/dl (7-17) 08/17/25 06:09
Creatinine 0.4 mg/dL (0.6-1.0) L 08/17/25 06:09
eGFR > 60.00 08/17/25 06:09
Glucose 81 mg/dl (70-99) 08/17/25 06:09
Calcium 7.6 mg/dl (8.4-10.2) L 08/17/25 06:09
Albumin 2.0 g/dl (3.5-5.0) L 08/17/25 06:09
Physical Exam
-
Vital Signs:
Vital Signs
Temp Pulse Resp BP Pulse Ox
98.0 F 82 18 141/50 96
08/17/25 07:40 08/17/25 07:40 08/17/25 07:40 08/17/25 07:40 08/17/25 07:40
Respiratory:: Bilateral: CTA
Lung Excursion:: Normal
Abdomen:: Soft
Bowel Sounds:: Normal
Extremity Edema:: +2: Bilateral:
Asher Catheter: No
[2025-08-17 11:17] VITALS: BP 121/78
--- NOTE | 2025-08-17 11:23 | W.PN.ID1 ---
Date of Service
Date of Service: August 17, 2025
Today's Communication
See below.
ID will sign off.
Assessment / Plan
# Severe C. difficile colitis - resolved
# leukocytosis - resolved
# Prerenal FAVIAN- resolved
# Encephalopathy/psych - resolved
. Pt had previously missed po vanco intermittently due to mental status change/refusal medical treatment).
. Now compliant with meds
# Atrial tachycardic - improved
- Last day of Fidaxomicin 200mg po bid x 10 days through today 08/17/25.
- Continue soluble fiber prn to bulk up stool to decrease stool incontinence.
- Dr. Cherry encouraged her to increase intake of fiber containing foods +/- fermented foods such as sauerkraut, kimchi, kombucha, kefir.
- Discussed 20% relapse rate after first episode.
- Avoid unnecessary systemic abx. If need for systemic abx, recommend concomitant C. diff prophylactic Vancomycin 125 mg po bid, end date 5 days after completion of systemic abx.
ID will sign off.
# Additional Past Medical History:
Hypertension
CAD status post stent
Hypothyroidism
IBS
Severe neuropathy BLE
Glaucoma
Rectal prolapse status post rectopexy 01/06/21
Hemorrhoid s/p banding
Appendectomy
Hysterectomy with BSO
Right knee replacement
Chief Complaint
-: C-diff
Subjective / Review of Systems
+urine frequency from furosemide.
stool is soft.
Vital Signs / Physical Exam
Vital Signs
Vital Signs
Temp Pulse Resp BP Pulse Ox
98.1 F 86 17 121/78 97
08/17/25 11:17 08/17/25 11:17 08/17/25 11:17 08/17/25 11:17 08/17/25 11:17
Physical Exam
Constitutional: No Acute Distress and Comfortable
Cardiovascular: Regular Rate and S1/S2
Pulmonary: Clear (Anteriorly)
Gastrointestinal: Soft, Non Tender, Non Distended and Normal Bowel Sounds
Extremities: Edema (BLE)
Neurological: AO x 3
Psychological: Calm
Objective Data
Lab Data
Lab Results
08/17/25 06:09
08/17/25 06:09
APTT Cancelled 08/07/25 06:00
Estimated Creat Clear 70 ml/min 08/17/25 06:09
Lactic Acid 1.8 mmol/L (0.7-2.0) 08/03/25 11:15
Total Bilirubin 0.3 mg/dl (0.2-1.3) 08/17/25 06:09
AST 23 U/L (14-36) 08/17/25 06:09
ALT 21 U/L (0-35) 08/17/25 06:09
Alkaline Phosphatase 140 U/L (38-126) H 08/17/25 06:09
Most recent labs reviewed.
Micro Results:
08/02/25 18:20 Blood Culture - Final
Blood/Venous No Growth - Final Report
08/02/25 18:21 Salmonella/Shigella Culture - Final
Feces/Stool No Salmonella, Shigella, Aeromonas or Plesiomonas species
isolated.
Campylobacter Culture - Final
No Campylobacter species isolated.
Shiga Toxin Test - Final
No E. coli Shiga Toxin 1 or 2 detected.
08/03/25 12:33 Urine Culture - Final
Urine No Significant Growth
08/02/25 18:21 C. difficile GDH Antigen & Toxins - Final
Feces/Stool Toxigenic C.difficile Positive
Norovirus (PCR) - Final
Negative for Norovirus GI and GII.
08/02/25 17:33 Influenza Types A & B (DULCE) - Final
Nasal Swab Negative for Influenza A & B, NAAT
Negative results must be combined with clinical observations
and patient history.
Nucleic Acid Amplification test (NAAT)performed on the
[employer] platform.
Imaging:
08/02/25 CT a/p: There is pronounced wall thickening with adjacent stranding throughout the colon which likely represents severe colitis. The gallbladder appears mildly distended. There are no adjacent findings suggestive of acute cholecystitis.
This may be secondary to fasting state. If there is concern for acute cholecystitis consider dedicated right upper quadrant ultrasound. Moderately distended urinary bladder. There is mild prominence of the bilateral collecting systems which is
unchanged from prior.
[2025-08-17 13:40] LABS: COVID-19 Antigen Negative (Negative)
--- NOTE | 2025-08-17 14:29 | CM ---
Patient seen at bedside with physicians and patient son in [facility]. Patient completed IMM and signed form placed on chart. Patient for transfer to [facility] tomorrow am. CM spoke with admissions A[facility] [phone]. Please call report to
[phone] fax to facility. CM will continue to follow for discharge planning needs.
Plan; SNF transfer tomorrow.
[2025-08-17] MEDS: MOTRIN 200 MG PO (14:59)
[2025-08-17 15:28] VITALS: BP 136/74
--- NOTE | 2025-08-17 17:48 | W.PN.CARDCBS ---
Today's Communication / Plan
-
Stop aspirin
Will sign off, recall if needed.
Impression / Plan
-
PCP: Previously following with Dr. Savana Samuel and transitioning to Dr. Renetta Rodriguez with a new patient appointment scheduled for 11/02/2025
Cardiology: Previously followed with Dr. Houser, last seen in 2022
Impression:
Admitted with generalized weakness, fevers and chills and diarrhea 08/02/2025
C. difficile colitis
Sepsis
FAVIAN
Hyperkalemia
Newly diagnosed paroxysmal atrial tachycardia
Sinus bradycardia
PVCs
CAD s/p AWMI and 3.0 mm Cypher MARGARITO to the proximal LAD 05/2004
Hyperlipidemia
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
Urinary retention
Right brachial DVT
Echo 08/05/2025: EF 55 to 60%, mild concentric LVH, mild MR
Plan:
Paroxysmal atrial tachycardia/atrial fibrillation
-Patient is on therapeutic dose Eliquis for right brachial DVT
-Would stop concomitant aspirin
-Continue low-dose amiodarone
-Continue telemetry monitoring
-Would consider assessment for possible underlying sleep apnea. Nocturnal O2 performed 08/15 which did not reportedly capture any desaturation events
Severe C. difficile colitis being followed by infectious disease now improved
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
Discharge planning per primary with anticipated discharge to halfway facility on Saturday.
Outpatient cardiac follow-up to be arranged
Will sign off, recall if needed
HPI: Patient came to the ER on Saturday with fevers, chills generalized weakness and diarrhea and was admitted with sepsis and C. difficile colitis, cardiology is now consulted for an episode of newly diagnosed paroxysmal atrial fibrillation. Through
the weekend patient was at home dealing with generalized weakness fevers and chills and then started with diarrhea. There was thought that perhaps it was due to a viral illness such as influenza or COVID and patient was advised to take Imodium.
Due to increasing weakness the patient came to the ER and had evidence for sepsis and her stool culture was positive for C. difficile. Patient now admitted for sepsis and C. difficile colitis. Patient had worsening TME changes and was transition
to vancomycin [place], but GI consulted for placement of DHT today. DHT placed with some resistance from the patient who is now placed in soft mitts B/L. Patient noted to have onset of rapid atrial tachycardia. Patient was given Lopressor 5 mg IV x 1
and shortly thereafter spontaneously converted to SR. Unclear if patient experienced any symptoms due to ongoing TME changes. Patient's is at the bedside and relates that patient stopped following with cardiology a few years ago due to
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 Patient has a remote history of anterior wall NH and LAD PCI back in 2003, at that time the patient had just received a distressing phone call that one of her sons had an accident and was apparently
asked.
Progress Note - [employer]
Subjective
Date of Service: August 17, 2025
Seen and examined overall feeling better. Denies shortness of breath or chest pain. No abdominal pain.
Objective
Labs:
08/17/25 06:09
08/17/25 06:09
Labs
Hgb 10.7 g/dL (12.0-16.0) L 08/17/25 06:09
Hct 30.7 % (37.0-47.0) L 08/17/25 06:09
Plt Count 780 10^3/uL (130-400) H 08/17/25 06:09
APTT Cancelled 08/07/25 06:00
Sodium 128 mmol/L (135-145) L 08/17/25 06:09
Potassium 4.1 mmol/L (3.5-5.1) 08/17/25 06:09
BUN 7 mg/dl (7-17) 08/17/25 06:09
Creatinine 0.4 mg/dL (0.6-1.0) L 08/17/25 06:09
Glucose 81 mg/dl (70-99) 08/17/25 06:09
Vital Signs and I&O:
Vital Signs
Temp Pulse Resp BP Pulse Ox
97.8 F 70 17 136/74 97
08/17/25 15:28 08/17/25 15:28 08/17/25 15:28 08/17/25 15:28 08/17/25 15:28
Vital Signs
Temp Pulse Resp BP Pulse Ox
97.8 F 70 17 136/74 97
08/17/25 15:28 08/17/25 15:28 08/17/25 15:28 08/17/25 15:28 08/17/25 15:28
Intake & Output
08/15/25 08/16/25 08/17/25 08/18/25
06:59 06:59 06:59 06:59
Intake Total 1560 / 1560 960 / 960 600 / 600
Output Total 600 / 600
Balance 1560 / 1560 360 / 360 600 / 600
Physical Exam
Physical Exam
GEN: NAD on room air.
HEENT: EOMI
LUNGS: Bronchovesicular breath sounds clear. On room air.
CV: Irregular irregular. Positive S1-S2. No murmurs
EXT: No edema B/L LE
[2025-08-17 19:00] VITALS: BP 135/64
[2025-08-17] MEDS: MELATONIN 5 MG PO (22:39)
[2025-08-17] MEDS: NEURONTIN 400 MG PO (22:39)
[2025-08-17] MEDS: XALATAN OPHTHALMIC SOLUTION 1 DROP BOTH EYES (22:40)
[2025-08-17 23:00] VITALS: BP 129/62
[2025-08-18 03:00] VITALS: BP 115/55
[2025-08-18 04:10] VITALS: BMI 33.0
[2025-08-18] MEDS: SYNTHROID 88 MCG PO (05:18)
[2025-08-18] MEDS: TYLENOL 650 MG PO (05:18)
[2025-08-18 06:47] LABS: Hematocrit 32.4 % (37.0-47.0); Hemoglobin 11.1 g/dL (12.0-16.0); Mean Corp Hgb Conc. 34.3 g/dL (33.0-37.0); Mean Corpuscular Volume 83.3 fL (81.0-99.0); Nucleated Red Blood Cells % 0 %; Platelet Count 744 10^3/uL (130-400); Red Cell Dist. Width 17.1 % (11.5-14.5)
[2025-08-18 06:52] LABS: ALT (SGPT) 23 U/L (0-35); AST (SGOT) 27 U/L (14-36); Albumin 2.2 g/dl (3.5-5.0); Alkaline Phosphatase 147 U/L (38-126); Blood Urea Nitrogen 7 mg/dl (7-17); Calcium 7.8 mg/dl (8.4-10.2); Carbon Dioxide 22 mmol/L (22-30); Chloride 102 mmol/L (98-107); Estimated Creatinine Clearance 70 ml/min; Glucose 82 mg/dl (70-99); Potassium 4.2 mmol/L (3.5-5.1); Sodium 128 mmol/L (135-145); Total Protein 4.9 g/dl (6.3-8.2); eGFR > 60.00
--- NOTE | 2025-08-18 07:10 | W.PN.HOSP.TC ---
Addendum entered and electronically signed by Gaviota Villareal MD 08/18/25 15:19:
I saw and evaluated the patient independently. I reviewed and discussed the resident�s note and agree with findings and plan as documented by Dr. Wynn.
GENERAL: well developed, well nourished, female in no apparent distress
HEENT: NC/AT
HEART: regular rate and rhythm, S1, S2
LUNGS: Clear to auscultation bilaterally
ABDOM: Soft, nontender, nondistended, positive bowel sounds
EXT: No cyanosis, clubbing, edema
NEUROLOGIC: Grossly intact
encephalopathy--resolved--apprec psych
Sepsis with evidence of end organ damage of lactic acidosis, encephalopathy, acute kidney injury with toxigenic C. Diff as the cause --resolved--CT scan without oral or IV contrast shows severe colitis--apprec ID--finishes Dificid today--fiber added
to bulk up stools
Severe hyponatremia --likely due to hypovolemia from GI losses--119 on admission, slowly improving---apprec renal, s/p 3% NaCL with fluid restriction--apprec renal -- serum cortisol and TSH WNL--cont lasix at d/c
new onset atrial fibrillation with RVR and periods of bradycardia--responded to IV lopressor--apprec cards input, follow up as outpt--cont Eliquis--amio PO
bilateral UE DVTs--Eliquis
Lethargy/weakness also likely compounded by hypotension and volume loss/dehydration, Hyponatremia, sepsis--speech, PT/OT rec SNF
Acute urinary retention--resolved-- samaniego cath stopped
Hyperkalemia/hypocalcemia--resolved
FAVIAN--resolved-- likely prerenal---apprec renal
Essential HTN--restart home valsartan
HLD - 'Pt is intolerant of statins. Dr. Houser has recommended [id number] but she refuses.'
CAD - continue home aspirin as able
Hypothyroidism - continue home levothyroxine as able
GERD - PPI to PO
Polyneuropathy - continue home gabapentin as able
DVT proph -- heparin
Code status-- full
d/c to SNF
Original Note:
Today's Communication/Plan
-
- discharge today to SNF
- 20mg daily lasix at discharge
- 100mg daily amiodarone at discharge
- stop aspirin
- 5mg bid eliquis starting 08/19, 10mg bid through tonight
- f/u with cards & PCP
Assessment / Plan
Assessment / Plan
84yo M with a hx of essential HTN, HLD, CAD, hypothyroidism, GERD, & polyneuropathy who p/w generalized weakness, fever/chills, nausea, & diarrhea, found to have sepsis 2/2 positive c diff diarrhea with evidence of end-organ damage, now with
resolving infection, fluctuating hyponatremia, and improved mental status, c/b sick sinus syndrome and bilateral UE DVTs, now resolving & awaiting SNF placement.
#C diff diarrhea, resolving, with fully resolved sepsis w end organ damage
Labs on admission 08/02 - WBC 29.5, Cl 92, CO2 15, lactic acid 3.5, AST 155, ALT 52. Diarrhea since 07/31 with fever/chills resolved by time of admission. CT a/p with evidence of severe colitis. C diff stool antigen positive. Covid, flu, norovirus
negative. F/c, nausea, weakness, electrolyte abnormalities all likely 2/2 c diff & associated volume loss/sepsis. S/p IV metronidazole (stopped 08/09). Rectal tube out 08/09. S/p fidaxomicin (stopped 08/17).
Today - afebrile; BM slowing; WBC normalized
- PRN tylenol for pain
- Continue soluble fiber to bulk up stool to decrease stool incontinence
- Recommend diet high in fiber and probiotics/fermented food at discharge
#Paroxysmal atrial fibrillation vs. atrial tachycardia
#Episodes of bradycardia, 1st degree AV block, sick sinus syndrome
Transient episode of a fib shortly after dobhoff placement on 08/04, likely triggered by physiologic stress exacerbation from tube placement in s/o pt current illness. Resolved to normal sinus rate/rhythm s/p 5mg IV metoprolol. 08/05 morning, pt
again in a fib with HR in 120s. TTE 08/05 did not demonstrate significant LA dilation or significant regional wall motion abnormalities, mild LA enlargement & MR (EF 55-60%, LA volume mildly abnormal 35-41, mild concentric LVH, mild MR). Afib likely
2/2 physiologic stress exacerbating mild existing abnormalities. EKG 08/11 with 1st degree AV block, LVH. Per cards eval, sick sinus syndrome - to monitor outpatient. Following episode of 5.2 second pause on 08/13, amio dose decreased. Overnight O2
study ordered, which demonstrated 0 desat events. EKG 08/16 without a fib.
Today - HR 88
- PO eliquis 10mg bid through 08/18, then 5mg bid
- Continue amiodarone 100mg daily
- Monitor on tele
- Stop aspirin
- Plan to f/u outpatient cardiology
#Hyponatremia, fluctuating
Na+ 119 on admission, likely 2/2 hypovolemic hyponatremia in s/o volume loss w ongoing diarrhea. Initial AMS, difficult to arouse likely 2/2 severe hyponatremia. Cortisol & TSH wnl. Urine Na 7, urine cr 90.3, serum osm 281 - not hypoosmolar given
repletion already performed, but urine sodium <7 supports likely prior hypoosmolar hypovolemic hyponatremia. Pt with ongoing hyponatremia in 120s s/p resolution of other lytes & infection - refractory to hypertonic saline & fluid restriction;
responded to tolvaptan 08/12 w increase to 129. Supports SIADH etiology given prior pain/AMS/illness. Pt started low-dose lasix 08/14 given likely fluid overload.
Today - Na 128
- Continue 40oz fluid restriction
- Increase lasix to 40mg daily
- Renal following, appreciate recs
#Volume overload
Pt with volume overload following IVF. S/p lasix as of 08/04 PO 20mg daily. (Renal had rec'd 80mg IV but family deferred initially).
Today - UE swelling improved, bilat LE with pitting edema; family amenable to increased lasix dose
- Discharge w 20mg lasix daily
#Bilateral UE DVTs/superficial thrombi (L cephalic, R brachial)
Pt with arm swelling since ~08/10. Initially thought to be 2/2 volume overload, hypertonic fluids, arms in dependent position, inflammation from repeated needlesticks. No erythema, no pain. Pt has been on eliquis. 08/11 US demonstrated: 'Occlusive
thrombus within one of the right brachial veins throughout the upper right arm. Occlusive thrombus throughout the mid to distal aspect of the left cephalic vein in the upper left arm.' R arm DVT 2/2 potential eliquis failure vs. development of DVT
in interval earlier when pt was refusing meds. L cephalic likely 2/2 lines/trauma to endothelium.
- Continue 7-day course of increased eliquis dose, 10mg bid through 08/18
- Continue to monitor
#Hyperkalemia, resolved
#Hypocalcemia, resolved
K 5.8 on admission, likely 2/2 high-volume diarrhea. Likely 2/2 ongoing valsartan use in s/o volume loss vs. adrenal insufficiency vs. RTA. Cortisol wnl, more likely volume loss etiology. S/p insulin; s/p ca gluconate x2.
- Continue to trend BMP
- Renal following, appreciate recs
#AMS, paranoia, c/f psychosis - resolved
08/03-18 - pt obtunded, unable to rouse beyond turning head am despite near-normalization of lytes by 08/05. Per RN, had waxing/waning consciousness overnight not much improved from prior day. CT head 08/05 unremarkable. Ammonia, B12, folate wnl.
ABG 08/05 w alkalosis w compensatory metabolic acidosis, likely 2/2 overcorrection w bicarb drip. Potential elements of hospital induced delirium vs. metabolic encephalopathy vs. underlying dementia vs. pain vs. prior hospital-associated trauma.
08/06 Psych eval: 'patient lacks capacity for medical decision making. son seems to have her interests at heart and and son should be consulted.' 08/07 - [facility] conversation re: decisionmaking, proceeding w pain mgmt & restraints if necessary.
08/09 - mental status resolved to baseline s/p overnight risperidone & w resolving infection.
- Continue PT/OT and OOB
#FAVIAN, resolved, likely prerenal
#Acute urinary retention
Cr 1.8, BUN 49, eGFR 27.78 on admission, likely prerenal in s/o volume loss 2/2 c diff diarrhea. BUN/Cr ratio 27, c/w prerenal. Potential component of obstruction, although no evidence of overt physical obstruction on CT. Per RN, pt retaining 1700
in bladder on 08/03 at 12:30pm. CT a/p 08/02: 'Moderately distended urinary bladder. There is mild prominence of the bilateral collecting systems which is unchanged from prior.' Likely contributor to FAVIAN. Uncertain etiology, likely in s/o multiorgan
damage in s/o sepsis.
Resolved s/p fluids. Samaniego catheter removed 08/13.
- Renal following, appreciate recs
#Chronic
#Essential HTN - home valsartan
#HLD - 'Pt is intolerant of statins. Dr. Houser has recommended [id number] but she refuses.'
#CAD - continue home aspirin
#Hypothyroidism - continue home levothyroxine
#GERD - IV PPI
#Polyneuropathy - continue home gabapentin
#Global
- DVT ppx: eliquis
- Code: full
- Diet: regular diet with fluid restriction 40oz
- Dispo: to [facility] today 10am
Anticipated Discharge: Today
Subjective/Interval History
-
Date of Service: August 18, 2025
Feeling well this am. Stools more formed. Mood good. Understands plan for dc today to [place] at 10am. No abd pain. No racing heart. Urinating frequently, swelling improving in LEs but not fully down.
Objective Data
-
Labs:
Laboratory Results
08/18/25
06:08
WBC 6.4
Hgb 11.1 L
Hct 32.4 L
Plt Count 744 H
Sodium 128 L
Potassium 4.2
Chloride 102
Carbon Dioxide 22
BUN 7
Creatinine 0.5 L
Glucose 82
Calcium 7.8 L
Total Bilirubin 0.3
AST 27
ALT 23
Alkaline Phosphatase 147 H
Vital Signs:
Vital Signs
Temp Pulse Resp BP Pulse Ox
97.3 F 81 16 115/55 95
08/18/25 03:00 08/18/25 03:00 08/18/25 03:00 08/18/25 03:00 08/18/25 03:00
I&O
08/17/25 08/18/25 08/19/25
06:59 06:59 06:59
Intake Total 1320 / 1320
Balance 1320 / 1320
Review of Systems
-
History Source: Patient
Constitutional: Reports No Symptoms
Respiratory: Reports No Symptoms
Cardiac: Reports No Symptoms
Abdomen/GI: Reports Diarrhea
Genitourinary: Reports Frequency
Musculoskeletal: Reports Edema
Skin: Reports No Symptoms
Neuro: Reports No Symptoms
Physical Exam
-
General: Well Developed, Well Nourished, No Apparent Distress and Comfortable
HEENT: Normocephalic and Atraumatic
Respiratory: Clear to Auscultation
Cardiac: Regular Rhythm
GI: Soft, Nontender and Nondistended
Musculoskeletal: No Edema (Mild 0-1+ pitting edema to trevino, improved from yesterday)
Skin: Warm and Dry
Neuro: Awake, Alert and Oriented
Psych: Calm
Data Reviewed
-
Total Time Spent with Patient (in minutes): 15
Critical Care Time (in minutes): 30
Labs: Labs Reviewed by me
[2025-08-18 07:51] VITALS: BP 107/68
--- NOTE | 2025-08-18 08:26 | CM ---
CM spoke with carla Villar [phone]. Patient seen at bedside with physicians on 3 . Patient aware and anticipating transfer. Please call report to [phone]/ [phone] fax to facility. CM will continue to follow for discharge
planning needs.
Plan; SNF today.
[2025-08-18] MEDS: PACERONE 100 MG PO (08:29)
[2025-08-18] MEDS: DIOVAN PO (08:30)
[2025-08-18] MEDS: ELIQUIS 10 MG PO (08:31)
[2025-08-18] MEDS: PROTONIX 40 MG PO (08:31)
[2025-08-18] MEDS: METAMUCIL, KONSYL 1 PACKET PO (08:31)
--- NOTE | 2025-08-18 09:30 | W.DCSUMMARY ---
Addendum entered and electronically signed by Gaviota Villareal MD 08/18/25 15:26:
Read, reviewed, and agree. See same day progress note for additional details. Time spent coordinating care, DC planning, review of DC plan of care with resident, transition of care, review of records in EMR, med rec, consults, notes, d/w
consultants, nursing, family, and CM = 45 minutes
Original Note:
Discharge Summary
Discharge Data
Date of Admission: 08/02/25
Date of Discharge: 08/18/25
-
Pending Results: No
Hospital Course
Discharging Physician : Gaviota Villareal MD ; Ladonna Wynn MD
Disposition : SNF
Primary care physician : TBD
Principal Discharge diagnosis : c diff diarrhea w sepsis; hyponatremia; a fib; sick sinus syndrome; FAVIAN
Chronic Discharge diagnosis : HTN, HLD, CAD, hypothyroidism, GERD, polyneuropathy
Hospital Course :
84yo M with a hx of essential HTN, HLD, CAD, hypothyroidism, GERD, & polyneuropathy who p/w generalized weakness, fever/chills, nausea, & diarrhea, found to have sepsis 2/2 positive c diff diarrhea with evidence of end-organ damage (FAVIAN,
hyponatremia, AMS), with hospital course c/b a fib & sick sinus syndrome and bilateral UE DVTs.
Patient presented on 08/02 with severe weakness in the setting of ongoing diarrhea at home. Duration of diarrhea unclear, family gives varying reports of chronic diarrhea, perhaps worsening diarrhea over the last 1-2 months. Patient may have had
repeated courses of antibiotics from dentist in June. On presentation, patient was found to have leukocytosis with WBC 29.5, hyponatremia with sodium 119, hyperkalemia with a potassium of 5.8, acidosis with bicarb 15, FAVIAN with creatinine 1.8 and
BUN 49, lactic acidosis with lactate 3.5, elevated LFTs with AST 155 and ALT 52. EKG on admission demonstrated sinus bradycardia with first-degree AV block and left bundle branch block. CT abdomen pelvis demonstrated wall thickening and stranding
throughout the colon, consistent with severe colitis. Testing returned positive for C. difficile. Patient was admitted to telemetry and started on fluids, p.o. Vanco, IV metronidazole.
On 08/03, patient was found to be obtunded, with AMS. Confused/lethargic, minimally answering questions. Patient was transferred to the IMU and continued on fluids/antibiotics. Asher catheter and rectal tube were placed. NG tube was placed to
allow continuation of p.o. vancomycin, after brief trial of rectal vancomycin.
Patient's electrolyte abnormalities corrected over 2-3 days with fluids, including sterile water with bicarb addition. Patient's K, bicarb, lactic acid, and creatinine resolved to wnl within 2 to 3 days. Patient remained hyponatremic throughout
hospitalization, with sodium levels stabilizing 128�130. Patient was given 2�3 courses of hypertonic saline, was kept on a 40 ounce fluid restriction, was given 2�3 doses of tolvaptan, and, starting on 08/14, low-dose p.o. Lasix.
Patient's course was complicated by AMS. Patient remained obtunded through 08/05 - 08/06. Began waking up on 08/06 - 08/07, however was very confused/disoriented/paranoid. Patient thought to be experiencing psychosis with paranoia, exacerbated by
her underlying illness and hospital induced delirium. In the course of delirium, patient removed NG tube. Psychosis persisted despite normalization of electrolytes and downtrending of WBC. CT and MRI head did not demonstrate any acute
intracranial abnormalities. Following a trial of low-dose risperidone in the evening, patient's mental status normalized. For the week prior to discharge, patient's mental status was at baseline. Pleasant/conversant/oriented. Asher catheter was
able to be removed on 08/13. Patient no issues with urinary retention, able to void appropriately.
Patient's C. difficile diarrhea was successfully treated with p.o. vancomycin and IV metronidazole. In order to reduce pill burden for patient, p.o. vancomycin was converted to p.o. fidaxomicin on 08/08. IV metronidazole was discontinued on 08/09.
P.o. antibiotics were completed on 08/17. Rectal tube was removed on 12/22. Patient's diarrhea slowed, stool began to firm with addition of Metamucil.
Patient's hospital course was also complicated by atrial fibrillation, which was noted on 08/04 after placement of Dobbhoff tube. It was monitored for 24 hours, but it recurred again on 08/05 with HR into the 120s�130s. Cardiology was consulted.
TTE was performed, no structural etiology was identified. Patient was started on IV heparin drip, which was eventually converted to p.o. Eliquis once patient's mental status normalized. Patient also received IV metoprolol intermittently throughout
course of hospital for rate control. She was also started on amiodarone, the dose of which was tapered over time to 100 mg daily at time of discharge. The amiodarone taper was motivated by episodes of bradycardia (asymptomatic, HR to the 30-40s),
thought to be consistent with sick sinus syndrome per cards. Cardiology recommended that patient continue amiodarone 100 mg twice daily and Eliquis 5 mg twice daily at discharge, and patient instructed to follow-up with cardiology outpatient.
Finally, patient's course was complicated by bilateral UE and DVTs. Etiology thought to be either pause in anticoagulation during period of patient's AMS when IV and p.o. meds were being refused vs. vascular trauma from repeated lines and
needlesticks. See ultrasound findings under 'important imaging findings.' Patient was given a 7-day course of 10 mg Eliquis twice daily, which was converted to 5 mg Eliquis twice daily at time of discharge (last dose of 10 mg on 08/18 evening).
Patient has some residual swelling with pitting edema in the bilateral lower extremities, and minimally in the upper extremities. She was started on a low-dose of 20 mg p.o. Lasix on 08/14, which was increased to 40 mg p.o. Lasix on 08/17. She was
discharged on 20 mg p.o. Lasix.
Pt was downgraded to tele during her final week inpatient. At time of discharge on 08/18, electrolytes were normal other than sodium of 128, which was stable. Creatinine was 0.5. Patient's WBC had normalized to 6.4. Patient's stool output had
significantly decreased, with stools becoming more well-formed with the addition of Metamucil on 08/16. Patient's HR 100 made stable for the last few days, HR at time of discharge was 89. Patient had been working with PT/OT for the prior week, had
been able to get out of bed and ambulate to the bathroom and to chair. Motivated to work in physical therapy.
Patient instructed to follow-up with [facility] to establish PCP follow-up. Patient instructed to notify future providers about history of C. difficile when requiring antibiotics in order for prophylaxis to be prescribed
concomitantly.
Important imaging findings :
CT a/p 08/02:
There is pronounced wall thickening with adjacent stranding throughout the colon which likely represents severe colitis.
The gallbladder appears mildly distended. There are no adjacent findings suggestive of acute cholecystitis. This may be secondary to fasting state. If there is concern for acute cholecystitis consider dedicated right upper quadrant ultrasound.
Moderately distended urinary bladder. There is mild prominence of the bilateral collecting systems which is unchanged from prior.
CT head 08/05:
1. No acute intracranial abnormalities appreciated.
2. Mild atrophy and mild chronic small vessel change.
3. 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
Peripheral vascular US 08/11:
1. Occlusive thrombus within one of the right brachial veins throughout the upper right arm.
2. Occlusive thrombus throughout the mid to distal aspect of the left cephalic vein in the upper left arm.
TTE 08/05:
1. Ejection fraction is 55-60% by visual assessment.
2. Calcified trileaflet aortic valve with adequate leaflet excursion. Trace aortic insufficiency.
3. Indexed left atrial volume is mildly abnormal (35-41 ml/m2).
4. Mild concentric left ventricular hypertrophy.
5. Posterior mitral annular calcification with mild mitral regurgitation.
Procedure findings : N/A
Discharge Plan
-
Patient Disposition: Assisted/SNF
Discharge Diagnosis/Procedures: C diff diarrhea w sepsis; hyponatremia; atrial fibrillation/atrial tachycardia; upper extremity DVTs; FAVIAN
Condition: Good
Diet: Restrict fluids to 48 oz
Activity: As tolerated
Driving Restrictions: Not until seen by your Dr
Bathing Restrictions: None
Blood Work: BMP in 5 days
Referrals:
Anthony Moses MD, Resident [[facility] Resident Year2, General] - in one week
Bret Bauman MD [Active, [facility]] - in one week
Anabell Terrazas MD, Resident [[facility] Resident Year1, General] - in one week
Jonathan Houser MD [Active, Cardiology] - 09/07/25 12:40 pm
Referral Note: You have an appointment to see Dr. Houser's physician therapy administrative assistant, Maria De Jesus, at the [place] office on 09/07/2025 at 12:40 PM. You are then scheduled to see Dr. Houser at the [place] office on 12/08/2025 at 4 PM. Please call [phone]
if you need to reschedule.
Additional Discharge Medication Instructions: For your c diff diarrhea:
- START taking soluble fiber (metamucil) as needed to bulk up stool to decrease stool incontinence.
- Try to increase your intake of fiber-containing foods +/- fermented foods, such as sauerkraut, kimchi, kombucha, kefir.
- Avoid unnecessary systemic antibiotics - if you need them, remember to tell your physician about your history of c diff; we recommend pairing the antibiotic you need with prophylactic Vancomycin 125 mg PO twice a day, with an end date 5 days after
completion of the systemic antibiotic.
- Refer to the information on the c diff packet regarding disinfection of your home.
For your heart:
- START taking amiodarone 200mg once daily (to prevent tachyarrhythmias)
- STOP taking aspirin
- START taking eliquis according to the following schedule: 10mg eliquis twice daily through 08/18 evening, then start taking 5mg eliquis twice daily
- Follow up with Dr. Houser (cardiology) on 09/07/25 at 12:40pm (information provided in this paperwork)
For your fluid retention:
- START taking 20mg lasix (furosemide) daily until you follow up with your new primary to discuss further
For your low sodium levels:
- Get your blood drawn in 5 days to get 'BMP' labs
- Follow up with your primary care provider in 1 week to review the results
- We have provided information for multiple primary care providers associated with this hospital/program (Dr. Anthony Moses, Dr. Anabell Terrazas - both residents that you saw while in the hospital ; Dr. Bret Bauman - a family medicine attending at the
[facility] with the residents) - please pick one of them to follow up with
Prescriptions:
New
Eliquis 5 mg Tablet
10 mg PO BID Qty: 1 0RF
Rx Instructions:
take 10mg in the evening of 08/18
Eliquis 5 mg tablet
5 mg PO BID 30 Days Qty: 60 0RF
Rx Instructions:
start taking 08/19
Metamucil Fiber (aspartame) 3.4 gram Powder In Packet
1 packet PO DAILY PRN (Reason: incontinence) Qty: 30 0RF
amiodarone 100 mg Tablet
100 mg PO DAILY 30 Days Qty: 30 0RF
furosemide [Lasix] 20 mg tablet
20 mg PO DAILY 30 Days Qty: 30 0RF
Continued
turmeric root extract 500 MG capsule
500 mg PO DAILY Qty: 0
acetaminophen 500 MG tablet
1,000 mg PO TIDPRN PRN (Reason: mild pain)
esomeprazole magnesium [Nexium] 40 MG capsule,delayed release(DR/EC)
40 mg PO DAILY
Fish Oil 1 CAP capsule
1 cap PO BID
gabapentin 100 MG capsule
400 mg PO HS
multivitamin with folic acid [Tab-A-Chase] 1 TABLET tablet
1 tab PO DAILY
valsartan 80 MG tablet
80 mg PO DAILY
levothyroxine [Synthroid] 88 mcg Tablet
88 mcg PO DAILY
lysine 500 mg Tablet
500 mg PO DAILY
enid root extract 15 mg Tablet,Chewable
50 mg PO DAILY
Iyuzeh (PF) 0.005 % Dropperette
1 drp BOTH EYES HS
Discontinued
aspirin 81 MG tablet,delayed release (DR/EC)
81 mg PO DAILY
Discharge Orders:
Discharge Patient (As Directed); Ordered 08/18/25
Ordered By: Ladonna Wynn
Discharge Date and Time
Discharge Date/Time: 08/18/25 11:14
Print Language: BULGARIAN
[2025-08-18 10:54] VITALS: BP 154/60
--- NOTE | 2025-08-18 15:12 | W.PN.NEPH.PH ---
Today's Communication / Plan
-
dc
Assessment/Plan
-
Assessment
FAVIAN
C difficile diarrhea/colitis
leukocytosis
hyperkalemia
metabolic acidosis
lactic acidosis
hyponatremia
CAD
hypocalcemia
UE DVT acute on this admission
Hypertension
Plan
Sodium at 128
ADH mediated
Maintain 20 mg daily of Lasix and fluid restriction
Blood pressure stable on valsartan
ok for dc
no renal fu needed
dw son at bedside
-
-
Date of Service: August 18, 2025
CC / HPI / ROS
-
Chief Complaint:
FAVIAN
Hyperkalemia
Metabolic acidemia
History of Present Illness:
Sodium at 128 on fluid restriction and 40 mg lites
bp stable, k normal
abx for c diff colitis
Review of Systems:
no chest pain or shortness of breath
diarrhea improves
Weight
Labs
-
Labs:
WBC 6.4 10^3/uL (4.8-10.8) 08/18/25 06:08
RBC 3.89 10^6/uL (4.20-5.40) L 08/18/25 06:08
Hgb 11.1 g/dL (12.0-16.0) L 08/18/25 06:08
Hct 32.4 % (37.0-47.0) L 08/18/25 06:08
Plt Count 744 10^3/uL (130-400) H 08/18/25 06:08
Sodium 128 mmol/L (135-145) L 08/18/25 06:08
Potassium 4.2 mmol/L (3.5-5.1) 08/18/25 06:08
Chloride 102 mmol/L (98-107) 08/18/25 06:08
Carbon Dioxide 22 mmol/L (22-30) 08/18/25 06:08
BUN 7 mg/dl (7-17) 08/18/25 06:08
Creatinine 0.5 mg/dL (0.6-1.0) L 08/18/25 06:08
eGFR > 60.00 08/18/25 06:08
Glucose 82 mg/dl (70-99) 08/18/25 06:08
Calcium 7.8 mg/dl (8.4-10.2) L 08/18/25 06:08
Albumin 2.2 g/dl (3.5-5.0) L 08/18/25 06:08
Physical Exam
-
Vital Signs:
Vital Signs
Temp Pulse Resp BP Pulse Ox
98.1 F 89 17 154/60 97
08/18/25 10:54 08/18/25 10:54 08/18/25 10:54 08/18/25 10:54 08/18/25 10:54
Respiratory:: Bilateral: CTA
Lung Excursion:: Normal
Abdomen:: Soft
Bowel Sounds:: Normal
Extremity Edema:: +2: Bilateral:
Asher Catheter: No
== END 2025-08-18 11:14 | DRG 871 ==
LOC: 3 WEST ACU 21:51
PROVIDERS: Hospitalist; Internal Medicine; Internal Medicine Nephrology; Nurse Practitioner; Nurse Practitioner Family; Radiology Diagnostic Radiology; Specialist; ADMITTING PHYSICIAN Internal Medicine; ATTENDING PHYSICIAN Internal Medicine; CONSULT PHYSICIAN Internal Medicine Infectious Disease; CONSULT PHYSICIAN Nuclear Medicine Nuclear Cardiology; CONSULT PHYSICIAN Specialist; EMERGENCY PHYSICIAN Emergency Medicine; FAMILY PHYSICIAN Family Medicine; OTHER PHYSICIAN Psychiatry & Neurology Psychiatry
PROC: 0D9670Z Drainage of Stomach with Drainage Device, Via Natural or Artificial Opening (ICD-10-PCS; 2025-08-04)
DX: A41.4 Sepsis due to anaerobes (principal); G92.8 Other toxic encephalopathy; N17.9 Acute kidney failure, unspecified; A04.72 Enterocolitis due to Clostridium difficile, not specified as recurrent; E87.20 Acidosis, unspecified; I47.19 Other supraventricular tachycardia; F05 Delirium due to known physiological condition; I82.621 Acute embolism and thrombosis of deep veins of right upper extremity; I82.612 Acute embolism and thrombosis of superficial veins of left upper extremity; E22.2 Syndrome of inappropriate secretion of antidiuretic hormone; R65.20 Severe sepsis without septic shock; E87.5 Hyperkalemia; E86.0 Dehydration; I48.0 Paroxysmal atrial fibrillation; I44.0 Atrioventricular block, first degree; K58.9 Irritable bowel syndrome, unspecified; E87.70 Fluid overload, unspecified; E83.51 Hypocalcemia; I10 Essential (primary) hypertension; E78.5 Hyperlipidemia, unspecified; I25.10 Atherosclerotic heart disease of native coronary artery without angina pectoris; E03.9 Hypothyroidism, unspecified; K21.9 Gastro-esophageal reflux disease without esophagitis; G62.9 Polyneuropathy, unspecified; E86.1 Hypovolemia; R33.9 Retention of urine, unspecified; H54.62 Unqualified visual loss, left eye, normal vision right eye; I44.7 Left bundle-branch block, unspecified; I25.5 Ischemic cardiomyopathy; I49.3 Ventricular premature depolarization; I34.81 Nonrheumatic mitral (valve) annulus calcification; I34.0 Nonrheumatic mitral (valve) insufficiency; Z66 Do not resuscitate; Z96.652 Presence of left artificial knee joint; I25.2 Old myocardial infarction; Z98.41 Cataract extraction status, right eye; Z98.42 Cataract extraction status, left eye; Z90.710 Acquired absence of both cervix and uterus; Z90.722 Acquired absence of ovaries, bilateral; Z79.890 Hormone replacement therapy; Z79.899 Other long term (current) drug therapy; Z88.1 Allergy status to other antibiotic agents; Z88.0 Allergy status to penicillin; Z88.8 Allergy status to other drugs, medicaments and biological substances; Z11.52 Encounter for screening for COVID-19; Z79.82 Long term (current) use of aspirin; Z95.5 Presence of coronary angioplasty implant and graft; Z78.1 Physical restraint status; Z82.61 Family history of arthritis; Z83.79 Family history of other diseases of the digestive system
CPT/HCPCS: 36600; 70450; 74018; 74176; 80048; 80053; 81003; 81015; 82140; 82248; 82533; 82570; 82607; 82746; 82805; 82962; 83605; 83735; 83930; 83935; 84300; 84443; 85025; 85027; 85730; 87040; 87045; 87046; 87077; 87086; 87324; 87427; 87449; 87502; 87798; 87811; 92526; 92610; 93005; 93306; 93970; 94762; 97110; 97116; 97163; 97167; 97530; 97535; 99285